=== PATIENT | female | born 1945 | race Caucasian/White ===

== ENCOUNTER 2016-11-18 19:15 | Emergency (ER) | payer OTHER, MEDICAID ==
[2016-11-18 19:36] VITALS: BP 136/69; BMI 28.6
--- NOTE | 2016-11-18 20:11 | DR.GENAD ---
HPI - PCP Primary Care Physician: JEREMI - Complaint/Symptoms Chief Complaint Doctors Comments: Patient was clearing her feet, nicked left lateral foot, noticed redness today. Chief Complaint:: INFECTION TO LEFT FOOT, SWELLING AND REDNESS NOTED ON FOOT AND LOWER LEFT LEG Self Treatment fo Chief Complaint: PATIENT HAS BEEN USING CORTISONE CREAM - Source History Provided: Patient - Mode of Arrival Mode of Arrival: Wheelchair - Timing Onset of Chief Complaint: 11/15/16 PMH - PMH Past Medical History: Yes Past Medical History: Diabetes, Hypertension Past Medical History Comment: IRREGULAR HEART RATE PT STATES" IT FLUTTERS." SKIN CANCER Past Surgical History: Yes Surgical History: Tonsillectomy Past Surgical History Comment: SKIN CANCER REMOVED - Family History History of Family Medical Conditions: Yes Family Medical History: Diabetes Mellitus, Cancer, [place] - Social History Does patient currently use any type of tobacco product: No Have you used tobacco products in the last 12 months: No Type of Tobacco Use: None Does any household member use tobacco: No Alcohol Use: None Do you use any recreational Drugs:: No Lives With: Alone Lives Where: Home - infectious screening In the last 2 months have you had wt loss of >10#?: NO Have you had fever, night sweats or hemotysis?: No Have you traveled outside the country in the last 6 months?: No Isolation: Standard ROS - Review of Systems Constitutional: No Symptoms Reported Eyes: No Symptoms Reported ENTM: No Symptoms Reported Respiratoy: No Symptoms Reported Cardiovascular: No Symptoms Reported Gastrointestinal/Abdominal: No Symptoms Reported Genitourinary: No Symptoms Reported Neurological: No Symptoms Reported Musculoskeletal: Foot (left ) Integumentary: No Symptoms Reported Hematologic/Lymphatic: No Symptoms Reported Endocrine: No Symptoms Reported Psychiatric: No Symptoms Reported All Other Systems: Reviewed and Negative PE - Vital Signs Vitals: Temperature 98.0 F Pulse Rate 62 Respiratory Rate 16 Blood Pressure 136/69 O2 Sat by Pulse Oximetry 98 - General Limitations: No Limitations General Appearance: Alert, In No Apparent Distress - Head Head Exam: Normal Inspection, Atraumatic - Eyes Eye exam: Normal Appearance, PERRL, EOMI - ENT ENT Exam: Normal Exam External Ear Exam: Normal External Inspection TM/Canal Exam: Bilateral Normal Nose Exam: Normal Nose Exam Mouth Exam: Normal Inspection Throat Exam: Normal Inspection - Neck Neck Exam: Normal Inspection - Chest Chest Inspection: Normal Inspection - Respiratory Respiratory Exam: Normal Lung Sounds Bilat Respiratory Exam: Bilateral Clear to Auscultation - Cardiovascular Cardiovascular Exam: Regular Rate - Abdominal Exam Abdominal Exam: Normal Inspection Abdominal Tenderness: negative: RUQ, RLQ, LUQ, LLQ, Epigastrium, Suprapubic, Diffuse, Mild, Moderate, Severe, Other - Extremities Extremities Exam: Other (dull redness left dorsum of left foot distal 1/3) - Back Back Exam: Normal Inspection - Neurologic Neurological Exam: Alert, Oriented X3, CN II-XII Intact - Psychiatric Psychiatric Exam: Normal Affect - Skin Skin Exam: Warm, Dry, Intact Course - Treatment Treatment: Clindamycin 600mg IV ROR - Labs Reviewed Result Diagrams: 11/18/16 20:30 Laboratory: WBC 7.8 X10^3/uL (3.6-10.0) 11/18/16 20:30 RBC 4.24 X10^6/uL (3.5-5.4) 11/18/16 20:30 Hgb 12.2 g/dL (12.0-16.0) 11/18/16 20:30 Hct 37.0 % (36.0-47.0) 11/18/16 20:30 MCV 87.3 fL (80.0-100.0) 11/18/16 20:30 MCH 28.9 pg (27.0-34.0) 11/18/16 20:30 MCHC 33.1 g/dL (33.0-35.0) 11/18/16 20:30 RDW 14.1 % (11.6-16.5) 11/18/16 20:30 Plt Count 172 X10^3/uL (150.0-450.0) 11/18/16 20:30 MPV 7.7 fL (7.4-11.0) 11/18/16 20:30 Neut % 75.2 % (42.0-75.0) H 11/18/16 20:30 Lymph % 13.7 % (21.0-51.0) L 11/18/16 20:30 [place] % 8.9 % (0.0-13.0) 11/18/16 20:30 Eos % 1.6 % (0.9-2.9) 11/18/16 20:30 Baso % 0.6 % (0.2-1.0) 11/18/16 20:30 Neut # 5.9 x10^3/uL (2.2-4.8) H 11/18/16 20:30 Lymph # 1.1 X10^3/uL (1.3-2.9) L 11/18/16 20:30 [place] # 0.7 x10^3/uL (0.3-0.8) 11/18/16 20:30 Eos # 0.1 x10^3/uL (0.0-0.2) 11/18/16 20:30 Baso # 0.0 X10^3/uL (0.0-0.1) 11/18/16 20:30 Absolute Nucleated RBC 0.0 /100WBC 11/18/16 20:30 - Diagnosis Discharge Problem: Cellulitis of foot, left - Discharge Plan Condition: Stable - Follow ups/Referrals Follow ups/Referrals: Arabella BLOOD [Primary Care Provider] - 3 days - Instructions
[2016-11-18] MEDS ORDERED: CLEOCIN 600 MG IV PREMIX 600 MG/50 ML BAG IV ONE (20:13)
[2016-11-18] MEDS ORDERED: CLEOCIN VIAL 600 MG ONE (20:26)
[2016-11-18 20:41] LABS: BASOPHILS % (AUTO) 0.6 % (0.2-1.0); EOSINOPHILS # (AUTO) 0.1 x10^3/uL (0.0-0.2); EOSINOPHILS % (AUTO) 1.6 % (0.9-2.9); HEMOGLOBIN 12.2 g/dL (12.0-16.0); LYMPHOCYTES # (AUTO) 1.1 X10^3/uL (1.3-2.9); LYMPHOCYTES % (AUTO) 13.7 % (21.0-51.0); MEAN CORPUSCULAR HEMOGLOBIN 28.9 pg (27.0-34.0); MEAN CORPUSCULAR HGB CONC 33.1 g/dL (33.0-35.0); MEAN CORPUSCULAR VOLUME 87.3 fL (80.0-100.0); MEAN PLATELET VOLUME 7.7 fL (7.4-11.0); MONOCYTES # (AUTO) 0.7 x10^3/uL (0.3-0.8); MONOCYTES % (AUTO) 8.9 % (0.0-13.0); NEUTROPHILS # (AUTO) 5.9 x10^3/uL (2.2-4.8); NEUTROPHILS % (AUTO) 75.2 % (42.0-75.0); PLATELET COUNT 172 X10^3/uL (150.0-450.0); RED BLOOD COUNT 4.24 X10^6/uL (3.5-5.4); RED CELL DISTRIBUTION WIDTH 14.1 % (11.6-16.5); WHITE BLOOD COUNT 7.8 X10^3/uL (3.6-10.0)
== END 2016-11-18 21:20 | disposition home or self-care (01) ==
LOC: ER 19:43
DX: L03.116 Cellulitis of left lower limb (principal)
CPT/HCPCS: 36415; 85025; 86140; 87040; 96365; 96374; 99282; 99283; A4222; S0077

== ENCOUNTER 2016-11-22 15:16 | Emergency (ER) | payer OTHER, MEDICAID ==
[2016-11-22 15:24] VITALS: BP 133/73; BMI 29.5
--- NOTE | 2016-11-22 16:19 | DR.GENAD ---
HPI - PCP Primary Care Physician: JEREMI - Complaint/Symptoms Chief Complaint:: PT STATES " I CAME TO THE ER ON MONDAY AND I WAS DX WITH CELLULITIS, AND PT WAS GIVEN CLEOCIN AND I WAS TOLD BY DR. BENAVIDEZ TO COME BACK TO THE ER TO RECHECK PT. - Source History Provided: Patient - Mode of Arrival Mode of Arrival: Ambulatory - Timing Onset of Chief Complaint: 11/18/16 PMH - PMH Past Medical History: Yes Past Medical History: Diabetes, Hypertension Past Surgical History: Yes Surgical History: Tonsillectomy - Family History History of Family Medical Conditions: Yes Family Medical History: Diabetes Mellitus, Cancer, [place] - Social History Does patient currently use any type of tobacco product: No Have you used tobacco products in the last 12 months: No Type of Tobacco Use: None Does any household member use tobacco: No Alcohol Use: None Do you use any recreational Drugs:: No Lives With: Family Lives Where: Home - infectious screening In the last 2 months have you had wt loss of >10#?: NO Have you had fever, night sweats or hemotysis?: No Have you traveled outside the country in the last 6 months?: No Isolation: Standard ROS - Review of Systems Constitutional: No Symptoms Reported Eyes: No Symptoms Reported ENTM: No Symptoms Reported Respiratoy: No Symptoms Reported Cardiovascular: No Symptoms Reported Gastrointestinal/Abdominal: No Symptoms Reported Genitourinary: No Symptoms Reported Neurological: No Symptoms Reported Musculoskeletal: No Symptoms Reported Integumentary: No Symptoms Reported Hematologic/Lymphatic: No Symptoms Reported Endocrine: No Symptoms Reported Psychiatric: No Symptoms Reported All Other Systems: Reviewed and Negative PE - Vital Signs Vitals: Temperature 99.6 F Pulse Rate 61 Respiratory Rate 20 Blood Pressure 133/73 O2 Sat by Pulse Oximetry 99 - General Limitations: No Limitations General Appearance: Alert, In No Apparent Distress - Head Head Exam: Normal Inspection, Atraumatic - Eyes Eye exam: Normal Appearance, PERRL, EOMI - ENT ENT Exam: Normal Exam External Ear Exam: Normal External Inspection TM/Canal Exam: Bilateral Normal Nose Exam: Normal Nose Exam Mouth Exam: Normal Inspection Throat Exam: Normal Inspection - Neck Neck Exam: Normal Inspection, Full ROM - Chest Chest Inspection: Normal Inspection, Symmetric Chest Wall Rise - Respiratory Respiratory Exam: Normal Lung Sounds Bilat Respiratory Exam: Bilateral Clear to Auscultation - Cardiovascular Cardiovascular Exam: Regular Rate - Abdominal Exam Abdominal Exam: Normal Inspection, Normal Bowel Sounds Abdominal Tenderness: RLQ. negative: RUQ, LUQ, LLQ, Epigastrium, Suprapubic, Diffuse, Mild, Moderate, Severe, Other - Extremities Extremities Exam: Other (left foot celluitis looks good line of demarcation is receeding, dull red, non tender) Course - Treatment Treatment: Continue on clindamycin 300mg qid until gone - Reevaluation 1st: Improved - Diagnosis Discharge Problem: Cellulitis Qualifiers: Site of cellulitis: extremity Site of cellulitis of extremity: lower extremity Laterality: left Qualified Code(s): L03.116 - Cellulitis of left lower limb - Discharge Plan Condition: Stable - Follow ups/Referrals Follow ups/Referrals: Arabella BLOOD [Primary Care Provider] - 3 days - Instructions
== END 2016-11-22 16:22 | disposition home or self-care (01) ==
LOC: ER 15:37
DX: L03.116 Cellulitis of left lower limb (principal)
CPT/HCPCS: 99281; 99282

== ENCOUNTER 2017-05-28 19:16 | Observation (INO) | payer OTHER, MEDICAID ==
[2017-05-28] MEDS ORDERED: NS 1000 ML 1,000 ML ONE ×2 (19:24→20:37)
[2017-05-28] MEDS ORDERED: NS 1000 ML 1,000 ML IV ONE ×2 (19:45→20:38)
--- NOTE | 2017-05-28 19:46 | DR.GENAD ---
HPI - HPI Comment HPI Comment: HISTORY BELOW. - Complaint/Symptoms Chief Complaint Doctors Comments: HERE VIA EMS. WAS TOLD GLUCOSE LOW BUT FOUNG BRADYCARDIA. HER SPEECH IS SLOW TRASIENTLY. SHE SAID SHE TOOK HER NERVE PILL. IT COULD AN ANTIHYPERTENSIVE PILL. SHE IS HYPOTENSIVE IN ED. - Nurses notes reviewed Nurses Notes Review: Yes - Source History Provided: Patient - Mode of Arrival Mode of Arrival: EMS - Timing Came on: Suddenly - Duration Duration: Constant Duration: Hours - Severity Severity: Moderate PMH - PMH Past Medical History: Diabetes, Hypertension Past Surgical History: Yes Surgical History: Tonsillectomy - Family History Family Medical History: Diabetes Mellitus, Cancer, [place] - Social History Do you use any recreational Drugs:: No ROS - Review of Systems Constitutional: No Symptoms Reported, Weakness, Fatigue. negative: Chills, Diaphoresis, Fever, Loss of Appetite Eyes: No Symptoms Reported. negative: Eye Pain, Discharge ENTM: No Symptoms Reported. negative: Ear Pain, Nose Discharge, Nose Congestion , Throat Pain Respiratoy: No Symptoms Reported, Non-Productive Cough, Short of Breath (ON EXERTION). negative: Productive Cough, Wheezing, Hemoptysis Cardiovascular: No Symptoms Reported. negative: Edema, Palpitations ( BRADYCARDIA) Gastrointestinal/Abdominal: No Symptoms Reported. negative: Abdominal Pain, Diarrhea, Nausea, Vomiting Genitourinary: No Symptoms Reported. negative: Dysuria, Hematuria Neurological: No Symptoms Reported, Weakness, Dizziness Musculoskeletal: No Symptoms Reported Integumentary: No Symptoms Reported Hematologic/Lymphatic: No Symptoms Reported Endocrine: No Symptoms Reported All Other Systems: Reviewed and Negative PE - Vital Signs Vitals: Temperature 97.8 F Pulse Rate [Apical] 49 Pulse Rate 39 Respiratory Rate 18 Blood Pressure [Left Arm] 133/62 Blood Pressure 88/47 O2 Sat by Pulse Oximetry 97 - General Limitations: No Limitations General Appearance: Alert, Other - Head Head Exam: Normal Inspection - Eyes Eye exam: Normal Appearance, PERRL, EOMI. negative: Scleral Icterus, Conjunctival Injection - ENT ENT Exam: Normal Oropharynx, Normal External Ear Exam, TM's Normal Bilaterally External Ear Exam: Normal External Inspection TM/Canal Exam: Bilateral Normal Nose Exam: Normal Nose Exam Mouth Exam: Normal Inspection Throat Exam: Normal Inspection - Neck Neck Exam: Trachea Midline - Chest Chest Inspection: Symmetric Chest Wall Rise - Respiratory Respiratory Exam: Normal Lung Sounds Bilat Respiratory Exam: Bilateral Rhonchi, Lower Rhonchi - Cardiovascular Cardiovascular Exam: Regular Rate, Normal Rhythm, Normal Heart Sounds - Abdominal Exam Abdominal Exam: Normal Bowel Sounds, Soft. negative: Tenderness - Extremities Extremities Exam: Normal Inspection - Back Back Exam: Normal Inspection - Neurologic Neurological Exam: Alert, Oriented X3 - Psychiatric Psychiatric Exam: Normal Affect, Normal Mood, Other (SLEEPY SLIGHTLY) - Skin Skin Exam: Normal Color MDM - Differential Diagnosis Differential Diagnosis: HYPOTENSION, GENERALIZE WEAKNESS, Course - Treatment Treatment: SEE ORDERS. - Consultation Consultation Comments: DISCUSS PATIENT WITH DR. ABAD. HE WILL ADMIT PATIENT. - Education/Counseling Education/Counseling: Patient, Education Educated On: Diagnosis ROR - Labs Reviewed Result Diagrams: 05/29/17 04:35 05/29/17 04:35 Laboratory: 05/28/17 23:15 Blood Blood Culture - Preliminary 05/28/17 23:00 Blood Blood Culture - Preliminary 05/28/17 22:17 Urine,Clean Catch Urine Culture - Final WBC 4.4 X10^3/uL (3.6-10.0) 05/29/17 04:35 RBC 4.08 X10^6/uL (3.5-5.4) 05/29/17 04:35 Hgb 12.5 g/dL (12.0-16.0) 05/29/17 04:35 Hct 35.8 % (36.0-47.0) L 05/29/17 04:35 MCV 87.9 fL (80.0-100.0) 05/29/17 04:35 MCH 30.7 pg (27.0-34.0) 05/29/17 04:35 MCHC 35.0 g/dL (33.0-35.0) 05/29/17 04:35 RDW 13.8 % (11.6-16.5) 05/29/17 04:35 Plt Count 131 X10^3/uL (150.0-450.0) L 05/29/17 04:35 MPV 8.4 fL (7.4-11.0) 05/29/17 04:35 Neut % 61.3 % (42.0-75.0) 05/29/17 04:35 Lymph % 26.1 % (21.0-51.0) 05/29/17 04:35 [place] % 9.6 % (0.0-13.0) 05/29/17 04:35 Eos % 2.4 % (0.9-2.9) 05/29/17 04:35 Baso % 0.6 % (0.2-1.0) 05/29/17 04:35 Neut # 2.7 x10^3/uL (2.2-4.8) 05/29/17 04:35 Lymph # 1.2 X10^3/uL (1.3-2.9) L 05/29/17 04:35 [place] # 0.4 x10^3/uL (0.3-0.8) 05/29/17 04:35 Eos # 0.1 x10^3/uL (0.0-0.2) 05/29/17 04:35 Baso # 0.0 X10^3/uL (0.0-0.1) 05/29/17 04:35 Absolute Nucleated RBC 0.1 /100WBC 05/29/17 04:35 Sodium 142 mmol/L (136-145) 05/29/17 04:35 Corrected Sodium TNP 05/29/17 04:35 Potassium 3.7 mmol/L (3.5-5.1) 05/29/17 04:35 Chloride 107 mmol/L (98-107) 05/29/17 04:35 Carbon Dioxide 31.3 mmol/L (21-32) 05/29/17 04:35 BUN 6 mg/dL (7-18) L 05/29/17 04:35 Creatinine 0.54 mg/dL (0.55-1.02) L 05/29/17 04:35 Est GFR (MDRD) Af Amer > 60 (>60) 05/29/17 04:35 Est GFR (MDRD) Non-Af > 60 (>60) 05/29/17 04:35 Glucose 82 mg/dL (65-99) 05/29/17 04:35 POC Glucose (mg/dL) 90 mg/dL (65-99) 05/30/17 12:03 Calcium 8.4 mg/dL (8.5-10.1) L 05/29/17 04:35 Corrected Calcium 9.0 mg/dL (8.5-10.1) 05/29/17 04:35 Magnesium 1.1 mg/dL (1.7-2.9) L 05/29/17 04:35 Total Bilirubin 0.70 mg/dL (0.2-1.0) 05/29/17 04:35 AST 21 Units/L (15-37) 05/29/17 04:35 ALT 13 Units/L (12-78) 05/29/17 04:35 Alkaline Phosphatase 52 Units/L (46-116) 05/29/17 04:35 Creatine Kinase 53 Units/L (26-192) 05/29/17 10:08 CK-MB (CK-2) 1.5 ng/mL (0-4.0) 05/29/17 10:08 CK/CKMB % Calc 2.8 % (<4) 05/29/17 10:08 Troponin I 0.02 ng/mL (0-1.5) 05/29/17 10:08 Total Protein 6.0 g/dL (6.4-8.2) L 05/29/17 04:35 Albumin 3.2 g/dL (3.4-5.0) L 05/29/17 04:35 Globulin 2.8 g/dL (2.5-4.5) 05/29/17 04:35 Albumin/Globulin Ratio 1.1 Ratio (1.1-2.1) 05/29/17 04:35 Specimen Type Clean catch urine 05/28/17 22:17 Urine Color Yellow (YELLOW) 05/28/17 22:17 Urine Appearance Cloudy (CLEAR) 05/28/17 22:17 Urine pH 6.0 (5.0 - 8.0) 05/28/17 22:17 Ur Specific [place] 1.010 (1.000-1.030) 05/28/17 22:17 Urine Protein Negative (NEGATIVE) 05/28/17 22:17 Urine Glucose (UA) Negative (NEGATIVE) 05/28/17 22: Urine Ketones Negative (NEGATIVE) 05/28/17 22: Urine Occult Blood Negative (NEGATIVE) 05/28/17 22: Urine Nitrite Negative (NEGATIVE) 05/28/17 22:17 Urine Bilirubin Negative (NEGATIVE) 05/28/17 22: Urine Urobilinogen Normal (NORMAL) 05/28/17 22: Ur Leukocyte Esterase 3+ (NEGATIVE) 10/01/17 22:17 Urine RBC None seen /HPF (NEGATIVE) 05/28/17 22:17 Urine WBC 8-10 /HPF (NEGATIVE) 05/28/17 22:17 Ur Squamous Epith Cells Rare /HPF (NEGATIVE) 05/28/17 22:17 Amorphous Sediment Trace /HPF (NEGATIVE) 05/28/17 22:17 Urine Bacteria 2+ /HPF (NEGATIVE) 05/28/17 22:17 Ur Culture Indicated? Yes/culture set up 05/28/17 22:17 Digoxin 0.66 ng/mL (0.9-2) L 05/28/17 20:10 Urine Opiates Screen Positive (NEG=<300) A 05/28/17: Urine Methadone Screen Negative (NEG=<300) 05/28/17 22: Ur Barbiturates Screen Negative (NEG=<200) 05/28/17 22:17 Ur Phencyclidine Scrn Negative (NEG=<25) 05/28/17 22:17 Ur Amphetamines Screen Negative (NEG=<1000) 05/28/17 22:17 U Benzodiazepines Scrn Positive (NEG=<200) A 05/28/17 22: Urine Cocaine Screen Negative (NEG=<300) 05/28/17 22:17 U Marijuana (THC) Screen Negative (NEG=<50) 05/28/17 22: - XRAY XRAY Interpreted by: Radiologist XRAY Findings: REPORT NOTED. - Diagnosis Discharge Problem: Bradycardia, Dysarthria Hypotension Qualifiers: Hypotension type: unspecified hypotension type Qualified Code(s): I95.9 - Hypotension, unspecified - Discharge Plan Disposition: ADMITTED INPATIENT Condition: Stable - Follow ups/Referrals - Instructions
[2017-05-28 20:19] LABS: BASOPHILS % (AUTO) 0.5 % (0.2-1.0); EOSINOPHILS # (AUTO) 0.1 x10^3/uL (0.0-0.2); EOSINOPHILS % (AUTO) 2.7 % (0.9-2.9); HEMATOCRIT 32.7 % (36.0-47.0); HEMOGLOBIN 11.3 g/dL (12.0-16.0); LYMPHOCYTES # (AUTO) 1.5 X10^3/uL (1.3-2.9); MEAN CORPUSCULAR HEMOGLOBIN 30.2 pg (27.0-34.0); MEAN CORPUSCULAR HGB CONC 34.6 g/dL (33.0-35.0); MEAN CORPUSCULAR VOLUME 87.2 fL (80.0-100.0); MEAN PLATELET VOLUME 8.2 fL (7.4-11.0); MONOCYTES # (AUTO) 0.6 x10^3/uL (0.3-0.8); MONOCYTES % (AUTO) 12.2 % (0.0-13.0); NEUTROPHILS % (AUTO) 55.6 % (42.0-75.0); PLATELET COUNT 132 X10^3/uL (150.0-450.0); RED BLOOD COUNT 3.76 X10^6/uL (3.5-5.4); RED CELL DISTRIBUTION WIDTH 13.9 % (11.6-16.5); WHITE BLOOD COUNT 5.3 X10^3/uL (3.6-10.0)
[2017-05-28 20:44] LABS: ALANINE AMINOTRANSFERASE 12 Units/L (12-78); ALKALINE PHOSPHATASE 53 Units/L (46-116); ASPARTATE AMINO TRANSFERASE 18 Units/L (15-37); BLOOD UREA NITROGEN 10 mg/dL (7-18); CALCIUM 8.4 mg/dL (8.5-10.1); CARBON DIOXIDE 29.7 mmol/L (21-32); CHLORIDE 100 mmol/L (98-107); COR CA(FOR HYPOALB) 9.2 mg/dL (8.5-10.1); COR NA(FOR HYPERGLY) 134 mmol/L (136-145); CREATINE KINASE 34 Units/L (26-192); CREATININE 0.63 mg/dL (0.55-1.02); SODIUM 134 mmol/L (136-145); TOTAL PROTEIN 5.5 g/dL (6.4-8.2); TROPONIN I < 0.02 ng/mL (0-1.5); eGFR BLACK RACES > 60 (>60); eGFR NON BLACK RACES > 60 (>60)
--- NOTE | 2017-05-28 20:49 | RAD ---
HISTORY: Chest pain Study: Single view of the chest Comparison: November 16, 2013 Findings: The trachea is midline. The cardiac silhouette is enlarged. The lungs are clear without focal infil trate or effusion. The aortic knob is partially calcified. IMPRESSION: 1. Cardiomegaly. Reported By:
[2017-05-28 22:09] LABS: CKMB % 2.9 % (<4); CREATINE KINASE MB < 1.0 ng/mL (0-4.0)
[2017-05-28 22:27] LABS: BILIRUBIN,URINE NEGATIVE (NEGATIVE); BLOOD/HEMOGLOBIN,URINE NEGATIVE (NEGATIVE); GLUCOSE, URINE NEGATIVE (NEGATIVE); KETONES,URINE NEGATIVE (NEGATIVE); LEUKOCYTE ESTERASE ,URINE 3+ (NEGATIVE); NITRITES,URINE NEGATIVE (NEGATIVE); PROTEIN,URINE NEGATIVE (NEGATIVE); UROBILINOGEN,URINE NORMAL (NORMAL)
[2017-05-28 22:33] LABS: COLOR,URINE YELLOW (YELLOW)
[2017-05-28 22:34] LABS: AMORPHOUS SEDIMENT,UR TRACE /HPF (NEGATIVE); APPEARANCE,URINE CLOUDY (CLEAR); BACTERIA,URINE 2+ /HPF (NEGATIVE); RBC,URINE NONE SEEN /HPF (NEGATIVE); SQUAMOUS EPITHELIAL CELL,UR RARE /HPF (NEGATIVE)
[2017-05-28] MEDS ORDERED: ROCEPHIN VIAL 1 GM 1 GM in NS 50 ML IV + SPIKE MINIBAG* 50 ML IV ONE (22:47)
[2017-05-28] MEDS ORDERED: ROCEPHIN 1 GM IV PREMIX * OUT OF STOCK 50 ML IV ONE (22:47)
[2017-05-28] MEDS: NS 1000 ML 1,000 ML IV SCH (22:53)
--- NOTE | 2017-05-28 23:43 | CT ---
EXAM: CT BRAIN WITHOUT CONTRAST INDICATION: Altered mental status COMPARISION: No Priors TECHNIQUE: Routine axial CT of the brain was performed without intravenous contrast. FINDINGS: There is mild bilateral cortical atrophy. Patchy areas of low-attenuation are identified in the periv entricular white matter bilaterally. The ventricular system is not abnormally dilated. No intra or ex tra-axial mass or hemorrhage. The penaloza-white junction is preserved. There is no evidence of subacute ischemic change. The basilar cisterns are clear. The skull is intact. The paranasal sinuses and mastoid air cells are clear. IMPRESSION: There is bilateral cortical atrophy. Periventricular and subcortical white matter changes are present bilaterally consistent with mild small vessel vasculopathy. No acute abnormality identified. Reported By:
[2017-05-29 01:23] VITALS: BMI 33.6
[2017-05-29] MEDS ORDERED: FLUVIRIN IM ONE (01:24)
[2017-05-29 05:10] LABS: BASOPHILS % (AUTO) 0.6 % (0.2-1.0); EOSINOPHILS # (AUTO) 0.1 x10^3/uL (0.0-0.2); EOSINOPHILS % (AUTO) 2.4 % (0.9-2.9); HEMATOCRIT 35.8 % (36.0-47.0); HEMOGLOBIN 12.5 g/dL (12.0-16.0); LYMPHOCYTES # (AUTO) 1.2 X10^3/uL (1.3-2.9); LYMPHOCYTES % (AUTO) 26.1 % (21.0-51.0); MEAN CORPUSCULAR HEMOGLOBIN 30.7 pg (27.0-34.0); MEAN CORPUSCULAR VOLUME 87.9 fL (80.0-100.0); MEAN PLATELET VOLUME 8.4 fL (7.4-11.0); MONOCYTES # (AUTO) 0.4 x10^3/uL (0.3-0.8); MONOCYTES % (AUTO) 9.6 % (0.0-13.0); NEUTROPHILS # (AUTO) 2.7 x10^3/uL (2.2-4.8); NEUTROPHILS % (AUTO) 61.3 % (42.0-75.0); PLATELET COUNT 131 X10^3/uL (150.0-450.0); RED BLOOD COUNT 4.08 X10^6/uL (3.5-5.4); RED CELL DISTRIBUTION WIDTH 13.8 % (11.6-16.5); WHITE BLOOD COUNT 4.4 X10^3/uL (3.6-10.0)
[2017-05-29 05:32] LABS: ALANINE AMINOTRANSFERASE 13 Units/L (12-78); ALBUMIN 3.2 g/dL (3.4-5.0); ALKALINE PHOSPHATASE 52 Units/L (46-116); ASPARTATE AMINO TRANSFERASE 21 Units/L (15-37); BLOOD UREA NITROGEN 6 mg/dL (7-18); CALCIUM 8.4 mg/dL (8.5-10.1); CARBON DIOXIDE 31.3 mmol/L (21-32); CHLORIDE 107 mmol/L (98-107); CKMB % 2.8 % (<4); CREATINE KINASE 43 Units/L (26-192); CREATINE KINASE MB 1.2 ng/mL (0-4.0); CREATININE 0.54 mg/dL (0.55-1.02); MAGNESIUM 1.1 mg/dL (1.7-2.9); SODIUM 142 mmol/L (136-145); TROPONIN I 0.02 ng/mL (0-1.5); eGFR BLACK RACES > 60 (>60); eGFR NON BLACK RACES > 60 (>60)
[2017-05-29] MEDS: ROCEPHIN VIAL 1 GM 1 GM in NS 50 ML IV + SPIKE MINIBAG* 50 ML IV SCH (08:53)
[2017-05-29] MEDS: NS 1000 ML 1,000 ML IV SCH (08:54)
[2017-05-29 11:02] LABS: CKMB % 2.8 % (<4); CREATINE KINASE MB 1.5 ng/mL (0-4.0); TROPONIN I 0.02 ng/mL (0-1.5)
[2017-05-29] MEDS: SNACK - Diabetic Appropriate PO SCH ×2 (11:42→21:29)
[2017-05-29] MEDS ORDERED: NORCO 10/325 TAB PO PRN (19:04)
[2017-05-29] MEDS ORDERED: GLUCOPHAGE ONE (21:11)
[2017-05-29] MEDS: GLUCOPHAGE PO SCH (21:29)
[2017-05-29] MEDS: CELEXA PO SCH (21:29)
[2017-05-30] MEDS ORDERED: GLUCOPHAGE ONE (05:42)
[2017-05-30] MEDS: GLUCOPHAGE PO SCH ×2 (06:09→11:43)
[2017-05-30] MEDS: CELEXA PO SCH (09:55)
[2017-05-30] MEDS: ROCEPHIN VIAL 1 GM 1 GM in NS 50 ML IV + SPIKE MINIBAG* 50 ML IV SCH (09:55)
[2017-05-30] MEDS ORDERED: NS 100 ML IV 100 ML IV ONE (09:58)
[2017-05-30 11:43] VITALS: BP 168/65
== END 2017-05-30 12:25 | disposition short-term general hospital (02) | DRG 316 ==
LOC: ER 19:16 → UNDOADMOB 23:51 → ICU 23:51 → MED/SURG 05-29 11:43
PROVIDERS: ADMIT Internal Medicine; ATTEND Internal Medicine
PROC: 3E0234Z Introduction of Serum, Toxoid and Vaccine into Muscle, Percutaneous Approach (ICD-10-PCS; principal; 2017-05-29)
DX: I95.89 Other hypotension (principal); R00.1 Bradycardia, unspecified; R40.4 Transient alteration of awareness; E11.65 Type 2 diabetes mellitus with hyperglycemia; I10 Essential (primary) hypertension; R94.31 Abnormal electrocardiogram [ECG] [EKG]; I48.91 Unspecified atrial fibrillation; Z23 Encounter for immunization
CPT/HCPCS: 36415; 70450; 71010; 80053; 80162; 80307; 81001; 82550; 82553; 83735; 84484; 85025; 87040; 87086; 90686; 93005; 93010; 94760; 96365; 96367; 96374; 99284; A4222; G0378; G0434; J0696

== ENCOUNTER → 2017-12-27 | Outpatient (CLI) | payer OTHER, MEDICAID ==
[2017-12-27 09:27] LABS: BASOPHILS % (AUTO) 1.2 % (0.2-1.0); EOSINOPHILS # (AUTO) 0.2 x10^3/uL (0.0-0.2); EOSINOPHILS % (AUTO) 5.3 % (0.9-2.9); HEMATOCRIT 35.7 % (36.0-47.0); HEMOGLOBIN 12.3 g/dL (12.0-16.0); LYMPHOCYTES # (AUTO) 1.5 X10^3/uL (1.3-2.9); LYMPHOCYTES % (AUTO) 40.7 % (21.0-51.0); MEAN CORPUSCULAR HEMOGLOBIN 29.8 pg (27.0-34.0); MEAN CORPUSCULAR HGB CONC 34.5 g/dL (33.0-35.0); MEAN CORPUSCULAR VOLUME 86.3 fL (80.0-100.0); MEAN PLATELET VOLUME 7.8 fL (7.4-11.0); MONOCYTES # (AUTO) 0.5 x10^3/uL (0.3-0.8); MONOCYTES % (AUTO) 14.4 % (0.0-13.0); NEUTROPHILS # (AUTO) 1.4 x10^3/uL (2.2-4.8); NEUTROPHILS % (AUTO) 38.4 % (42.0-75.0); PLATELET COUNT 168 X10^3/uL (150.0-450.0); RED BLOOD COUNT 4.14 X10^6/uL (3.5-5.4); RED CELL DISTRIBUTION WIDTH 13.7 % (11.6-16.5); WHITE BLOOD COUNT 3.8 X10^3/uL (3.6-10.0)
[2017-12-27 09:32] LABS: BLOOD UREA NITROGEN 10 mg/dL (7-18); CALCIUM 8.8 mg/dL (8.5-10.1); CARBON DIOXIDE 35.2 mmol/L (21-32); CHLORIDE 95 mmol/L (98-107); CREATININE 0.55 mg/dL (0.55-1.02); SODIUM 134 mmol/L (136-145); eGFR BLACK RACES > 60 (>60); eGFR NON BLACK RACES > 60 (>60)
== END | disposition home or self-care (01) | DRG 951 ==
LOC: LAB 08:50
PROVIDERS: ATTEND Internal Medicine
DX: Z01.818 Encounter for other preprocedural examination (principal); Z01.810 Encounter for preprocedural cardiovascular examination; H53.8 Other visual disturbances; H43.393 Other vitreous opacities, bilateral
CPT/HCPCS: 36415; 80048; 85025; 85610; 85730; 93005; 93010

== ENCOUNTER 2019-06-02 03:42 | Observation (INO) ==
[2019-06-02] MEDS ORDERED: TORADOL 30 MG VIAL IVP ONE (03:57)
--- NOTE | 2019-06-02 04:01 | DR.GENAD ---
HPI - Complaint/Symptoms Chief Complaint Doctors Comments: EMS states patient fell at home two times today and the last time she was on the floor and could not get up. They helped her up but she was complaining of back and knee pain. Patient stays by herself and they said she appears inneberated with no one to help her at home and she has fallen two times today. She is complaining of severe right knee pain and right hip pain. States she tried to get up but could not get up and called EMS. She denies tobacco use but states she drinks to much for the past three years. - Nurses notes reviewed Nurses Notes Review: Yes - Source History Provided: Patient, EMS - Mode of Arrival Mode of Arrival: EMS - Timing Came on: Suddenly - Duration Duration: Constant How lon Duration: Days - Location Location: right knee and hip - Modifying Factors Worsens:: standing Improves:: nothing PMH - PMH Past Medical History: Angina, Hypertension, Depression, Arthritis Past Surgical History: Yes Surgical History: Other, Tonsillectomy - Family History Family Medical History: Cancer - Social History Do you use any recreational Drugs:: No - infectious screening Isolation: Standard ROS - Review of Systems Constitutional: No Symptoms Reported Eyes: No Symptoms Reported ENTM: No Symptoms Reported Respiratoy: No Symptoms Reported. negative: See HPI, Productive Cough, Non- Productive Cough, Moist Cough, Dry Cough, Hacking Cough, Barking Cough, Brassy Cough, Orthopnea, Short of Breath, Stridor, Wheezing, Hemoptysis, Other Cardiovascular: No Symptoms Reported. negative: See HPI, Chest Pain, Edema, Palpitations, Syncope, Cyanosis, Skin Mottling, Other Gastrointestinal/Abdominal: No Symptoms Reported. negative: See HPI, Abdominal Pain, Constipation, Diarrhea, Nausea, Vomiting, Food Intolerance, Other Genitourinary: No Symptoms Reported Neurological: No Symptoms Reported, Problems Walking (right hip and knee pain) Musculoskeletal: No Symptoms Reported, Right, Hip, Knee Integumentary: No Symptoms Reported Hematologic/Lymphatic: No Symptoms Reported Endocrine: No Symptoms Reported Psychiatric: No Symptoms Reported PE - General Limitations: No Limitations General Appearance: Alert, In Distress (slight) - Head Head Exam: Normal Inspection, Atraumatic, Normocephalic - Eyes Eye exam: Normal Appearance, PERRL, EOMI. negative: Scleral Icterus, Conjunctival Injection, Nystagmus, Miosis, Mydrasis, Periorbital Swelling, Periorbital Tenderness, Other - ENT ENT Exam: Normal Exam, Normal Oropharynx, Normal External Ear Exam, Mucous Membranes Moist, TM's Normal Bilaterally External Ear Exam: Normal External Inspection TM/Canal Exam: Bilateral Normal Nose Exam: Normal Nose Exam Mouth Exam: Normal Inspection. negative: Drooling, Trismus, Lip Swelling, Tongue Elevation, Tongue Swelling, Laceration, Other Throat Exam: Normal Inspection. negative: Tonsillar Erythema, Tonsillomegaly, Tonsillar Exudate, R Peritonsillar Mass, L Peritonsillar Mass, Muffled Voice, Other - Neck Neck Exam: Normal Inspection, Full ROM, Trachea Midline. negative: Tenderness, Meningismus, Lymphadenopathy, Thyromegaly, Other - Chest Chest Inspection: Normal Inspection, Symmetric Chest Wall Rise - Respiratory Respiratory Exam: Normal Lung Sounds Bilat Respiratory Exam: Bilateral Clear to Auscultation - Cardiovascular Cardiovascular Exam: Regular Rate, Normal Rhythm, Normal Heart Sounds - Abdominal Exam Abdominal Exam: Normal Inspection, Normal Bowel Sounds, Soft. negative: Distention, Tenderness, Guarding, Rebound, Rigidity, Dimnished Bowel Sounds, Hyperactive Bowel Sounds, Hypoactive Bowel Sounds, Organomegaly, Trauma, Incisi on, Ascites, Mass, Bruit, Pulsatile Mass, Hernia, Other Abdominal Tenderness: negative: RUQ, RLQ, LUQ, LLQ, Epigastrium, Suprapubic, Diffuse, Mild, Moderate, Severe, Other - Extremities Extremities Exam: Normal Inspection, Full ROM, Tenderness (right knee with moderate swelling; tender; crepitus knee; right hip tender on palpation), Normal Capillary Refill. negative: Edema, Joint Swelling, Calf Tenderness, Other - Back Back Exam: Normal Inspection, Full ROM, Tenderness (lower back), Paraspinal Tenderness. negative: (R) CVA Tenderness, (L) CVA Tenderness, Muscle Spasm, Vertebral Tenderness, Rashes, (R) Sciatic Notch Tenderness, (L) Sciatic Notch Tendern, (R) Straight Leg Raise, (L) Straight Leg Raise, Other - Neurologic Neurological Exam: Alert, Oriented X3, CN II-XII Intact, Reflexes Normal. negative: Normal Gait (gait not tested) - Psychiatric Psychiatric Exam: Normal Affect, Normal Mood - Skin Skin Exam: Warm, Dry, Intact, Normal Color - Vital Signs Vitals: Temperature 97.8 F Pulse Rate 82 Respiratory Rate 18 Blood Pressure [Left Arm] 131/68 Blood Pressure 121/57 O2 Sat by Pulse Oximetry 99 Course - Reevaluation 1st: Improved - Consultation Called: 07:08 Call Returned: 07:09 (Dr. Alarcon to admit) - Education/Counseling Education/Counseling: Patient, Family Educated On: Treatment, Diagnosis, Prognosis, Needs for Follow Up ROR - Labs Reviewed Laboratory Results Reviewed?: Yes (All labs and x-ray results reviewed and discussed with patient.) Result Diagrams: 06/02/19 04:05 06/02/19 04:05 - Other Results Comments: Right knee x-ray: Moderate suprpatellar joint effusion, soft tissue edema about the knee and severe tricompartmental degenerative change without fracture of dislocation. CT pelvis: No CT evidence of acute fracture or dislocation. CT lumbar spine: Spine DJD. Gallstones with dilated common bile duct. Cardiomegaly and increased interstitial markings. Vascular plaque. - XRAY XRAY Interpreted by: Radiologist (CT cervical spine: No evidence of acute fracture or malalignment. Multilevel degenerative change and spondyloarthropathy) XRAY Findings: CT lumbar spine: Spine DJD without displaced fracture. Multilevel arthritis - EKG Rate: 70 Sweeny: Normal Rhythm: Paced Block: LBBB ST: Nonsp - Labs Reviewed Laboratory: WBC 6.8 X10^3/uL (3.6-10.0) 06/02/19 04:05 RBC 3.98 X10^6/uL (3.5-5.4) 06/02/19 04:05 Hgb 12.0 g/dL (12.0-16.0) 06/02/19 04:05 Hct 34.7 % (36.0-47.0) L 06/02/19 04:05 MCV 87.3 fL (80.0-100.0) 06/02/19 04:05 MCH 30.1 pg (27.0-34.0) 06/02/19 04:05 MCHC 34.5 g/dL (33.0-35.0) 06/02/19 04:05 RDW 14.1 % (11.6-16.5) 06/02/19 04:05 Plt Count 234 X10^3/uL (150.0-450.0) 06/02/19 04:05 MPV 7.3 fL (7.4-11.0) L 06/02/19 04:05 Neut % (Auto) 69.4 % (42.0-75.0) 06/02/19 04:05 Lymph % (Auto) 22.5 % (21.0-51.0) 06/02/19 04:05 Gregory % (Auto) 6.4 % (0.0-13.0) 06/02/19 04:05 Eos % (Auto) 1.3 % (0.9-2.9) 06/02/19 04:05 Baso % (Auto) 0.4 % (0.2-1.0) 06/02/19 04:05 Neut # (Auto) 4.7 x10^3/uL (2.2-4.8) 06/02/19 04:05 Lymph # (Auto) 1.5 X10^3/uL (1.3-2.9) 06/02/19 04:05 Gregory # (Auto) 0.4 x10^3/uL (0.3-0.8) 06/02/19 04:05 Eos # (Auto) 0.1 x10^3/uL (0.0-0.2) 06/02/19 04:05 Baso # (Auto) 0.0 X10^3/uL (0.0-0.1) 06/02/19 04:05 Absolute Nucleated RBC 0.0 /100WBC 06/02/19 04:05 PT 17.5 SECONDS (11.8-14.3) 06/02/19 04:05 INR Target Range - 06/02/19 04:05 INR 1.49 (0.8-1.3) H 06/02/19 04:05 APTT 39.3 SECONDS (22.9-36.5) H 06/02/19 04:05 PTT Comment - 06/02/19 04:05 Sodium 130 mmol/L (136-145) L 06/02/19 04:05 Corrected Sodium TNP 06/02/19 04:05 Potassium 3.7 mmol/L (3.5-5.1) 06/02/19 04:05 Chloride 92 mmol/L (98-107) L 06/02/19 04:05 Carbon Dioxide 22.1 mmol/L (21-32) 06/02/19 04:05 BUN 5 mg/dL (7-18) L 06/02/19 04:05 Creatinine 0.59 mg/dL (0.55-1.02) 06/02/19 04:05 Est GFR (MDRD) Af Amer > 60 (>60) 06/02/19 04:05 Est GFR (MDRD) Non-Af > 60 (>60) 06/02/19 04:05 Glucose 63 mg/dL (65-99) L 06/02/19 04:05 Calcium 8.0 mg/dL (8.5-10.1) L 06/02/19 04:05 Corrected Calcium TNP 06/02/19 04:05 Magnesium 1.0 mg/dL (1.7-2.9) L 06/02/19 04:05 Total Bilirubin 0.60 mg/dL (0.2-1.0) 06/02/19 04:05 AST 41 Units/L (15-37) H 06/02/19 04:05 ALT 21 Units/L (12-78) 06/02/19 04:05 Alkaline Phosphatase 78 Units/L (46-116) 06/02/19 04:05 Creatine Kinase 230 Units/L (26-192) H 06/02/19 04:05 CK-MB (CK-2) 4.5 ng/mL (0-4.0) H* 06/02/19 04:05 CK/CKMB % Calc 2.0 % (<4) 06/02/19 04:05 Troponin I < 0.02 ng/mL (0-1.5) 06/02/19 04:05 Total Protein 6.5 g/dL (6.4-8.2) 06/02/19 04:05 Albumin 3.4 g/dL (3.4-5.0) 06/02/19 04:05 Globulin 3.1 g/dL (2.5-4.5) 06/02/19 04:05 Albumin/Globulin Ratio 1.1 Ratio (1.1-2.1) 06/02/19 04:05 Specimen Type Random urine 06/02/19 05:55 Urine Color Yellow (YELLOW) 06/02/19 05:55 Urine Appearance Cloudy (CLEAR) 06/02/19 05:55 Urine pH 6.0 (5.0 - 8.0) 06/02/19 05:55 Ur Specific [place] 1.015 (1.000-1.030) 06/02/19 05:55 Urine Protein 3+ (NEGATIVE) 06/02/19 05:55 Urine Glucose (UA) Negative (NEGATIVE) 06/02/19 05:55 Urine Ketones 1+ (NEGATIVE) 06/02/19 05:55 Urine Occult Blood 5+ (NEGATIVE) 06/02/19 05:55 Urine Nitrite Negative (NEGATIVE) 06/02/19 05:55 Urine Bilirubin Negative (NEGATIVE) 06/02/19 05:55 Urine Urobilinogen Normal (NORMAL) 06/02/19 05:55 Ur Leukocyte Esterase 3+ (NEGATIVE) 06/02/19 05:55 Urine RBC Tntc /HPF (0-3) A 06/02/19 05:55 Urine WBC Tntc /HPF (0-5) A 06/02/19 05:55 Ur Squamous Epith Cells Few /HPF (NEGATIVE) 06/02/19 05:55 Urine Bacteria 3+ /HPF (NEGATIVE) 06/02/19 05:55 Ur Culture Indicated? No/not indicated 06/02/19 05:55 Urine Opiates Screen Negative (NEG=<300) 06/02/19 05:55 Urine Methadone Screen Negative (NEG=<300) 06/02/19 05:55 Ur Barbiturates Screen Negative (NEG=<200) 06/02/19 05:55 Ur Phencyclidine Scrn Negative (NEG=<25) 06/02/19 05:55 Ur Amphetamines Screen Negative (NEG=<1000) 06/02/19 05:55 U Benzodiazepines Scrn Positive (NEG=<200) A 06/02/19 05:55 Urine Cocaine Screen Negative (NEG=<300) 06/02/19 05:55 U Marijuana (THC) Screen Negative (NEG=<50) 06/02/19 05:55 Ethyl Alcohol mg/dL 338 mg/dL (0-19.9) H 06/02/19 04:05 Opioid - Opioid Risk Tool Total: 0 Total Score Risk Category: Low Risk - Diagnosis Discharge Problem: Abnormal EKG, Hyponatremia Alcohol intoxication Qualifiers: Complication of substance-induced condition: uncomplicated Qualified Code(s): F10.920 - Alcohol use, unspecified with intoxication, uncomplicated Contusion of back Qualifiers: Encounter type: initial encounter Degenerative joint disease (DJD) of hip Qualifiers: Osteoarthritis type: unspecified Laterality: right Qualified Code(s): M16.11 - Unilateral primary osteoarthritis, right hip - Discharge Plan Disposition: ADMITTED INPATIENT Condition: Stable - Follow ups/Referrals Follow ups/Referrals: NFD,None [Primary Care Provider] - 3 days - Instructions
[2019-06-02] MEDS ORDERED: TORADOL 30 MG VIAL ONE (04:12)
[2019-06-02] MEDS: NS 1000 ML 1,000 ML IV SCH ×2 (04:15→18:14)
[2019-06-02 04:20] LABS: BASOPHILS % (AUTO) 0.4 % (0.2-1.0); EOSINOPHILS # (AUTO) 0.1 x10^3/uL (0.0-0.2); EOSINOPHILS % (AUTO) 1.3 % (0.9-2.9); HEMATOCRIT 34.7 % (36.0-47.0); LYMPHOCYTES # (AUTO) 1.5 X10^3/uL (1.3-2.9); LYMPHOCYTES % (AUTO) 22.5 % (21.0-51.0); MEAN CORPUSCULAR HEMOGLOBIN 30.1 pg (27.0-34.0); MEAN CORPUSCULAR HGB CONC 34.5 g/dL (33.0-35.0); MEAN CORPUSCULAR VOLUME 87.3 fL (80.0-100.0); MEAN PLATELET VOLUME 7.3 fL (7.4-11.0); MONOCYTES # (AUTO) 0.4 x10^3/uL (0.3-0.8); MONOCYTES % (AUTO) 6.4 % (0.0-13.0); NEUTROPHILS # (AUTO) 4.7 x10^3/uL (2.2-4.8); NEUTROPHILS % (AUTO) 69.4 % (42.0-75.0); PLATELET COUNT 234 X10^3/uL (150.0-450.0); RED BLOOD COUNT 3.98 X10^6/uL (3.5-5.4); RED CELL DISTRIBUTION WIDTH 14.1 % (11.6-16.5); WHITE BLOOD COUNT 6.8 X10^3/uL (3.6-10.0)
[2019-06-02 04:32] LABS: BLOOD UREA NITROGEN 5 mg/dL (7-18); CARBON DIOXIDE 22.1 mmol/L (21-32); CHLORIDE 92 mmol/L (98-107); CREATININE 0.59 mg/dL (0.55-1.02); SODIUM 130 mmol/L (136-145); TROPONIN I < 0.02 ng/mL (0-1.5); eGFR NON BLACK RACES > 60 (>60)
[2019-06-02 04:55] LABS: ALANINE AMINOTRANSFERASE 21 Units/L (12-78); ALBUMIN 3.4 g/dL (3.4-5.0); ALKALINE PHOSPHATASE 78 Units/L (46-116); ASPARTATE AMINO TRANSFERASE 41 Units/L (15-37); CREATINE KINASE 230 Units/L (26-192); TOTAL PROTEIN 6.5 g/dL (6.4-8.2)
[2019-06-02 05:03] LABS: CREATINE KINASE MB 4.5 ng/mL (0-4.0)
[2019-06-02] MEDS ORDERED: MAGNESIUM SULFATE 50% INJ VIAL ONE (05:18)
[2019-06-02] MEDS ORDERED: MVI INJ (ADULT) IV ONE (05:19)
[2019-06-02] MEDS: NS 1000 ML 1,000 ML with MAGNESIUM SULFATE 50% INJ VIAL 1 G, MVI INJ (ADULT) 10 ML IV SCH ×3 (05:38)
--- NOTE | 2019-06-02 06:02 | CT ---
CT lumbar spine without contrast Indication: Pain after fall Technique: Helical images through the lumbar spine without contrast. Coronal and sagittal reformats provided. Findings: Limited images through the thoracic spine shows no acute abnormality. Lumbosacral junction is intact. There is multilevel lumbar spine disc degenerative change and facet arthropathy. Disc bulges and osteophytes cause multilevel spinal canal and neural foramen narrowing. Spine curves to the left. Limited images through the lower chest shows borderline edema type appearance. Gallstones are noted in the gallbladder. The common bile duct is prominent. Aortic calcifications are noted. Impression: 1. Spine DJD without convincing displaced fracture. Multilevel spinal canal and neural foramen stenosis likely. 2. Gallstones with dilated common bile duct. Correlate with hepatic biochemical profile 3. Cardiomegaly and increased interstitial markings. Correlate for CHF 4. Vascular plaque and other findings as above. Reported By:
[2019-06-02 06:09] LABS: BILIRUBIN,URINE NEGATIVE (NEGATIVE); BLOOD/HEMOGLOBIN,URINE 5+ (NEGATIVE); GLUCOSE, URINE NEGATIVE (NEGATIVE); KETONES,URINE 1+ (NEGATIVE); LEUKOCYTE ESTERASE ,URINE 3+ (NEGATIVE); NITRITES,URINE NEGATIVE (NEGATIVE); PROTEIN,URINE 3+ (NEGATIVE); UROBILINOGEN,URINE NORMAL (NORMAL)
--- NOTE | 2019-06-02 06:10 | CT ---
CT CERVICAL SPINE WITHOUT CONTRAST CLINICAL HISTORY: 73-year-old female found down COMPARISON: None. TECHNIQUE: Multiple, noncontrasted axial CT images were obtained from the skull base to the cervical-thoracic junction and reformatted in the sagittal and coronal planes. Dose reduction techniques including Automated Exposure Control (AEC) and adjustment of mA and kV were utilized. FINDINGS: Straightening of the cervical lordosis as imaged. Multilevel disc degeneration and spondyloarthropathy without acute fracture or malalignment. The atlanto-axial and atlanto-occipital relationships are preserved with significant degenerative change and mild pannus present. The posterior elements are normal in appearance and alignment. The soft tissues of the neck and lung apices are normal. At C2-C3: Disc osteophyte with canal measuring 10 mm without foraminal stenosis. C3-C4: Disc osteophyte with segmental ossification posterior longitudinal ligament. Canal measures 8.4 mm. Mild left foraminal stenosis. At C4-C5: Disc osteophyte with canal measuring 10.5 mm. Uncovertebral joint hypertrophy with spurring and facet arthropathy produce moderate right foraminal stenosis. At C5-C6: Disc osteophyte with canal measuring 9 mm. Subtle degenerative retrolisthesis with loss of disc space and subchondral cysts. Uncovertebral joint hypertrophy with spurring and facet arthropathy produce moderate to severe bilateral foraminal stenosis. At C6-C7: Broad-based disc osteophyte with canal measuring 7.2 mm. Uncovertebral joint hypertrophy with spurring and facet arthropathy produce moderate left and moderate to severe right foraminal stenosis. At C7-T1: No central canal or foraminal stenosis. IMPRESSION: 1. No evidence of acute fracture or malalignment. 2. Multilevel degenerative change and spondyloarthropathy. Reported By:
--- NOTE | 2019-06-02 06:15 | CT ---
CT OF THE PELVIS WITHOUT CONTRAST - [facility] [place] [facility] CLINICAL HISTORY: 73-year-old female found down with likely alcohol intoxication. COMPARISON: None. TECHNIQUE: Multiple axial images without contrast are obtained through the pelvis for bony structure evaluation. Coronal and sagittal reformatted imaging is submitted. Dose reduction techniques including Automated Exposure Control (AEC) and adjustment of mA and kV were utilized. FINDINGS: Study is limited secondary to patient motion. The sacrum is intact. No evidence of widening of the bilateral sacroiliac joints. No significant degenerative disease of the sacrum or sacroiliac joints. Pelvic ala show no evidence of cortical interruption to suggest fracture. No fractures are identified of the bilateral femoral acetabular joints. Proximal femurs are intact. The overlying musculature and soft tissues of the pelvis show no acute abnormalities. The visualized intra-pelvic organs are normal. Atherosclerotic calcification arteriovascular structures. Significant degenerative change of the imaged lower lumbar spine with bilateral severe foraminal stenoses L4-S1. Muscle wasting with body wall anasarca. Small fat containing umbilical hernia. IMPRESSION: 1. No CT evidence of acute fracture or dislocation of the pelvic bony structures. 2. See above for other nonacute findings. Reported By:
--- NOTE | 2019-06-02 06:18 | RAD ---
HISTORY: 73-year-old female found down without [place] intoxication. Study: Frontal view of the chest. Comparison: Chest radiograph 05/28/2017 Findings: Interval placement single lead left chest AICD. The trachea is midline. The cardiac silhouette is stably enlarged. The lungs are clear without focal consolidation, effusion or pneumothorax. Soft tissues are unremarkable. Osseous structures are unremarkable. IMPRESSION: 1. No acute cardiopulmonary disease with chronic cardiomegaly. Reported By:
[2019-06-02 06:19] LABS: APPEARANCE,URINE CLOUDY (CLEAR); BACTERIA,URINE 3+ /HPF (NEGATIVE); COLOR,URINE YELLOW (YELLOW); RBC,URINE TNTC /HPF (0-3); SQUAMOUS EPITHELIAL CELL,UR FEW /HPF (NEGATIVE)
--- NOTE | 2019-06-02 06:21 | RAD ---
KNEE RADIOGRAPHS CLINICAL HISTORY: 73-year-old female found down with alcohol intoxication. COMPARISON: Right knee radiographs 10/17/2018. FINDINGS: 3 views of the right knee demonstrate no acute fracture or malalignment. There is a moderate suprapatellar joint effusion. Loss of the medial lateral joint space with chondrocalcinosis and severe tricompartmental degenerative change and marginal osteophytes. The mineralization is normal. There is no aggressive bone lesion or abnormal periosteal reaction. There is no soft tissue calcification or gas. Soft tissue edema about the knee. Vascular calcifications are present. IMPRESSION: Moderate suprapatellar joint effusion, soft tissue edema about the knee and severe tricompartmental degenerative change without fracture or malalignment. Reported By:
[2019-06-02 08:57] VITALS: BMI 26.4
[2019-06-02] MEDS: PROTONIX INJ 40 MG VIAL IVP SCH (09:07)
[2019-06-02] MEDS ORDERED: ROCEPHIN VIAL 1 GRAM ONE (10:11)
[2019-06-02] MEDS: ROCEPHIN VIAL 1 GRAM 1 G in NS 100 ML IV + SPIKE MINIBAG* 100 ML IV SCH (10:14)
[2019-06-02 11:22] LABS: AMYLASE 32 Units/L (25-115); CREATINE KINASE 235 Units/L (26-192); LIPASE 38 Units/L (73-393); TROPONIN I < 0.02 ng/mL (0-1.5)
[2019-06-02 11:25] LABS: CREATINE KINASE MB 4.8 ng/mL (0-4.0)
--- NOTE | 2019-06-02 12:18 | DR.H&P ---
H&P - History & Physical for Day of: H&P Date: 06/02/19 - Chief Complaint Chief Complaint: FALL, WEAKNESS, INTOXICATION - History of Present Illness History of Present Illness: 73 WF ER admission, EMS states patient fell at home two times today and the last time she was on the floor and could not get up. They helped her up but she was complaining of back and knee pain. Patient stays by herself and they said she appears inneberated with no one to help her at home and she has fallen two times today. She is complaining of severe right knee pain and right hip pain. States she tried to get up but could not get up and called EMS. She denies tobacco use but states she drinks to much for the past three years. Pt Na130, ETOH 338. Pt admitted for treatment of acute illness. - Past Medical History Past Medical History: Angina, Hypertension, Depression, Arthritis - Past Surgical History Surgical History: Tonsillectomy - Family History Family Medical History: Cancer - Social History Does patient currently use any type of tobacco product: No Have you used tobacco products in the last 12 months: No Type of Tobacco Use: None Does any household member use tobacco: No Alcohol Use: Heavy Drug Use: None - Medications Home Medications: No Known Drug Allergies Allergy (Verified 05/28/17 19:48) - Review of Systems Constitutional: Weakness Eyes: No Symptoms Reported ENT: No Symptoms Reported Respiratory: No Symptoms Reported Cardiovascular: No Symptoms Reported Gastrointestinal: Nausea Genitourinary: No Symptoms Reported Musculoskeletal: Leg Pain Skin: No Symptoms Reported Neurological: Weakness, Confusion (etoh intoxication) - Physical Exam Vital Signs: Temperature 97.8 F Pulse Rate [Right Brachial] 98 Pulse Rate 82 Respiratory Rate 20 Blood Pressure [Right Arm] 125/54 Blood Pressure [Left Arm] 131/68 Blood Pressure 121/57 O2 Sat by Pulse Oximetry 99 Oriented: Normal Eyes: Normal Ear: Normal Nose: Normal Throat: Normal Respiratory: RLL Diminished, LLL Diminished Cardiovascular: Normal : Normal Auscultation: Bowel Sounds: Normal Palpation: Normal Tenderness: Epigastric, Mild Skin: Decreased Turgur Musculoskeletal: Right, Left, Knee Psychiatric: Normal Speech Pattern: Clear, Appropriate - Assessment/Plan (1) UTI (urinary tract infection) Status: Acute Plan: ADMIT, GENTLE IV HYDRATION. IV ROCEPHIN, BLOOD AND URINE CULTURE ORDERED. VERIFY HOME MEDICATION, REPEAT ETOH LEVEL. ENCOURAGE ORAL HYDRATION. FALL PRECAUTIONS (2) Hyponatremia Status: Acute (3) ETOH abuse Status: Acute (4) Alcohol intoxication Qualifiers: Complication of substance-induced condition: uncomplicated Qualified Code(s): F10.920 - Alcohol use, unspecified with intoxication, uncomplicated Status: Acute (5) Contusion of back Qualifiers: Encounter type: initial encounter Status: Acute (6) Degenerative joint disease (DJD) of hip Qualifiers: Osteoarthritis type: unspecified Laterality: right Qualified Code(s): M16.11 - Unilateral primary osteoarthritis, right hip Status: Acute - Allergies Allergies/Adverse Reactions: Allergies Allergy/AdvReac Type Severity Reaction Status Date / Time No Known Drug Allergies Allergy Verified 05/28/17 19:48
[2019-06-02] MEDS ORDERED: XANAX ONE (16:22)
[2019-06-02] MEDS: XANAX PO PRN (16:25)
[2019-06-02] MEDS ORDERED: HumuLIN R SC PRN (16:43)
[2019-06-02 17:02] LABS: CKMB % 2.4 % (<4); CREATINE KINASE 204 Units/L (26-192); TROPONIN I < 0.02 ng/mL (0-1.5)
[2019-06-02 17:07] LABS: CREATINE KINASE MB 4.8 ng/mL (0-4.0)
[2019-06-02] MEDS: SNACK - Diabetic Appropriate PO SCH ×2 (21:15→21:41)
[2019-06-02] MEDS ORDERED: NORCO 5/325 MG TAB ONE (21:55)
[2019-06-02] MEDS: NORCO 5/325 MG TAB PO PRN (22:13)
[2019-06-02 22:28] LABS: CKMB % 2.1 % (<4); TROPONIN I 0.02 ng/mL (0-1.5)
[2019-06-02 22:41] LABS: CREATINE KINASE MB 4.5 ng/mL (0-4.0)
[2019-06-03] MEDS: NORCO 5/325 MG TAB PO PRN ×2 (04:52→14:37)
[2019-06-03 05:13] LABS: BASOPHILS % (AUTO) 0.4 % (0.2-1.0); EOSINOPHILS % (AUTO) 0.4 % (0.9-2.9); HEMATOCRIT 32.2 % (36.0-47.0); HEMOGLOBIN 11.7 g/dL (12.0-16.0); LYMPHOCYTES # (AUTO) 0.7 X10^3/uL (1.3-2.9); LYMPHOCYTES % (AUTO) 18.2 % (21.0-51.0); MEAN CORPUSCULAR HEMOGLOBIN 31.4 pg (27.0-34.0); MEAN CORPUSCULAR HGB CONC 36.3 g/dL (33.0-35.0); MEAN CORPUSCULAR VOLUME 86.5 fL (80.0-100.0); MEAN PLATELET VOLUME 7.7 fL (7.4-11.0); MONOCYTES # (AUTO) 0.5 x10^3/uL (0.3-0.8); MONOCYTES % (AUTO) 13.2 % (0.0-13.0); NEUTROPHILS # (AUTO) 2.7 x10^3/uL (2.2-4.8); NEUTROPHILS % (AUTO) 67.8 % (42.0-75.0); PLATELET COUNT 189 X10^3/uL (150.0-450.0); RED BLOOD COUNT 3.72 X10^6/uL (3.5-5.4); RED CELL DISTRIBUTION WIDTH 14.2 % (11.6-16.5)
[2019-06-03 05:40] LABS: ALANINE AMINOTRANSFERASE 23 Units/L (12-78); ALKALINE PHOSPHATASE 76 Units/L (46-116); ASPARTATE AMINO TRANSFERASE 44 Units/L (15-37); BLOOD UREA NITROGEN 6 mg/dL (7-18); CALCIUM 7.7 mg/dL (8.5-10.1); CARBON DIOXIDE 24.9 mmol/L (21-32); CHLORIDE 92 mmol/L (98-107); CHOL/HDL RATIO 2.3 (0.0-5.0); CHOLESTEROL 151 mg/dL (0-200); COR CA(FOR HYPOALB) 8.5 mg/dL (8.5-10.1); HDL CHOLESTEROL 66 mg/dL (40-60); SODIUM 127 mmol/L (136-145); TRIGLYCERIDES 88 mg/dL (0-150); eGFR NON BLACK RACES > 60 (>60)
[2019-06-03] MEDS: NS 1000 ML 1,000 ML with MAGNESIUM SULFATE 50% INJ VIAL 1 G, MVI INJ (ADULT) 10 ML IV SCH ×3 (06:41)
[2019-06-03] MEDS ORDERED: K-RIDER 10 MEQ/NS 100 ML 10 MEQ/100 ML BAG IV PRN (06:57)
[2019-06-03] MEDS ORDERED: POTASSIUM CHL 40 MEQ/NS 0.45% 500 ML IV PRN (06:57)
[2019-06-03] MEDS ORDERED: MICRO K EXTEN CAP 10 MEQ PO PRN (06:57)
[2019-06-03] MEDS ORDERED: POTASSIUM CHL 60 MEQ/NS 0.45% 500 ML IV PRN (06:57)
[2019-06-03] MEDS ORDERED: KLOR-CON PO PRN (06:57)
[2019-06-03] MEDS ORDERED: POTASSIUM CHLORIDE LIQ 20 MEQ UDC PO PRN (06:57)
[2019-06-03] MEDS ORDERED: MAGNESIUM SULFATE 1 GRAM/100 mL PREMIX 4 G/400 ML BAG IV ONE (07:19)
[2019-06-03] MEDS ORDERED: K-DUR TAB 20 MEQ PO ONE (07:20)
[2019-06-03] MEDS: MAGNESIUM SULFATE 1 GRAM/100 mL PREMIX 1 GM/100 ML BAG IV PRN ×4 (07:46→11:49)
[2019-06-03] MEDS: NS 1000 ML 1,000 ML IV SCH ×2 (07:59→18:14)
[2019-06-03] MEDS: ROCEPHIN VIAL 1 GRAM 1 G in NS 100 ML IV + SPIKE MINIBAG* 100 ML IV SCH (08:07)
[2019-06-03] MEDS: K-DUR TAB 20 MEQ PO PRN (08:07)
[2019-06-03] MEDS: PROTONIX INJ 40 MG VIAL IVP SCH (08:08)
[2019-06-03] MEDS ORDERED: CELEXA PO SCH (09:00)
[2019-06-03 10:55] LABS: CRYPTOSPORIDIUM PARVUM ANTIGEN NEGATIVE (NEGATIVE); GIARDIA LAMBLIA ANTIGEN NEGATIVE (NEGATIVE)
[2019-06-03] MEDS ORDERED: LOVENOX INJ 40 MG SYR SC SCH (11:00)
[2019-06-03] MEDS ORDERED: PREPARATION H OINT RECTAL PRN (11:40)
[2019-06-03] MEDS: LOMOTIL PO PRN (12:00)
--- NOTE | 2019-06-03 17:35 | PCM.PROG ---
Progress Note - Progress Note for Day of Date of Exam: 06/03/19 - Subjective Subjective: 73 WF ER ADMISSION ON 06/02 WITH DEHYDRATION, HYPONATREMIA, HYPOKALEMIA AND ETOH INTOXICATION. PT IS CURRENTLY ON GENTLE IV HYDRATION AND ELECTROLYTE REPLACEMENT. NA 127, K+ 3.3, MAG 1.3 THIS AM. PT AWAKE AND ALERT, CALM. DENIES ANY PAIN THIS AM. PT CO DIARRHEA. PT CURRENTLY ON IV ROCEPHIN FOR UTI, CULTURE +GRAM NEG RODS. STOOL STUDIES ORDERED AND PT'S HOME MEDICATION HAS BEEN RESUMED INCLUDING HER PRN XANAX. - Past Medical Family Social History Past Med/Fam/Surg Hx: No changes since H&P Allergies: Allergies No Known Drug Allergies Allergy (Verified 05/28/17 19:48) - Review of Systems ROS: No change since H&P - Vital Signs and I&O's Vital Signs: Temperature 98.1 F Pulse Rate [Right Brachial] 97 Pulse Rate 82 Respiratory Rate 20 Blood Pressure [Right Arm] 152/77 Blood Pressure [Left Arm] 131/68 Blood Pressure 121/57 O2 Sat by Pulse Oximetry 98 Intake and Output: Intake & Output 06/01/19 06/02/19 06/03/19 06/04/19 11:59 11:59 11:59 11:59 Intake Total 3628 / 3628 1919 1920 Output Total 1200 / 1200 Balance 2428 / 2428 1919 - Physical Exam Oriented: Normal Eyes: Normal Ear: Normal Nose: Normal Throat: Normal Respiratory: Normal Cardiovascular: Normal : Normal Auscultation: Bowel Sounds: Normal Tenderness: Epigastric, Mild Skin: Decreased Turgur Musculoskeletal: Right, Left, Knee Psychiatric: Normal Speech Pattern: Clear - Laboratory and Diagnostics Result Diagrams: 06/03/19 04:55 06/03/19 04:55 Labs: 06/02/19 11:31 Urine,Clean Catch Urine Culture - Preliminary 06/03/19 08:49 Stool - Final Laboratory WBC 4.0 X10^3/uL (3.6-10.0) 06/03/19 04:55 RBC 3.72 X10^6/uL (3.5-5.4) 06/03/19 04:55 Hgb 11.7 g/dL (12.0-16.0) L 06/03/19 04:55 Hct 32.2 % (36.0-47.0) L 06/03/19 04:55 MCV 86.5 fL (80.0-100.0) 06/03/19 04:55 MCH 31.4 pg (27.0-34.0) 06/03/19 04:55 MCHC 36.3 g/dL (33.0-35.0) H 06/03/19 04:55 RDW 14.2 % (11.6-16.5) 06/03/19 04:55 Plt Count 189 X10^3/uL (150.0-450.0) 06/03/19 04:55 MPV 7.7 fL (7.4-11.0) 06/03/19 04:55 Neut % (Auto) 67.8 % (42.0-75.0) 06/03/19 04:55 Lymph % (Auto) 18.2 % (21.0-51.0) L 06/03/19 04:55 [place] % (Auto) 13.2 % (0.0-13.0) H 06/03/19 04:55 Eos % (Auto) 0.4 % (0.9-2.9) L 06/03/19 04:55 Baso % (Auto) 0.4 % (0.2-1.0) 06/03/19 04:55 Neut # (Auto) 2.7 x10^3/uL (2.2-4.8) 06/03/19 04:55 Lymph # (Auto) 0.7 X10^3/uL (1.3-2.9) L 06/03/19 04:55 [place] # (Auto) 0.5 x10^3/uL (0.3-0.8) 06/03/19 04:55 Eos # (Auto) 0.0 x10^3/uL (0.0-0.2) 06/03/19 04:55 Baso # (Auto) 0.0 X10^3/uL (0.0-0.1) 06/03/19 04:55 Absolute Nucleated RBC 0.0 /100WBC 06/03/19 04:55 PT 17.5 SECONDS (11.8-14.3) 06/02/19 04:05 INR Target Range - 06/02/19 04:05 INR 1.49 (0.8-1.3) H 06/02/19 04:05 APTT 39.3 SECONDS (22.9-36.5) H 06/02/19 04:05 PTT Comment - 06/02/19 04:05 Sodium 127 mmol/L (136-145) L 06/03/19 04:55 Corrected Sodium TNP 06/03/19 04:55 Potassium 3.3 mmol/L (3.5-5.1) L 06/03/19 04:55 Chloride 92 mmol/L (98-107) L 06/03/19 04:55 Carbon Dioxide 24.9 mmol/L (21-32) 06/03/19 04:55 BUN 6 mg/dL (7-18) L 06/03/19 04:55 Creatinine 0.80 mg/dL (0.55-1.02) 06/03/19 04:55 Est GFR (MDRD) Af Amer > 60 (>60) 06/03/19 04:55 Est GFR (MDRD) Non-Af > 60 (>60) 06/03/19 04:55 Glucose 100 mg/dL (65-99) H 06/03/19 04:55 POC Glucose (mg/dL) 212 mg/dL (65-99) H 06/03/19 16:39 Calcium 7.7 mg/dL (8.5-10.1) L 06/03/19 04:55 Corrected Calcium 8.5 mg/dL (8.5-10.1) 06/03/19 04:55 Magnesium 1.3 mg/dL (1.7-2.9) L 06/03/19 04:55 Total Bilirubin 0.70 mg/dL (0.2-1.0) 06/03/19 04:55 AST 44 Units/L (15-37) H 06/03/19 04:55 ALT 23 Units/L (12-78) 06/03/19 04:55 Alkaline Phosphatase 76 Units/L (46-116) 06/03/19 04:55 Creatine Kinase 219 Units/L (26-192) H 06/02/19 21:40 CK-MB (CK-2) 4.5 ng/mL (0-4.0) H* 06/02/19 21:40 CK/CKMB % Calc 2.1 % (<4) 06/02/19 21:40 Troponin I 0.02 ng/mL (0-1.5) 06/02/19 21:40 Total Protein 6.0 g/dL (6.4-8.2) L 06/03/19 04:55 Albumin 3.0 g/dL (3.4-5.0) L 06/03/19 04:55 Globulin 3.0 g/dL (2.5-4.5) 06/03/19 04:55 Albumin/Globulin Ratio 1.0 Ratio (1.1-2.1) L 06/03/19 04:55 Triglycerides 88 mg/dL (0-150) 06/03/19 04:55 Cholesterol 151 mg/dL (0-200) 06/03/19 04:55 LDL Cholesterol, Calc 67 mg/dL (0-100) 06/03/19 04:55 HDL Cholesterol 66 mg/dL (40-60) H 06/03/19 04:55 Cholesterol/HDL Ratio 2.3 (0.0-5.0) 06/03/19 04:55 Amylase 32 Units/L (25-115) 06/02/19 10:19 Lipase 38 Units/L (73-393) L 06/02/19 10:19 Specimen Type Random urine 06/02/19 05:55 Urine Color Yellow (YELLOW) 06/02/19 05:55 Urine Appearance Cloudy (CLEAR) 06/02/19 05:55 Urine pH 6.0 (5.0 - 8.0) 06/02/19 05:55 Ur Specific [place] 1.015 (1.000-1.030) 06/02/19 05:55 Urine Protein 3+ (NEGATIVE) 06/02/19 05:55 Urine Glucose (UA) Negative (NEGATIVE) 06/02/19 05:55 Urine Ketones 1+ (NEGATIVE) 06/02/19 05:55 Urine Occult Blood 5+ (NEGATIVE) 06/02/19 05:55 Urine Nitrite Negative (NEGATIVE) 06/02/19 05:55 Urine Bilirubin Negative (NEGATIVE) 06/02/19 05:55 Urine Urobilinogen Normal (NORMAL) 06/02/19 05:55 Ur Leukocyte Esterase 3+ (NEGATIVE) 06/02/19 05:55 Urine RBC Tntc /HPF (0-3) A 06/02/19 05:55 Urine WBC Tntc /HPF (0-5) A 06/02/19 05:55 Ur Squamous Epith Cells Few /HPF (NEGATIVE) 06/02/19 05:55 Urine Bacteria 3+ /HPF (NEGATIVE) 06/02/19 05:55 Ur Culture Indicated? No/not indicated 06/02/19 05:55 Stool Description 100g liquid shayy 06/03/19 08:49 Stool Description 100g liquid shayy 06/03/19 08:49 Stl Occult Blood (IFOB) Negative (NEGATIVE) 06/03/19 08:49 Stool for White Cells Negative (NEGATIVE) 06/03/19 08:49 Stl C. diff Tox B Gene Negative (NEGATIVE) 06/03/19 08:49 Stl C. diff [id number] Negative (NEGATIVE) 06/03/19 08:49 Digoxin 0.40 ng/mL (0.9-2) L 06/03/19 04:55 Urine Opiates Screen Negative (NEG=<300) 06/02/19 05:55 Urine Methadone Screen Negative (NEG=<300) 06/02/19 05:55 Ur Barbiturates Screen Negative (NEG=<200) 06/02/19 05:55 Ur Phencyclidine Scrn Negative (NEG=<25) 06/02/19 05:55 Ur Amphetamines Screen Negative (NEG=<1000) 06/02/19 05:55 U Benzodiazepines Scrn Positive (NEG=<200) A 06/02/19 05:55 Urine Cocaine Screen Negative (NEG=<300) 06/02/19 05:55 U Marijuana (THC) Screen Negative (NEG=<50) 06/02/19 05:55 Ethyl Alcohol mg/dL 338 mg/dL (0-19.9) H 06/02/19 04:05 Cryptosporid parvum Ag Negative (NEGATIVE) 06/03/19 08:49 Giardia lamblia Ag Negative (NEGATIVE) 06/03/19 08:49 - Plan (1) UTI (urinary tract infection) Status: Acute Plan: GENTLE IV HYDRATION. IV ROCEPHIN, BLOOD AND URINE CULTURE ORDERED. VERIFY HOME MEDICATION, REPEAT ETOH LEVEL. ENCOURAGE ORAL HYDRATION. FALL PRECAUTIONS (2) Hyponatremia Status: Acute (3) ETOH abuse Status: Acute (4) Alcohol intoxication Status: Acute Qualifiers: Complication of substance-induced condition: uncomplicated Qualified Code(s): F10.920 - Alcohol use, unspecified with intoxication, uncomplicated (5) Contusion of back Status: Acute Qualifiers: Encounter type: initial encounter (6) Degenerative joint disease (DJD) of hip Status: Acute Qualifiers: Osteoarthritis type: unspecified Laterality: right Qualified Code(s): M16.11 - Unilateral primary osteoarthritis, right hip (7) Diarrhea Status: Acute Plan: STOOL STUDIES, PRN LOMOTIL
[2019-06-03] MEDS: SNACK - Diabetic Appropriate PO SCH (19:36)
[2019-06-03] MEDS: XANAX PO PRN (19:36)
[2019-06-04 05:09] LABS: BASOPHILS % (AUTO) 0.8 % (0.2-1.0); EOSINOPHILS # (AUTO) 0.1 x10^3/uL (0.0-0.2); EOSINOPHILS % (AUTO) 1.7 % (0.9-2.9); HEMATOCRIT 32.7 % (36.0-47.0); HEMOGLOBIN 11.4 g/dL (12.0-16.0); LYMPHOCYTES # (AUTO) 0.6 X10^3/uL (1.3-2.9); LYMPHOCYTES % (AUTO) 19.4 % (21.0-51.0); MEAN CORPUSCULAR HEMOGLOBIN 30.5 pg (27.0-34.0); MEAN CORPUSCULAR HGB CONC 34.9 g/dL (33.0-35.0); MEAN CORPUSCULAR VOLUME 87.3 fL (80.0-100.0); MEAN PLATELET VOLUME 8.1 fL (7.4-11.0); MONOCYTES # (AUTO) 0.6 x10^3/uL (0.3-0.8); MONOCYTES % (AUTO) 19.7 % (0.0-13.0); NEUTROPHILS # (AUTO) 1.7 x10^3/uL (2.2-4.8); NEUTROPHILS % (AUTO) 58.4 % (42.0-75.0); PLATELET COUNT 185 X10^3/uL (150.0-450.0); RED BLOOD COUNT 3.74 X10^6/uL (3.5-5.4); RED CELL DISTRIBUTION WIDTH 14.1 % (11.6-16.5)
[2019-06-04 05:24] LABS: ALANINE AMINOTRANSFERASE 40 Units/L (12-78); ALBUMIN 2.9 g/dL (3.4-5.0); ALKALINE PHOSPHATASE 72 Units/L (46-116); ASPARTATE AMINO TRANSFERASE 108 Units/L (15-37); BLOOD UREA NITROGEN 2 mg/dL (7-18); CALCIUM 7.8 mg/dL (8.5-10.1); CARBON DIOXIDE 27.4 mmol/L (21-32); CHLORIDE 105 mmol/L (98-107); COR CA(FOR HYPOALB) 8.7 mg/dL (8.5-10.1); CREATININE 0.51 mg/dL (0.55-1.02); MAGNESIUM 1.7 mg/dL (1.7-2.9); SODIUM 140 mmol/L (136-145); TOTAL PROTEIN 5.8 g/dL (6.4-8.2); eGFR NON BLACK RACES > 60 (>60)
[2019-06-04] MEDS: NS 1000 ML 1,000 ML IV SCH ×3 (06:17→16:20)
[2019-06-04] MEDS: CARDIZEM CD 120 MG PO SCH (09:40)
[2019-06-04] MEDS: ZOLOFT PO SCH (09:45)
[2019-06-04] MEDS: K-DUR TAB 20 MEQ PO PRN (09:45)
[2019-06-04] MEDS: LOMOTIL PO PRN (09:45)
[2019-06-04] MEDS: ELIQUIS PO SCH ×2 (09:55→21:41)
[2019-06-04] MEDS ORDERED: ROCEPHIN VIAL 1 GRAM IM ONE (10:15)
[2019-06-04] MEDS: LANOXIN PO SCH (10:50)
[2019-06-04] MEDS: PROTONIX INJ 40 MG VIAL IVP SCH (11:25)
[2019-06-04] MEDS: ROCEPHIN VIAL 1 GRAM 1 G in NS 100 ML IV + SPIKE MINIBAG* 100 ML IV SCH (11:26)
[2019-06-04] MEDS ORDERED: XYLOCAINE 1 % (PLAIN) ONE (11:38)
--- NOTE | 2019-06-04 15:53 | US ---
HISTORY: Abdominal pain Study: Ultrasound of the gallbladder Comparison: No priors Technique: Grayscale, color and duplex Doppler ultrasound of the gallbladder region is provided. Findings: The gallbladder is completely filled with innumerable tiny stones. There is gallbladder wall thickening measuring 6.5 mm. No pericholecystic fluid is seen. The scanning technologist reports a positive sonographic Haque's sign. Common bile duct is ectatic measuring 8.7 mm in diameter. No evidence of common duct stone is seen. Portal venous flow is hepatopetal. Liver is normal in size but displays evidence of diffuse heterogeneity. Findings may indicate mild hepatic steatosis. No liver mass or ascites is seen. Right kidney was not visualized. Pancreatic head and body are normal. Pancreatic tail is obscured by overlying bowel gas. Visualized abdominal aorta is normal. IMPRESSION: Gallbladder is seen to be filled with innumerable tiny gallstones. There is gallbladder wall thickening with a positive sonographic Haque's sign. Findings may indicate acute calculous cholecystitis. Ectatic appearing common bile duct without common bile duct stone visualized. Probable mild hepatic steatosis. Reported By:
[2019-06-04] MEDS: XANAX PO PRN (16:25)
[2019-06-04] MEDS ORDERED: GLUCOPHAGE ONE (17:04)
[2019-06-04] MEDS: GLUCOPHAGE PO SCH (17:09)
[2019-06-04] MEDS: SNACK - Diabetic Appropriate PO SCH (21:12)
[2019-06-05 05:27] LABS: BASOPHILS % (AUTO) 0.6 % (0.2-1.0); EOSINOPHILS # (AUTO) 0.1 x10^3/uL (0.0-0.2); EOSINOPHILS % (AUTO) 2.6 % (0.9-2.9); HEMATOCRIT 30.8 % (36.0-47.0); HEMOGLOBIN 10.8 g/dL (12.0-16.0); LYMPHOCYTES # (AUTO) 0.7 X10^3/uL (1.3-2.9); LYMPHOCYTES % (AUTO) 19.1 % (21.0-51.0); MEAN CORPUSCULAR HEMOGLOBIN 30.8 pg (27.0-34.0); MEAN PLATELET VOLUME 8.1 fL (7.4-11.0); MONOCYTES # (AUTO) 0.6 x10^3/uL (0.3-0.8); MONOCYTES % (AUTO) 16.6 % (0.0-13.0); NEUTROPHILS # (AUTO) 2.4 x10^3/uL (2.2-4.8); NEUTROPHILS % (AUTO) 61.1 % (42.0-75.0); PLATELET COUNT 173 X10^3/uL (150.0-450.0); RED CELL DISTRIBUTION WIDTH 14.1 % (11.6-16.5); WHITE BLOOD COUNT 3.9 X10^3/uL (3.6-10.0)
[2019-06-05 05:33] LABS: ALANINE AMINOTRANSFERASE 38 Units/L (12-78); ALBUMIN 2.9 g/dL (3.4-5.0); ALKALINE PHOSPHATASE 69 Units/L (46-116); ASPARTATE AMINO TRANSFERASE 86 Units/L (15-37); BLOOD UREA NITROGEN 2 mg/dL (7-18); CHLORIDE 105 mmol/L (98-107); COR CA(FOR HYPOALB) 8.9 mg/dL (8.5-10.1); COR NA(FOR HYPERGLY) 140 mmol/L (136-145); CREATININE 0.51 mg/dL (0.55-1.02); SODIUM 140 mmol/L (136-145); TOTAL PROTEIN 5.7 g/dL (6.4-8.2); eGFR NON BLACK RACES > 60 (>60)
[2019-06-05] MEDS: NS 1000 ML 1,000 ML IV SCH (05:42)
[2019-06-05] MEDS ORDERED: GLUCOPHAGE ONE (06:09)
[2019-06-05] MEDS: GLUCOPHAGE PO SCH (06:17)
[2019-06-05] MEDS: ROCEPHIN VIAL 1 GRAM 1 G in NS 100 ML IV + SPIKE MINIBAG* 100 ML IV SCH (09:49)
[2019-06-05] MEDS: K-DUR TAB 20 MEQ PO PRN (09:50)
[2019-06-05] MEDS: CARDIZEM CD 120 MG PO SCH (09:50)
[2019-06-05] MEDS: PROTONIX INJ 40 MG VIAL IVP SCH (09:50)
[2019-06-05] MEDS: ELIQUIS PO SCH (09:51)
[2019-06-05] MEDS: LANOXIN PO SCH (09:51)
[2019-06-05] MEDS: ZOLOFT PO SCH (09:51)
[2019-06-05] MEDS: NORCO 5/325 MG TAB PO PRN (09:56)
[2019-06-05 10:38] VITALS: BP 138/73
[2019-06-05] MEDS: XANAX PO PRN (12:27)
== END 2019-06-05 14:25 | disposition home health service (06) ==
LOC: MED/SURG 03:42 → ER 03:42 → MED/SURG 07:52
PROVIDERS: ADMIT Internal Medicine; ATTEND Internal Medicine
DX: E87.6 Hypokalemia; M25.551 Pain in right hip; E87.1 Hypo-osmolality and hyponatremia; M16.11 Unilateral primary osteoarthritis, right hip; R19.7 Diarrhea, unspecified; R26.89 Other abnormalities of gait and mobility; F10.129 Alcohol abuse with intoxication, unspecified; R94.31 Abnormal electrocardiogram [ECG] [EKG]; N39.0 Urinary tract infection, site not specified; M25.561 Pain in right knee; R60.0 Localized edema; R79.1 Abnormal coagulation profile; W18.39XA Other fall on same level, initial encounter
CPT/HCPCS: 36415; 71010; 71045; 72125; 72131; 72192; 73564; 76705; 80053; 80061; 80162; 80307; 80320; 81001; 82150; 82270; 82550; 82553; 83630; 83690; 83735; 84484; 85025; 85610; 85730; 87040; 87045; 87086; 87328; 87329; 87449; 87493; 87899; 93005; 94760; 96365; 96367; 96372; 96374; 96375; 97110; 97162; 97165; 97530; 97535; 99284; A4222; C9113; G0378; G0434; G6040; J0696; J1650; J1885; J3475; J7030; J7050

== ENCOUNTER 2019-07-26 06:32 | Inpatient (IN) ==
--- NOTE | 2019-07-26 06:49 | DR.EXTPAIN ---
HPI Time seen Time Seen by Provider: 07/26/19 06:45 HPI Comment HPI Comment: PATIENT IS 73YR OLD WHITE FEMALE IN THE EMERGENCY ROOM BECAUSE SHE IS FALLING FREQUENTLY. SHE HAS SEVERE PAIN IN HER LOWER EXTREMITY WITH SWELLING. HERE IN ER FOR LEFT KNEE PAIN 07/13/2019 AND ON 07/17/2019 FOR ABNORMAL LFTS. SHE TOOK ALL HER PAIN MEDICATION AND IS OUT OF MEDICATION FOR PAIN. LOWER EXTREMITY HURTING ALSO. ACHING AND SHARP 9/10 PAIN IN LOWER EXTREMITIES WITH PARESTHESIA. Complaint/Symptoms Chief Complaint Doctor Comments: FALLING FREQUENTLY, PAIN AND SWELLING LOWER EXTREMITIES. SWELLING GREATER RLE THAN LEFT. Nurses notes reviewed Nurses Notes Review: Yes Source History Provided: Parent Mode of arrival Mode of Arrival: EMS Context History of: Arthritis Associated signs and symptoms Associated Signs and Symptoms: Weakness, Pain, Swelling and Shortness of Breath (ON EXERTION.) Other history Other History: HISTORY DM, AFIB. PMH PMH Past Medical History: Angina, Arthritis, Depression and Hypertension Past Surgical History: Yes Surgical History: Tonsillectomy Family History Family Medical History: Cancer Social History Do you use any recreational Drugs:: No infectious screening Isolation: Standard ROS Review of Systems Constitutional: See HPI, Diaphoresis, Weakness and Fatigue Eyes: No Symptoms Reported and See HPI ENTM: No Symptoms Reported and See HPI Respiratoy: No Symptoms Reported, See HPI and Short of Breath (ON EXERSION.) Cardiovascular: See HPI and Edema; negative Chest Pain and Palpitations Gastrointestinal/Abdominal: No Symptoms Reported and See HPI; negative Abdominal Pain, Constipation, Diarrhea, Nausea and Vomiting Genitourinary: See HPI and Other (INCREASE URINE OUTPUT DUE TO LASIX.) Neurological: See HPI, Paresthesia, Weakness and Problems Walking; negative Headache and Dizziness Musculoskeletal: See HPI, Back Pain and Muscle Pain Integumentary: See HPI and Dryness; negative Change in Color, Rash and Juandice Hematologic/Lymphatic: See HPI, Easy Bleeding and Easy Bruising; negative Swollen Glands Endocrine: No Symptoms Reported and See HPI; negative Increased Thirst and Increased Urine Psychiatric: See HPI, Anxiety (ANXIOUS.) and Depression All Other Systems: Reviewed and Negative PE Vital Signs Vitals: Temperature 98.6 F Pulse Rate 88 Respiratory Rate 18 Blood Pressure [Right Arm] 122/83 Blood Pressure [Left Arm] 131/68 Blood Pressure 118/57 O2 Sat by Pulse Oximetry 99 General Limitations: No Limitations General Appearance: Alert and In No Apparent Distress Head Head Exam: Normal Inspection and Atraumatic Eyes Eye exam: Normal Appearance and PERRL; negative Scleral Icterus and Conjunctival Injection ENT ENT Exam: Normal Exam, Normal Oropharynx, Normal External Ear Exam and TM's Normal Bilaterally Neck Neck Exam: Normal Inspection and Trachea Midline; negative Tenderness and Lymphadenopathy Respiratory Respiratory Exam: Normal Lung Sounds Bilat; negative Accessory Muscle Use, Chest Wall Tenderness and Respiratory Distress Respiratory Exam: Bilateral: Rhonchi and Lower: Rhonchi Cardiovascular Cardiovascular Exam: Regular Rate, Normal Rhythm and Normal Heart Sounds; negative Systolic Murmur and Diastolic Murmur Abdominal Exam Abdominal Exam: Normal Inspection, Normal Bowel Sounds and Soft; negative Tenderness Extremities Extremities Exam: Tenderness, Normal Capillary Refill and Edema; negative Calf Tenderness Back Back Exam: Normal Inspection and Tenderness; negative (R) CVA Tenderness and (L) CVA Tenderness Neurological Neurological Exam: Alert, Oriented X3 and CN II-XII Intact; negative Motor Sensory Deficit Psychiatric Psychiatric Exam: Normal Affect and Anxious Skin Skin Exam: Erythema and Other (EDEMA) MDM Differential Diagnosis Differential Diagnosis: Other (EDEMA, CHF, IA, CHRONIC PAIN, ARRHYTHMIA.) COURSE Treatment Treatment: SEE ORDERS. MORPHIN 4MMG IV AND ZOFRAN 4MG IV IN ER. MAGNESIUM PER PROTOCOL. Consultation Consultation Comments: DISCUSSED PATIENT WITH DR. TREADWELL AND WILL ADMIT PATIENT. Education/Counseling Education/Counseling: Patient Educated On: Diagnosis ROR Labs Reviewed Laboratory Results Reviewed?: Yes Result Diagrams: 07/27/19 04:11 07/27/19 08:00 Laboratory: WBC 5.6 X10^3/uL (3.6-10.0) 07/26/19 07:15 RBC 2.79 X10^6/uL (3.5-5.4) L 07/26/19 07:15 Hgb 8.4 g/dL (12.0-16.0) L 07/26/19 07:15 Hct 24.8 % (36.0-47.0) L 07/26/19 07:15 MCV 88.7 fL (80.0-100.0) 07/26/19 07:15 MCH 30.1 pg (27.0-34.0) 07/26/19 07:15 MCHC 34.0 g/dL (33.0-35.0) 07/26/19 07:15 RDW 17.5 % (11.6-16.5) H 07/26/19 07:15 Plt Count 259 X10^3/uL (150.0-450.0) 07/26/19 07:15 MPV 6.6 fL (7.4-11.0) L 07/26/19 07:15 Neut % (Auto) 82.3 % (42.0-75.0) H 07/26/19 07:15 Lymph % (Auto) 8.2 % (21.0-51.0) L 07/26/19 07:15 [place] % (Auto) 8.6 % (0.0-13.0) 07/26/19 07:15 Eos % (Auto) 0.5 % (0.9-2.9) L 07/26/19 07:15 Baso % (Auto) 0.4 % (0.2-1.0) 07/26/19 07:15 Neut # (Auto) 4.6 x10^3/uL (2.2-4.8) 07/26/19 07:15 Lymph # (Auto) 0.5 X10^3/uL (1.3-2.9) L 07/26/19 07:15 [place] # (Auto) 0.5 x10^3/uL (0.3-0.8) 07/26/19 07:15 Eos # (Auto) 0.0 x10^3/uL (0.0-0.2) 07/26/19 07:15 Baso # (Auto) 0.0 X10^3/uL (0.0-0.1) 07/26/19 07:15 Absolute Nucleated RBC 0.1 /100WBC 07/26/19 07:15 Sodium 132 mmol/L (136-145) L 07/26/19 07:15 Corrected Sodium TNP 07/26/19 07:15 Potassium 3.1 mmol/L (3.5-5.1) L 07/26/19 07:15 Chloride 95 mmol/L (98-107) L 07/26/19 07:15 Carbon Dioxide 28.6 mmol/L (21-32) 07/26/19 07:15 BUN 6 mg/dL (7-18) L 07/26/19 07:15 Creatinine 0.66 mg/dL (0.55-1.02) 07/26/19 07:15 Est GFR (MDRD) Af Amer > 60 (>60) 07/26/19 07:15 Est GFR (MDRD) Non-Af > 60 (>60) 07/26/19 07:15 Glucose 90 mg/dL (65-99) 07/26/19 07:15 Calcium 8.4 mg/dL (8.5-10.1) L 07/26/19 07:15 Corrected Calcium 9.2 mg/dL (8.5-10.1) 07/26/19 07:15 Magnesium 1.1 mg/dL (1.7-2.9) L 07/26/19 07:15 Total Bilirubin 1.70 mg/dL (0.2-1.0) H 07/26/19 07:15 AST 40 Units/L (15-37) H 07/26/19 07:15 ALT 14 Units/L (12-78) 07/26/19 07:15 Alkaline Phosphatase 180 Units/L (46-116) H 07/26/19 07:15 Creatine Kinase 106 Units/L (26-192) 07/26/19 07:15 CK-MB (CK-2) 2.4 ng/mL (0-4.0) 07/26/19 07:15 CK/CKMB % Calc 2.3 % (<4) 07/26/19 07:15 Troponin I 0.03 ng/mL (0-1.5) 07/26/19 07:15 Total Protein 6.6 g/dL (6.4-8.2) 07/26/19 07:15 Albumin 3.0 g/dL (3.4-5.0) L 07/26/19 07:15 Globulin 3.6 g/dL (2.5-4.5) 07/26/19 07:15 Albumin/Globulin Ratio 0.8 Ratio (1.1-2.1) L 07/26/19 07:15 Specimen Type Catherized urine 07/26/19 08:32 Urine Color Yellow (YELLOW) 07/26/19 08:32 Urine Appearance Hazy (CLEAR) 07/26/19 08:32 Urine pH 8.0 (5.0 - 8.0) 07/26/19 08:32 Ur Specific [place] 1.010 (1.000-1.030) 07/26/19 08:32 Urine Protein Negative (NEGATIVE) 07/26/19 08:32 Urine Glucose (UA) Negative (NEGATIVE) 07/26/19 08:32 Urine Ketones Negative (NEGATIVE) 07/26/19 08:32 Urine Occult Blood Negative (NEGATIVE) 07/26/19 08:32 Urine Nitrite Negative (NEGATIVE) 07/26/19 08:32 Urine Bilirubin Negative (NEGATIVE) 07/26/19 08:32 Urine Urobilinogen Normal (NORMAL) 07/26/19 08:32 Ur Leukocyte Esterase 2+ (NEGATIVE) 07/26/19 08:32 Urine RBC 0-2 /HPF (0-3) 07/26/19 08:32 Urine WBC 10-20 /HPF (0-5) A 07/26/19 08:32 Ur Squamous Epith Cells Negative /HPF (NEGATIVE) 07/26/19 08:32 Amorphous Sediment 1+ /HPF (NEGATIVE) 07/26/19 08:32 Urine Bacteria Trace /HPF (NEGATIVE) 07/26/19 08:32 Ur Culture Indicated? Yes/culture set up 07/26/19 08:32 Stool Description 20g,solid,darkgeen 07/26/19 08:05 Stl Occult Blood (IFOB) Negative (NEGATIVE) 07/26/19 08:05 Digoxin 0.48 ng/mL (0.9-2) L 07/26/19 08:30 XRAY XRAY Interpreted by: Radiologist XRAY Findings: REPORT NOTED AND DISCUSSED WITH PATIENT. EKG Rate: 85 Rhythm: Paced Opioid Opioid Risk Tool Age (Abelino box if 16-45): No History of Preadolescent Sexual Abuse: No Total: 0 Total Score Risk Category: Low Risk Copyright: [facility] predicting aberrant behaviors Diagnosis Discharge Problem: Hypomagnesemia, Hypokalemia Edema Qualifiers: Edema type: unspecified Qualified Code(s): R60.9 - Edema, unspecified Chronic pain Qualifiers: Chronic pain type: chronic pain syndrome Qualified Code(s): G89.4 - Chronic pain syndrome Instructions Forms: Excuse From Work Patient Portal
[2019-07-26 06:50] VITALS: BMI 28.2
[2019-07-26 07:30] LABS: BASOPHILS % (AUTO) 0.4 % (0.2-1.0); EOSINOPHILS % (AUTO) 0.5 % (0.9-2.9); HEMATOCRIT 24.8 % (36.0-47.0); HEMOGLOBIN 8.4 g/dL (12.0-16.0); LYMPHOCYTES # (AUTO) 0.5 X10^3/uL (1.3-2.9); LYMPHOCYTES % (AUTO) 8.2 % (21.0-51.0); MEAN CORPUSCULAR HEMOGLOBIN 30.1 pg (27.0-34.0); MEAN CORPUSCULAR VOLUME 88.7 fL (80.0-100.0); MEAN PLATELET VOLUME 6.6 fL (7.4-11.0); MONOCYTES # (AUTO) 0.5 x10^3/uL (0.3-0.8); MONOCYTES % (AUTO) 8.6 % (0.0-13.0); NEUTROPHILS # (AUTO) 4.6 x10^3/uL (2.2-4.8); NEUTROPHILS % (AUTO) 82.3 % (42.0-75.0); PLATELET COUNT 259 X10^3/uL (150.0-450.0); RED BLOOD COUNT 2.79 X10^6/uL (3.5-5.4); RED CELL DISTRIBUTION WIDTH 17.5 % (11.6-16.5); WHITE BLOOD COUNT 5.6 X10^3/uL (3.6-10.0)
[2019-07-26 07:35] LABS: ALANINE AMINOTRANSFERASE 14 Units/L (12-78); ALKALINE PHOSPHATASE 180 Units/L (46-116); ASPARTATE AMINO TRANSFERASE 40 Units/L (15-37); BLOOD UREA NITROGEN 6 mg/dL (7-18); CALCIUM 8.4 mg/dL (8.5-10.1); CARBON DIOXIDE 28.6 mmol/L (21-32); CHLORIDE 95 mmol/L (98-107); COR CA(FOR HYPOALB) 9.2 mg/dL (8.5-10.1); CREATININE 0.66 mg/dL (0.55-1.02); SODIUM 132 mmol/L (136-145); TOTAL PROTEIN 6.6 g/dL (6.4-8.2); eGFR NON BLACK RACES > 60 (>60)
[2019-07-26 07:53] LABS: BILIRUBIN,URINE NEGATIVE (NEGATIVE); BLOOD/HEMOGLOBIN,URINE NEGATIVE (NEGATIVE); GLUCOSE, URINE NEGATIVE (NEGATIVE); KETONES,URINE NEGATIVE (NEGATIVE); LEUKOCYTE ESTERASE ,URINE 3+ (NEGATIVE); NITRITES,URINE NEGATIVE (NEGATIVE); PROTEIN,URINE NEGATIVE (NEGATIVE); UROBILINOGEN,URINE NORMAL (NORMAL)
[2019-07-26 07:55] LABS: CKMB % 2.3 % (<4); CREATINE KINASE MB 2.4 ng/mL (0-4.0); TROPONIN I 0.03 ng/mL (0-1.5)
[2019-07-26 07:59] LABS: AMORPHOUS SEDIMENT,UR 2+ /HPF (NEGATIVE); APPEARANCE,URINE HAZY (CLEAR); BACTERIA,URINE TRACE /HPF (NEGATIVE); COLOR,URINE YELLOW (YELLOW); RBC,URINE 0-2 /HPF (0-3); SQUAMOUS EPITHELIAL CELL,UR RARE /HPF (NEGATIVE)
[2019-07-26] MEDS ORDERED: ZOFRAN INJ 4 MG VIAL IVP PRN (08:39)
[2019-07-26 08:51] LABS: BILIRUBIN,URINE NEGATIVE (NEGATIVE); BLOOD/HEMOGLOBIN,URINE NEGATIVE (NEGATIVE); GLUCOSE, URINE NEGATIVE (NEGATIVE); KETONES,URINE NEGATIVE (NEGATIVE); LEUKOCYTE ESTERASE ,URINE 2+ (NEGATIVE); NITRITES,URINE NEGATIVE (NEGATIVE); PROTEIN,URINE NEGATIVE (NEGATIVE); UROBILINOGEN,URINE NORMAL (NORMAL)
[2019-07-26] MEDS ORDERED: POTASSIUM CHL 40 MEQ/NS 0.45% 500 ML IV PRN (08:52)
[2019-07-26] MEDS ORDERED: KLOR-CON PO PRN (08:52)
[2019-07-26] MEDS ORDERED: POTASSIUM CHLORIDE LIQ 20 MEQ UDC PO PRN (08:52)
[2019-07-26] MEDS ORDERED: POTASSIUM CHL 60 MEQ/NS 0.45% 500 ML IV PRN (08:52)
[2019-07-26] MEDS ORDERED: MICRO K EXTEN CAP 10 MEQ PO PRN (08:52)
[2019-07-26] MEDS ORDERED: K-RIDER 10 MEQ/NS 100 ML 10 MEQ/100 ML BAG IV PRN (08:52)
[2019-07-26] MEDS ORDERED: K-DUR TAB 20 MEQ PO PRN (08:52)
[2019-07-26] MEDS ORDERED: MAGNESIUM SULFATE 1 GRAM/100 mL PREMIX 1 GM/100 ML BAG IV PRN (08:52)
[2019-07-26 08:53] LABS: APPEARANCE,URINE HAZY (CLEAR); COLOR,URINE YELLOW (YELLOW)
[2019-07-26 08:57] LABS: AMORPHOUS SEDIMENT,UR 1+ /HPF (NEGATIVE); BACTERIA,URINE TRACE /HPF (NEGATIVE); RBC,URINE 0-2 /HPF (0-3); SQUAMOUS EPITHELIAL CELL,UR NEGATIVE /HPF (NEGATIVE)
[2019-07-26] MEDS ORDERED: MORPHINE SULFATE INJ 4 MG ONE (09:24)
[2019-07-26] MEDS: MORPHINE SULFATE INJ 4 MG IVP PRN ×3 (09:29→21:22)
[2019-07-26] MEDS ORDERED: DEXTROSE IV NR ×2 (10:00)
[2019-07-26] MEDS ORDERED: MAGNESIUM SULFATE IV NR ×2 (10:00)
[2019-07-26] MEDS ORDERED: PROCRIT or EPOGEN SC ONE (11:04)
[2019-07-26] MEDS ORDERED: XANAX ONE (12:46)
[2019-07-26] MEDS: XANAX PO PRN (12:49)
[2019-07-26] MEDS ORDERED: PROCRIT or EPOGEN ONE (13:27)
[2019-07-26] MEDS ORDERED: AFLURIA II4 or FLUARIX II4 IM ONE (14:37)
[2019-07-26] MEDS ORDERED: PREVNAR 13 IM ONE (14:37)
[2019-07-26] MEDS ORDERED: XANAX PO PRN (15:39)
[2019-07-26] MEDS: GLUCOPHAGE PO SCH ×2 (15:55→21:06)
[2019-07-26] MEDS: LASIX IVP SCH ×2 (15:55→21:07)
--- NOTE | 2019-07-26 16:05 | RAD ---
HISTORY: Shortness of breath Study: Single view of the chest. Comparison: None. Findings: The cardiomediastinal silhouette is normal. No focal consolidations, pleural effusions or pneumothorax. Osseous structures demonstrate no acute abnormality. Bilateral hyper expansion with coarsening of interstitial markings. IMPRESSION: 1. No acute cardiopulmonary process. 2. Findings of COPD. Reported By:
[2019-07-26 16:29] LABS: CREATINE KINASE MB 3.1 ng/mL (0-4.0); TROPONIN I 0.09 ng/mL (0-1.5)
[2019-07-26] MEDS ORDERED: GLUCOPHAGE ONE (20:34)
[2019-07-26] MEDS: ELIQUIS PO SCH (21:06)
[2019-07-26 22:00] LABS: CKMB % 1.7 % (<4); TROPONIN I 0.07 ng/mL (0-1.5)
[2019-07-27] MEDS: MORPHINE SULFATE INJ 4 MG IVP PRN ×3 (04:31→17:08)
[2019-07-27 05:04] LABS: BASOPHILS % (AUTO) 0.6 % (0.2-1.0); EOSINOPHILS # (AUTO) 0.1 x10^3/uL (0.0-0.2); EOSINOPHILS % (AUTO) 0.8 % (0.9-2.9); HEMATOCRIT 23.2 % (36.0-47.0); LYMPHOCYTES % (AUTO) 14.8 % (21.0-51.0); MEAN CORPUSCULAR HEMOGLOBIN 30.4 pg (27.0-34.0); MEAN CORPUSCULAR HGB CONC 34.5 g/dL (33.0-35.0); MEAN CORPUSCULAR VOLUME 88.3 fL (80.0-100.0); MEAN PLATELET VOLUME 7.2 fL (7.4-11.0); MONOCYTES # (AUTO) 0.8 x10^3/uL (0.3-0.8); MONOCYTES % (AUTO) 12.1 % (0.0-13.0); NEUTROPHILS # (AUTO) 4.9 x10^3/uL (2.2-4.8); NEUTROPHILS % (AUTO) 71.7 % (42.0-75.0); PLATELET COUNT 254 X10^3/uL (150.0-450.0); RED BLOOD COUNT 2.63 X10^6/uL (3.5-5.4); RED CELL DISTRIBUTION WIDTH 16.9 % (11.6-16.5); WHITE BLOOD COUNT 6.8 X10^3/uL (3.6-10.0)
[2019-07-27 05:15] LABS: ALANINE AMINOTRANSFERASE 14 Units/L (12-78); ALBUMIN 2.5 g/dL (3.4-5.0); ALKALINE PHOSPHATASE 146 Units/L (46-116); ASPARTATE AMINO TRANSFERASE 43 Units/L (15-37); BLOOD UREA NITROGEN 5 mg/dL (7-18); CALCIUM 7.7 mg/dL (8.5-10.1); CARBON DIOXIDE 31.9 mmol/L (21-32); CHLORIDE 95 mmol/L (98-107); COR CA(FOR HYPOALB) 8.9 mg/dL (8.5-10.1); CREATININE 0.56 mg/dL (0.55-1.02); SODIUM 134 mmol/L (136-145); TOTAL PROTEIN 5.9 g/dL (6.4-8.2); eGFR NON BLACK RACES > 60 (>60)
[2019-07-27] MEDS ORDERED: GLUCOPHAGE ONE ×2 (08:35→19:19)
[2019-07-27] MEDS: LASIX IVP SCH ×2 (08:39→20:15)
[2019-07-27] MEDS: LANOXIN PO SCH (08:39)
[2019-07-27] MEDS: CELEXA PO SCH (08:40)
[2019-07-27] MEDS: XANAX PO PRN ×2 (08:40→20:22)
[2019-07-27] MEDS: PROTONIX TAB 40 MG PO SCH (08:40)
[2019-07-27] MEDS: ELIQUIS PO SCH ×2 (08:40→20:15)
[2019-07-27] MEDS: CARDIZEM CD 120 MG 24-HR PO SCH (08:41)
[2019-07-27] MEDS: GLUCOPHAGE PO SCH ×2 (08:41→20:15)
[2019-07-27] MEDS: THIAMINE HCL INJ IM SCH (16:26)
[2019-07-28 05:15] LABS: BASOPHILS # (AUTO) 0.1 X10^3/uL (0.0-0.1); BASOPHILS % (AUTO) 0.9 % (0.2-1.0); EOSINOPHILS # (AUTO) 0.1 x10^3/uL (0.0-0.2); EOSINOPHILS % (AUTO) 1.4 % (0.9-2.9); HEMATOCRIT 25.1 % (36.0-47.0); HEMOGLOBIN 8.5 g/dL (12.0-16.0); LYMPHOCYTES # (AUTO) 0.8 X10^3/uL (1.3-2.9); MEAN CORPUSCULAR HGB CONC 33.8 g/dL (33.0-35.0); MEAN CORPUSCULAR VOLUME 88.9 fL (80.0-100.0); MEAN PLATELET VOLUME 7.4 fL (7.4-11.0); MONOCYTES # (AUTO) 0.9 x10^3/uL (0.3-0.8); MONOCYTES % (AUTO) 14.4 % (0.0-13.0); NEUTROPHILS # (AUTO) 4.6 x10^3/uL (2.2-4.8); NEUTROPHILS % (AUTO) 71.3 % (42.0-75.0); PLATELET COUNT 259 X10^3/uL (150.0-450.0); RED BLOOD COUNT 2.82 X10^6/uL (3.5-5.4); RED CELL DISTRIBUTION WIDTH 17.2 % (11.6-16.5); WHITE BLOOD COUNT 6.5 X10^3/uL (3.6-10.0)
[2019-07-28 05:23] LABS: ALANINE AMINOTRANSFERASE 17 Units/L (12-78); ALBUMIN 2.6 g/dL (3.4-5.0); ALKALINE PHOSPHATASE 142 Units/L (46-116); ASPARTATE AMINO TRANSFERASE 48 Units/L (15-37); BLOOD UREA NITROGEN 6 mg/dL (7-18); CALCIUM 7.8 mg/dL (8.5-10.1); CARBON DIOXIDE 30.4 mmol/L (21-32); CHLORIDE 97 mmol/L (98-107); COR CA(FOR HYPOALB) 8.9 mg/dL (8.5-10.1); CREATININE 0.52 mg/dL (0.55-1.02); SODIUM 137 mmol/L (136-145); TOTAL PROTEIN 6.1 g/dL (6.4-8.2); eGFR NON BLACK RACES > 60 (>60)
[2019-07-28] MEDS ORDERED: GLUCOPHAGE ONE (08:15)
[2019-07-28] MEDS: LASIX IVP SCH (09:26)
[2019-07-28] MEDS: CARDIZEM CD 120 MG 24-HR PO SCH (09:27)
[2019-07-28] MEDS: CELEXA PO SCH (09:28)
[2019-07-28] MEDS: PROTONIX TAB 40 MG PO SCH (09:28)
[2019-07-28] MEDS: ELIQUIS PO SCH (09:28)
[2019-07-28] MEDS: GLUCOPHAGE PO SCH (09:31)
[2019-07-28] MEDS: LANOXIN PO SCH (09:31)
[2019-07-28] MEDS: THIAMINE HCL INJ IM SCH (09:32)
[2019-07-28] MEDS: XANAX PO PRN (12:17)
[2019-07-28 12:25] VITALS: BP 101/53
[2019-07-28] MEDS ORDERED: NORCO 10/325 TAB PO ONE (12:39)
[2019-07-28] MEDS ORDERED: NORCO 10/325 TAB ONE (13:01)
== END 2019-07-28 13:18 | disposition home or self-care (01) | DRG 641 ==
LOC: ER 06:33 → MED/SURG 08:51
PROVIDERS: ADMIT Obstetrics & Gynecology Obstetrics; ATTEND Obstetrics & Gynecology Obstetrics
DX: M79.604 Pain in right leg; R06.02 Shortness of breath; R94.31 Abnormal electrocardiogram [ECG] [EKG]; F10.20 Alcohol dependence, uncomplicated; M79.605 Pain in left leg; I48.91 Unspecified atrial fibrillation; E11.65 Type 2 diabetes mellitus with hyperglycemia; E83.42 Hypomagnesemia; D63.8 Anemia in other chronic diseases classified elsewhere; F41.8 Other specified anxiety disorders; E51.2 Wernicke's encephalopathy; I87.8 Other specified disorders of veins; R20.0 Anesthesia of skin; R60.0 Localized edema; R29.6 Repeated falls; K21.9 Gastro-esophageal reflux disease without esophagitis
CPT/HCPCS: 36415; 51702; 71010; 71045; 80053; 80162; 81001; 82270; 82550; 82553; 83735; 84132; 84425; 84484; 85025; 85610; 85730; 87086; 93005; 93306; 94760; 96365; 96374; 96375; 99284; A4216; A4222; J0885; J1940; J2270; J3411; J3475; J3480; J7060

== ENCOUNTER 2021-10-26 15:03 | Observation (INO) ==
[2021-10-26 15:22] VITALS: BMI 31.3
[2021-10-26 15:40] LABS: BILIRUBIN,URINE NEGATIVE (NEGATIVE); BLOOD/HEMOGLOBIN,URINE 2+ (NEGATIVE); GLUCOSE, URINE NEGATIVE (NEGATIVE); KETONES,URINE NEGATIVE (NEGATIVE); LEUKOCYTE ESTERASE ,URINE 1+ (NEGATIVE); NITRITES,URINE NEGATIVE (NEGATIVE); PROTEIN,URINE 1+ (NEGATIVE); UROBILINOGEN,URINE NORMAL (NORMAL)
--- NOTE | 2021-10-26 15:54 | RAD ---
HISTORYsob x 2 days Relevant Clinical InformationSTUDYCHEST, 1 [id number]/26/2020.FINDINGSThe trachea is midline. The cardiac silhouette is mildly enlarged but stable. There is atherosclerosis in the tortuous aorta. There is some mild interstitial prominence in the lung bases suggestive of edema. There is a trace left effusion. The bony thorax is unremarkable.IMPRESSIONCardiomegaly with interstitial edema and trace left effusion.Electronically signed by: Jorge Samaniego (Oct 26, 2021 15:52:59)
[2021-10-26 15:56] LABS: COLOR,URINE YELLOW (YELLOW)
[2021-10-26 15:57] LABS: APPEARANCE,URINE SLIGHTLY HAZY (CLEAR); RBC,URINE 0-2 /HPF (0-3)
[2021-10-26 15:58] LABS: BACTERIA,URINE 1+ /HPF (NEGATIVE); SQUAMOUS EPITHELIAL CELL,UR MODERATE /HPF (NEGATIVE)
--- NOTE | 2021-10-26 16:00 | DR.SOBA ---
HPI Time Seen Time Seen by Provider: 10/26/21 15:33 Primary Care Physician Primary Care Physician: YEFRI Complaints Chief Complaint Doctors Comments: 75 y/o female brought in for shortness of breath. Has had increased swelling of her legs over the past few days. Started taking a diuretic. Has had worsening exertional dyspnea over the past 2 days. Also with dyspnea with laying flatter (sleeps sitting up). Denies fever, chills, cough, chest pain. Has a h/o fluid in her lungs in the past. Has had a pacemaker for the past several years. Chief Complaint:: PATIENT DONAL OUT TO EMS FOR DIFFICULTY BREATHING. EMS STATES PATIENT WAWS VERY TACHPNIC. BREATHING TREATMENT WAS GIVEN. PATIENT STATES SHE HAS BEEN HAVING SHORTNESS OF BREATH THE PAST 2 DAYS. PATIENT STATES SHE STARTED TAKING HER WTER PILL IN CASE IT WAS HER CHF, BUT IS NOT WORKING. COVID-19 Coronavirus risk:travel/contact w/high risk person: No Has patient experienced Coronavirus symptoms: No Reviewed Nurses Notes Reviewed: Yes Source History Provided: Patient and EMS Mode of Arrival Mode of Arrival: EMS Timing Onset of Chief Complaint: 10/24/21 PMH PMH Past Medical History: Yes Past Medical History: Angina, Anxiety, Arthritis, CHF, Depression, Diabetes, GERD and Hypertension Past Surgical History: Yes Surgical History: Tonsillectomy Family History History of Family Medical Conditions: Yes Family Medical History: Cancer Social History Does any household member use tobacco: No Alcohol Use: None Do you use any recreational Drugs:: No Lives With: Family Lives Where: Home Travel Risk Coronavirus risk:travel/contact w/high risk person: No Has patient experienced Coronavirus symptoms: No Infectious screening In the last 2 months have you had wt loss of >10#?: NO Have you had fever, night sweats or hemotysis?: No Have you traveled outside the country in the last 6 months?: No Isolation: Standard ROS Review of Systems Constitutional: Weakness; negative Chills and Fever Eyes: No Symptoms Reported ENTM: No Symptoms Reported Respiratoy: Short of Breath Cardiovascular: No Symptoms Reported Gastrointestinal/Abdominal: Diarrhea (chronic) Genitourinary: No Symptoms Reported Neurological: Weakness Musculoskeletal: No Symptoms Reported Integumentary: No Symptoms Reported Hematologic/Lymphatic: No Symptoms Reported Psychiatric: No Symptoms Reported All Other Systems: Reviewed and Negative PE Vital Signs Vitals: Temperature 98.2 F Pulse Rate 84 Respiratory Rate 20 Blood Pressure [Right Arm] 101/53 Blood Pressure [Left Arm] 131/68 Blood Pressure 111/59 O2 Sat by Pulse Oximetry 97 General Limitations: No Limitations General Appearance: Alert and Other (+ easily winded with moving) Head Head Exam: Normal Inspection Eyes Eye exam: Normal Appearance, PERRL and EOMI ENT ENT Exam: Normal Exam and Mucous Membranes Moist Neck Neck Exam: Normal Inspection Chest Chest Inspection: Normal Inspection Respiratory Respiratory Exam: Normal Lung Sounds Bilat; negative Accessory Muscle Use and Respiratory Distress Respiratory Exam: Bilateral: Clear to Auscultation and Bilateral: Decreased Breath Sounds (at bases) Cardiovascular Cardiovascular Exam: Regular Rate, Normal Rhythm and Normal Heart Sounds Abdominal Exam Abdominal Exam: Normal Inspection, Normal Bowel Sounds and Soft; negative Tenderness Extremities Extremities Exam: Edema (1-2+ bilaterally) Neurologic Neurological Exam: Alert, Oriented X3 and CN II-XII Intact; negative Motor Sensory Deficit Psychiatric Psychiatric Exam: Normal Affect Skin Skin Exam: Warm and Dry MDM Differential Diagnosis Differential Diagnosis: CHF, Mycardial Infarction, Pneumonia, Pulmonary embolism and URI COURSE Treatment Treatment: 75 y/o female presents with worsening dyspnea over the past few days. Legs were more swollen, has been taking a diuretic. W/u initiated. Pt doing better on O2 via nasal cannula. West placed by nurses as pt is very dyspneic with minimal exertion. CXR with degree of CHF, BNP is elevated. Cardiac enzymes negative. Given IV lasix. Recommend admission for O2 suppplementation and further diuresis. Discussed with her attending, Dr Madrid, accepts the admission. ROR Labs Reviewed Laboratory Results Reviewed?: Yes Result Diagrams: 10/26/21 15:45 10/26/21 15:45 Laboratory: WBC 4.5 X10^3/uL (3.6-10.0) 10/26/21 15:45 RBC 3.40 X10^6/uL (3.5-5.4) L 10/26/21 15:45 Hgb 10.5 g/dL (12.0-16.0) L 10/26/21 15:45 Hct 30.8 % (36.0-47.0) L 10/26/21 15:45 MCV 90.4 fL (80.0-100.0) 10/26/21 15:45 MCH 31.0 pg (27.0-34.0) 10/26/21 15:45 MCHC 34.3 g/dL (33.0-35.0) 10/26/21 15:45 RDW 14.8 % (11.6-16.5) 10/26/21 15:45 Plt Count 152 X10^3/uL (150.0-450.0) 10/26/21 15:45 MPV 8.3 fL (7.4-11.0) 10/26/21 15:45 Neut % (Auto) 57.6 % (42.0-75.0) 10/26/21 15:45 Lymph % (Auto) 26.2 % (21.0-51.0) 10/26/21 15:45 [place] % (Auto) 12.9 % (0.0-13.0) 10/26/21 15:45 Eos % (Auto) 2.5 % (0.9-2.9) 10/26/21 15:45 Baso % (Auto) 0.8 % (0.2-1.0) 10/26/21 15:45 Neut # (Auto) 2.6 x10^3/uL (2.2-4.8) 10/26/21 15:45 Lymph # (Auto) 1.2 X10^3/uL (1.3-2.9) L 10/26/21 15:45 [place] # (Auto) 0.6 x10^3/uL (0.3-0.8) 10/26/21 15:45 Eos # (Auto) 0.1 x10^3/uL (0.0-0.2) 10/26/21 15:45 Baso # (Auto) 0.0 X10^3/uL (0.0-0.1) 10/26/21 15:45 Absolute Nucleated RBC 0.1 /100WBC 10/26/21 15:45 Sodium 135 mmol/L (136-145) L 10/26/21 15:45 Corrected Sodium TNP 10/26/21 15:45 Potassium 4.3 mmol/L (3.5-5.1) 10/26/21 15:45 Chloride 101 mmol/L (98-107) 10/26/21 15:45 Carbon Dioxide 24.3 mmol/L (21-32) 10/26/21 15:45 BUN 17 mg/dL (7-18) 10/26/21 15:45 Creatinine 0.67 mg/dL (0.55-1.02) 10/26/21 15:45 Est GFR (MDRD) Af Amer > 60 (>60) 10/26/21 15:45 Est GFR (MDRD) Non-Af > 60 (>60) 10/26/21 15:45 Glucose 75 mg/dL (65-99) 10/26/21 15:45 Calcium 7.8 mg/dL (8.5-10.1) L 10/26/21 15:45 Corrected Calcium 8.4 mg/dL (8.5-10.1) L 10/26/21 15:45 Total Bilirubin 0.70 mg/dL (0.2-1.0) 10/26/21 15:45 AST 20 Units/L (15-37) 10/26/21 15:45 ALT 13 Units/L (12-78) 10/26/21 15:45 Alkaline Phosphatase 65 Units/L (46-116) 10/26/21 15:45 Creatine Kinase 45 Units/L (26-192) 10/26/21 15:45 CK-MB (CK-2) 1.9 ng/mL (0-4.0) 10/26/21 15:45 CK/CKMB % Calc 4.2 % (<4) 10/26/21 15:45 Troponin I High Sens 11.1 ng/L (4.0-60.0) 10/26/21 15:45 B-Natriuretic Peptide 478 pg/mL (0-79) H 10/26/21 15:45 Total Protein 6.2 g/dL (6.4-8.2) L 10/26/21 15:45 Albumin 3.2 g/dL (3.4-5.0) L 10/26/21 15:45 Globulin 3.0 g/dL (2.5-4.5) 10/26/21 15:45 Albumin/Globulin Ratio 1.1 Ratio (1.1-2.1) 10/26/21 15:45 Specimen Type Catherized urine 10/26/21 15:30 Urine Color Yellow (YELLOW) 10/26/21 15:30 Urine Appearance Slightly hazy (CLEAR) 10/26/21 15:30 Urine pH 7.0 (5.0 - 8.0) 10/26/21 15:30 Ur Specific [place] 1.010 (1.000-1.030) 10/26/21 15:30 Urine Protein 1+ (NEGATIVE) 10/26/21 15:30 Urine Glucose (UA) Negative (NEGATIVE) 10/26/21 15:30 Urine Ketones Negative (NEGATIVE) 10/26/21 15:30 Urine Occult Blood 2+ (NEGATIVE) 10/26/21 15:30 Urine Nitrite Negative (NEGATIVE) 10/26/21 15:30 Urine Bilirubin Negative (NEGATIVE) 10/26/21 15:30 Urine Urobilinogen Normal (NORMAL) 10/26/21 15:30 Ur Leukocyte Esterase 1+ (NEGATIVE) 10/26/21 15:30 Urine RBC 0-2 /HPF (0-3) 10/26/21 15:30 Urine WBC 3-5 /HPF (0-5) 10/26/21 15:30 Ur Squamous Epith Cells Moderate /HPF (NEGATIVE) 10/26/21 15:30 Amorphous Sediment 1+ /HPF (NEGATIVE) 10/26/21 15:30 Urine Bacteria 1+ /HPF (NEGATIVE) 10/26/21 15:30 Ur Culture Indicated? No/not indicated 10/26/21 15:30 SARS CoV-2 RNA Rapid JACOBO Negative (NEGATIVE) 10/26/21 16:40 Other Results Comments: BNP elevated at 478. XRAY XRAY Interpreted by: Both X-ray Results: + cardiomegaly, + increased bilateral markings c/w CHF EKG Rate: 79 [place]: LAD Block: [address]: Nonsp Opioid Opioid Risk Tool Age (Abelino box if 16-45): No History of Preadolescent Sexual Abuse: No Total: 0 Total Score Risk Category: Low Risk Copyright: Vasile LUNA predicting aberrant behaviors Diagnosis Discharge Problem: Congestive heart failure Qualifiers: Heart failure type: unspecified Heart failure chronicity: acute on chronic Qualified Code(s): I50.9 - Heart failure, unspecified
[2021-10-26 16:10] LABS: BASOPHILS % (AUTO) 0.8 % (0.2-1.0); EOSINOPHILS # (AUTO) 0.1 x10^3/uL (0.0-0.2); EOSINOPHILS % (AUTO) 2.5 % (0.9-2.9); HEMATOCRIT 30.8 % (36.0-47.0); HEMOGLOBIN 10.5 g/dL (12.0-16.0); LYMPHOCYTES # (AUTO) 1.2 X10^3/uL (1.3-2.9); LYMPHOCYTES % (AUTO) 26.2 % (21.0-51.0); MEAN CORPUSCULAR HGB CONC 34.3 g/dL (33.0-35.0); MEAN CORPUSCULAR VOLUME 90.4 fL (80.0-100.0); MEAN PLATELET VOLUME 8.3 fL (7.4-11.0); MONOCYTES # (AUTO) 0.6 x10^3/uL (0.3-0.8); MONOCYTES % (AUTO) 12.9 % (0.0-13.0); NEUTROPHILS # (AUTO) 2.6 x10^3/uL (2.2-4.8); NEUTROPHILS % (AUTO) 57.6 % (42.0-75.0); RED CELL DISTRIBUTION WIDTH 14.8 % (11.6-16.5); WHITE BLOOD COUNT 4.5 X10^3/uL (3.6-10.0)
[2021-10-26 16:20] LABS: ALANINE AMINOTRANSFERASE 13 Units/L (12-78); ALBUMIN 3.2 g/dL (3.4-5.0); ALKALINE PHOSPHATASE 65 Units/L (46-116); ASPARTATE AMINO TRANSFERASE 20 Units/L (15-37); BLOOD UREA NITROGEN 17 mg/dL (7-18); CALCIUM 7.8 mg/dL (8.5-10.1); CARBON DIOXIDE 24.3 mmol/L (21-32); CHLORIDE 101 mmol/L (98-107); CKMB % 4.2 % (<4); COR CA(FOR HYPOALB) 8.4 mg/dL (8.5-10.1); CREATINE KINASE 45 Units/L (26-192); CREATINE KINASE MB 1.9 ng/mL (0-4.0); CREATININE 0.67 mg/dL (0.55-1.02); SODIUM 135 mmol/L (136-145); TOTAL PROTEIN 6.2 g/dL (6.4-8.2); eGFR NON BLACK RACES > 60 (>60)
[2021-10-26] MEDS ORDERED: LASIX IVP ONE ×2 (16:33→16:42)
[2021-10-26] MEDS ORDERED: NORCO 10/325 TAB PO ONE (17:14)
[2021-10-26] MEDS ORDERED: NORCO 10/325 TAB ONE (17:19)
[2021-10-26] MEDS ORDERED: NORCO 7.5/325 MG TAB PO PRN (18:10)
[2021-10-26] MEDS: COREG TAB 6.25 MG PO SCH (20:00)
[2021-10-26] MEDS: ELIQUIS PO SCH (20:00)
[2021-10-27 06:47] LABS: BASOPHILS % (AUTO) 0.5 % (0.2-1.0); EOSINOPHILS # (AUTO) 0.1 x10^3/uL (0.0-0.2); EOSINOPHILS % (AUTO) 3.3 % (0.9-2.9); HEMATOCRIT 30.2 % (36.0-47.0); HEMOGLOBIN 10.6 g/dL (12.0-16.0); LYMPHOCYTES # (AUTO) 0.7 X10^3/uL (1.3-2.9); LYMPHOCYTES % (AUTO) 16.4 % (21.0-51.0); MEAN CORPUSCULAR HEMOGLOBIN 31.7 pg (27.0-34.0); MEAN CORPUSCULAR VOLUME 90.6 fL (80.0-100.0); MEAN PLATELET VOLUME 8.2 fL (7.4-11.0); MONOCYTES # (AUTO) 0.6 x10^3/uL (0.3-0.8); NEUTROPHILS # (AUTO) 2.8 x10^3/uL (2.2-4.8); NEUTROPHILS % (AUTO) 65.8 % (42.0-75.0); RED BLOOD COUNT 3.33 X10^6/uL (3.5-5.4); RED CELL DISTRIBUTION WIDTH 14.6 % (11.6-16.5); WHITE BLOOD COUNT 4.2 X10^3/uL (3.6-10.0)
[2021-10-27 07:12] LABS: ALANINE AMINOTRANSFERASE 14 Units/L (12-78); ALBUMIN 2.9 g/dL (3.4-5.0); ALKALINE PHOSPHATASE 58 Units/L (46-116); ASPARTATE AMINO TRANSFERASE 25 Units/L (15-37); BLOOD UREA NITROGEN 15 mg/dL (7-18); CALCIUM 7.7 mg/dL (8.5-10.1); CARBON DIOXIDE 26.6 mmol/L (21-32); CHLORIDE 105 mmol/L (98-107); COR CA(FOR HYPOALB) 8.6 mg/dL (8.5-10.1); CREATININE 0.57 mg/dL (0.55-1.02); SODIUM 139 mmol/L (136-145); TOTAL PROTEIN 5.9 g/dL (6.4-8.2); eGFR NON BLACK RACES > 60 (>60)
[2021-10-27 07:44] VITALS: BP 110/57
[2021-10-27] MEDS ORDERED: IMODIUM CAP 2 MG PO PRN (08:25)
[2021-10-27] MEDS ORDERED: GLUCOPHAGE ONE (08:35)
[2021-10-27] MEDS: COREG TAB 6.25 MG PO SCH (08:48)
[2021-10-27] MEDS: ELIQUIS PO SCH (08:48)
[2021-10-27] MEDS ORDERED: LASIX IVP SCH (09:00)
[2021-10-27] MEDS ORDERED: CELEXA PO SCH (09:00)
[2021-10-27] MEDS ORDERED: ENTRESTO 24/26 MG TAB PO SCH (09:00)
[2021-10-27] MEDS ORDERED: CARDIZEM CD 120 MG 24-HR PO SCH (09:00)
[2021-10-27] MEDS ORDERED: LANOXIN or DIGITEK PO SCH (09:00)
[2021-10-27] MEDS ORDERED: MICRO K EXTEN CAP 10 MEQ PO SCH (09:00)
[2021-10-27] MEDS ORDERED: GLUCOPHAGE PO SCH (09:00)
--- NOTE | 2021-11-04 09:59 | DR.SSS ---
SHORT STAY SUMMARY Admission Date Date of Admission: 10/26/21 Discharge Date Discharge Date: 10/27/21 Admission Diagnoses Admission Diagnoses: 1. Shortness of breath 2. Congestive heart failure exacerbation. 3. Chronic bilateral lower extremity edema. Discharge Diagnoses Discharge Diagnoses: 1. Congestive heart failure exacerbation - resolved 2. Shortness of breath cough- resolved 3. Chronic bilateral lower extremity edema-stable Chief Complaint Chief Complaint: Shortness of breath History of Present Illness History of Present Illness: This is a pleasant 75 year old white female who presented to the emergency department for a two-day history of increasing shortness of breath. The patient reports a previous history of congestive heart failure. She also reports a history of having fluid on lungs at times. She has taken some extra Lasix but it has not improved her overall shortness of breath. In the emergency department a BNP was done and it showed it to be over 900. artistic race showed increase interstitial markings consistent with fluid overload and a small left pleural effusion. Patient was subsequently admitted for IV Lasix treatment and fluid restriction. Past Medical History Past Medical History: Angina, Anxiety, Arthritis, CHF, Depression, Diabetes, GERD and Hypertension Past Surgical History Surgical History: Tonsillectomy Allergies Allergies Allergy/AdvReac Type Severity Reaction Status Date / Time No Known Drug Allergies Allergy Verified 07/26/19 10:52 Medications Home Medications: No Known Drug Allergies Allergy (Verified 07/26/19 10:52) CONTINUE taking the following medications Entresto 0.5 tab PO BID 10/26/21 [History] hydrocodone-acetaminophen 7.5 tab PO QID PRN 10/26/21 [History] New Prescriptions furosemide [Lasix] 20 mg PO DAILY #0 tab 10/27/21 [Rx] Family History Family Medical History: Diabetes Mellitus, Cancer and Hypertension Social History Does patient currently use any type of tobacco product: No Have you used tobacco products in the last 12 months: No Type of Tobacco Use: None Does any household member use tobacco: No Alcohol Use: None Drug Use: None Review of Systems Constitutional: Weakness Eyes: No Symptoms Reported ENT: No Symptoms Reported Respiratory: Shortness of Breath and SOB with Excertion Cardiovascular: Orthopnea Gastrointestinal: No Symptoms Reported Genitourinary: No Symptoms Reported Musculoskeletal: No Symptoms Reported Skin: No Symptoms Reported Neurological: No Symptoms Reported Physical Exam Vital Signs: Last Vital Signs Temp 98.2 F 10/27/21 07:43 Pulse 82 10/27/21 08:49 Resp 20 10/27/21 07:43 BP 110/57 10/27/21 07:43 Pulse Ox 99 10/27/21 07:43 Oriented: Normal, Time, Person and Place Eyes: Normal Ear: Normal Nose: Normal Throat: Normal Respiratory: RLL Rales and LLL Rales Cardiovascular: Normal : Normal Auscultation: Bowel Sounds: Normal Palpation: Normal Tenderness: Normal Skin: Normal Musculoskeletal: Normal Psychiatric: Normal Mood Description: Calm Affect: Normal Speech Pattern: Clear and Appropriate Labs Labs: Laboratory Last Values WBC 4.2 X10^3/uL (3.6-10.0) 10/27/21 06:20 RBC 3.33 X10^6/uL (3.5-5.4) L 10/27/21 06:20 Hgb 10.6 g/dL (12.0-16.0) L 10/27/21 06:20 Hct 30.2 % (36.0-47.0) L 10/27/21 06:20 MCV 90.6 fL (80.0-100.0) 10/27/21 06:20 MCH 31.7 pg (27.0-34.0) 10/27/21 06:20 MCHC 35.0 g/dL (33.0-35.0) 10/27/21 06:20 RDW 14.6 % (11.6-16.5) 10/27/21 06:20 Plt Count 118 X10^3/uL (150.0-450.0) L 10/27/21 06:20 MPV 8.2 fL (7.4-11.0) 10/27/21 06:20 Neut % (Auto) 65.8 % (42.0-75.0) 10/27/21 06:20 Lymph % (Auto) 16.4 % (21.0-51.0) L 10/27/21 06:20 [place] % (Auto) 14.0 % (0.0-13.0) H 10/27/21 06:20 Eos % (Auto) 3.3 % (0.9-2.9) H 10/27/21 06:20 Baso % (Auto) 0.5 % (0.2-1.0) 10/27/21 06:20 Neut # (Auto) 2.8 x10^3/uL (2.2-4.8) 10/27/21 06:20 Lymph # (Auto) 0.7 X10^3/uL (1.3-2.9) L 10/27/21 06:20 [place] # (Auto) 0.6 x10^3/uL (0.3-0.8) 10/27/21 06:20 Eos # (Auto) 0.1 x10^3/uL (0.0-0.2) 10/27/21 06:20 Baso # (Auto) 0.0 X10^3/uL (0.0-0.1) 10/27/21 06:20 Absolute Nucleated RBC 0.1 /100WBC 10/27/21 06:20 Sodium 139 mmol/L (136-145) 10/27/21 06:20 Corrected Sodium TNP 10/27/21 06:20 Potassium 3.9 mmol/L (3.5-5.1) 10/27/21 06:20 Chloride 105 mmol/L (98-107) 10/27/21 06:20 Carbon Dioxide 26.6 mmol/L (21-32) 10/27/21 06:20 BUN 15 mg/dL (7-18) 10/27/21 06:20 Creatinine 0.57 mg/dL (0.55-1.02) 10/27/21 06:20 Est GFR (MDRD) Af Amer > 60 (>60) 10/27/21 06:20 Est GFR (MDRD) Non-Af > 60 (>60) 10/27/21 06:20 Glucose 85 mg/dL (65-99) 10/27/21 06:20 POC Glucose (mg/dL) 90 mg/dL (65-99) 10/27/21 05:11 Calcium 7.7 mg/dL (8.5-10.1) L 10/27/21 06:20 Corrected Calcium 8.6 mg/dL (8.5-10.1) 10/27/21 06:20 Total Bilirubin 0.70 mg/dL (0.2-1.0) 10/27/21 06:20 AST 25 Units/L (15-37) 10/27/21 06:20 ALT 14 Units/L (12-78) 10/27/21 06:20 Alkaline Phosphatase 58 Units/L (46-116) 10/27/21 06:20 Creatine Kinase 45 Units/L (26-192) 10/26/21 15:45 CK-MB (CK-2) 1.9 ng/mL (0-4.0) 10/26/21 15:45 CK/CKMB % Calc 4.2 % (<4) 10/26/21 15:45 Troponin I High Sens 11.1 ng/L (4.0-60.0) 10/26/21 15:45 B-Natriuretic Peptide 478 pg/mL (0-79) H 10/26/21 15:45 Total Protein 5.9 g/dL (6.4-8.2) L 10/27/21 06:20 Albumin 2.9 g/dL (3.4-5.0) L 10/27/21 06:20 Globulin 3.0 g/dL (2.5-4.5) 10/27/21 06:20 Albumin/Globulin Ratio 1.0 Ratio (1.1-2.1) L 10/27/21 06:20 Specimen Type Catherized urine 10/26/21 15:30 Urine Color Yellow (YELLOW) 10/26/21 15:30 Urine Appearance Slightly hazy (CLEAR) 10/26/21 15:30 Urine pH 7.0 (5.0 - 8.0) 10/26/21 15:30 Ur Specific [place] 1.010 (1.000-1.030) 10/26/21 15:30 Urine Protein 1+ (NEGATIVE) 10/26/21 15:30 Urine Glucose (UA) Negative (NEGATIVE) 10/26/21 15:30 Urine Ketones Negative (NEGATIVE) 10/26/21 15:30 Urine Occult Blood 2+ (NEGATIVE) 10/26/21 15:30 Urine Nitrite Negative (NEGATIVE) 10/26/21 15:30 Urine Bilirubin Negative (NEGATIVE) 10/26/21 15:30 Urine Urobilinogen Normal (NORMAL) 10/26/21 15:30 Ur Leukocyte Esterase 1+ (NEGATIVE) 10/26/21 15:30 Urine RBC 0-2 /HPF (0-3) 10/26/21 15:30 Urine WBC 3-5 /HPF (0-5) 10/26/21 15:30 Ur Squamous Epith Cells Moderate /HPF (NEGATIVE) 10/26/21 15:30 Amorphous Sediment 1+ /HPF (NEGATIVE) 10/26/21 15:30 Urine Bacteria 1+ /HPF (NEGATIVE) 10/26/21 15:30 Ur Culture Indicated? No/not indicated 10/26/21 15:30 SARS CoV-2 RNA Rapid JACOBO Negative (NEGATIVE) 10/26/21 16:40 Assessment/Plan (1) CHF (congestive heart failure): 1: Intravenous Lasix, fluid restriction. (2) Anemia, chronic disease: 1: Monitor daily cbc's. (3) DM2 (diabetes mellitus, type 2): 1: Regular insulin sliding scale. Hospital Course Hospital Course: After the patient was admitted from the emergency department she was continued on IV Lasix overnight. A repeat BNP was done the following morning and it comes down to just over four hundred. She reports not having any Dyspnea and no shortness of breath at this time. Her hemoglobin is stable this morning at 10.6. she'll be discharged home in stable condition this morning and I will follow up with her within a week for Hospital follow-up. She'll continue her home medications as usually prescribed but she will be instructed to take the Lasix 20 mg one po BID from this point on. Discharge Medications Discharge Medications: Home Medication List Entresto 0.5 tab PO BID 10/26/21 [History] hydrocodone-acetaminophen 7.5 tab PO QID PRN 10/26/21 [History] furosemide [Lasix] 20 mg PO DAILY #0 tab 10/27/21 [Rx] Prescriptions: Discharge Disposition Discharge Disposition: 1. Patient is being discharged home this morning in stable condition.
== END 2021-10-27 11:35 | disposition home health service (06) ==
LOC: MED/SURG 15:03 → ER 15:03 → MED/SURG 18:04
PROVIDERS: ADMIT Family Medicine; ATTEND Family Medicine
DX: I50.9 Heart failure, unspecified; I11.0 Hypertensive heart disease with heart failure; Z95.0 Presence of cardiac pacemaker; Z20.822 Contact with and (suspected) exposure to COVID-19; K21.9 Gastro-esophageal reflux disease without esophagitis; E11.65 Type 2 diabetes mellitus with hyperglycemia; R06.02 Shortness of breath; R94.31 Abnormal electrocardiogram [ECG] [EKG]

== ENCOUNTER 2022-07-12 04:41 | Observation (INO) ==
--- NOTE | 2022-07-12 05:01 | DR.EXTPAIN ---
HPI Time seen Time Seen by Provider: 07/12/22 04:59 COVID-19 Coronavirus risk:travel/contact w/high risk person: No Has patient experienced Coronavirus symptoms: No PMH PMH Past Medical History: Angina, Anxiety, Arthritis, CHF, Depression, Diabetes, GERD and Hypertension Past Surgical History: Yes Surgical History: Tonsillectomy Family History Family Medical History: Diabetes Mellitus, Cancer and Hypertension Social History Do you use any recreational Drugs:: No Travel Risk Coronavirus risk:travel/contact w/high risk person: No Has patient experienced Coronavirus symptoms: No PE Vital Signs Vitals: Temperature 97.7 F Pulse Rate 90 Respiratory Rate 18 Blood Pressure [Right Arm] 110/57 Blood Pressure 92/76 O2 Sat by Pulse Oximetry 100 ROR Labs Reviewed Laboratory Results Reviewed?: Yes Result Diagrams: 07/13/22 05:39 07/13/22 05:39 Laboratory: WBC 4.9 X10^3/uL (3.6-10.0) 07/12/22 05:25 RBC 3.68 X10^6/uL (3.5-5.4) 07/12/22 05:25 Hgb 10.6 g/dL (12.0-16.0) L 07/12/22 05:25 Hct 31.5 % (36.0-47.0) L 07/12/22 05:25 MCV 85.5 fL (80.0-100.0) 07/12/22 05:25 MCH 28.9 pg (27.0-34.0) 07/12/22 05:25 MCHC 33.8 g/dL (33.0-35.0) 07/12/22 05:25 RDW 15.7 % (11.6-16.5) 07/12/22 05:25 Plt Count 164 X10^3/uL (150.0-450.0) 07/12/22 05:25 MPV 7.5 fL (7.4-11.0) 07/12/22 05:25 Neut % (Auto) 51.7 % (42.0-75.0) 07/12/22 05:25 Lymph % (Auto) 25.3 % (21.0-51.0) 07/12/22 05:25 [place] % (Auto) 16.0 % (0.0-13.0) H 07/12/22 05:25 Eos % (Auto) 6.1 % (0.9-2.9) H 07/12/22 05:25 Baso % (Auto) 0.9 % (0.2-1.0) 07/12/22 05:25 Neut # (Auto) 2.5 x10^3/uL (2.2-4.8) 07/12/22 05:25 Lymph # (Auto) 1.2 X10^3/uL (1.3-2.9) L 07/12/22 05:25 [place] # (Auto) 0.8 x10^3/uL (0.3-0.8) 07/12/22 05:25 Eos # (Auto) 0.3 x10^3/uL (0.0-0.2) H 07/12/22 05:25 Baso # (Auto) 0.0 X10^3/uL (0.0-0.1) 07/12/22 05:25 Absolute Nucleated RBC 0.0 /100WBC 07/12/22 05:25 Sodium 135 mmol/L (136-145) L 07/12/22 05:25 Corrected Sodium TNP 07/12/22 05:25 Potassium 3.9 mmol/L (3.5-5.1) 07/12/22 05:25 Chloride 100 mmol/L (98-107) 07/12/22 05:25 Carbon Dioxide 26.3 mmol/L (21-32) 07/12/22 05:25 BUN 12 mg/dL (7-18) 07/12/22 05:25 Creatinine 0.95 mg/dL (0.55-1.02) 07/12/22 05:25 Est GFR (MDRD) Af Amer > 60 (>60) 07/12/22 05:25 Est GFR (MDRD) Non-Af > 60 (>60) 07/12/22 05:25 Glucose 71 mg/dL (65-99) 07/12/22 05:25 Calcium 8.2 mg/dL (8.5-10.1) L 07/12/22 05:25 Corrected Calcium 8.8 mg/dL (8.5-10.1) 07/12/22 05:25 Total Bilirubin 0.40 mg/dL (0.2-1.0) 07/12/22 05:25 AST 29 Units/L (15-37) 07/12/22 05:25 ALT 16 Units/L (12-78) 07/12/22 05:25 Alkaline Phosphatase 71 Units/L (46-116) 07/12/22 05:25 Creatine Kinase 170 Units/L (26-192) 07/12/22 05:25 Troponin I High Sens 14.6 ng/L (4.0-60.0) 07/12/22 05:25 Total Protein 6.2 g/dL (6.4-8.2) L 07/12/22 05:25 Albumin 3.3 g/dL (3.4-5.0) L 07/12/22 05:25 Globulin 2.9 g/dL (2.5-4.5) 07/12/22 05:25 Albumin/Globulin Ratio 1.1 Ratio (1.1-2.1) 07/12/22 05:25 Specimen Type Clean catch urine 07/12/22 05:25 Urine Color Yellow (YELLOW) 07/12/22 05:25 Urine Appearance Clear (CLEAR) 07/12/22 05:25 Urine pH 6.0 (5.0 - 8.0) 07/12/22 05:25 Ur Specific [place] 1.015 (1.000-1.030) 07/12/22 05:25 Urine Protein 2+ (NEGATIVE) 07/12/22 05:25 Urine Glucose (UA) Negative (NEGATIVE) 07/12/22 05:25 Urine Ketones Negative (NEGATIVE) 07/12/22 05:25 Urine Blood 1+ (NEGATIVE) 07/12/22 05:25 Urine Nitrite Negative (NEGATIVE) 07/12/22 05:25 Urine Bilirubin Negative (NEGATIVE) 07/12/22 05:25 Urine Urobilinogen Normal (NORMAL) 07/12/22 05:25 Ur Leukocyte Esterase Negative (NEGATIVE) 07/12/22 05:25 Urine RBC 0-2 /HPF (0-3) 07/12/22 05:25 Urine WBC 0-2 /HPF (0-5) 07/12/22 05:25 Ur Squamous Epith Cells Few /HPF (NEGATIVE) 07/12/22 05:25 Urine Bacteria Trace /HPF (NEGATIVE) 07/12/22 05:25 Hyaline Casts Few /LPF (NEGATIVE) 07/12/22 05:25 Ur Culture Indicated? No/not indicated 07/12/22 05:25 Opioid Opioid Risk Tool Age (Abelino box if 16-45): No History of Preadolescent Sexual Abuse: No Total: 0 Total Score Risk Category: Low Risk Copyright: Vasile LUNA predicting aberrant behaviors Discharge Plan Diagnosis Discharge Problem: Acute hypotension, Frequent falls, Fracture of knee region Discharge Plan Patient Disposition: 09 ADMITTED INPATIENT Condition: Stable
[2022-07-12 05:05] VITALS: BMI 28.5
[2022-07-12] MEDS ORDERED: NS 1,000 ML IV 1,000 ML ONE (05:27)
[2022-07-12 05:30] LABS: BILIRUBIN,URINE NEGATIVE (NEGATIVE); BLOOD/HEMOGLOBIN,URINE 1+ (NEGATIVE); GLUCOSE, URINE NEGATIVE (NEGATIVE); KETONES,URINE NEGATIVE (NEGATIVE); LEUKOCYTE ESTERASE ,URINE NEGATIVE (NEGATIVE); NITRITES,URINE NEGATIVE (NEGATIVE); PROTEIN,URINE 2+ (NEGATIVE); UROBILINOGEN,URINE NORMAL (NORMAL)
[2022-07-12 05:35] LABS: BASOPHILS % (AUTO) 0.9 % (0.2-1.0); EOSINOPHILS # (AUTO) 0.3 x10^3/uL (0.0-0.2); EOSINOPHILS % (AUTO) 6.1 % (0.9-2.9); HEMATOCRIT 31.5 % (36.0-47.0); HEMOGLOBIN 10.6 g/dL (12.0-16.0); LYMPHOCYTES # (AUTO) 1.2 X10^3/uL (1.3-2.9); LYMPHOCYTES % (AUTO) 25.3 % (21.0-51.0); MEAN CORPUSCULAR HEMOGLOBIN 28.9 pg (27.0-34.0); MEAN CORPUSCULAR HGB CONC 33.8 g/dL (33.0-35.0); MEAN CORPUSCULAR VOLUME 85.5 fL (80.0-100.0); MEAN PLATELET VOLUME 7.5 fL (7.4-11.0); MONOCYTES # (AUTO) 0.8 x10^3/uL (0.3-0.8); NEUTROPHILS # (AUTO) 2.5 x10^3/uL (2.2-4.8); NEUTROPHILS % (AUTO) 51.7 % (42.0-75.0); RED BLOOD COUNT 3.68 X10^6/uL (3.5-5.4); RED CELL DISTRIBUTION WIDTH 15.7 % (11.6-16.5); WHITE BLOOD COUNT 4.9 X10^3/uL (3.6-10.0)
[2022-07-12] MEDS: NS 1,000 ML IV 1,000 ML IV SCH ×4 (05:37→22:40)
[2022-07-12 05:40] LABS: APPEARANCE,URINE CLEAR (CLEAR); COLOR,URINE YELLOW (YELLOW)
[2022-07-12 05:41] LABS: BACTERIA,URINE TRACE /HPF (NEGATIVE); HYALINE CASTS, URINE FEW /LPF (NEGATIVE); RBC,URINE 0-2 /HPF (0-3); SQUAMOUS EPITHELIAL CELL,UR FEW /HPF (NEGATIVE)
[2022-07-12 05:51] LABS: ALANINE AMINOTRANSFERASE 16 Units/L (12-78); ALBUMIN 3.3 g/dL (3.4-5.0); ALKALINE PHOSPHATASE 71 Units/L (46-116); ASPARTATE AMINO TRANSFERASE 29 Units/L (15-37); BLOOD UREA NITROGEN 12 mg/dL (7-18); CALCIUM 8.2 mg/dL (8.5-10.1); CARBON DIOXIDE 26.3 mmol/L (21-32); CHLORIDE 100 mmol/L (98-107); COR CA(FOR HYPOALB) 8.8 mg/dL (8.5-10.1); CREATININE 0.95 mg/dL (0.55-1.02); SODIUM 135 mmol/L (136-145); TOTAL PROTEIN 6.2 g/dL (6.4-8.2); eGFR NON BLACK RACES > 60 (>60)
--- NOTE | 2022-07-12 06:43 | RAD ---
HISTORYMultiple fallsSTUDYAP pelvisCOMPARISONNoneFINDINGSShould be noted that the inferior aspects of the inferior pubic rami bilaterally are not included on the image. The pelvic bones and SI joints are normal. The sacrum is incompletely visualized due to overlying bowel and underpenetration. The visualized pelvic bones appear intact as do the hip joints bilaterally. The visualized proximal femurs appear intact.IMPRESSIONNo fracture identified to the limitation noted aboveElectronically signed by: MILLIE SMITH (Jul 12, 2022 06:41:38)
--- NOTE | 2022-07-12 06:44 | RAD ---
HISTORYWeaknessSTUDYChest AP [id number] e is a pacemaker present on the left obscuring a portion of the left midlung. Heart is enlarged. Eliza are normal. Aorta is calcified. No congestive heart failure is noted. Lungs are free of acute infiltrates. There is blunting of the left costophrenic angle which may represent fibrosis or a very small pleural effusion. Bony thorax is unremarkable.IMPRESSIONNo acute infiltratesCardiomegaly without congestive heart failureBlunting of left costophrenic angle which could represent fibrosis or small effusionElectronically signed by: MILLIE SMITH (Jul 12, 2022 06:42:50)
--- NOTE | 2022-07-12 06:46 | RAD ---
HISTORYFall, right knee painSTUDYRight knee three [id number] is status post total knee arthroplasty. Position and alignment is anatomic. Visualized only on the lateral view is a fracture of the anterior aspect of the tibial plateau adjacent to the tibial prosthesis. The patella is intact. There is mild periarticular soft tissue swelling medially.IMPRESSIONStatus post right TKA in good positionVisualized on the lateral view only is a fracture of the anterior aspect of the tibial plateauElectronically signed by: MILLIE SMITH (Jul 12, 2022 06:45:14)
[2022-07-12] MEDS ORDERED: TORADOL 15 MG VIAL ONE (07:14)
[2022-07-12] MEDS ORDERED: TORADOL 15 MG VIAL IVP ONE (07:14)
--- NOTE | 2022-07-12 14:59 | DR.H&P ---
H&P History & Physical for Day of: H&P Date: 07/12/22 Chief Complaint Chief Complaint: Patient fell Allergies Allergies Allergy/AdvReac Type Severity Reaction Status Date / Time No Known Drug Allergies Allergy Verified 07/26/19 10:52 History of Present Illness History of Present Illness: This is a 76-year-old white female who is well-known to me. She came to the emergency department last night after falling. EMS was called and they brought her to the hospital. She reported that she got up to go to the bathroom about 4:00 this morning and suddenly her legs gave way and she fell on her buttocks. They took x-rays and they did a x-ray of her right knee in which she had a recent total knee arthroplasty 2 or 3 months ago. It showed a tibial plateau fracture however the patient is pain-free at this time so I am not totally convinced this is something new. I have been treating her for UTI as outpatient that was diagnosed just less than a week ago. Urinalysis today revealed that her urine is clear as she has been on p.o. Cipro and Bactrim DS. The patient looks good and feels well today she has no complaints at all. She is ready to go home but given that she came in earlier this morning we will watch her overnight and make sure that she can get up and walk around some prior to be discharged charged home tomorrow. I will send a copy of her x-ray of her knee to her orthopedic surgeon for review to see if he has any further suggestions for her. Past Medical History Past Medical History: Angina, Anxiety, Arthritis, CHF, Depression, Diabetes, GERD and Hypertension Past Surgical History Surgical History: Joint Replacement and Tonsillectomy Family History Family Medical History: Cancer Social History Does patient currently use any type of tobacco product: No Have you used tobacco products in the last 12 months: No Type of Tobacco Use: None Does any household member use tobacco: No Alcohol Use: None Drug Use: None Medications Home Medications: No Known Drug Allergies Allergy (Verified 07/26/19 10:52) CONTINUE taking the following medications carvedilol 12.5 mg tablet 1 tab PO BID 07/12/22 [History] ciprofloxacin HCl 500 mg tablet 1 tab PO BID 07/12/22 [History] citalopram 40 mg tablet 1 tab PO QDAY 07/12/22 [History] furosemide 20 mg tablet (Lasix) 20 mg PO DAILY PRN 07/12/22 [History] sulfamethoxazole 800 mg-trimethoprim 160 mg tablet 1 tab PO BID 07/12/22 [History] Labs Result Diagrams: 07/12/22 05:25 07/12/22 05:25 Labs: Laboratory WBC 4.9 X10^3/uL (3.6-10.0) 07/12/22 05:25 RBC 3.68 X10^6/uL (3.5-5.4) 07/12/22 05:25 Hgb 10.6 g/dL (12.0-16.0) L 07/12/22 05:25 Hct 31.5 % (36.0-47.0) L 07/12/22 05:25 MCV 85.5 fL (80.0-100.0) 07/12/22 05:25 MCH 28.9 pg (27.0-34.0) 07/12/22 05:25 MCHC 33.8 g/dL (33.0-35.0) 07/12/22 05:25 RDW 15.7 % (11.6-16.5) 07/12/22 05:25 Plt Count 164 X10^3/uL (150.0-450.0) 07/12/22 05:25 MPV 7.5 fL (7.4-11.0) 07/12/22 05:25 Neut % (Auto) 51.7 % (42.0-75.0) 07/12/22 05:25 Lymph % (Auto) 25.3 % (21.0-51.0) 07/12/22 05:25 [place]haw % (Auto) 16.0 % (0.0-13.0) H 07/12/22 05:25 Eos % (Auto) 6.1 % (0.9-2.9) H 07/12/22 05:25 Baso % (Auto) 0.9 % (0.2-1.0) 07/12/22 05:25 Neut # (Auto) 2.5 x10^3/uL (2.2-4.8) 07/12/22 05:25 Lymph # (Auto) 1.2 X10^3/uL (1.3-2.9) L 07/12/22 05:25 [place]haw # (Auto) 0.8 x10^3/uL (0.3-0.8) 07/12/22 05:25 Eos # (Auto) 0.3 x10^3/uL (0.0-0.2) H 07/12/22 05:25 Baso # (Auto) 0.0 X10^3/uL (0.0-0.1) 07/12/22 05:25 Absolute Nucleated RBC 0.0 /100WBC 07/12/22 05:25 Sodium 135 mmol/L (136-145) L 07/12/22 05:25 Corrected Sodium TNP 07/12/22 05:25 Potassium 3.9 mmol/L (3.5-5.1) 07/12/22 05:25 Chloride 100 mmol/L (98-107) 07/12/22 05:25 Carbon Dioxide 26.3 mmol/L (21-32) 07/12/22 05:25 BUN 12 mg/dL (7-18) 07/12/22 05:25 Creatinine 0.95 mg/dL (0.55-1.02) 07/12/22 05:25 Est GFR (MDRD) Af Amer > 60 (>60) 07/12/22 05:25 Est GFR (MDRD) Non-Af > 60 (>60) 07/12/22 05:25 Glucose 71 mg/dL (65-99) 07/12/22 05:25 POC Glucose (mg/dL) 103 mg/dL (65-99) H 07/12/22 11:29 Calcium 8.2 mg/dL (8.5-10.1) L 07/12/22 05:25 Corrected Calcium 8.8 mg/dL (8.5-10.1) 07/12/22 05:25 Total Bilirubin 0.40 mg/dL (0.2-1.0) 07/12/22 05:25 AST 29 Units/L (15-37) 07/12/22 05:25 ALT 16 Units/L (12-78) 07/12/22 05:25 Alkaline Phosphatase 71 Units/L (46-116) 07/12/22 05:25 Creatine Kinase 170 Units/L (26-192) 07/12/22 05:25 Troponin I High Sens 14.6 ng/L (4.0-60.0) 07/12/22 05:25 Total Protein 6.2 g/dL (6.4-8.2) L 07/12/22 05:25 Albumin 3.3 g/dL (3.4-5.0) L 07/12/22 05:25 Globulin 2.9 g/dL (2.5-4.5) 07/12/22 05:25 Albumin/Globulin Ratio 1.1 Ratio (1.1-2.1) 07/12/22 05:25 Specimen Type Clean catch urine 07/12/22 05:25 Urine Color Yellow (YELLOW) 07/12/22 05:25 Urine Appearance Clear (CLEAR) 07/12/22 05:25 Urine pH 6.0 (5.0 - 8.0) 07/12/22 05:25 Ur Specific Powell 1.015 (1.000-1.030) 07/12/22 05:25 Urine Protein 2+ (NEGATIVE) 07/12/22 05:25 Urine Glucose (UA) Negative (NEGATIVE) 07/12/22 05:25 Urine Ketones Negative (NEGATIVE) 07/12/22 05:25 Urine Blood 1+ (NEGATIVE) 07/12/22 05:25 Urine Nitrite Negative (NEGATIVE) 07/12/22 05:25 Urine Bilirubin Negative (NEGATIVE) 07/12/22 05:25 Urine Urobilinogen Normal (NORMAL) 07/12/22 05:25 Ur Leukocyte Esterase Negative (NEGATIVE) 07/12/22 05:25 Urine RBC 0-2 /HPF (0-3) 07/12/22 05:25 Urine WBC 0-2 /HPF (0-5) 07/12/22 05:25 Ur Squamous Epith Cells Few /HPF (NEGATIVE) 07/12/22 05:25 Urine Bacteria Trace /HPF (NEGATIVE) 07/12/22 05:25 Hyaline Casts Few /LPF (NEGATIVE) 07/12/22 05:25 Ur Culture Indicated? No/not indicated 07/12/22 05:25 Review of Systems Constitutional: No Symptoms Reported Eyes: No Symptoms Reported ENT: No Symptoms Reported Respiratory: No Symptoms Reported Cardiovascular: No Symptoms Reported Gastrointestinal: No Symptoms Reported Genitourinary: No Symptoms Reported Musculoskeletal: No Symptoms Reported Skin: No Symptoms Reported Neurological: No Symptoms Reported Physical Exam Vital Signs: Temperature 98.2 F Pulse Rate [Left Radial] 77 Pulse Rate 90 Respiratory Rate 20 Blood Pressure [Right Arm] 112/61 Blood Pressure 92/76 O2 Sat by Pulse Oximetry 97 Oriented: Normal Eyes: Normal Ear: Normal Nose: Normal Throat: Normal Respiratory: Clear Throughout Cardiovascular: Normal Auscultation: Bowel Sounds: Normal Palpation: Normal Tenderness: Normal Skin: Normal Musculoskeletal: Normal Psychiatric: Normal Mood Description: Calm Affect: Normal Speech Pattern: Clear Assessment/Plan (1) Frequent falls: Status: Acute Plan: I will get the patient back in with physical therapy to see if they can come to her house and strengthen her lower extremities and to help keep her from falling in the future as an outpatient. In the meantime we will give her some IV fluid overnight monitor her and her blood pressure to see if it improves by tomorrow. I did encourage her to eat more salt as that would help bring her blood pressure up some from what she normally runs. (2) Fracture of knee region: Status: Acute Plan: I will send a copy of the x-ray to patient's orthopedic surgeon in [place], [place] as an outpatient have her follow-up with him for review. She is pain-free at this time and has not had right knee pain since surgery so I doubt this is anything new causing her any new problems. (3) Acute hypotension: Status: Acute Plan: IV fluid hydration. (4) DM2 (diabetes mellitus, type 2): Status: Chronic Review H&P Reviewed: Yes Patient was examined?: Yes
[2022-07-13] MEDS: NS 1,000 ML IV 1,000 ML IV SCH (05:28)
[2022-07-13 05:51] LABS: BASOPHILS % (AUTO) 0.5 % (0.2-1.0); EOSINOPHILS # (AUTO) 0.1 x10^3/uL (0.0-0.2); HEMATOCRIT 30.7 % (36.0-47.0); HEMOGLOBIN 10.5 g/dL (12.0-16.0); LYMPHOCYTES # (AUTO) 0.7 X10^3/uL (1.3-2.9); MEAN CORPUSCULAR HEMOGLOBIN 28.9 pg (27.0-34.0); MEAN CORPUSCULAR HGB CONC 34.2 g/dL (33.0-35.0); MEAN CORPUSCULAR VOLUME 84.6 fL (80.0-100.0); MEAN PLATELET VOLUME 7.5 fL (7.4-11.0); MONOCYTES # (AUTO) 0.5 x10^3/uL (0.3-0.8); MONOCYTES % (AUTO) 11.2 % (0.0-13.0); NEUTROPHILS # (AUTO) 3.2 x10^3/uL (2.2-4.8); NEUTROPHILS % (AUTO) 69.3 % (42.0-75.0); RED BLOOD COUNT 3.63 X10^6/uL (3.5-5.4); RED CELL DISTRIBUTION WIDTH 15.8 % (11.6-16.5); WHITE BLOOD COUNT 4.6 X10^3/uL (3.6-10.0)
[2022-07-13 06:05] LABS: ALANINE AMINOTRANSFERASE 15 Units/L (12-78); ALBUMIN 3.1 g/dL (3.4-5.0); ALKALINE PHOSPHATASE 65 Units/L (46-116); ASPARTATE AMINO TRANSFERASE 30 Units/L (15-37); BLOOD UREA NITROGEN 10 mg/dL (7-18); CALCIUM 7.8 mg/dL (8.5-10.1); CARBON DIOXIDE 22.2 mmol/L (21-32); CHLORIDE 103 mmol/L (98-107); COR CA(FOR HYPOALB) 8.5 mg/dL (8.5-10.1); CREATININE 0.72 mg/dL (0.55-1.02); SODIUM 134 mmol/L (136-145); TOTAL PROTEIN 5.9 g/dL (6.4-8.2); eGFR NON BLACK RACES > 60 (>60)
--- OUTSIDE RECORDS SUMMARY | 2022-07-13 10:02 | XMS | Continuity of Care Document ---
:1945 Author Name Reaming Machine Operator, System Address Unavailable Unavailable , Care Team Providers Name Role Phone Arabella Davis MD Unavailable Oren Madrid Unavailable Luis Hdez Unavailable Vilma Law Unavailable Nay Watson Unavailable Opal Garcia Unavailable Unavailable Milena Orlando Unavailable Unavailable Nichelle Mendieta Unavailable Unavailable Ekaterina Bailey Unavailable Unavailable Sarah Walton Unavailable Unavailable Jada Otto Unavailable Unavailable Unavailable Unavailable Problems Name Dates Details Alcohol abuse (F10.10, 305.00) Status: A ctive Anemia, unspecified type (D64.9, 285.9) Comments: Hgb:8.5 on 07/13/19, reviewing records patient had normal levels in 05/2019 before her fall. Will repeat cbc today. She does appear jaundiced and will get CMP as well. F/u results. Status: Active Arthritis of knee, right (M17.11, 716.96) Comments: chronic right knee pain for a number of years now. She has seen Dr. Summers here in [facility]. He has administered injections to the right knee and also has done some procedure in which he attempted to ablate the nerves to reduc e her pain. She is asking for a orthopedic referral to Dr. Daly today here in [place] for further evaluation and treatment. the patient also had a recent right knee x-ray and Dr. Monica Alonso's office she r eports. However I do not have the report of that x-ray. However I do have a copy of her right knee x-ray done in May 2019 which showed advanced arthritis at the time. Status: Active Asymptomatic menopausal state (Z78.0, V49.81) Status: Active Atopic dermatitis, unspecified type (L20.9, 691.8) Comments: Eczema type Area noted to left lower chin Status: Active Atrial fibrillation, chronic (I48.20, 427.31) Comments: Medications:Eliquis 5mg BID, Cartia XT 120mg, Lanoxin 125mcg Status: Active Atrial fibrillation, controlled (I48.91, 427.31) Comments: A-fib with rate control - continue present treat.Will refer to Dr. Cunningham for cardiology ECHO and possible stress test.Hx of atrial fib., HR 87, on ausculatation continues to be irregularly irregular. Presently anti-coagu lated with Eliquis. Status: Active Atrial fibrillation, controlled (I48.91, 427.31) Comments: On Eliquis, Lanoxin & with pacemakerHas Pacemaker left upper chest. Status: Active Blood typing encounter (Z01.83, V72.86) Status: Active CHF exacerbation (I50.9, 428.0) Comments : Much improved since getting out of hospital last week. Continue Lasix 20 mg bid. Status: Active Chronic congestive heart failure, unspecified heart fa ilure type (I50.9, 428.0) Comments: Instructed pt to increase lasi x to 40mg until edema improves.*Will need to review records, recently seen in ED. Status: Active Chronic pain of right knee (M25.561, 719.46) Comments: I will send in an order for a new walker because of her current one is high risk for falling with dysfunctional braking.patient reports he needs a walker. Her current walker brakes did not work. She rep orts having his walk er for about 2 or 3 years now. Currently she is unable to use it because the brakes no longer work. Status: Active Constipation, acute (K59.00, 564.00) Sta tus: Active Debility (R53.81, 799.3) Status: Active Depression (F32.A, 311) Status: Active Diabetes (E11.9, 250.00) Status: Active Diabetes mellitus, stable (E11.9, 250.00) Status: Active Diabetes mellitus, type 2 (E11.9, 250.00) Comments: Hemoglobin A1c today is 5.9%. Her last A1c was 6.7%. She is well controlled no changes to her treatment of diabetes at this time. Status: Active Diarrhea, unspecified type (R19.7, 787.91) Status: Active Dyslipidemia associated with type 2 diabetes mellitus (E11.6 9, 250.80) Comments: Last A1C is 5.0 and she is instructed to decrease her Metformin to one tab daily Status: Active Dysuria (R30.0, 788.1) Status: Active Edema, leg (R60.0, 782.3) Comments: Medi cations:Lasix 20mg prn Status: Active Effusion, right knee (M25.461, 719.06) C omments: Significant edema of R knee on exam. Effusion noted on XR and has associated pain. Will refer to ortho.Instructed to elevate knee/leg above heart by lying on couch or bed with leg elevated on pillow. Wi ll f/u with referral .XR(07/13/19):small to moderate synovial effusionShe continues to reports edema of right leg and knee. She has not yet seen ortho. Status: Active Encounter for monitoring opioid maintenance therapy (Z51.81, V58.83) Comments: UDS:11/04/19:appropriate04/29/20:hfbkgmerxjz59/30/20:appropriate Status: Active Encounter for monitoring opioid maintenance therapy (Z51.81, V58.83) Comments: UDS:04/29/20:pzkdujopzts22/30/20:appropriate09/2020:appropriate Status: Active Encounter for monitoring opioid maintenance therapy (Z51.81, V58.83) Comments: UDS:07/27/20:appropriate09/2020:appropriate01/2021:appropriate Status: Active Essential hypertension with goal blood pressure less than 13 0/80 (I10, 401.9) Comments: Blood pressure is stable at 115/70 today. Heart rate is 95. Her blood pressure is well controlled.Medications:Entresto 24-26mg (1/2 tab) BID Status: Active Flu vaccine need (Z23, V04.81) Status: A ctive BOB (generalized anxiety disorder) (F41.1, 300.02) Comments: Restart citalopram about a 40 mg p.o. daily. I will DC her fluoxetine.The patient reports her fluoxetine is not helping her with depression or anxiety. She reports that the citalopram she took before h elped her much more. She has to go back on citalopram. Status: Active Gallstones and inflammation of gallbladder without obs truction (K80.00, 574.00) Comments: asymptomatic gallstones . Status: Active H/O bladder problems (Z87.448, V13.09) S tatus: Active Hospital discharge follow-up (Z09, V67.59) Comments: Much better since hospital discharge for CHF Exacerbation.No SOB or COOL or Orthopnea now. Status: Active Hypokalemia (E87.6, 276.8) Status: Activ e Incurved toenail (L60.0, 703.0) Status: Active Multilevel degenerative disc disease (M53.9, 722.6) Comments: Medications:Chama 5mg TID prn.-Multilevel DDD, more pronounced at C5-6-7, XR of 07/16. Currently on opioid therapy for pain management. 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 Asks for an increase in Pain med. Status: Active Other longterm (current) drug therapy (Z79.899, V58.69) Status: Active Pain of right knee after injury (M25.561, 719.46) Comments: Pt has a pacemaker and is therefore not a candidate for an MRI. She has seen Dr Yadav at [facility] and prefers conservative mgt and wants to delay any knee replacement as long as possible. Status: Active Preoperative clearance (Z01.818, V72.84) Comments: The patient CBC and CMP are within normal limits. Cholesterol panel was done and is also normal. Her GFR on her kidney function is greater than 60 B12 normal, folate level normal. Patient has an appoint ment with her cardio logist this afternoon we will follow-up with her and get the results from that visit to see if they plan on any further cardiac testing prior to her orthopedic surgery. Status: Active RUQ pain (R10.11, 789.01) Comments: RUQ pain of some duration, is under the care of Dr. Guerrero and has appointment this coming Monday for evaluation and probable GB surgery. Status: Active Screening mammogram, encounter for (Z12.31, V76.12) Comments: Pt says she has not had a mammogram within the past 2 to 3 years. Status: Active Shingles (B02.9, 053.9) Comments: Rash s een on right arm c/w shingles. Rx valtrex x 7 days. F/u prn Status: Active Skin cancer (C44.90, 173.90) Status: Act ania Skin lesion of face (L98.9, 709.9) Statu s: Active Type 2 diabetes with complication (E11.8, 250.90) Comments: Medications:Metformin [id number]:12/02/19; 4.8%.07/19/21:5.3 Status: Active Unspecified Diagnosis Status: Active Urinary tract infection (N39.0, 599.0) C omments: Urinalysis was done on this patient because of dysuria. She is positive for nitrites, 3+ leukocyte esterase, 3+ protein, 2+ blood and negative glucose. I will treat her with oral Bactrim DS along with c iprofloxacin for 10 days. I will follow-up with a urine culture and sensitivity results when back and change her antibiotics if needed.Patient comes in today complaining of burning when she urinates and dribbling. He is peter ving more trouble urinating she reports today. She has had several recent UTIs so we will do a urine culture and sensitivity today. Status: Active UTI (urinary tract infection) (N39.0, 599.0) Status: Active UTI (urinary tract infection) (N39.0, 599.0) Status: Active Weakness with dizziness (R53.1, 780.79) Comments: I encouraged patient finish all of her antibiotics and let me know if she is not getting any better this week.Patient comes in today complaining of weakness and dizziness that was 3 days ago. It is much better today ilia r her home health care nurses wanted her to come in to be seen. I have been treating her for a urinary tract infection and she reports she is much better from that. I think her symptoms are most likely due to that. Status: Active Medications Name Dates Details Carvedilol 12.5 MG Oral Tablet 1 (one) Tablet two times daily for 90 d ays Quantity: 180 {Tablet} Refills: 3 Ordered:28-Mar-2022 Opal Garcia Start : 28-Mar-2022 Active Cholestyramine 4 GM Oral Packet 1 daily as directed (4 GM) Active Citalopram Hydrobromide 40 MG Oral Tablet 1 Tablet daily for 90 days Quantity: 90 {Tablet} Refills: 3 Ordered:13-Jun-2022 Oren Madrid Start : 13-Jun-2022 Active Eliquis 5 MG Oral Tablet 1 Tablet two times daily for 90 days Quantity: 180 {Tablet} Refills: 2 Ordered:12-Jan-2022 Oren Madrid Start : 12-Jan-2022 Active Furosemide 20 MG Oral Tablet 1 (one) Tablet daily, as needed for 90 days Quantity: 90 {Tablet} Refills: 1 Ordered:04-May-2021 Jhon Torrez Start : 04-May-2021 Active Comments:Medication taken as needed. HYDROcodone-Acetaminophen 7.5-325 MG Oral Tablet 1 Tablet four times daily, as needed for 30 days Quantity: 120 {Tablet} Refills: 0 Ordered:11-Jul-2022 rOen Madrid Start : 11-Jul-2022 Active Comments:Medication taken as needed. Klor-Con 10 10 MEQ Oral Tablet Extended Release 1 (one) Tablet daily for 90 days Quantity: 90 {Tablet} Refills: 3 Ordered:11-Oct-2021 Jada Otto Start : 11-Oct-2021 Active L-Lysine 500 MG Oral Tablet 1 daily (500 MG) Active metFORMIN HCl 500 MG Oral Tablet 1 Tablet daily for 90 days Quantity: 90 {Tablet} Refills: 1 Ordered:22-Mar-2022 Oren Madrid Start : 22-Mar-2022 Active Comments:Change Providers on Bottles Please Sulfamethoxazole-Trimethoprim 800-160 MG Oral Tablet 1 (one) Tablet two times daily for 0 days Quantity: 20 {Tablet} Refills: 0 Ordered:13-Jun-2022 Opal Garcia Start : 13-Jun-2022 Active Comments:For urinary tract infection Vitamin C 500 MG Oral Tablet 1 daily (500 MG) Active Vitamin D 50 MCG (2000 UT) Oral Capsule 1 daily (50 MCG (2000 UT)) Active ALPRAZolam 0.25 MG Oral Tablet 1 (one) Tablet at bedtime for 30 days Quantity: 30 {Tablet} Refills: 0 Ordered:14-Sep-2021 Jada Otto Start : 19-Jul-2021 End : 14-Sep-2021 Inactive Amoxicillin-Pot Clavulanate 500-125 MG Oral Tablet 1 (one) Tablet three times daily for 10 days Quantity: 20 {Tablet} Refills: 0 Ordered:09-Aug-2021 Oren Madrid Start : 09-Aug-2021 End : 19-Aug-2021 Inactive Bactrim DS 800-160 MG Oral Tablet 1 (one) Tablet two times daily for 10 days Quantity: 20 {Tablet} Refills: 0 Ordered:30-Jun-2022 Oren Madrid Start : 30-Jun-2022 End : 10-Jul-2022 Inactive Cartia XT 120 MG Oral Capsule Extended Release 24 Hour 1 Capsule daily for 90 days Quantity: 90 {Capsule} Refills: 1 Ordered:28-Mar-2022 Milena Orlando Start : 01-Mar-2022 End : 28-Mar-2022 Inactive Carvedilol 6.25 MG Oral Tablet 1 Tablet two times daily for 90 days Quantity: 180 {Tablet} Refills: 3 Ordered:28-Mar-2022 Milena Orlando Start : 03-Feb-2022 End : 28-Mar-2022 Inactive CeleXA 20 MG Oral Tablet daily (20 MG) Inactive Cipro 500 MG Oral Tablet 1 (one) Tablet two times daily for 10 days Quantity: 20 {Tablet} Refills: 0 Ordered:30-Jun-2022 Oren Madrid Start : 30-Jun-2022 End : 10-Jul-2022 Inactive Colace 100 MG Oral Capsule 1 (one) Capsule two times daily, as needed for 30 days Quantity: 60 {Capsule} Refills: 3 Ordered:19-Jul-2021 Sarah Walton Start : 22-Apr-2020 End : 19-Jul-2021 Inactive Comments:Medication taken as needed. Eucrisa 2 % External Ointment 1 (one) Application daily to rash on chin after application of ice pack for 10 mins for 0 days Quantity: 1 {Applicator} Refills: 0 Ordered:19-Jul-2021 Sarah Walton Start : 09-Apr-2019 End : 19-Jul-2021 Inactive Comments:Sample# 3 tubes Lanoxin 125 MCG Oral Tablet 1 Tablet daily for 90 days Quantity: 90 {Tablet} Refills: 3 Ordered:28-Mar-2022 Milena Orlando Start : 13-Dec-2021 End : 28-Mar-2022 Inactive Loperamide HCl 2 MG Oral Capsule 1 (one) Capsule three times daily, as needed for 10 days Quantity: 30 {Capsule} Refills: 0 Ordered:14-Aug-2020 Jhon Torrez Start : 14-Aug-2020 End : 24-Aug-2020 Inactive Comments:Medication taken as needed. Meloxicam 7.5 MG Oral Tablet 1 (one) Tablet two times daily, as needed for 30 days Quantity: 60 {Tablet} Refills: 0 Ordered:14-Aug-2020 Start : 14-Aug-2020 End : 13-Sep-2020 Inactive Comments:Medication taken as needed. metFORMIN HCl 500 MG Oral Tablet 1 Tablet two times daily for 90 days Quantity: 180 {Tablet} Refills: 0 Ordered:03-Jul-2019 Vahe Alford MD Start : 03-Jul-2019 End : 01-Oct-2019 Inactive Nitrofurantoin Macrocrystal 100 MG Oral Capsule 1 (one) Capsule two times daily for 5 days Quantity: 10 {Capsule} Refills: 0 Ordered:24-Aug-2020 Jhon Torrez Start : 24-Aug-2020 End : 29-Aug-2020 Inactive Protonix 40 MG Oral Tablet Delayed Release daily (40 MG) Inactive Sertraline HCl 50 MG Oral Tablet 1 (one) Tablet at bedtime for anxiety for 90 days Quantity: 90 {Tablet} Refills: 1 Ordered:01-Jan-2020 Jhon Torrez Start : 02-Dec-2019 End : 01-Jan-2020 Inactive valACYclovir HCl 1 GM Oral Tablet 1 (one) Tablet three times daily for 7 days Quantity: 21 {Tablet} Refills: 0 Ordered:11-Aug-2020 Jhon Torrez Start : 11-Aug-2020 End : 18-Aug-2020 Inactive Xanax 0.25 MG Oral Tablet 1 Tablet once a day as needed for anxiety for 30 days Quantity: 45 {Tablet} Refills: 0 Ordered:04-Sep-2019 HinsdaleNichelle yip Start : 01-Aug-2019 End : 04-Sep-2019 Inactive Comments:Medication taken as needed. FLUoxetine HCl 40 MG Oral Capsule 1 (one) Capsule daily for 30 days Quantity: 30 {Capsule} Refills: 3 Ordered:24-Jun-2022 Opal Garcia Start : 20-Jun-2022 End : 24-Jun-2022 Discontinued Allergies and Adverse Reactions Name Dates Details No Known Drug Allergies (Allergy) Onset: 08-Apr-2019 Status : Active Procedures Procedure Dates Details VENIPUNCTURE FOR BLOOD TEST (10605) Date: 04-Mar-2022 Comp leted 04-Mar-2022 Comments: 03/04/22 905 RAC SILVANO IMMUNIZ ADMNIN, 1 VAC, SNGL/COMBO Date: 19-May-2021 Comple mykel 19-May-2021 (03442) Flu Vaccine (69841) Date: 19-May-2021 Completed 1 IMMUNIZ ADMNIN, 1 VAC, SNGL/COMBO Date: 24-Jun-2020 Comple mykel 24-Jun-2020 (92222) PNEUM VAC IMUMNOSPR, SBC/INTRM, ADULT Date: 24-Jun-2020 Co mpleted 24-Jun-2020 (65363) VACCINATION, INFLUENZA (G0008) Date: 25-May-2020 Completed 25-May-2020 INTRAMUSCULAR ADMINISTRATION OF 0.5 ML Date: 25-May-2020 C ompleted 25-May-2020 DOSE OF PRESERVATIVE-FREE QUADRIVALENT SPLIT VIRUS INFLUENZA VACCINE (98785) cataract surgery Completed Immunization Name Dates Details Influenza (3 years and up) on: 19-May-2021 Comments: Sit e: Left Deltoidadministered 0.5 ml IM Left Deltoid, Patient tolerated well Lot #: [id number] Influenza vaccine, quadrivalent (IIV4), 0.5 mL on: 25-May-20 20 Comments: Site: Right DeltoidAdministered 0.5mg IM right deltoid, patient tolerated it well. Lot #: [id number] Pneumococcal (2 yrs and up) PPSV23 on: 24-Jun-2020 Comme nts: Site: Left Arm Lot #: [id number] Family History Unknown Family Member Name Dates Details Arthritis Status: Active Asthma Status: Active Diabetes Mellitus Status: Active Heart Disease Status: Active High Blood Pressure Status: Active High Cholesterol Status: Active Migraines Status: Active Social History Name Dates Details Alcohol Use Status: Active Exercise History: walking. Status: Activ e No Drug Use Status: Active Non Smoker/No Tobacco Use Status: Active Seat Belt Use: Always uses seat belts. S tatus: Active Vital Signs Date Test Result Details :30 Body temperature 97.3 f Heart Rate 81 /min Comments: Pattern: R egular Respiratory rate 18 /min Comments: Pattern: U nlabored O2 SAT 97 % Comments: Room air Systolic blood pressure 101 mm[Hg] Comments: Patien t Position: Sitting; Cuff Location: Left Arm; Cuff Size: Standard Diastolic blood pressure 65 mm[Hg] Comments: Patie nt Position: Sitting; Cuff Location: Left Arm; Cuff Size: Standard Weight 182.25 lb Body height 68 in Body mass index (BMI) [Ratio] 27.71 kg/m2 Body surface area Derived from formula 1.96 m2 :40 Body temperature 97.1 f Heart Rate 88 /min Comments: Pattern: R egular Respiratory rate 18 /min Comments: Pattern: U nlabored O2 SAT 100 % Comments: Room air Systolic blood pressure 92 mm[Hg] Comments: Patien t Position: Sitting; Cuff Location: Left Arm; Cuff Size: Standard Diastolic blood pressure 50 mm[Hg] Comments: Patie nt Position: Sitting; Cuff Location: Left Arm; Cuff Size: Standard Weight 182.25 lb Body height 68 in Body mass index (BMI) [Ratio] 27.71 kg/m2 Body surface area Derived from formula 1.96 m2 :36 Body temperature 97 f Heart Rate 95 /min Comments: Pattern: R egular Respiratory rate 18 /min Comments: Pattern: U nlabored O2 SAT 97 % Comments: Room air Systolic blood pressure 115 mm[Hg] Comments: Patien t Position: Sitting; Cuff Location: Left Arm; Cuff Size: Standard Diastolic blood pressure 70 mm[Hg] Comments: Patie nt Position: Sitting; Cuff Location: Left Arm; Cuff Size: Standard Weight 176.25 lb Body height 68 in Body mass index (BMI) [Ratio] 26.80 kg/m2 Body surface area Derived from formula 1.94 m2 :12 Body temperature 97.8 f Heart Rate 88 /min Comments: Pattern: R egular Respiratory rate 18 /min Comments: Pattern: U nlabored O2 SAT 98 % Comments: Room air Systolic blood pressure 95 mm[Hg] Comments: Patien t Position: Sitting; Cuff Location: Left Arm; Cuff Size: Standard Diastolic blood pressure 64 mm[Hg] Comments: Patie nt Position: Sitting; Cuff Location: Left Arm; Cuff Size: Standard Weight 181.25 lb Body height 68 in Body mass index (BMI) [Ratio] 27.56 kg/m2 Body surface area Derived from formula 1.96 m2 :58 Body temperature 97.5 f Heart Rate 86 /min Comments: Pattern: R egular Respiratory rate 18 /min Comments: Pattern: U nlabored O2 SAT 98 % Comments: Room air Systolic blood pressure 120 mm[Hg] Comments: Patien t Position: Sitting; Cuff Location: Left Arm; Cuff Size: Standard Diastolic blood pressure 60 mm[Hg] Comments: Patie nt Position: Sitting; Cuff Location: Left Arm; Cuff Size: Standard Weight 181.25 lb Body height 68 in Body mass index (BMI) [Ratio] 27.56 kg/m2 Body surface area Derived from formula 1.96 m2 :13 Body temperature 97.6 f Heart Rate 74 /min Comments: Pattern: R egular Respiratory rate 18 /min Comments: Pattern: U nlabored O2 SAT 96 % Comments: Room air Systolic blood pressure 112 mm[Hg] Comments: Patien t Position: Sitting; Cuff Location: Left Arm; Cuff Size: Standard Diastolic blood pressure 64 mm[Hg] Comments: Patie nt Position: Sitting; Cuff Location: Left Arm; Cuff Size: Standard Weight 181.25 lb Body height 68 in Body mass index (BMI) [Ratio] 27.56 kg/m2 Body surface area Derived from formula 1.96 m2 :16 Body temperature 97.9 f Heart Rate 96 /min Comments: Pattern: R egular Respiratory rate 20 /min Comments: Pattern: U nlabored O2 SAT 98 % Comments: Room air Systolic blood pressure 99 mm[Hg] Comments: Patien t Position: Sitting; Cuff Location: Left Arm; Cuff Size: Standard Diastolic blood pressure 66 mm[Hg] Comments: Patie nt Position: Sitting; Cuff Location: Left Arm; Cuff Size: Standard Weight 181.25 lb Body height 68 in Body mass index (BMI) [Ratio] 27.56 kg/m2 Body surface area Derived from formula 1.96 m2 :34 Body temperature 97.9 f Heart Rate 73 /min Comments: Pattern: R egular Respiratory rate 18 /min Comments: Pattern: U nlabored O2 SAT 97 % Comments: Room air Systolic blood pressure 114 mm[Hg] Comments: Patien t Position: Sitting; Cuff Location: Left Arm; Cuff Size: Standard Diastolic blood pressure 76 mm[Hg] Comments: Patie nt Position: Sitting; Cuff Location: Left Arm; Cuff Size: Standard Weight 181.25 lb Body height 68 in Body mass index (BMI) [Ratio] 27.56 kg/m2 Body surface area Derived from formula 1.96 m2 :00 Body temperature 97.3 f Heart Rate 73 /min Comments: Pattern: R egular Respiratory rate 18 /min Comments: Pattern: U nlabored O2 SAT 98 % Comments: Room air Systolic blood pressure 87 mm[Hg] Comments: Patien t Position: Sitting; Cuff Location: Left Arm; Cuff Size: Standard Diastolic blood pressure 52 mm[Hg] Comments: Patie nt Position: Sitting; Cuff Location: Left Arm; Cuff Size: Standard Weight 181.25 lb Body height 68 in Body mass index (BMI) [Ratio] 27.56 kg/m2 Body surface area Derived from formula 1.96 m2 :28 Body temperature 98.2 f Comments: Metho d: Temporal Heart Rate 82 /min Comments: Pattern: R egular Respiratory rate 20 /min Comments: Pattern: U nlabored O2 SAT 98 % Comments: Room air Systolic blood pressure 118 mm[Hg] Comments: Patien t Position: Sitting; Cuff Location: Left Arm; Cuff Size: Standard Diastolic blood pressure 58 mm[Hg] Comments: Patie nt Position: Sitting; Cuff Location: Left Arm; Cuff Size: Standard Weight 181.25 lb Body height 68 in Body mass index (BMI) [Ratio] 27.56 kg/m2 Body surface area Derived from formula 1.96 m2 :12 Body temperature 98.4 f Comments: Meth od: Temporal Heart Rate 72 /min Comments: Pattern: R egular Respiratory rate 20 /min Comments: Pattern: U nlabored O2 SAT 95 % Comments: Room air Systolic blood pressure 110 mm[Hg] Comments: Patien t Position: Sitting; Cuff Location: Left Arm; Cuff Size: Standard Diastolic blood pressure 56 mm[Hg] Comments: Patie nt Position: Sitting; Cuff Location: Left Arm; Cuff Size: Standard Weight 178 lb Body height 68 in Body mass index (BMI) [Ratio] 27.06 kg/m2 Body surface area Derived from formula 1.95 m2 :13 Body temperature 98.6 f Comments: Meth od: Temporal Heart Rate 72 /min Comments: Pattern: R egular Respiratory rate 18 /min Comments: Pattern: U nlabored O2 SAT 98 % Comments: Room air Systolic blood pressure 111 mm[Hg] Comments: Patien t Position: Sitting; Cuff Location: Left Arm; Cuff Size: Standard Diastolic blood pressure 63 mm[Hg] Comments: Patie nt Position: Sitting; Cuff Location: Left Arm; Cuff Size: Standard Weight 178 lb Body height 68 in Body mass index (BMI) [Ratio] 27.06 kg/m2 Body surface area Derived from formula 1.95 m2 :10 Body temperature 98.4 f Comments: Meth od: Oral Heart Rate 89 /min Comments: Pattern: R egular Respiratory rate 20 /min Comments: Pattern: U nlabored O2 SAT 97 % Comments: Room air Systolic blood pressure 117 mm[Hg] Comments: Patien t Position: Sitting; Cuff Location: Left Arm; Cuff Size: Standard Diastolic blood pressure 72 mm[Hg] Comments: Patie nt Position: Sitting; Cuff Location: Left Arm; Cuff Size: Standard Weight 178.125 lb Body height 68 in Body mass index (BMI) [Ratio] 27.08 kg/m2 Body surface area Derived from formula 1.95 m2 :19 Body temperature 98.3 f Comments: Meth od: Oral Heart Rate 94 /min Comments: Pattern: R egular Respiratory rate 20 /min Comments: Pattern: U nlabored O2 SAT 96 % Comments: Room air Systolic blood pressure 104 mm[Hg] Comments: Patien t Position: Sitting; Cuff Location: Left Arm; Cuff Size: Standard Diastolic blood pressure 65 mm[Hg] Comments: Patie nt Position: Sitting; Cuff Location: Left Arm; Cuff Size: Standard Weight 178.25 lb Body height 68 in Body mass index (BMI) [Ratio] 27.10 kg/m2 Body surface area Derived from formula 1.95 m2 :00 Body temperature 98.4 f Comments: Meth od: Oral Heart Rate 89 /min Comments: Pattern: R egular Respiratory rate 18 /min Comments: Pattern: U nlabored O2 SAT 96 % Comments: Room air Systolic blood pressure 112 mm[Hg] Comments: Patien t Position: Sitting; Cuff Location: Left Arm; Cuff Size: Standard Diastolic blood pressure 73 mm[Hg] Comments: Patie nt Position: Sitting; Cuff Location: Left Arm; Cuff Size: Standard Weight 169.5 lb Body height 68 in Body mass index (BMI) [Ratio] 25.77 kg/m2 Body surface area Derived from formula 1.91 m2 :52 Body temperature 98.4 f Comments: Meth od: Oral Heart Rate 86 /min Comments: Pattern: R egular Respiratory rate 18 /min Comments: Pattern: U nlabored O2 SAT 97 % Comments: Room air Systolic blood pressure 105 mm[Hg] Comments: Patien t Position: Sitting; Cuff Location: Left Arm; Cuff Size: Standard Diastolic blood pressure 69 mm[Hg] Comments: Patie nt Position: Sitting; Cuff Location: Left Arm; Cuff Size: Standard Weight 168.125 lb Body height 68 in Body mass index (BMI) [Ratio] 25.56 kg/m2 Body surface area Derived from formula 1.90 m2 :51 Body temperature 98.3 f Comments: Meth od: Oral Heart Rate 92 /min Comments: Pattern: R egular Respiratory rate 15 /min Comments: Pattern: U nlabored O2 SAT 97 % Comments: Room air Systolic blood pressure 115 mm[Hg] Comments: Patien t Position: Sitting; Cuff Location: Left Arm; Cuff Size: Standard Diastolic blood pressure 74 mm[Hg] Comments: Patie nt Position: Sitting; Cuff Location: Left Arm; Cuff Size: Standard Weight 181.5 lb Body height 68 in Body mass index (BMI) [Ratio] 27.60 kg/m2 Body surface area Derived from formula 1.96 m2 :01 Body temperature 97.9 f Comments: Meth od: Oral Heart Rate 88 /min Comments: Pattern: R egular Respiratory rate 20 /min Comments: Pattern: U nlabored O2 SAT 97 % Comments: Room air Systolic blood pressure 105 mm[Hg] Comments: Patien t Position: Sitting; Cuff Location: Left Arm; Cuff Size: Standard Diastolic blood pressure 64 mm[Hg] Comments: Patie nt Position: Sitting; Cuff Location: Left Arm; Cuff Size: Standard Weight 163 lb Body height 68 in Body mass index (BMI) [Ratio] 24.78 kg/m2 Body surface area Derived from formula 1.87 m2 :33 Body temperature 98 f Comments: Meth od: Oral Heart Rate 91 /min Comments: Pattern: R egular Respiratory rate 20 /min Comments: Pattern: U nlabored O2 SAT 95 % Comments: Room air Systolic blood pressure 105 mm[Hg] Comments: Patien t Position: Sitting; Cuff Location: Left Arm; Cuff Size: Standard Diastolic blood pressure 69 mm[Hg] Comments: Patie nt Position: Sitting; Cuff Location: Left Arm; Cuff Size: Standard Weight 160.375 lb Body height 68 in Body mass index (BMI) [Ratio] 24.38 kg/m2 Body surface area Derived from formula 1.86 m2 :43 Body temperature 98.3 f Comments: Meth od: Oral Heart Rate 91 /min Comments: Pattern: R egular Respiratory rate 20 /min Comments: Pattern: U nlabored O2 SAT 97 % Comments: Room air Systolic blood pressure 100 mm[Hg] Comments: Patien t Position: Sitting; Cuff Location: Left Arm; Cuff Size: Standard Diastolic blood pressure 64 mm[Hg] Comments: Patie nt Position: Sitting; Cuff Location: Left Arm; Cuff Size: Standard Weight 161.375 lb Body height 68 in Body mass index (BMI) [Ratio] 24.54 kg/m2 Body surface area Derived from formula 1.87 m2 :59 Body temperature 98.3 f Comments: Meth od: Oral Heart Rate 91 /min Comments: Pattern: R egular Respiratory rate 20 /min Comments: Pattern: U nlabored O2 SAT 97 % Comments: Room air Systolic blood pressure 100 mm[Hg] Comments: Patien t Position: Sitting; Cuff Location: Left Arm; Cuff Size: Standard Diastolic blood pressure 64 mm[Hg] Comments: Patie nt Position: Sitting; Cuff Location: Left Arm; Cuff Size: Standard Weight 161.375 lb Body height 68 in Body mass index (BMI) [Ratio] 24.54 kg/m2 Body surface area Derived from formula 1.87 m2 :34 Body temperature 97.8 f Comments: Meth od: Oral Heart Rate 91 /min Comments: Pattern: R egular Respiratory rate 20 /min Comments: Pattern: U nlabored O2 SAT 96 % Comments: Room air Systolic blood pressure 92 mm[Hg] Comments: Patien t Position: Sitting; Cuff Location: Left Arm; Cuff Size: Standard Diastolic blood pressure 63 mm[Hg] Comments: Patie nt Position: Sitting; Cuff Location: Left Arm; Cuff Size: Standard Weight 162 lb Body height 68 in Body mass index (BMI) [Ratio] 24.63 kg/m2 Body surface area Derived from formula 1.87 m2 :06 Body temperature 98.2 f Comments: Meth od: Oral Heart Rate 86 /min Comments: Pattern: R egular Respiratory rate 18 /min Comments: Pattern: U nlabored O2 SAT 95 % Comments: Room air Systolic blood pressure 91 mm[Hg] Comments: Patien t Position: Sitting; Cuff Location: Left Arm; Cuff Size: Standard Diastolic blood pressure 56 mm[Hg] Comments: Patie nt Position: Sitting; Cuff Location: Left Arm; Cuff Size: Standard Weight 166 lb Body height 68 in Body mass index (BMI) [Ratio] 25.24 kg/m2 Body surface area Derived from formula 1.89 m2 :12 Body temperature 97.4 f Heart Rate 97 /min Comments: Pattern: R egular Respiratory rate 18 /min Comments: Pattern: U nlabored O2 SAT 96 % Comments: Room air Systolic blood pressure 113 mm[Hg] Comments: Patien t Position: Sitting; Cuff Location: Left Arm; Cuff Size: Standard Diastolic blood pressure 75 mm[Hg] Comments: Patie nt Position: Sitting; Cuff Location: Left Arm; Cuff Size: Standard Weight 180 lb Body height 68 in Body mass index (BMI) [Ratio] 27.37 kg/m2 Body surface area Derived from formula 1.95 m2 :50 Body temperature 98 f Comments: Meth od: Oral Heart Rate 92 /min Comments: Pattern: R egular Respiratory rate 18 /min Comments: Pattern: U nlabored O2 SAT 96 % Comments: Room air Systolic blood pressure 110 mm[Hg] Comments: Patien t Position: Sitting; Cuff Location: Left Arm; Cuff Size: Standard Diastolic blood pressure 74 mm[Hg] Comments: Patie nt Position: Sitting; Cuff Location: Left Arm; Cuff Size: Standard Weight 172 lb Body height 68 in Body mass index (BMI) [Ratio] 26.15 kg/m2 Body surface area Derived from formula 1.92 m2 :36 Body temperature 98.5 f Heart Rate 86 /min Comments: Pattern: R egular Respiratory rate 18 /min Comments: Pattern: U nlabored O2 SAT 97 % Comments: Room air Systolic blood pressure 121 mm[Hg] Comments: Patien t Position: Sitting; Cuff Location: Left Arm; Cuff Size: Standard Diastolic blood pressure 75 mm[Hg] Comments: Patie nt Position: Sitting; Cuff Location: Left Arm; Cuff Size: Standard Weight 172.125 lb Body height 68 in Body mass index (BMI) [Ratio] 26.17 kg/m2 Body surface area Derived from formula 1.92 m2 :48 Body temperature 98.2 f Comments: Meth od: Tympanic Heart Rate 92 /min Comments: Pattern: R egular Respiratory rate 20 /min Comments: Pattern: U nlabored O2 SAT 96 % Comments: Room air Systolic blood pressure 115 mm[Hg] Comments: Patien t Position: Sitting; Cuff Location: Left Arm; Cuff Size: Standard Diastolic blood pressure 73 mm[Hg] Comments: Patie nt Position: Sitting; Cuff Location: Left Arm; Cuff Size: Standard Weight 172.125 lb :59 Body temperature 98.6 f Comments: Meth od: Tympanic Heart Rate 94 /min Comments: Pattern: R egular Respiratory rate 20 /min Comments: Pattern: U nlabored O2 SAT 95 % Comments: Room air Systolic blood pressure 119 mm[Hg] Comments: Patien t Position: Sitting; Cuff Location: Left Arm; Cuff Size: Standard Diastolic blood pressure 74 mm[Hg] Comments: Patie nt Position: Sitting; Cuff Location: Left Arm; Cuff Size: Standard Weight 173.375 lb :36 Body temperature 98 f Comments: Meth od: Oral Heart Rate 93 /min Comments: Pattern: R egular Respiratory rate 20 /min Comments: Pattern: U nlabored O2 SAT 96 % Comments: Room air Systolic blood pressure 122 mm[Hg] Comments: Patien t Position: Sitting; Cuff Location: Left Arm; Cuff Size: Standard Diastolic blood pressure 72 mm[Hg] Comments: Patie nt Position: Sitting; Cuff Location: Left Arm; Cuff Size: Standard Weight 186.375 lb :30 Body temperature 98.5 f Comments: Meth od: Oral Heart Rate 74 /min Comments: Pattern: R egular Respiratory rate 18 /min Comments: Pattern: U nlabored O2 SAT 95 % Comments: Room air Systolic blood pressure 110 mm[Hg] Comments: Patien t Position: Sitting; Cuff Location: Left Arm; Cuff Size: Standard Diastolic blood pressure 61 mm[Hg] Comments: Patie nt Position: Sitting; Cuff Location: Left Arm; Cuff Size: Standard Weight 186.375 lb :08 Body temperature 98.1 f Comments: Metho d: Oral Heart Rate 94 /min Comments: Pattern: R egular Respiratory rate 20 /min Comments: Pattern: U nlabored O2 SAT 97 % Comments: Room air Systolic blood pressure 124 mm[Hg] Comments: Patien t Position: Sitting; Cuff Location: Left Arm; Cuff Size: Standard Diastolic blood pressure 72 mm[Hg] Comments: Patie nt Position: Sitting; Cuff Location: Left Arm; Cuff Size: Standard Weight 186.375 lb :51 Body temperature 98.2 f Comments: Metho d: Oral Heart Rate 90 /min Comments: Pattern: R egular Respiratory rate 20 /min Comments: Pattern: U nlabored O2 SAT 98 % Comments: Room air Systolic blood pressure 128 mm[Hg] Comments: Patien t Position: Sitting; Cuff Location: Left Arm; Cuff Size: Standard Diastolic blood pressure 80 mm[Hg] Comments: Patie nt Position: Sitting; Cuff Location: Left Arm; Cuff Size: Standard Weight 166 lb :33 Body temperature 98.2 f Comments: Metho d: Oral Heart Rate 92 /min Comments: Pattern: R egular Respiratory rate 18 /min Comments: Pattern: U nlabored O2 SAT 98 % Comments: Room air Systolic blood pressure 125 mm[Hg] Comments: Patien t Position: Sitting; Cuff Location: Left Arm; Cuff Size: Standard Diastolic blood pressure 74 mm[Hg] Comments: Patie nt Position: Sitting; Cuff Location: Left Arm; Cuff Size: Standard Weight 158.5 lb Body height 68 in Body mass index (BMI) [Ratio] 24.10 kg/m2 Body surface area Derived from formula 1.85 m2 :55 Body temperature 98 f Comments: Metho d: Oral Heart Rate 92 /min Comments: Pattern: R egular Respiratory rate 20 /min Comments: Pattern: U nlabored O2 SAT 97 % Comments: Room air Systolic blood pressure 126 mm[Hg] Comments: Patien t Position: Sitting; Cuff Location: Left Arm; Cuff Size: Standard Diastolic blood pressure 66 mm[Hg] Comments: Patie nt Position: Sitting; Cuff Location: Left Arm; Cuff Size: Standard Weight 160.375 lb :41 Body temperature 97.9 f Comments: Metho d: Oral Heart Rate 89 /min Comments: Pattern: R egular Respiratory rate 20 /min Comments: Pattern: U nlabored O2 SAT 98 % Comments: Room air Systolic blood pressure 118 mm[Hg] Comments: Patien t Position: Sitting; Cuff Location: Left Arm; Cuff Size: Standard Diastolic blood pressure 76 mm[Hg] Comments: Patie nt Position: Sitting; Cuff Location: Left Arm; Cuff Size: Standard Weight 149.125 lb :27 Body temperature 98.1 f Heart Rate 90 /min Comments: Pattern: R egular Respiratory rate 18 /min Comments: Pattern: U nlabored O2 SAT 98 % Comments: Room air Systolic blood pressure 134 mm[Hg] Comments: Patien t Position: Sitting; Cuff Location: Left Arm; Cuff Size: Standard Diastolic blood pressure 82 mm[Hg] Comments: Patie nt Position: Sitting; Cuff Location: Left Arm; Cuff Size: Standard Weight 146.5 lb Body height 68 in Body mass index (BMI) [Ratio] 22.28 kg/m2 Body surface area Derived from formula 1.79 m2 :57 Body temperature 87 f Comments: Metho d: Oral Heart Rate 87 /min Comments: Pattern: R egular Respiratory rate 18 /min Comments: Pattern: U nlabored O2 SAT 96 % Comments: Room air Systolic blood pressure 128 mm[Hg] Comments: Patien t Position: Sitting; Cuff Location: Left Arm; Cuff Size: Standard Diastolic blood pressure 75 mm[Hg] Comments: Patie nt Position: Sitting; Cuff Location: Left Arm; Cuff Size: Standard Weight 152.5 lb Body height 68 in Body mass index (BMI) [Ratio] 23.19 kg/m2 Body surface area Derived from formula 1.82 m2 :04 Body temperature 98.2 f Heart Rate 91 /min Comments: Pattern: R egular Respiratory rate 20 /min Comments: Pattern: U nlabored O2 SAT 98 % Comments: Room air Systolic blood pressure 115 mm[Hg] Comments: Patien t Position: Sitting; Cuff Location: Left Arm; Cuff Size: Standard Diastolic blood pressure 71 mm[Hg] Comments: Patie nt Position: Sitting; Cuff Location: Left Arm; Cuff Size: Standard Weight 169.5625 lb :29 Body temperature 97.9 f Comments: Meth od: Oral Heart Rate 88 /min Comments: Pattern: R egular Respiratory rate 20 /min Comments: Pattern: U nlabored O2 SAT 97 % Comments: Room air Systolic blood pressure 113 mm[Hg] Comments: Patien t Position: Sitting; Cuff Location: Left Arm; Cuff Size: Standard Diastolic blood pressure 67 mm[Hg] Comments: Patie nt Position: Sitting; Cuff Location: Left Arm; Cuff Size: Standard Weight 175.375 lb Body height 68 in Body mass index (BMI) [Ratio] 26.67 kg/m2 Body surface area Derived from formula 1.93 m2 :38 Body temperature 97.7 f Comments: Meth od: Oral Heart Rate 87 /min Comments: Pattern: R egular Respiratory rate 18 /min Comments: Pattern: U nlabored O2 SAT 98 % Comments: Room air Systolic blood pressure 117 mm[Hg] Comments: Patien t Position: Sitting; Cuff Location: Left Arm; Cuff Size: Standard Diastolic blood pressure 73 mm[Hg] Comments: Patie nt Position: Sitting; Cuff Location: Left Arm; Cuff Size: Standard Weight 168.375 lb Body height 68 in Body mass index (BMI) [Ratio] 25.60 kg/m2 Body surface area Derived from formula 1.90 m2 :40 Body temperature 97.7 f Heart Rate 88 /min Comments: Pattern: R egular Respiratory rate 18 /min Comments: Pattern: U nlabored O2 SAT 98 % Comments: Room air Systolic blood pressure 119 mm[Hg] Comments: Patien t Position: Sitting; Cuff Location: Left Arm; Cuff Size: Standard Diastolic blood pressure 73 mm[Hg] Comments: Patie nt Position: Sitting; Cuff Location: Left Arm; Cuff Size: Standard Weight 168.375 lb Body height 68 in Body mass index (BMI) [Ratio] 25.60 kg/m2 Body surface area Derived from formula 1.90 m2 :27 Body temperature 98.2 f Comments: Meth od: Oral Heart Rate 87 /min Comments: Pattern: R egular Respiratory rate 18 /min Comments: Pattern: U nlabored O2 SAT 98 % Comments: Room air Systolic blood pressure 130 mm[Hg] Comments: Patien t Position: Sitting; Cuff Location: Left Arm; Cuff Size: Standard Diastolic blood pressure 78 mm[Hg] Comments: Patie nt Position: Sitting; Cuff Location: Left Arm; Cuff Size: Standard Weight 162.375 lb Body height 68 in Body mass index (BMI) [Ratio] 24.69 kg/m2 Body surface area Derived from formula 1.87 m2 :10 Body temperature 97.8 f Heart Rate 92 /min Comments: Pattern: R egular Respiratory rate 18 /min Comments: Pattern: U nlabored O2 SAT 98 % Comments: Room air Systolic blood pressure 127 mm[Hg] Comments: Patien t Position: Sitting; Cuff Location: Left Arm; Cuff Size: Standard Diastolic blood pressure 80 mm[Hg] Comments: Patie nt Position: Sitting; Cuff Location: Left Arm; Cuff Size: Standard Weight 160 lb Body height 68 in Body mass index (BMI) [Ratio] 24.33 kg/m2 Body surface area Derived from formula 1.86 m2 :07 Body temperature 97.2 f Heart Rate 92 /min Comments: Pattern: R egular Respiratory rate 18 /min Comments: Pattern: U nlabored O2 SAT 98 % Comments: Room air Systolic blood pressure 134 mm[Hg] Comments: Patien t Position: Sitting; Cuff Location: Left Arm; Cuff Size: Standard Diastolic blood pressure 83 mm[Hg] Comments: Patie nt Position: Sitting; Cuff Location: Left Arm; Cuff Size: Standard Weight 160 lb Body height 68 in Body mass index (BMI) [Ratio] 24.33 kg/m2 Body surface area Derived from formula 1.86 m2 Results Date Description Value Details 01-Aug-2019 HEMOGLOBIN GLYCLATED (HGB A1C) 4.3 % (Abnormal) Comments: Location Name: [place]: T[place]YA Range: 4.6-7.1 Comments: 1.000; 0.0 %;NGSP 02-Dec-2019 HEMOGLOBIN GLYCLATED (HGB A1C) 4.8 % (Normal) C omments: Location Name: [place] iMlls: REGGIE Range: 4.6-7.1 Comments: 1.000; 0.0 %;NGSP 24-Apr-2020 URINALYSIS, AUTOMATED W/O MICRO Comments : Location Name: [facility] UA - UROBILINOGEN 1.0 {E.U./dL} (Normal) UA - APPEARANCE Cloudy (Normal) UA - BILIRUBIN Negative (Normal) UA - BLOOD Trace-intact (Abnormal) UA - COLOR Light yellow (Normal) UA - GLUCOSE Negative (Normal) UA - KETONES Negative (Normal) UA - LEUKOCYTE ESTERASE Trace (Abnormal) UA - NITRITE Negative (Normal) UA - PH 7.0 (Normal) UA - PROTEIN Negative (Normal) UA - SPECIFIC GRAVITY 1.020 (Normal) 17-Jun-2021 HEMOGLOBIN GLYCLATED (HGB 5.1 % (Normal) Commen ts: Location Name: [place]: MARCELO A1C) Range: 4.6-7.1 Comments: 1.000; 0.0 %;NGSP 19-Jul-2021 HEMOGLOBIN GLYCLATED (HGB 5.3 % (Normal) Commen ts: Location Name: [place] CampaOpertavo: TONYA A1C) Range: 4.6-7.1 Comments: 1.000; 0.0 %;NGSP [id number] URINALYSIS, AUTOMATED W/O MICRO Comments : Urine collected clean catch for urinalysis.; Dr. Madrid notified. ([id number]) UA - UROBILINOGEN 4 mg/dL (Normal) Comments: Dr. Madrid notified. UA - APPEARANCE cloudy (Abnormal) Comments: Dr. Madrid notified. UA - BILIRUBIN Small(+) (Normal) Comments: Dr. Madrid notified. UA - BLOOD Moderate(++) (Normal) Comments: Dr. Madrid notified. UA - COLOR dark yellow (Normal) Comments: Josette Madrid notified. UA - GLUCOSE Negative g/dL (Normal) Comments: Dr. Madrid notified. UA - KETONES Trace(5) mg/dL (Normal) Comments : Dr. Madrid notified. UA - LEUKOCYTE ESTERASE Large(+++) (Normal) Comm ents: Dr. Madrid notified. UA - NITRITE Negative (Normal) Comments: Dr. Madrid notified. UA - PH 7.0 (Normal) Comments: Dr. Rizvi notified. UA - PROTEIN Trace mg/dL (Normal) Comments: Josette Madrid notified. UA - SPECIFIC GRAVITY 1.025 (Normal) Comments: Dr. Madrid notified. :35 HGB A1C ([id number]) HEMOGLOBIN GLYCLATED (HGB A1C) 6.3 % (Normal) R diomedes: 4.6 - 7.1 :38 HGB A1C ([id number]) HEMOGLOBIN GLYCLATED (HGB A1C) 5.9 % (Normal) R diomedes: 4.6 - 7.1 :47 URINALYSIS, AUTOMATED W/O MICRO ([id number]) UA - UROBILINOGEN 1 mg/dL (Normal) UA - APPEARANCE clear (Normal) UA - BILIRUBIN Negative (Normal) UA - BLOOD Moderate(++) (Normal) UA - COLOR pale yellow (Normal) UA - GLUCOSE Negative g/dL (Normal) UA - KETONES Negative mg/dL (Normal) UA - LEUKOCYTE ESTERASE Large(+++) (Normal) UA - NITRITE Positive (Normal) UA - PH 7.5 (Normal) UA - PROTEIN 30(+) mg/dL (Normal) UA - SPECIFIC GRAVITY 1.020 (Normal) :36 URINALYSIS, AUTOMATED W/O MICRO ([id number]) UA - UROBILINOGEN 0.2 mg/dL (Normal) UA - APPEARANCE cloudy (Abnormal) UA - BILIRUBIN Negative (Normal) UA - BLOOD Moderate(++) (Normal) UA - COLOR yellow (Normal) UA - GLUCOSE Negative g/dL (Normal) UA - KETONES Negative mg/dL (Normal) UA - LEUKOCYTE ESTERASE Large(+++) (Normal) UA - NITRITE Positive (Normal) UA - PH 8.5 (Normal) UA - PROTEIN 300(+++) mg/dL (Normal) UA - SPECIFIC GRAVITY 1.020 (Normal) Plan of Care Name Dates Details Instructions Excision of a Skin Lesion: removal of skin lesion Start: Instruction Type: Patient Education Indication: Skin lesion of face Osteoarthritis Start: 19-Jul-2021 Instruction Type: P atient Education Indication: Osteoarthritis involving multiple joints on both sides of body Alternative or Complementary Ways to Control Pain: chr onic pain Start: 17-Jun-2021 Instruction Type: Patient Education Indication: Multilevel degenerative disc disease Follow up in 1 month Start: 17-Jun-2021 Instruction Type: Provider Instructions for Treatment Indication: Multilevel degenerative disc disease Smoking Counseling Education Start: 17-Jun-2021 Instructio n Type: Patient Education Indication: Encounter for monitoring opioid maintenance ther apy Smoking Counseling Education Start: 19-May-2021 Instructio n Type: Patient Education Indication: BOB (generalized anxiety disorder) Anxiety Disorders Start: 19-May-2021 Instruction Type: P atient Education Indication: BOB (generalized anxiety disorder) Follow up in 1 month Start: 27-Apr-2021 Instruction Type: Provider Instructions for Treatment Indication: Multilevel degenerative disc disease Smoking Counseling Education Start: 22-Apr-2021 Instructio n Type: Patient Education Indication: Encounter for monitoring opioid maintenance ther apy Anxiety Disorders Start: 18-Mar-2021 Instruction Type: P atient Education Indication: BOB (generalized anxiety disorder) Smoking Counseling Education Start: 18-Mar-2021 Instructio n Type: Patient Education Indication: Osteoarthritis involving multiple joints on both sides of body Anxiety Disorders Start: 18-Feb-2021 Instruction Type: P atient Education Indication: Encounter for monitoring opioid maintenance ther apy Smoking Counseling Education Start: 18-Feb-2021 Instructio n Type: Patient Education Indication: Encounter for monitoring opioid maintenance ther apy Diabetes Mellitus, Type 2, Adult Start: 20-Jan-2021 Instru ction Type: Patient Education Indication: Encounter for monitoring opioid maintenance ther apy Smoking Counseling Education Start: 20-Jan-2021 Instructio n Type: Patient Education Indication: Encounter for monitoring opioid maintenance ther apy Follow up in 1 month Start: 19-Nov-2020 Instruction Type: Provider Instructions for Treatment Indication: Encounter for monitoring opioid maintenance ther apy Smoking Counseling Education Start: 19-Nov-2020 Instructio n Type: Patient Education Indication: Encounter for monitoring opioid maintenance ther apy Gallstones *: cholelithiasis Start: 22-Oct-2020 Instructio n Type: Patient Education Indication: Gallstones and inflammation of gallbladder witho ut obstruction Smoking Counseling Education Start: 22-Oct-2020 Instructio n Type: Patient Education Indication: Gallstones and inflammation of gallbladder witho ut obstruction Follow up in 1 month Start: 22-Oct-2020 Instruction Type: Provider Instructions for Treatment Indication: Encounter for monitoring opioid maintenance ther apy Opioid Risks Start: 22-Oct-2020 Instruction Type: P atient Education Indication: Encounter for monitoring opioid maintenance ther apy Follow up in 1 month Start: 24-Sep-2020 Instruction Type: Provider Instructions for Treatment Indication: Encounter for monitoring opioid maintenance ther apy Opioid Risks Start: 24-Sep-2020 Instruction Type: P atient Education Indication: Encounter for monitoring opioid maintenance ther apy Follow up in 1 month Start: 24-Aug-2020 Instruction Type: Provider Instructions for Treatment Indication: Encounter for monitoring opioid maintenance ther apy Opioid Risks Start: 24-Aug-2020 Instruction Type: P atient Education Indication: Encounter for monitoring opioid maintenance ther apy Follow up in 1 month Start: 27-Jul-2020 Instruction Type: Provider Instructions for Treatment Indication: Encounter for monitoring opioid maintenance ther apy Opioid Risks Start: 27-Jul-2020 Instruction Type: P atient Education Indication: Encounter for monitoring opioid maintenance ther apy Follow up in 1 month Start: 24-Jun-2020 Instruction Type: Provider Instructions for Treatment Indication: Encounter for monitoring opioid maintenance ther apy Opioid Risks Start: 24-Jun-2020 Instruction Type: P atient Education Indication: Encounter for monitoring opioid maintenance ther apy Follow up in 1 month Start: 25-May-2020 Instruction Type: Provider Instructions for Treatment Indication: Encounter for monitoring opioid maintenance ther apy Opioid Risks Start: 25-May-2020 Instruction Type: P atient Education Indication: Encounter for monitoring opioid maintenance ther apy Follow up in 1 month Start: 24-Apr-2020 Instruction Type: Provider Instructions for Treatment Indication: Encounter for monitoring opioid maintenance ther apy Opioid Risks Start: 24-Apr-2020 Instruction Type: P atient Education Indication: Encounter for monitoring opioid maintenance ther apy Follow up in 1 month Start: 25-Mar-2020 Instruction Type: Provider Instructions for Treatment Indication: Encounter for monitoring opioid maintenance ther apy Opioid Risks Start: 25-Mar-2020 Instruction Type: P atient Education Indication: Encounter for monitoring opioid maintenance ther apy Follow up in 1 month Start: 24-Feb-2020 Instruction Type: Provider Instructions for Treatment Indication: Encounter for monitoring opioid maintenance ther apy Opioid Risks Start: 24-Feb-2020 Instruction Type: P atient Education Indication: Encounter for monitoring opioid maintenance ther apy Follow up in 1 month Start: 30-Jan-2020 Instruction Type: Provider Instructions for Treatment Indication: Encounter for monitoring opioid maintenance ther apy Opioid Risks Start: 30-Jan-2020 Instruction Type: P atient Education Indication: Encounter for monitoring opioid maintenance ther apy Follow up in 1 month Start: 01-Jan-2020 Instruction Type: Provider Instructions for Treatment Indication: Encounter for monitoring opioid maintenance ther apy Opioid Risks Start: 01-Jan-2020 Instruction Type: P atient Education Indication: Encounter for monitoring opioid maintenance ther apy Follow up in 1 month Start: 02-Dec-2019 Instruction Type: Provider Instructions for Treatment Indication: Encounter for monitoring opioid maintenance ther apy Opioid Risks Start: 02-Dec-2019 Instruction Type: P atient Education Indication: Encounter for monitoring opioid maintenance ther apy Follow up in 1 month Start: 01-Nov-2019 Instruction Type: Provider Instructions for Treatment Indication: Encounter for monitoring opioid maintenance ther apy Opioid Risks Start: 01-Nov-2019 Instruction Type: P atient Education Indication: Encounter for monitoring opioid maintenance ther apy Follow up in 1 month Start: 04-Oct-2019 Instruction Type: Provider Instructions for Treatment Indication: Encounter for monitoring opioid maintenance ther apy Opioid Risks Start: 04-Oct-2019 Instruction Type: P atient Education Indication: Encounter for monitoring opioid maintenance ther apy Follow up in 1 month Start: 26-Sep-2019 Instruction Type: Provider Instructions for Treatment Indication: Edema, leg Follow up in 1 month Start: 27-Aug-2019 Instruction Type: Provider Instructions for Treatment Indication: Essential hypertension with goal blood pressure less than 130/80 Follow up - Keep appt as scheduled Start: 28-Jul-2019 Inst ruction Type: Provider Instructions for Treatment Indication: Effusion, right knee Follow up in 1 month Start: 19-Jul-2019 Instruction Type: Provider Instructions for Treatment Indication: RUQ pain Follow up in 1 month Start: 30-Jun-2019 Instruction Type: Provider Instructions for Treatment Indication: BOB (generalized anxiety disorder) Follow up as needed Start: 14-May-2019 Instruction Type: Arabella pozo Instructions for Treatment Indication: Pain of right knee after injury Follow up in 1 month Start: 14-May-2019 Instruction Type: Provider Instructions for Treatment Indication: Pain of right knee after injury Follow up -Call or Make appt after diagn ostic tests to review results of labs, Dexa, & MMG. Start: 23-Apr-2019 Instruction Type: Provider Instructions for Treatment Indication: Screening mammogram, encounter for Rout[facility] *: mammogram Start: 23-Apr-20 Instruction Type: Patient Education Indication: Screening mammogram, encounter for Breast Cancer: Early Detection: mammogram Start: 9 Instruction Type: Patient Education Indication: Screening mammogram, encounter for Follow up -Call or Make appt after diagnostic tests to review results. Start: 09-Apr-2019 Instruction Type: Provider Instructions for Treatment Indication: Asymptomatic menopausal state Follow up in 1 month or as needed and pt may elect to be seen in the [facility] due to transportation issues Start: 09-Apr-2019 Instruction Type: Provider Instructions for Treatment Indication: Asymptomatic menopausal state Eczema: atopic dermatitis Start: 08-Apr-2019 Instruction T ype: Patient Education Indication: Atopic dermatitis, unspecified type Alternative or Complementary Ways to Control Pain: sabrina n control Start: 08-Apr-2019 Instruction Type: Patient Education Indication: Neck and shoulder pain Bone Mineral Density Testing: osteoporosis Start: 08-Apr-20 Instruction Type: Patient Education Indication: Asymptomatic menopausal state Calcium *: osteoporosis Start: 08-Apr-2019 Instruction Typ e: Patient Education Indication: Asymptomatic menopausal state Planned Observations URINE C&S ([id number])Indication: Urinary tract infection On: 3N :46 Request DRUG TEST PRSMV DIR OPT OBS ([id number])Indic ation: Encounter for monitoring opioid maintenance therapy On: [id number] Request FOLIC ACID SERUM ([id number])Indication: Preoperative clearance O n: :17 Request Vitamin D 25 Hydroxy ([id number])Indication: Preoperative c learance On: :17 Request VITAMIN B-12 (CYANOCOBALAMIN) ([id number])Indication: Preop erative clearance On: :17 Request LIPID PANEL ([id number])Indication: Preoperative clearance On: :16 Request CMP ([id number])Indication: Preoperative clearance On: 04-Mar-2022 9:16 Request CBC, PLATELETS & AUT DIFF ([id number])Indication: Preoperat ania clearance On: :16 Request DRUG TEST PRSMV DIR OPT OBS ([id number])Indication: Chronic pain of right knee On: :04 Request DRUG TEST PRSMV DIR OPT OBS ([id number])Indic ation: Encounter for monitoring opioid maintenance therapy On: :13 Request Comments: Saliva/Ora l Fluid collected for drug screen. URINE KENDALL CULTURE-NIKITA COL COUNTIndication: UTI (urina ry tract infection) On: :42 Request Comments: Urine joann ected clean catch for UA with C&S on 08/09/2021 at 15:10 by Jada Otto LPN. URINALYSIS, AUTOMATED W/ MICROIndication: UTI (urinary tract infection) On: :42 Request DRUG TEST PRSMV DIR OPT OBS ([id number])Indic ation: Encounter for monitoring opioid maintenance therapy On: :08 Request DRUG TEST PRSMV DIR OPT OBS ([id number])Indic ation: Encounter for monitoring opioid maintenance therapy On: :55 Request ABO BLOOD TYPING ([id number])Indication: Blood typing encounter O n: :12 Request URINALYSIS ([id number])Indication: Dysuria On: :11 R equest URINE C&S ([id number])Indication: Dysuria On: :11 Re quest DRUG TEST PRSMV DIR OPT OBS ([id number])Indic ation: Encounter for monitoring opioid maintenance therapy On: :11 Request DRUG TEST PRSMV DIR OPT OBS ([id number])Indic ation: Encounter for monitoring opioid maintenance therapy On: :41 Request DRUG TEST PRSMV DIR OPT OBS ([id number])Indic ation: Encounter for monitoring opioid maintenance therapy On: [id number]-Ehz-[id number]:57 Request DRUG TEST PRSMV DIR OPT OBS ([id number])Indic ation: Encounter for monitoring opioid maintenance therapy On: [id number]-Tkv-[id number]:09 Request CMP ([id number])Indication: Hypokalemia On: 37-Ote-541615:14 Requ est MAGNESIUM ([id number])Indication: Hypokalemia On: 14-Bgg-220641:5 6 Request CBC, PLATELETS & AUT DIFF ([id number])Indication: Anemia, u nspecified type On: 52-Jxs-117260:56 Request HGB A1C ([id number])Indication: Type 2 diabetes with compli cation On: 95-Doj-308649:31 Request Comments: Do with ot her lab monitoring MICROALBUMIN URINE QUANT ([id number])Indication: Type 2 bernie betes with complication On: :25 Request Sed Rate ([id number])Indication: Multilevel degenerative di sc disease On: :25 Request BMP ([id number])Indication: Essential hyperte nsion with goal blood pressure less than 130/80 On: :25 Request CBC, PLATELETS & AUT DIFF ([id number])Indicat ion: Essential hypertension with goal blood pressure less than 130/80 On: :25 Request HEPATIC FUNCTION PANEL ([id number])Indication : Dyslipidemia associated with type 2 diabetes mellitus On: :24 Request LIPID PANEL ([id number])Indication: Dyslipide mayo associated with type 2 diabetes mellitus On: :24 Request Planned Encounters Medical; Office Visit 20 - 3 month f/u - Med Refill (D S) (A1C) On: 07-Sep-2022 13:40 [facility] Oren Hanna Planned Procedures PATIENT SCREENED FOR TOBACCO USE AND On: 11-Jul-2022 Int ent IDENTIFIED A TOBACCO NON-USER ([id number])By: Opal Garcia SCREENING FOR TOBACCO USE ([id number])By: On: 11-Jul-2022 Int ent Opal Garcia PATIENT SCREENED FOR TOBACCO USE AND On: 30-Jun-2022 Int ent IDENTIFIED A TOBACCO NON-USER ([id number])By: Opal Garcia SCREENING FOR TOBACCO USE ([id number])By: On: 30-Jun-2022 Int Opal Castaneda PATIENT SCREENED FOR TOBACCO USE AND On: 13-Jun-2022 Int ent IDENTIFIED A TOBACCO NON-USER ([id number])By: Opal Garcia SCREENING FOR TOBACCO USE ([id number])By: On: 13-Jun-2022 Int ent Opal Garcia PATIENT SCREENED FOR TOBACCO USE AND On: 04-Mar-2022 Int ent IDENTIFIED A TOBACCO NON-USER ([id number])By: Opal Garcia SCREENING FOR TOBACCO USE ([id number])By: On: 04-Mar-2022 Int ent Opal Garcia PATIENT SCREENED FOR TOBACCO USE AND On: 23-Dec-2021 Int ent IDENTIFIED A TOBACCO NON-USER ([id number])By: Nichelle Mendieta SCREENING FOR TOBACCO USE ([id number])By: On: 23-Dec-2021 Int ent Nichelle Mendieta PATIENT SCREENED FOR TOBACCO USE AND On: 09-Dec-2021 Int ent IDENTIFIED A TOBACCO NON-USER ([id number])By: Luis Hdez SCREENING FOR TOBACCO USE ([id number])By: On: 09-Dec-2021 Int ent Luis Hdez EXCISION OF BENIGN SKIN LESION OF On: 01-Dec-2021 Intent FACE, 1.1 CM TO 2.0 CM IN DIAMETER Comme nts: skin lesion of the face 1.5 x 1 cm Lt side . ([id number])By: Luis Hdez PATIENT SCREENED FOR TOBACCO USE AND On: 23-Nov-2021 Int ent IDENTIFIED A TOBACCO NON-USER ([id number])By: Luis Hdez SCREENING FOR TOBACCO USE ([id number])By: On: 23-Nov-2021 Int ent Luis Hdez PATIENT SCREENED FOR TOBACCO USE AND On: 03-Nov-2021 Int ent IDENTIFIED A TOBACCO NON-USER ([id number])By: Nichelle Mendieta SCREENING FOR TOBACCO USE ([id number])By: On: 03-Nov-2021 Int ent Nichelle Mendieta PATIENT SCREENED FOR TOBACCO USE AND On: 19-Jul-2021 Int ent IDENTIFIED A TOBACCO NON-USER ([id number])By: Sarah Walton SCREENING FOR TOBACCO USE ([id number])By: On: 19-Jul-2021 Int ent Sarah Walton SMOKING CESSATION COUNSELING FOR 3 TO On: 17-Jun-2021 In tent 10 MINUTES ([id number])By: Herminia Steele SMOKING CESSATION COUNSELING FOR 3 TO On: 22-Apr-2021 In tent 10 MINUTES ([id number])By: Herminia Steele POWER WHEELCHAIR, NOT OTHERWISE On: 18-Feb-2021 Intent CLASSIFIED ([id number])By: Jhon Torrez DIGITAL SCREENING MAMMOGRAPHY OF BOTH On: 23-Apr-2019 In tent BREASTS ([id number])By: Aliesha Eric NP DIGITAL SCREENING MAMMOGRAPHY OF BOTH On: 08-Apr-2019 In tent BREASTS ([id number])By: Aleisha Eric NP BONE DEXA SCAN ([id number])By: Hernesto BOND, On: 08-Apr-2019 Intent Aleisha Casas Planned Supplies WALKER, FOLDING, WHEELED, ADJUSTABLE On: 13-Dec-2021 Int ent OR FIXED HEIGHT ([id number])By: Oren Madrid SEAT ATTACHMENT, WALKER ([id number])By: On: 13-Dec-2021 Inten t Oren Madrid WALKER, FOLDING, WHEELED, ADJUSTABLE On: 24-Apr-2020 Int ent OR FIXED HEIGHT ([id number])By: Eddie Torrez ents: Per pharmacy to brand. Jhon Bustillos Instructions Name Dates Details Verified Opioid Agreement Start: 11-Jul-2022 Instruction T ype: Provider Instructions for Treatment Indication: Urinary tract infection Follow [facility] Start: 11-Jul-2022 Instruction Type: P atient Education Indication: Urinary tract infection How to Access Health Information Online using Patient Portal and 3rd Libertarian Apps Start: 11-Jul-2022 Instruction Type: Patient Education Indication: Urinary tract infection Verified Opioid Agreement Start: 30-Jun-2022 Instruction T ype: Provider Instructions for Treatment Indication: Urinary tract infection Follow [facility] Start: 30-Jun-2022 Instruction Type: P atient Education Indication: Urinary tract infection How to Access Health Information Online using Patient Portal and 3rd Libertarian Apps Start: 30-Jun-2022 Instruction Type: Patient Education Indication: Urinary tract infection Verified Opioid Agreement Start: 13-Jun-2022 Instruction T ype: Provider Instructions for Treatment Indication: Diabetes mellitus, type 2 Follow [facility] Start: 13-Jun-2022 Instruction Type: P atient Education Indication: Diabetes mellitus, type 2 How to Access Health Information Online using Patient Portal and 3rd Libertarian Apps Start: 13-Jun-2022 Instruction Type: Patient Education Indication: Diabetes mellitus, type 2 Verified Opioid Agreement Start: 04-Mar-2022 Instruction T ype: Provider Instructions for Treatment Indication: Preoperative clearance Follow [facility] Start: 04-Mar-2022 Instruction Type: P atient Education Indication: Preoperative clearance How to Access Health Information Online using Patient Portal and 3rd Libertarian Apps Start: 04-Mar-2022 Instruction Type: Patient Education Indication: Preoperative clearance Verified Opioid Agreement Start: 07-Jan-2022 Instruction T ype: Provider Instructions for Treatment Indication: Effusion, right knee Verified Opioid Agreement Start: 23-Dec-2021 Instruction T ype: Provider Instructions for Treatment Indication: Osteoarthritis involving multiple joints on both sides of body Follow [facility] Start: 23-Dec-2021 Instruction Type: P atient Education Indication: Osteoarthritis involving multiple joints on both sides of body How to Access Health Information Online using Patient Portal and [employer] Apps Start: 23-Dec-2021 Instruction Type: Patient Education Indication: Osteoarthritis involving multiple joints on both sides of body Verified Opioid Agreement Start: 09-Dec-2021 Instruction T ype: Provider Instructions for Treatment Indication: Skin lesion of face Follow Health Start: 09-Dec-2021 Instruction Type: P atient Education Indication: Skin lesion of face How to Access Health Information Online using Patient Portal and [employer] Apps Start: 09-Dec-2021 Instruction Type: Patient Education Indication: Skin lesion of face Verified Opioid Agreement Start: 23-Nov-2021 Instruction T ype: Provider Instructions for Treatment Indication: Skin lesion of face Follow Health Start: 23-Nov-2021 Instruction Type: P atient Education Indication: Skin lesion of face How to Access Health Information Online using Patient Serus and [employer] Apps Start: 23-Nov-2021 Instruction Type: Patient Education Indication: Skin lesion of face Verified Opioid Agreement Start: 11-Nov-2021 Instruction T ype: Provider Instructions for Treatment Indication: Chronic pain of right knee Verified Opioid Agreement Start: 03-Nov-2021 Instruction T ype: Provider Instructions for Treatment Indication: Effusion, right knee Follow Health Start: 03-Nov-2021 Instruction Type: P atient Education Indication: Effusion, right knee How to Access Health Information Online using Patient Portal and [employer] Apps Start: 03-Nov-2021 Instruction Type: Patient Education Indication: Effusion, right knee Follow Health Start: 05-Oct-2021 Instruction Type: P atient Education Indication: Numbness of finger How to Access Health Information Online using Patient Portal and [employer] Apps Start: 05-Oct-2021 Instruction Type: Patient Education Indication: Numbness of finger Verified Opioid Agreement Start: 05-Oct-2021 Instruction T ype: Provider Instructions for Treatment Indication: Numbness of finger Follow Health Start: 14-Sep-2021 Instruction Type: P atient Education Indication: Encounter for monitoring opioid maintenance ther apy How to Access Health Information Online using Patient Portal and [employer] Apps Start: 14-Sep-2021 Instruction Type: Patient Education Indication: Encounter for monitoring opioid maintenance ther apy Verified Opioid Agreement Start: 14-Sep-2021 Instruction T ype: Provider Instructions for Treatment Indication: Encounter for monitoring opioid maintenance ther apy Follow Health Start: 09-Aug-2021 Instruction Type: P atient Education Indication: UTI (urinary tract infection) How to Access Health Information Online using Patient Portal and [employer] Apps Start: 09-Aug-2021 Instruction Type: Patient Education Indication: UTI (urinary tract infection) Verified Opioid Agreement Start: 09-Aug-2021 Instruction T ype: Provider Instructions for Treatment Indication: UTI (urinary tract infection) Verified Opioid Agreement Start: 19-Jul-2021 Instruction T ype: Provider Instructions for Treatment Indication: Encounter for monitoring opioid maintenance ther apy PDMP information checked Start: 19-Jul-2021 Instruction Ty pe: Provider Instructions for Treatment Indication: Encounter for monitoring opioid maintenance ther apy Verified Opioid Agreement Start: 19-Jul-2021 Instruction T ype: Provider Instructions for Treatment Indication: Osteoarthritis involving multiple joints on both sides of body Follow [facility] Start: 19-Jul-2021 Instruction Type: P atient Education Indication: Osteoarthritis involving multiple joints on both sides of body How to Access Health Information Online using Patient Portal and [employer] Apps Start: 19-Jul-2021 Instruction Type: Patient Education Indication: Osteoarthritis involving multiple joints on both sides of body Verified Opioid Agreement Start: 17-Jun-2021 Instruction T ype: Provider Instructions for Treatment Indication: Encounter for monitoring opioid maintenance ther apy Follow [facility] Start: 17-Jun-2021 Instruction Type: P atient Education Indication: Encounter for monitoring opioid maintenance ther apy How to Access Health Information Online using Patient Portal and [employer] Apps Start: 17-Jun-2021 Instruction Type: Patient Education Indication: Encounter for monitoring opioid maintenance ther apy Follow Health Start: 19-May-2021 Instruction Type: P atient Education Indication: BOB (generalized anxiety disorder) How to Access Health Information Online using Patient Portal and [employer] Apps Start: 19-May-2021 Instruction Type: Patient Education Indication: BOB (generalized anxiety disorder) Verified Opioid Agreement Start: 22-Apr-2021 Instruction T ype: Provider Instructions for Treatment Indication: Encounter for monitoring opioid maintenance ther apy Follow [facility] Start: 22-Apr-2021 Instruction Type: P atient Education Indication: Encounter for monitoring opioid maintenance ther apy How to Access Health Information Online using Patient Serus and [employer] Apps Start: 22-Apr-2021 Instruction Type: Patient Education Indication: Encounter for monitoring opioid maintenance ther apy Follow [facility] Start: 18-Mar-2021 Instruction Type: P atient Education Indication: Osteoarthritis involving multiple joints on both sides of body How to Access Health Information Online using Patient Serus and [employer] Apps Start: 18-Mar-2021 Instruction Type: Patient Education Indication: Osteoarthritis involving multiple joints on both sides of body Verified Opioid Agreement Start: 18-Mar-2021 Instruction T ype: Provider Instructions for Treatment Indication: Encounter for monitoring opioid maintenance ther apy PDMP information checked Start: 18-Mar-2021 Instruction Ty pe: Provider Instructions for Treatment Indication: Encounter for monitoring opioid maintenance ther apy Follow [facility] Start: 18-Feb-2021 Instruction Type: P atient Education Indication: Encounter for monitoring opioid maintenance ther apy How to Access Health Information Online using Patient Serus and [employer] Start: 18-Feb-2021 Instruction Type: Patient Education Indication: Encounter for monitoring opioid maintenance ther apy Verified Opioid Agreement Start: 18-Feb-2021 Instruction T ype: Provider Instructions for Treatment Indication: Encounter for monitoring opioid maintenance ther apy PDMP information checked Start: 18-Feb-2021 Instruction Ty pe: Provider Instructions for Treatment Indication: Encounter for monitoring opioid maintenance ther apy Follow [facility] Start: 20-Jan-2021 Instruction Type: P atient Education Indication: Encounter for monitoring opioid maintenance ther apy How to Access Health Information Online using Patient Serus and [employer] Apps Start: 20-Jan-2021 Instruction Type: Patient Education Indication: Encounter for monitoring opioid maintenance ther apy Verified Opioid Agreement Start: 20-Jan-2021 Instruction T ype: Provider Instructions for Treatment Indication: Encounter for monitoring opioid maintenance ther apy PDMP information checked Start: 19-Nov-2020 Instruction Ty pe: Provider Instructions for Treatment Indication: Encounter for monitoring opioid maintenance ther apy Follow [facility] Start: 19-Nov-2020 Instruction Type: P atient Education Indication: Encounter for monitoring opioid maintenance ther apy How to Access Health Information Online using Patient Serus and [employer] Apps Start: 19-Nov-2020 Instruction Type: Patient Education Indication: Encounter for monitoring opioid maintenance ther apy Verified Opioid Agreement Start: 19-Nov-2020 Instruction T ype: Provider Instructions for Treatment Indication: Encounter for monitoring opioid maintenance ther apy Verified Opioid Agreement Start: 22-Oct-2020 Instruction T ype: Provider Instructions for Treatment Indication: Gallstones and inflammation of gallbladder witho ut obstruction Follow Health Start: 22-Oct-2020 Instruction Type: P atient Education Indication: Gallstones and inflammation of gallbladder witho ut obstruction How to Access Health Information Online using Patient Portal and [employer] Apps Start: 22-Oct-2020 Instruction Type: Patient Education Indication: Gallstones and inflammation of gallbladder witho ut obstruction Verified Opioid Agreement Start: 22-Oct-2020 Instruction T ype: Provider Instructions for Treatment Indication: Encounter for monitoring opioid maintenance ther apy PDMP information checked Start: 22-Oct-2020 Instruction Ty pe: Provider Instructions for Treatment Indication: Encounter for monitoring opioid maintenance ther apy Verified Opioid Agreement Start: 24-Sep-2020 Instruction T ype: Provider Instructions for Treatment Indication: Encounter for monitoring opioid maintenance ther apy PDMP information checked Start: 24-Sep-2020 Instruction Ty pe: Provider Instructions for Treatment Indication: Encounter for monitoring opioid maintenance ther apy How to Access Health Information Online using Patient Serus and [employer] Apps Start: 24-Sep-2020 Instruction Type: Patient Education Indication: Multilevel degenerative disc disease Follow [facility] Start: 24-Sep-2020 Instruction Type: P atient Education Indication: Multilevel degenerative disc disease Verified Opioid Agreement Start: 24-Aug-2020 Instruction T ype: Provider Instructions for Treatment Indication: Encounter for monitoring opioid maintenance ther apy PDMP information checked Start: 24-Aug-2020 Instruction Ty pe: Provider Instructions for Treatment Indication: Encounter for monitoring opioid maintenance ther apy Follow [facility] Start: 24-Aug-2020 Instruction Type: P atient Education Indication: BOB (generalized anxiety disorder) How to Access Health Information Online using Patient Serus and [employer] Apps Start: 24-Aug-2020 Instruction Type: Patient Education Indication: BOB (generalized anxiety disorder) Verified Opioid Agreement Start: 27-Jul-2020 Instruction T ype: Provider Instructions for Treatment Indication: Encounter for monitoring opioid maintenance ther apy PDMP information checked Start: 27-Jul-2020 Instruction Ty pe: Provider Instructions for Treatment Indication: Encounter for monitoring opioid maintenance ther apy Verified Opioid Agreement Start: 24-Jun-2020 Instruction T ype: Provider Instructions for Treatment Indication: Encounter for monitoring opioid maintenance ther apy PDMP information checked Start: 24-Jun-2020 Instruction Ty pe: Provider Instructions for Treatment Indication: Encounter for monitoring opioid maintenance ther apy Verified Opioid Agreement Start: 25-May-2020 Instruction T ype: Provider Instructions for Treatment Indication: Encounter for monitoring opioid maintenance ther apy PDMP information checked Start: 25-May-2020 Instruction Ty pe: Provider Instructions for Treatment Indication: Encounter for monitoring opioid maintenance ther apy Verified Opioid Agreement Start: 24-Apr-2020 Instruction T ype: Provider Instructions for Treatment Indication: Encounter for monitoring opioid maintenance ther apy PDMP information checked Start: 24-Apr-2020 Instruction Ty pe: Provider Instructions for Treatment Indication: Encounter for monitoring opioid maintenance ther apy Verified Opioid Agreement Start: 25-Mar-2020 Instruction T ype: Provider Instructions for Treatment Indication: Encounter for monitoring opioid maintenance ther apy PDMP information checked Start: 25-Mar-2020 Instruction Ty pe: Provider Instructions for Treatment Indication: Encounter for monitoring opioid maintenance ther apy Verified Opioid Agreement Start: 24-Feb-2020 Instruction T ype: Provider Instructions for Treatment Indication: Encounter for monitoring opioid maintenance ther apy PDMP information checked Start: 24-Feb-2020 Instruction Ty pe: Provider Instructions for Treatment Indication: Encounter for monitoring opioid maintenance ther apy Verified Opioid Agreement Start: 30-Jan-2020 Instruction T ype: Provider Instructions for Treatment Indication: Encounter for monitoring opioid maintenance ther apy PDMP information checked Start: 30-Jan-2020 Instruction Ty pe: Provider Instructions for Treatment Indication: Encounter for monitoring opioid maintenance ther apy Verified Opioid Agreement Start: 01-Jan-2020 Instruction T ype: Provider Instructions for Treatment Indication: Encounter for monitoring opioid maintenance ther apy PDMP information checked Start: 01-Jan-2020 Instruction Ty pe: Provider Instructions for Treatment Indication: Encounter for monitoring opioid maintenance ther apy Verified Opioid Agreement Start: 02-Dec-2019 Instruction T ype: Provider Instructions for Treatment Indication: Encounter for monitoring opioid maintenance ther apy PDMP information checked Start: 02-Dec-2019 Instruction Ty pe: Provider Instructions for Treatment Indication: Encounter for monitoring opioid maintenance ther apy Verified Opioid Agreement Start: 01-Nov-2019 Instruction T ype: Provider Instructions for Treatment Indication: Encounter for monitoring opioid maintenance ther apy PDMP information checked Start: 01-Nov-2019 Instruction Ty pe: Provider Instructions for Treatment Indication: Encounter for monitoring opioid maintenance ther apy Verified Opioid Agreement Start: 04-Oct-2019 Instruction T ype: Provider Instructions for Treatment Indication: Encounter for monitoring opioid maintenance ther apy PDMP information checked Start: 04-Oct-2019 Instruction Ty pe: Provider Instructions for Treatment Indication: Encounter for monitoring opioid maintenance ther apy Verified Opioid Agreement Start: 04-Sep-2019 Instruction T ype: Provider Instructions for Treatment Indication: Encounter for monitoring opioid maintenance ther apy PDMP information checked Start: 04-Sep-2019 Instruction Ty pe: Provider Instructions for Treatment Indication: Encounter for monitoring opioid maintenance ther apy PDMP information checked Start: 01-Aug-2019 Instruction Ty pe: Provider Instructions for Treatment Indication: Encounter for monitoring opioid maintenance ther apy Verified Opioid Agreement Start: 09-Jul-2019 Instruction T ype: Provider Instructions for Treatment Indication: Encounter for monitoring opioid maintenance ther apy PDMP information checked Start: 09-Jul-2019 Instruction Ty pe: Provider Instructions for Treatment Indication: Encounter for monitoring opioid maintenance ther apy Verified Opioid Agreement Start: 03-Jul-2019 Instruction T ype: Provider Instructions for Treatment Indication: Encounter for monitoring opioid maintenance ther apy PDMP information checked Start: 03-Jul-2019 Instruction Ty pe: Provider Instructions for Treatment Indication: Encounter for monitoring opioid maintenance ther apy Verified Opioid Agreement Start: 14-May-2019 Instruction T ype: Provider Instructions for Treatment Indication: Encounter for monitoring opioid maintenance ther apy PDMP information checked Start: 14-May-2019 Instruction Ty pe: Provider Instructions for Treatment Indication: Encounter for monitoring opioid maintenance ther apy Verified Opioid Agreement Start: 08-Apr-2019 Instruction T ype: Provider Instructions for Treatment Indication: Encounter for monitoring opioid maintenance ther apy PDMP information checked Start: 08-Apr-2019 Instruction Ty pe: Provider Instructions for Treatment Indication: Encounter for monitoring opioid maintenance ther apy Encounters Review On: 13-Jul-2022 9:56 [facility] Office Visit On: 11-Jul-2022 13:30 Encounter Reason: short of breath - Jennifer ent is here today with complaint of shortness of breath and feeling dizzy when she stands and walks.Encounter Diagnosis: Urinary tract infection, Multilevel degenerative disc disease, Weakness with dizziness End: 11-Jul-2022 13:58 [facility] Office Visit On: 30-Jun-2022 10:30 Encounter Reason: urologist referral - P atient is here this morning requesting a referral to a urologist for frequent UTI'sEncounter Diagnosis: Urinary tract infection End: 30-Jun-2022 11:42 [facility] Med Refill On: 24-Jun-2022 9:22 Encounter Diagnosis: BOB (generalized anxiety disorder ) End: 24-Jun-2022 9:24 [facility] Office Visit On: 13-Jun-2022 13:30 Encounter Reason: follow up - Patient is here today for follow up on medication. UDS completedEncounter Diagnosis: Encounter for monitoring opioid maintenance therapy, Diabetes mellitus, type 2, Dysuria, Urinary tract infection, End: 13-Jun-2022 13:54 BOB (generalized anxiety disorder), Esse ntial hypertension with goal blood pressure less than 130/80 [facility] Office Visit On: 09-Jun-2022 15:24 Encounter Diagnosis: Multilevel degenerative disc dise ase End: 09-Jun-2022 15:50 [facility] Refill On: 13-May-2022 13:57 Encounter Diagnosis: Dysuria End: 13-May-2022 13:59 [facility] Office Visit On: 09-May-2022 11:27 Encounter Diagnosis: Multilevel degenerative disc dise ase End: 09-May-2022 11:49 [facility] Office Visit On: 08-Apr-2022 8:57 Encounter Diagnosis: Multilevel degenerative disc dise ase End: 08-Apr-2022 9:37 [facility] eAuth Medication Prescribed On: 28-Mar-2022 10:47 Encounter Diagnosis: Essential hypertens ion with goal blood pressure less than 130/80 End: 28-Mar-2022 10:54 [facility] Office Visit On: 09-Mar-2022 8:51 Encounter Diagnosis: Multilevel degenerative disc dise ase End: 09-Mar-2022 9:11 [facility] Refill On: 07-Mar-2022 10:18 Encounter Diagnosis: UTI (urinary tract infection) End : 07-Mar-2022 10:20 [facility] Office Visit On: 04-Mar-2022 9:00 Encounter Reason: surgical clearance - P t is here today for surgical clearance.Encounter Diagnosis: Preoperative clearance, Diabetes mellitus, type 2, BOB (generalized anxiety disorder) End: 04-Mar-2022 13:04 [facility] Office Visit On: 07-Feb-2022 10:18 Encounter Diagnosis: Arthritis of knee, right End: Jan-2022 12:59 [facility] Office Visit On: 03-Feb-2022 11:51 Encounter Diagnosis: Essential hypertens ion with goal blood pressure less than 130/80 End: 03-Feb-2022 14:30 [facility] Office Visit On: 12-Jan-2022 10:17 Encounter Diagnosis: Atrial fibrillation, chronic End: 12-Jan-2022 13:05 [facility] Office Visit On: 07-Jan-2022 9:23 Encounter Diagnosis: Effusion, right knee End: 2021 10:57 [facility] Office Visit On: 23-Dec-2021 15:00 Encounter Reason: Knee pain - The knee p ain has been occurring in a persistent pattern for years. The knee pain is described as severe. Pt is here today with complaints of having right knee pain and wants to be referred End: 23-Dec-2021 15:41 to an orthopedic for this problem. Her p ain level is a 8/10 today while in the office. She has no allergies to medications. Encounter Diagnosis: Osteoarthritis involving multiple joints on both sides of body, Arthritis of knee, right [facility] Office Visit On: 13-Dec-2021 10:00 Encounter Reason: Follow Up - Current sy mptoms include joint pains and other. Pt is here today for a 3 month follow up. Pt states she is sore today from moving around so much from Easter Monday. Pt states her pain level End: 13-Dec-2021 11:26 is a 4/10. Pt done a Drug Screen today w tabaaron in the office. Pt is not allergic to any medication. Encounter Diagnosis: Chronic pain of right knee, Atrial fibrillation, chronic, Essential hypertension with goal blood pressure less than 130/80 [facility] Office Visit On: 10-Dec-2021 8:56 Encounter Diagnosis: Chronic pain of right knee End: 30-Nov-2021 8:58 [facility] Office Visit On: 09-Dec-2021 14:00 Encounter Reason: Follow Up - Patient is here as follow-up S/P skin lesion removal.Encounter Diagnosis: Skin lesion of face End: 09-Dec-2021 14:48 [facility] General Surgery Office Visit On: 01-Dec-2021 15:15 Encounter Diagnosis: Unspecified Diagnosis, Skin lesio n of face End: 01-Dec-2021 16:29 [facility] General Surgery Office Visit On: 23-Nov-2021 16:00 Encounter Reason: Consultation - Patient is here as consultation for skin lesion left side of face. Encounter Diagnosis: Skin lesion of face End: 23-Nov-2021 17:14 [facility] General Surgery Office Visit On: 11-Nov-2021 9:21 Encounter Diagnosis: Chronic pain of right knee End: 1 01-Nov-2021 10:30 [facility] Office Visit On: 10-Nov-2021 9:22 Encounter Diagnosis: Skin lesion of face End: 9:41 [facility] Office Visit On: 03-Nov-2021 10:00 Encounter Reason: Follow Up - Current sy mptoms include other. Pt is here today for a 1 week follow up. Pt states she is still having knee pain. She is concerned that when she is talking her throat feels as if its closing End: 03-Nov-2021 10:34 . Pt denies choking when drinking fluids or eating at this time. Pt has no other complaints today. Encounter Diagnosis: Effusion, right knee, Hospital discharge follow-up, CHF exacerbation [facility] Office Visit On: 14-Oct-2021 7:47 Encounter Diagnosis: Multilevel degenerative disc dise ase End: 14-Oct-2021 8:06 [facility] eAuth Medication Prescribed On: 11-Oct-2021 16:36 Encounter Diagnosis: Hypokalemia End: 11-Oct-2021 16:3 8 [facility] Office Visit On: 05-Oct-2021 13:30 Encounter Reason: Pinched Nerve - Carrillo t is in the office today with c/o pinched nerve on right hand with right thumb, index, and middle finger going numb. Patient voices a pain level of 6 out of 10 at this time with ri End: 05-Oct-2021 14:03 ght knee pain. Patient did not bring her pain medication bottle with her to visit today. Reminded patient to bring her pain medication bottle to every visit per pain management agreement that a copy is given to her at every visit. Patient voi glen understanding. Patient has no known drug allergies.Encounter Diagnosis: Numbness of finger, Incurved toenail, BOB (generalized anxiety disorder) [facility] Office Visit On: 14-Sep-2021 10:00 Encounter Reason: Patient wanting to gabe nge PCP - Patient is in the office today requesting to change primary care physicians from Dr. Torrez to Dr. Madrid. Patient voices a pain level of 6 out of 10 at this time with rig End: 14-Sep-2021 11:39 ht knee pain. Patient is requesting to b e prescribed a higher dose of Hydrocodone for her pain. Patient has no known drug allergies.Encounter Diagnosis: Other longterm (current) drug therapy, Encounter for monitoring opioid maintenance therapy, Chronic pain of right knee [facility] Office Visit On: 09-Aug-2021 15:00 Encounter Reason: Burning on urination - The onset of the burning on urination has been gradual and has been occurring in a persistent pattern for 3 days. The course has been recurrent. The burning on urination is descri End: 09-Aug-2021 15:53 bed as moderate. The quality of the pain is described as a burning sensation The burning on urination is described as being located in the perineal area. The burning on urination does not radiate. The s ymptoms have been associated with freque ncy. Note for "Burning on urination": Patient is in the office today to establish primary care and with complaints of burning on urination that got progressively worse over the weekend. Patient voices a pain level of 7 out of 10 at this time with painful urination. Patient has no known drug allergies.Encounter Diagnosis: UTI (urinary tract infection), Osteoarthritis involving multiple joints on both sides of body [facility] Office Visit On: 19-Jul-2021 14:00 Encounter Reason: Follow Up - Patient is here for a routine follow up for medication refills. Vital signs are within normal range. Encounter Diagnosis: Osteoarthritis involving multiple joints on both sides of body, BOB (generalized anxiety disorder) End: 19-Jul-2021 14:39 , Encounter for monitoring opioid mainte nance therapy, Type 2 diabetes with complication [facility] Office Visit On: 17-Jun-2021 14:20 Encounter Reason: Follow Up - Note for " discuss consultation": Patient is here today for a follow up and medication refills. Reports she has hx of arthritis to multiple joints. Most of her pain is on her right knee. Rep End: 17-Jun-2021 19:[address] Summers, and he told her she needed a knee replacement but she doesn't want to have surgery. Reports he did do a procedure to kill the nerves that helped her right knee some. Reports her medication does help her pain. She is u sing Rollator today, but reports she did just get her electric wheelchair to use as needed and has been to get out more using that. Reports her pain is worsened b y walking long distances. Reports she is doing good on her Celexa and Xanax for her anxiety, and denies any homicidal/suicidal ideations. Denies any new complaints. Reports she did receive her flu shot last month. Denies any new complaints. Encounter Diagnosis: Multilevel degenera tive disc disease, BOB (generalized anxiety disorder), Type 2 diabetes with complication, Encounter for monitoring opioid maintenance therapy, Osteoarthritis involving multiple joints on both sides of body [facility] Office Visit On: 19-May-2021 13:00 Encounter Reason: Follow Up - Patient is here for a routine follow up for medication refills. Vital signs are within normal range.Encounter Diagnosis: Multilevel degenerative disc disease, BOB (generalized anxiety disorder), Flu vaccine need End: 19-May-2021 14:07 [facility] Office Visit On: 22-Apr-2021 14:55 Encounter Reason: Follow Up - Note for " discuss consultation": Patient is here today for a follow up and medication refills. Reports she has hx of arthritis to multiple joints, and her knees have been bothering her some End: 27-Apr-2021 15:30 , especially the right. Reports she saw Dr. Summers, and he told her she needed a knee replacement but she doesn't want to have surgery. She states her right knee is hurting today. Pain level is 8 out of 10. She said she did not want to get kn ee replacement, Dr Summers told her she needed. Reports he did do a procedure to kill the nerves that helped her right knee some. Reports her medication does help her pain. She is using Rollator today, b ut reports she did just get her electric wheelchair to use as needed. Reports her pain is worsened by walking long distances. Reports she is doing good on her Yuli exa and Xanax for her anxiety, and denie s any homicidal/suicidal ideations. Denies any new complaints. Reports she did receive her covid vaccines. Encounter Diagnosis: Multilevel degenerative disc disease, BOB (generalized anxiety disorder), Encounter for monitoring opioid maintenance therapy [facility] Office Visit On: 18-Mar-2021 14:16 Encounter Reason: Follow Up - Patient is doing a telephone visit today. Needing refills on her medication. Voices no new concerns at this time. Encounter Diagnosis: Encounter for monitoring opioid maintenance therapy, End: 18-Mar-2021 14:31 BOB (generalized anxiety disorder), Oste oarthritis involving multiple joints on both sides of body [facility] Office Visit On: 18-Feb-2021 13:00 Encounter Reason: Follow Up - Patient is here for a routine follow up for medication refills. Vital signs are within normal range. UDS was done this month. Encounter Diagnosis: Osteoarthritis involving multiple joints on both sides of body, End: 18-Feb-2021 15:11 BOB (generalized anxiety disorder), En[place] unter for monitoring opioid maintenance therapy, Debility [facility] Office Visit On: 20-Jan-2021 14:47 Encounter Reason: Follow Up - Patient is here for a routine follow up for medication refills. Vital signs are within normal range. Encounter Diagnosis: Osteoarthritis involving multiple joints on both sides of body, BOB (generalized anxiety disorder) End: 20-Jan-2021 15:07 , Encounter for monitoring opioid maintenance therapy [facility] Office Visit On: 21-Dec-2020 15:01 Encounter Diagnosis: BOB (generalized an xiety disorder), Osteoarthritis involving multiple joints on both sides of body, Encounter for monitoring opioid maintenance therapy End: 21-Dec-2020 15:20 [facility] Office Visit On: 19-Nov-2020 14:33 Encounter Reason: Follow Up - Patient is here for a routine follow up. Needs refills on medications. vital signs are within normal range. Patient c/o with right knee pain. Encounter Diagnosis: BOB (generalized anxiety disorder), End: 19-Nov-2020 14:49 Multilevel degenerative disc disease, En counter for monitoring opioid maintenance therapy [facility] Office Visit On: 22-Oct-2020 15:43 Encounter Diagnosis: Gallstones and infl ammation of gallbladder without obstruction End: 22-Oct-2020 15:52 [facility] Office Visit On: 22-Oct-2020 14:41 Encounter Reason: Follow Up - Note for " discuss consultation": Patient is here for a monthly follow up. Needs refills on medications. Vital signs are within normal range. Patient states she is doing well, has no complai End: 22-Oct-2020 15:11 nts. Pts had UDS done in office today.En counter Diagnosis: Multilevel degenerative disc disease, BOB (generalized anxiety disorder), Encounter for monitoring opioid maintenance therapy [facility] Med Refill On: 19-Oct-2020 14:43 Encounter Diagnosis: Diarrhea, unspecified type End: 29-Sep-2020 15:14 [facility] Office Visit On: 24-Sep-2020 15:34 Encounter Reason: Follow Up - Patient is here for a routine follow up. Needs refills on medications. Vital signs are within normal range. Encounter Diagnosis: BOB (generalized anxiety disorder), Multilevel degenerative disc disease, End: 24-Sep-2020 16:34 Encounter for monitoring opioid maintena nce therapy, Osteoarthritis involving multiple joints on both sides of body [facility] Office Visit On: 24-Aug-2020 14:55 Encounter Reason: Follow Up - Pt here fo r monthly follow up and medication refill. C/o bilat knee pain and lower back pain. Rates pain 9/10. States she has been having diarrhea for about 4 wks. Also says she has some que End: 24-Aug-2020 15:28 stions about medications she would like to discuss today.Encounter Diagnosis: Multilevel degenerative disc disease, BOB (generalized anxiety disorder), Encounter for monitoring opioid maintenance therapy, Dysuria [facility] Med Refill On: 19-Aug-2020 10:16 Encounter Diagnosis: Diarrhea, unspecified type End: 30-Jul-2020 10:18 [facility] Med Refill On: 14-Aug-2020 10:44 Encounter Diagnosis: Multilevel degenerative disc dise ase End: 14-Aug-2020 10:48 [facility] Office Visit On: 11-Aug-2020 13:06 Encounter Reason: Skin lesion - The skin lesion has been occurring for 23 days. It has been increasing in size. The skin lesion is characterized as red and grouped in crops. The skin lesion is located on the upper extrem End: 11-Aug-2020 13:26 ity (Right arm). There has been associat ed itching. Note for "Skin lesion": Pt is here today with complaints of having skin lesion on her right arm X 3 days. It started out looking like blisters. They b usted and now they are red and spreading up her arm. She is not allergic to any medications.Encounter Diagnosis: Shingles [facility] Med Refill On: 04-Aug-2020 16:09 Encounter Diagnosis: Diarrhea, unspecified type End: 16:10 [facility] Office Visit On: 27-Jul-2020 14:49 Encounter Reason: Follow Up - Note for " discuss consultation": Patient is here today for her monthly follow up and medication refills. Pt has no complaints today. Pts v/s were stable today.Encounter Diagnosis: End: 27-Jul-2020 15:18 Osteoarthritis involving multiple joints on both sides of body, BOB (generalized anxiety disorder), Encounter for monitoring opioid maintenance therapy [facility] Office Visit On: 24-Jun-2020 14:29 Encounter Reason: Joint pain - The joint pain has been occurring in a persistent pattern for years. The course has been increasing. The joint pain is described as severe. Note for "Joint pain": Pt is here today with comp End: 24-Jun-2020 15:10 laints of having joint pain all over. Sh e has this all the time but the medications does help her. Pt pain level is 5/10 in the office today. P has no other complaints. She will need refills while she is here. Pt is not allergic to any medications. Encounter Diagnosis: Osteoarthritis invo lving multiple joints on both sides of body, BOB (generalized anxiety disorder), Flu vaccine need, Encounter for monitoring opioid maintenance therapy, Hypokalemia [facility] Med Refill On: 26-May-2020 10:19 Encounter Diagnosis: Type 2 diabetes with complication End: 26-May-2020 10:21 [facility] Office Visit On: 25-May-2020 14:48 Encounter Reason: Follow Up - Patient is here for a monthly follow up. Needs refills on medications. Vital signs are within normal range. Encounter Diagnosis: Osteoarthritis involving multiple joints on both sides of body, End: 25-May-2020 16:08 BOB (generalized anxiety disorder), Type 2 diabetes with complication, Encounter for monitoring opioid maintenance therapy, Dysuria, Flu vaccine need, Blood typing encounter, Atrial fibrillation, chronic [facility] Office Visit On: 24-Apr-2020 11:58 Encounter Reason: Follow Up - Patient is here for a monthly follow up. Needs refills on medications. Vital signs are within normal range. Encounter Diagnosis: BOB (generalized anxiety disorder), End: 24-Apr-2020 12:28 Osteoarthritis involving multiple joints on both sides of body, Encounter for monitoring opioid maintenance therapy, Dysuria, Essential hypertension with goal blood pressure less than 130/80, Skin lesion of face, Debility [facility] Office Visit On: 25-Mar-2020 13:36 Encounter Reason: Follow Up - Patient is here for a monthly follow up. Needs refills on medications. Vital signs are within normal range. UDS was done this month. Big bruise to left elbow.Encounter Diagnosis: End: 25-Mar-2020 14:00 Osteoarthritis involving multiple joints on both sides of body, BOB (generalized anxiety disorder), Encounter for monitoring opioid maintenance therapy, Edema, leg [facility] Med Refill On: 26-Feb-2020 16:09 Encounter Diagnosis: Constipation, acute End: 26-Feb-20 20 16:10 [facility] Office Visit On: 24-Feb-2020 16:28 Encounter Reason: Follow Up - Patient [facility] she went to the ER on monday with SOB and swelling all over with fuild in her lungs ... Patient states she is still having SOB bc of the fluid.Encounter Diagnosis: BOB (generalized anxiety disorder), End: 24-Feb-2020 17:05 Osteoarthritis involving multiple joints on both sides of body, Encounter for monitoring opioid maintenance therapy, Chronic congestive heart failure, unspecified heart failure type [facility] Office Visit On: 30-Jan-2020 14:59 Encounter Reason: Follow Up - Patient is here for a monthly follow up. Needs refills on medications. Vital signs are within normal range. Patient states she is doing well. Encounter Diagnosis: BOB (generalized anxiety disorder), End: 30-Jan-2020 15:19 Multilevel degenerative disc disease, En counter for monitoring opioid maintenance therapy [facility] Office Visit On: 01-Jan-2020 11:46 Encounter Reason: Follow Up - Patient is here for a monthly follow up. Needs refills on medications. Vital signs are within normal range. Patient states she is doing well. Encounter Diagnosis: Edema, leg, Multilevel degenerative disc disease, End: 01-Jan-2020 12:13 BOB (generalized anxiety disorder), [place] unter for monitoring opioid maintenance therapy [place] [facility] Refill On: 18-Dec-2019 9:47 Encounter Diagnosis: Diarrhea, unspecified type End: 2 28-Nov-2019 9:49 [place] [facility] Med Refill On: 03-Dec-2019 15:49 Encounter Diagnosis: Type 2 diabetes with complication End: 03-Dec-2019 15:53 [place] [facility] Office Visit On: 02-Dec-2019 10:32 Encounter Reason: monthly follow-up with medication refill requests - Presents with complaints of right knee & lower back painEncounter Diagnosis: Type 2 diabetes with complication, Osteoarthritis involving multiple joints on both sides of body, End: 02-Dec-2019 11:09 Atrial fibrillation, chronic, BOB (gener alized anxiety disorder), Encounter for monitoring opioid maintenance therapy [place] [facility] Office Visit On: 01-Nov-2019 11:55 Encounter Reason: Follow Up - Patient is here for a monthly follow up. Needs refills on medications. Vital signs are within normal range. Encounter Diagnosis: Osteoarthritis involving multiple joints on both sides of body, End: 01-Nov-2019 12:11 Encounter for monitoring opioid maintenance therapy [place] [facility] Office Visit On: 04-Oct-2019 10:30 Encounter Reason: Follow Up - Patient is here for a monthly follow up. Needs refills on medications. Vital signs are within normal range. Encounter Diagnosis: Encounter for monitoring opioid maintenance therapy, Atrial fibrillation, chronic, End: 07-Oct-2019 6:21 Osteoarthritis involving multiple joints on both sides of body [place] [facility] Office Visit On: 04-Sep-2019 15:00 Encounter Reason: Knee pain - The knee p ain has been occurring in a persistent pattern for years. The course has been recurrent. The knee pain is described as moderate. Note for "Knee pain": Pt is here today with complai End: 26-Sep-2019 11:49 nts of having right knee pain X years. P t hasn't had knee surgery even thought the orthopedics want her to. Pt does try to stay active and walk around town. Pt also hurts in her back at times. Today her back is hurting her from having to walk . She stretches at home if the weather does permit. Pt is not allergic to any medication. I pulled a PDMP on her while in the office.Encounter Diagnosis: Edema, leg, Encounter for monitoring opioid maintenance therapy [place] [facility] Office Visit On: 01-Aug-2019 16:00 Encounter Reason: Follow Up - Patiient i s here today for a medication refill and for her results on her labs ..Patient states she is doing better far as her edena in her lower extremites.Patient rates her pain as a 6 today on the pain scale. End: 27-Aug-2019 0:14 Encounter Diagnosis: Encounter for monit oring opioid maintenance therapy, H/O degenerative disc disease, BOB (generalized anxiety disorder), Type 2 diabetes with complication, Atrial fibrillation, controlled, Essential hypertension with goal blood pressure less t ring 130/80 [place] [facility] Office Visit On: 23-Jul-2019 16:50 Encounter Diagnosis: Effusion, right knee End: 019 16:04 [place] [facility] Phone Encounter On: 16-Jul-2019 10:20 [place] [facility] End: 17-Jul-2019 8: 54 Office Visit On: 16-Jul-2019 10:20 Encounter Diagnosis: Effusion, right kne e, Anemia, unspecified type, Hypokalemia, Edema, leg End: 16-Jul-2019 11:36 [place] [facility] Office Visit On: 09-Jul-2019 10:30 Encounter Reason: f/u hospital stay - Abdiel campa states during hospital stay she had gallbladder US completed - results to be discussed during today's visit. Patient voices no other complaints/concerns at this time.73y fema End: 09-Jul-2019 12:49 le who was referred for further evaluati on of gallstones .denies abdominal pain , no nausea or vomiting , no heartburn or other GERD symptoms was admitted after a fall ( was drinking alcohol ) .used to be heavy drinker . claime she quit drink ing ! good appetite .normal bowel habits DM , CAD with pacemaker ,A-Sep leg edema melanoma of arm in the past .pacemaker ..T&A.. no abdominal surgery .no GI e ndoscopy before ..FH of CAD , lymphoma . non smoker and used to be heavy drinker ..Encounter Diagnosis: Encounter for monitoring opioid maintenance therapy, Gallstones and inflammation of gallbladder without obstruction, Alcohol abuse, Atrial fibrillation, chronic, Atrial fib rillation, controlled, Diabetes mellitus, stable [facility] Office Visit On: 03-Jul-2019 18:15 Encounter Reason: Neck pain - The neck p ain has been occurring for 2 years. The course has been recurrent. The neck pain is described as moderate. Note for "Neck pain": Pt complains of having neck pain. She She has bee End: 19-Jul-2019 0:03 n having neck pain X 2 years. Her gallbl adder has been acting up and she thinks a lot of this is her problem. She has an appt next week to see Dr. Berkowitz. The medication does help her with the pain. I pul led a PDMP on her in the office today. S he isn't allergic to any medications.Encounter Diagnosis: Encounter for monitoring opioid maintenance therapy, BOB (generalized anxiety disorder), Type 2 diabetes with complication, Essential hypertension with goal blood pressure less t ring 130/80, RUQ pain [place] [facility] Office Visit On: 07-Jun-2019 13:50 Encounter Reason: Follow Up - Patient st michelle here for follow up visit, she states she's an acholic and broke her sobriety on Monday, she states fell and was hospitalized for 4 days at [facility]. She states June this y End: 30-Jun-2019 23:48 ear would've made her 9 years sober and now she has to start over. She states while drinking she flushed pain and anxiety medications down the toilet and is needing refill. She complains of right knee p ain stating bone on bone, left shoulder pain and rates pain today at 8/10. She states she needs to switch from seeing Arabella Eric due to transportation problems. She voices no additional concerns at this time.Encounter Diagnosis: Encounter for monitoring opioid maintena nce therapy, Osteoarthritis involving multiple joints on both sides of body, BOB (generalized anxiety disorder) [facility] [place] [facility] Office Visit On: 14-May-2019 13:00 Encounter Reason: Knee pain - The knee p ain has been occurring for 14 years. The course has been recurrent. The knee pain is described as moderate. Note for "Knee pain": Pt is here today with complaints of having right k End: 14-May-2019 20:10 nee pain X 14 years. Pt hasn't has knee surgery even thought the orthopedics want her to. Pt does try to stay active and walk around town. She stretches at home if the weather doesn't permit. Pt is not allergic to any medication., Neck pain - The neck pain has been occur ring for 2 years. The course has been recurrent. The neck pain is described as moderate. Note for "Neck pain": Pt complains of having neck pain some days as well. She has been having neck pain X 2 years . The medication does help her with the pain. I pulled a PDMP on her in the office today. She isn't allergic to any medications.Encounter Diagnosis: Encounter for monitoring opioid maintenance therapy, Depression, Atrial fibrillation, control led, Dyslipidemia associated with type 2 diabetes mellitus, Pain of right knee after injury [facility] Nurse Ordered Procedures/Labs On: 23-Apr-2019 12:04 Encounter Diagnosis: Screening mammogram, encounter fo r End: 23-Apr-2019 12:10 [place] [facility] Office Visit On: 08-Apr-2019 10:10 Encounter Reason: New Patient - Pt is he re today for a New patient visit. She is complaining of having right knee pain. Pt has been hurting in her knee for a while since she took a fall in her tub. This happened about 2 End: 09-Apr-2019 17:49 months ago. Pt will need to get medicati on refills while she is here today. I pulled a PDMP on her while in the office. Pt done a drug screen while in the office today.Past Medical History:: Type 2 di abetes, hypertension, dyslipidemia assoc with diabetes, history of atrial fib with pacemaker placed approx 2 years ago on Eliquis. She had a fall in Sep 2018 that was treated in the ER and had a scalp/h ead injury and knee pain. She had CT s can of head and knee xrays.. Since then, she has seen Ortho at Dr Martini in [place] and has been treated conservatively. She has history of arthritis., suggeste d as O/A not RA. Anticoagulant therapy n ot Warfarin, is on Eliquis. She has some anxiety and depression currently managed with medication.Past Surgical History:: Pacemaker placed by Dr Luna at [facility] approx 2 years ago. 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 Encounter Diagnosis: Encounter for monitoring opioid maintena nce therapy, Atrial fibrillation, controlled, Dyslipidemia associated with type 2 diabetes mellitus, Type 2 diabetes with complication, Essential hypertension with goal blood pressure less than 130/80, H/O degenerative disc disease, Asymptoma tic menopausal state, Neck and shoulder pain, Atopic dermatitis, unspecified type [facility] [employer] MedicareMedicaidNormkristin [place]; kristin guarantor
[2022-07-13 12:37] VITALS: BP 118/67
== END 2022-07-13 13:54 | disposition home health service (06) ==
LOC: ER 04:41 → MED/SURG 04:41
PROVIDERS: ADMIT Family Medicine; ATTEND Family Medicine

== ENCOUNTER 2024-02-21 16:27 | Inpatient (IN) ==
--- NOTE | 2024-02-21 16:50 | DR.GENAD ---
HPI Time Seen Time Seen by Provider: 02/21/24 16:28 Complaint/Symptoms Chief Complaint Doctors Comments: 78-year-old female brought in for evaluation via EMS. Patient has been fighting swollen legs over the past 2 months. He is having worsening shortness of breath, exertional dyspnea. Sleep sitting up, becomes short of breath if she lays flat. Has had minimal cough, nonproductive. Denies fever, chills, nausea, vomiting, bowel or bladder issues. Did see her provider, Dr. Madrid, 2 months ago, he increased her Lasix to 20 mg 2 times per day. Has not helped with her swelling. No chest pain. Nurses notes reviewed Nurses Notes Review: Yes Source History Provided: Patient Mode of Arrival Mode of Arrival: EMS PMH PMH Past Medical History: Angina, Anxiety, Arthritis, CHF, Depression, Diabetes, GERD and Hypertension Past Surgical History: Yes Surgical History: Joint Replacement and Tonsillectomy Family History Family Medical History: Cancer Social History Does patient currently use any type of tobacco product: No Alcohol Use: None Do you use any recreational Drugs:: No ROS Review of Systems Constitutional: Weakness Eyes: No Symptoms Reported ENTM: No Symptoms Reported Respiratoy: Short of Breath Cardiovascular: Edema Gastrointestinal/Abdominal: No Symptoms Reported Genitourinary: No Symptoms Reported Neurological: Weakness Musculoskeletal: No Symptoms Reported Integumentary: No Symptoms Reported Hematologic/Lymphatic: No Symptoms Reported All Other Systems: Reviewed and Negative PE Vital Signs Vitals: Vital Signs Temperature 98.1 F Pulse Rate 71 Pulse Rate 71 Pulse Rate 72 Pulse Rate 74 Pulse Rate 78 Respiratory Rate 34 Respiratory Rate 25 Respiratory Rate 23 Respiratory Rate 23 Respiratory Rate 22 Blood Pressure 118/59 Blood Pressure 118/80 O2 Sat by Pulse Oximetry 97 O2 Sat by Pulse Oximetry 99 O2 Sat by Pulse Oximetry 99 O2 Sat by Pulse Oximetry 98 O2 Sat by Pulse Oximetry 99 General General Appearance: Alert and In No Apparent Distress Eyes Eye exam: PERRL and EOMI ENT ENT Exam: Normal Oropharynx and Mucous Membranes Moist Neck Neck Exam: Normal Inspection, Full ROM and Other (Has jugular venous distention) Chest Chest Inspection: Normal Inspection Respiratory Respiratory Exam: Other (Gets winded with talking, has mild tachypnea. Has bibasilar rales present) Extremities Extremities Exam: Edema (3+ pitting, bilateral lower extremities) Neurologic Neurological Exam: Alert, Oriented X3 and CN II-XII Intact; negative Motor Sensory Deficit Skin Skin Exam: Warm and Dry COURSE Treatment Treatment: 38-year-old female with chronic edema, worsening shortness of breath, is worse with exertion. Workup initiated. Patient given IV Lasix. CXR - c/w CHF, BNP elevated at 1,220. Has mild anemia with a hemoglobin of 10.1. Troponin was normal. [place] was placed per patient request. Recommend admission for further treatment of her congestive heart failure. Patient was increased to Lasix 20 mg twice daily 2 months ago, but she felt it was not working has not been taking it. Will give IV Lasix 40 mg twice daily for now. Discussed with Dr. Kern, covering for Dr. Madrid. Accepts the admission. [facility] Labs Reviewed Laboratory Results Reviewed?: Yes 02/21/24 17:00 02/21/24 17:00 Laboratory: WBC 4.6 X10^3/uL (3.6-10.0) 02/21/24 17:00 RBC 3.51 X10^6/uL (3.5-5.4) 02/21/24 17:00 Hgb 10.1 g/dL (12.0-16.0) L 02/21/24 17:00 Hct 30.4 % (36.0-47.0) L 02/21/24 17:00 MCV 86.7 fL (80.0-100.0) 02/21/24 17:00 MCH 28.7 pg (27.0-34.0) 02/21/24 17:00 MCHC 33.1 g/dL (33.0-35.0) 02/21/24 17:00 RDW 19.2 % (11.6-16.5) H 02/21/24 17:00 Plt Count 109 X10^3/uL (150.0-450.0) L 02/21/24 17:00 MPV 7.8 fL (7.4-11.0) 02/21/24 17:00 Neut % (Auto) 60.4 % (42.0-75.0) 02/21/24 17:00 Lymph % (Auto) 18.2 % (21.0-51.0) L 02/21/24 17:00 [place] % (Auto) 17.8 % (0.0-13.0) H 02/21/24 17:00 Eos % (Auto) 2.8 % (0.9-2.9) 02/21/24 17:00 Baso % (Auto) 0.8 % (0.2-1.0) 02/21/24 17:00 Neut # (Auto) 2.8 x10^3/uL (2.2-4.8) 02/21/24 17:00 Lymph # (Auto) 0.8 X10^3/uL (1.3-2.9) L 02/21/24 17:00 [place] # (Auto) 0.8 x10^3/uL (0.3-0.8) 02/21/24 17:00 Eos # (Auto) 0.1 x10^3/uL (0.0-0.2) 02/21/24 17:00 Baso # (Auto) 0.0 X10^3/uL (0.0-0.1) 02/21/24 17:00 Absolute Nucleated RBC 0.1 /100WBC 02/21/24 17:00 Sodium 134 mmol/L (136-145) L 02/21/24 17:00 Corrected Sodium TNP 02/21/24 17:00 Potassium 4.5 mmol/L (3.5-5.1) 02/21/24 17:00 Chloride 101 mmol/L (98-107) 02/21/24 17:00 Carbon Dioxide 25.1 mmol/L (21-32) 02/21/24 17:00 BUN 18 mg/dL (7-18) 02/21/24 17:00 Creatinine 0.75 mg/dL (0.55-1.02) 02/21/24 17:00 Est GFR (MDRD) Af Amer > 60 (>60) 02/21/24 17:00 Est GFR (MDRD) Non-Af > 60 (>60) 02/21/24 17:00 Glucose 91 mg/dL (65-99) 02/21/24 17:00 Calcium 8.5 mg/dL (8.5-10.1) 02/21/24 17:00 Corrected Calcium 9.3 mg/dL (8.5-10.1) 02/21/24 17:00 Total Bilirubin 1.80 mg/dL (0.2-1.0) H 02/21/24 17:00 AST 27 Units/L (15-37) 02/21/24 17:00 ALT 11 Units/L (12-78) L 02/21/24 17:00 Alkaline Phosphatase 73 Units/L (46-116) 02/21/24 17:00 Troponin I High Sens 16.3 ng/L (4.0-60.0) 02/21/24 17:00 B-Natriuretic Peptide 1220 pg/mL (0-79) H 02/21/24 17:00 Total Protein 6.4 g/dL (6.4-8.2) 02/21/24 17:00 Albumin 3.0 g/dL (3.4-5.0) L 02/21/24 17:00 Globulin 3.4 g/dL (2.5-4.5) 02/21/24 17:00 Albumin/Globulin Ratio 0.9 Ratio (1.1-2.1) L 02/21/24 17:00 Lipase 8 Units/L (16-77) L 02/21/24 17:00 Specimen Type Catherized urine 02/21/24 17:19 Urine Color Yellow (YELLOW) 02/21/24 17:19 Urine Appearance Clear (CLEAR) 02/21/24 17:19 Urine pH 6.0 (5.0 - 8.0) 02/21/24 17:19 Ur Specific [place] 1.020 (1.000-1.030) 02/21/24 17:19 Urine Protein 2+ (NEGATIVE) 02/21/24 17:19 Urine Glucose (UA) Negative (NEGATIVE) 02/21/24 17:19 Urine Ketones Negative (NEGATIVE) 02/21/24 17:19 Urine Blood 3+ (NEGATIVE) 02/21/24 17:19 Urine Nitrite Negative (NEGATIVE) 02/21/24 17:19 Urine Bilirubin Negative (NEGATIVE) 02/21/24 17:19 Urine Urobilinogen Normal (NORMAL) 02/21/24 17:19 Ur Leukocyte Esterase 1+ (NEGATIVE) 02/21/24 17:19 Urine RBC 3-5 /HPF (0-3) A 02/21/24 17:19 Urine WBC 3-5 /HPF (0-5) 02/21/24 17:19 Ur Squamous Epith Cells Rare /HPF (NEGATIVE) 02/21/24 17:19 Calcium Oxalate Crystal Rare /HPF (NEGATIVE) 02/21/24 17:19 Urine Bacteria Trace /HPF (NEGATIVE) 02/21/24 17:19 Hyaline Casts Moderate /LPF (NEGATIVE) 02/21/24 17:19 Urine Yeast Rare /HPF (NEGATIVE) 02/21/24 17:19 Ur Culture Indicated? No/not indicated 02/21/24 17:19 XRAY XRAY Interpreted by: Both X-ray Results: EXAM: CHEST, 1 VIEW HISTORY: problems with retaining water and fluid overload for about 2 months.; COMPARISON: No relevant prior studies were available for comparison at the time of interpretation. TECHNIQUE: CHEST, 1 VIEW FINDINGS: Chest: Lines and tubes: Left-sided pacemaker generator with lead or leads in satisfactory position. Mediastinum: Cardiomegaly. Pulmonary vessels: There is pulmonary vascular congestion. Lung muse: There is right fissural fluid Pleura: No effusion. No pneumothorax. Bones and soft tissues: No acute osseous or soft tissue abnormality. IMPRESSION: 1. Heart failure suggested THIS IS AN ELECTRONICALLY VERIFIED FINAL REPORT 02/21/2024 5:51 PM - Electronically signed by Michael Mtz MD EKG Rate: 79 Rhythm: Junctional (wide ORS complex) ST: Nonsp Opioid Opioid Risk Tool Age (Abelino box if 16-45): No History of Preadolescent Sexual Abuse: No Total: 0 Total Score Risk Category: Low Risk Copyright: Vasile LUNA predicting aberrant behaviors Discharge Plan Diagnosis Discharge Problem: Congestive heart failure Discharge Plan Patient Disposition: 09 ADMITTED INPATIENT Condition: Stable Prescriptions: No Action digoxin 125 mcg (0.125 mg) tablet 125 mcg PO QDAY Qty: 90 3RF metformin 500 mg tablet 500 mg PO QDAY Qty: 90 3RF potassium chloride 10 mEq tablet extended release 10 meq PO QDAY Qty: 90 3RF citalopram 40 mg tablet 40 mg PO QDAY Qty: 90 3RF Eliquis 5 mg tablet 5 mg PO BID Qty: 180 0RF metoprolol succinate 25 mg tablet extended release 24 hr 25 mg PO QDAY Qty: 90 3RF hydrocodone-acetaminophen 7.5-325 mg tablet 1 tab PO QID PRN furosemide [Lasix] 20 mg tablet 20 mg PO DAILY Health Concerns: Post Hospitalization: new medications and changes needed to prevent readmission or further decline. Pt educated and given instructions on all concerns. Plan of Treatment: Continue with present treatment and follow up plan. Pt is to keep follow up appointment as instructed and take medications as ordered. Orders to Discharge Patient Discharge Orders: Transfer (Routine); Ordered 02/21/24 Ordered By: Devin Deal
[2024-02-21] MEDS: LASIX IVP ONE (17:01)
[2024-02-21 17:17] LABS: BASOPHILS % (AUTO) 0.8 % (0.2-1.0); EOSINOPHILS # (AUTO) 0.1 x10^3/uL (0.0-0.2); EOSINOPHILS % (AUTO) 2.8 % (0.9-2.9); HEMATOCRIT 30.4 % (36.0-47.0); HEMOGLOBIN 10.1 g/dL (12.0-16.0); LYMPHOCYTES # (AUTO) 0.8 X10^3/uL (1.3-2.9); LYMPHOCYTES % (AUTO) 18.2 % (21.0-51.0); MEAN CORPUSCULAR HEMOGLOBIN 28.7 pg (27.0-34.0); MEAN CORPUSCULAR HGB CONC 33.1 g/dL (33.0-35.0); MEAN CORPUSCULAR VOLUME 86.7 fL (80.0-100.0); MEAN PLATELET VOLUME 7.8 fL (7.4-11.0); MONOCYTES # (AUTO) 0.8 x10^3/uL (0.3-0.8); MONOCYTES % (AUTO) 17.8 % (0.0-13.0); NEUTROPHILS # (AUTO) 2.8 x10^3/uL (2.2-4.8); NEUTROPHILS % (AUTO) 60.4 % (42.0-75.0); PLATELET COUNT 109 X10^3/uL (150.0-450.0); RED BLOOD COUNT 3.51 X10^6/uL (3.5-5.4); RED CELL DISTRIBUTION WIDTH 19.2 % (11.6-16.5); WHITE BLOOD COUNT 4.6 X10^3/uL (3.6-10.0)
--- NOTE | 2024-02-21 17:22 | EKG ---
Test Reason : dyspnea Blood Pressure : */* mmHG Vent. Rate : 79 BPM Atrial Rate : * BPM P-R Int : * ms QRS Dur : 154 ms QT Int : 388 ms P-R-T Axes : * 149 -29 degrees QTc Int : 444 ms V paced rhythm suspect underlying rhythm is afib Abnormal ECG No previous ECGs available Confirmed by Eliot Verdin MD ([id number]) on 02/21/2024 5:29:36 PM Referred By: Confirmed By: Eliot Verdin MD
[2024-02-21 17:28] LABS: ALANINE AMINOTRANSFERASE 11 Units/L (12-78); ALKALINE PHOSPHATASE 73 Units/L (46-116); ASPARTATE AMINO TRANSFERASE 27 Units/L (15-37); BLOOD UREA NITROGEN 18 mg/dL (7-18); CALCIUM 8.5 mg/dL (8.5-10.1); CARBON DIOXIDE 25.1 mmol/L (21-32); CHLORIDE 101 mmol/L (98-107); COR CA(FOR HYPOALB) 9.3 mg/dL (8.5-10.1); CREATININE 0.75 mg/dL (0.55-1.02); GLUCOSE 91 mg/dL (65-99); LIPASE 8 Units/L (16-77); POTASSIUM 4.5 mmol/L (3.5-5.1); SODIUM 134 mmol/L (136-145); TOTAL PROTEIN 6.4 g/dL (6.4-8.2); eGFR NON BLACK RACES > 60 (>60)
[2024-02-21 17:31] LABS: BILIRUBIN,URINE NEGATIVE (NEGATIVE); BLOOD/HEMOGLOBIN,URINE 3+ (NEGATIVE); GLUCOSE, URINE NEGATIVE (NEGATIVE); KETONES,URINE NEGATIVE (NEGATIVE); LEUKOCYTE ESTERASE ,URINE 1+ (NEGATIVE); NITRITES,URINE NEGATIVE (NEGATIVE); PROTEIN,URINE 2+ (NEGATIVE); UROBILINOGEN,URINE NORMAL (NORMAL)
[2024-02-21 17:38] LABS: APPEARANCE,URINE CLEAR (CLEAR); COLOR,URINE YELLOW (YELLOW)
[2024-02-21 17:48] LABS: BACTERIA,URINE TRACE /HPF (NEGATIVE); SQUAMOUS EPITHELIAL CELL,UR RARE /HPF (NEGATIVE)
[2024-02-21 17:49] LABS: CALCIUM OXALATE CRYSTALS,UR RARE /HPF (NEGATIVE); HYALINE CASTS, URINE MODERATE /LPF (NEGATIVE); YEAST,URINE RARE /HPF (NEGATIVE)
--- NOTE | 2024-02-21 17:54 | RAD ---
EXAM:CHEST, 1 VIEWHISTORY:problems with retaining water and fluid overload for about 2 months.;COMPARISON:No relevant prior studies were available for comparison at the time of interpretation.TECHNIQUE:CHEST, 1 VIEWFINDINGS:Chest:Lines and tubes: Left-sided pacemaker generator with lead or leads in satisfactory position.Mediastinum: Cardiomegaly.Pulmonary vessels: There is pulmonary vascular congestion.Lung muse: There is right fissural fluidPleura: No effusion. No pneumothorax.Bones and soft tissues: No acute osseous or soft tissue abnormality.IMPRESSION:1. Heart failure suggestedTHIS IS AN ELECTRONICALLY VERIFIED FINAL REPORT02/21/2024 5:51 PM - Electronically signed by Michael Mtz MD
[2024-02-21] MEDS ORDERED: CONSULT PHARMACY - POTASSIUM & MAGNESIUM XX SCH (21:06)
[2024-02-21 21:43] VITALS: BMI 34.2
[2024-02-21] MEDS: NORCO 7.5/325 MG TAB PO PRN (21:58)
[2024-02-21] MEDS: ELIQUIS PO SCH (22:15)
[2024-02-22] MEDS ORDERED: NovoLIN R (or HumuLIN R) SUBCUT PRN (03:35)
[2024-02-22 05:17] LABS: BASOPHILS % (AUTO) 0.9 % (0.2-1.0); EOSINOPHILS # (AUTO) 0.1 x10^3/uL (0.0-0.2); EOSINOPHILS % (AUTO) 2.3 % (0.9-2.9); HEMATOCRIT 30.2 % (36.0-47.0); HEMOGLOBIN 9.9 g/dL (12.0-16.0); LYMPHOCYTES % (AUTO) 19.6 % (21.0-51.0); MEAN CORPUSCULAR HEMOGLOBIN 28.3 pg (27.0-34.0); MEAN CORPUSCULAR HGB CONC 32.8 g/dL (33.0-35.0); MEAN CORPUSCULAR VOLUME 86.3 fL (80.0-100.0); MEAN PLATELET VOLUME 8.2 fL (7.4-11.0); MONOCYTES # (AUTO) 0.8 x10^3/uL (0.3-0.8); NEUTROPHILS % (AUTO) 60.2 % (42.0-75.0); PLATELET COUNT 112 X10^3/uL (150.0-450.0); RED CELL DISTRIBUTION WIDTH 18.6 % (11.6-16.5)
[2024-02-22 05:28] LABS: ALANINE AMINOTRANSFERASE 8 Units/L (12-78); ALBUMIN 2.8 g/dL (3.4-5.0); ALKALINE PHOSPHATASE 67 Units/L (46-116); ASPARTATE AMINO TRANSFERASE 26 Units/L (15-37); BLOOD UREA NITROGEN 17 mg/dL (7-18); CALCIUM 8.5 mg/dL (8.5-10.1); CARBON DIOXIDE 25.3 mmol/L (21-32); CHLORIDE 100 mmol/L (98-107); COR CA(FOR HYPOALB) 9.5 mg/dL (8.5-10.1); CREATININE 0.72 mg/dL (0.55-1.02); GLUCOSE 69 mg/dL (65-99); SODIUM 135 mmol/L (136-145); TOTAL PROTEIN 6.1 g/dL (6.4-8.2); eGFR NON BLACK RACES > 60 (>60)
[2024-02-22] MEDS ORDERED: PATIENT'S HOME MEDICATION (Citalopram 40 mg tablet) PO SCH (09:00)
[2024-02-22] MEDS: CELEXA PO SCH (09:19)
[2024-02-22] MEDS: MICRO K EXTEN CAP 10 MEQ PO SCH (09:20)
[2024-02-22] MEDS: LANOXIN or DIGITEK PO SCH (09:20)
[2024-02-22 09:21] LABS: INR 2.79 (0.8-1.3)
[2024-02-22] MEDS: TOPROL XL PO SCH (09:21)
[2024-02-22] MEDS: LASIX IVP SCH (09:21)
[2024-02-22] MEDS: GLUCOPHAGE PO SCH (09:26)
--- NOTE | 2024-02-22 15:06 | DR.H&P ---
H&P History & Physical for Day of: H&P Date: 02/21/24 Chief Complaint Chief Complaint: swelling, sob "retaining fluid" History of Present Illness History of Present Illness: 78-year-old female brought in for evaluation via EMS. Patient has been fighting swollen legs over the past 2 months. He is having worsening shortness of breath, exertional dyspnea. Sleep sitting up, becomes short of breath if she lays flat. Has had minimal cough, nonproductive. Denies fever, chills, nausea, vomiting, bowel or bladder issues. Did see her provider, Dr. Madrid, 2 months ago, he increased her Lasix to 20 mg 2 times per day. Past Medical History Past Medical History: Angina, Anxiety, Arthritis, CHF, Depression, Diabetes, GERD and Hypertension Past Surgical History Surgical History: Joint Replacement and Tonsillectomy Family History Family Medical History: Diabetes Mellitus and Cancer Social History Does patient currently use any type of tobacco product: No Type of Tobacco Use: None Does any household member use tobacco: No Alcohol Use: None Drug Use: None Medications Home Medications: Home Medications Medication Instructions Recorded Confirmed Type furosemide 20 mg tablet (Lasix) 20 mg PO DAILY 02/21/24 02/21/24 History hydrocodone 7.5 mg-acetaminophen 1 tab PO QID PRN 02/21/24 02/21/24 History 325 mg tablet Allergies Allergies Allergy/AdvReac Type Severity Reaction Status Date / Time No Known Allergies Allergy Verified 02/21/24 17:24 Labs 02/22/24 04:46 02/22/24 04:46 Labs: Laboratory WBC 5.0 X10^3/uL (3.6-10.0) 02/22/24 04:46 RBC 3.50 X10^6/uL (3.5-5.4) 02/22/24 04:46 Hgb 9.9 g/dL (12.0-16.0) L 02/22/24 04:46 Hct 30.2 % (36.0-47.0) L 02/22/24 04:46 MCV 86.3 fL (80.0-100.0) 02/22/24 04:46 MCH 28.3 pg (27.0-34.0) 02/22/24 04:46 MCHC 32.8 g/dL (33.0-35.0) L 02/22/24 04:46 RDW 18.6 % (11.6-16.5) H 02/22/24 04:46 Plt Count 112 X10^3/uL (150.0-450.0) L 02/22/24 04:46 MPV 8.2 fL (7.4-11.0) 02/22/24 04:46 Neut % (Auto) 60.2 % (42.0-75.0) 02/22/24 04:46 Lymph % (Auto) 19.6 % (21.0-51.0) L 02/22/24 04:46 [place] % (Auto) 17.0 % (0.0-13.0) H 02/22/24 04:46 Eos % (Auto) 2.3 % (0.9-2.9) 02/22/24 04:46 Baso % (Auto) 0.9 % (0.2-1.0) 02/22/24 04:46 Neut # (Auto) 3.0 x10^3/uL (2.2-4.8) 02/22/24 04:46 Lymph # (Auto) 1.0 X10^3/uL (1.3-2.9) L 02/22/24 04:46 [place] # (Auto) 0.8 x10^3/uL (0.3-0.8) 02/22/24 04:46 Eos # (Auto) 0.1 x10^3/uL (0.0-0.2) 02/22/24 04:46 Baso # (Auto) 0.0 X10^3/uL (0.0-0.1) 02/22/24 04:46 Absolute Nucleated RBC 0.2 /100WBC 02/22/24 04:46 PT 28.5 SECONDS (11.8-14.3) 02/22/24 09:00 INR Target Range - 02/22/24 09:00 INR 2.79 (0.8-1.3) H 02/22/24 09:00 Sodium 135 mmol/L (136-145) L 02/22/24 04:46 Corrected Sodium TNP 02/22/24 04:46 Potassium 4.0 mmol/L (3.5-5.1) 02/22/24 04:46 Chloride 100 mmol/L (98-107) 02/22/24 04:46 Carbon Dioxide 25.3 mmol/L (21-32) 02/22/24 04:46 BUN 17 mg/dL (7-18) 02/22/24 04:46 Creatinine 0.72 mg/dL (0.55-1.02) 02/22/24 04:46 Est GFR (MDRD) Af Amer > 60 (>60) 02/22/24 04:46 Est GFR (MDRD) Non-Af > 60 (>60) 02/22/24 04:46 Glucose 69 mg/dL (65-99) 02/22/24 04:46 POC Glucose (mg/dL) 103 mg/dL (65-99) H 02/22/24 11:20 Calcium 8.5 mg/dL (8.5-10.1) 02/22/24 04:46 Corrected Calcium 9.5 mg/dL (8.5-10.1) 02/22/24 04:46 Total Bilirubin 1.70 mg/dL (0.2-1.0) H 02/22/24 04:46 AST 26 Units/L (15-37) 02/22/24 04:46 ALT 8 Units/L (12-78) L 02/22/24 04:46 Alkaline Phosphatase 67 Units/L (46-116) 02/22/24 04:46 Troponin I High Sens 16.3 ng/L (4.0-60.0) 02/21/24 17:00 B-Natriuretic Peptide 1220 pg/mL (0-79) H 02/21/24 17:00 Total Protein 6.1 g/dL (6.4-8.2) L 02/22/24 04:46 Albumin 2.8 g/dL (3.4-5.0) L 02/22/24 04:46 Globulin 3.3 g/dL (2.5-4.5) 02/22/24 04:46 Albumin/Globulin Ratio 0.8 Ratio (1.1-2.1) L 02/22/24 04:46 Lipase 8 Units/L (16-77) L 02/21/24 17:00 Specimen Type Catherized urine 02/21/24 17:19 Urine Color Yellow (YELLOW) 02/21/24 17:19 Urine Appearance Clear (CLEAR) 02/21/24 17:19 Urine pH 6.0 (5.0 - 8.0) 02/21/24 17:19 Ur Specific [place] 1.020 (1.000-1.030) 02/21/24 17:19 Urine Protein 2+ (NEGATIVE) 02/21/24 17:19 Urine Glucose (UA) Negative (NEGATIVE) 02/21/24 17:19 Urine Ketones Negative (NEGATIVE) 02/21/24 17:19 Urine Blood 3+ (NEGATIVE) 02/21/24 17:19 Urine Nitrite Negative (NEGATIVE) 02/21/24 17:19 Urine Bilirubin Negative (NEGATIVE) 02/21/24 17:19 Urine Urobilinogen Normal (NORMAL) 02/21/24 17:19 Ur Leukocyte Esterase 1+ (NEGATIVE) 02/21/24 17:19 Urine RBC 3-5 /HPF (0-3) A 02/21/24 17:19 Urine WBC 3-5 /HPF (0-5) 02/21/24 17:19 Ur Squamous Epith Cells Rare /HPF (NEGATIVE) 02/21/24 17:19 Calcium Oxalate Crystal Rare /HPF (NEGATIVE) 02/21/24 17:19 Urine Bacteria Trace /HPF (NEGATIVE) 02/21/24 17:19 Hyaline Casts Moderate /LPF (NEGATIVE) 02/21/24 17:19 Urine Yeast Rare /HPF (NEGATIVE) 02/21/24 17:19 Ur Culture Indicated? No/not indicated 02/21/24 17:19 Digoxin 0.80 ng/mL (0.9-2) L 02/22/24 09:00 Review of Systems Constitutional: No Symptoms Reported Eyes: No Symptoms Reported ENT: No Symptoms Reported Respiratory: Shortness of Breath Cardiovascular: Edema Gastrointestinal: No Symptoms Reported Genitourinary: No Symptoms Reported Musculoskeletal: Leg Pain Skin: No Symptoms Reported Neurological: Weakness Physical Exam Vital Signs: Vital Signs Temperature 98.4 F Temperature 97.6 F Pulse Rate [Apical] 72 Pulse Rate [Apical] 73 Respiratory Rate 18 Respiratory Rate 18 Blood Pressure [Right Arm] 116/57 Blood Pressure [Right Arm] 102/54 O2 Sat by Pulse Oximetry 92 O2 Sat by Pulse Oximetry 97 Oriented: Normal Eyes: Normal Ear: Normal Nose: Normal Throat: Dry Respiratory: Diminished Throughout Cardiovascular: Edema and Other (pacemaker ) Auscultation: Bowel Sounds: Normal Palpation: Liver Enlarged Skin: Normal Musculoskeletal: Shoulder, Arm and Swelling Psychiatric: Anxiety Mood Description: Anxious Speech Pattern: Clear and Appropriate Assessment/Plan (1) Congestive heart failure: Status: Acute Plan: admit, iv lasix strict I&O bp control, cardiac monitoring verify home medications prn supplemental o2, cxr on admission (2) Atrial fibrillation, controlled: Status: Chronic (3) DM2 (diabetes mellitus, type 2): Status: Chronic (4) Anemia: Qualifiers: Anemia type: unspecified type Qualified Code(s): D64.9 - Anemia, unspecified Status: Chronic
[2024-02-22] MEDS: SNACK - Diabetic Appropriate PO SCH (20:10)
[2024-02-23 06:10] LABS: BASOPHILS % (AUTO) 0.5 % (0.2-1.0); EOSINOPHILS # (AUTO) 0.1 x10^3/uL (0.0-0.2); HEMATOCRIT 28.6 % (36.0-47.0); HEMOGLOBIN 9.6 g/dL (12.0-16.0); LYMPHOCYTES # (AUTO) 0.8 X10^3/uL (1.3-2.9); LYMPHOCYTES % (AUTO) 18.2 % (21.0-51.0); MEAN CORPUSCULAR HGB CONC 33.5 g/dL (33.0-35.0); MEAN CORPUSCULAR VOLUME 86.4 fL (80.0-100.0); MEAN PLATELET VOLUME 7.8 fL (7.4-11.0); MONOCYTES # (AUTO) 0.9 x10^3/uL (0.3-0.8); MONOCYTES % (AUTO) 19.3 % (0.0-13.0); NEUTROPHILS # (AUTO) 2.7 x10^3/uL (2.2-4.8); PLATELET COUNT 107 X10^3/uL (150.0-450.0); RED BLOOD COUNT 3.32 X10^6/uL (3.5-5.4); RED CELL DISTRIBUTION WIDTH 18.5 % (11.6-16.5); WHITE BLOOD COUNT 4.5 X10^3/uL (3.6-10.0)
[2024-02-23 06:32] LABS: ALANINE AMINOTRANSFERASE 9 Units/L (12-78); ALBUMIN 2.6 g/dL (3.4-5.0); ALKALINE PHOSPHATASE 61 Units/L (46-116); ASPARTATE AMINO TRANSFERASE 29 Units/L (15-37); BLOOD UREA NITROGEN 17 mg/dL (7-18); CALCIUM 8.2 mg/dL (8.5-10.1); CARBON DIOXIDE 26.6 mmol/L (21-32); CHLORIDE 99 mmol/L (98-107); COR CA(FOR HYPOALB) 9.3 mg/dL (8.5-10.1); CREATININE 0.73 mg/dL (0.55-1.02); GLUCOSE 84 mg/dL (65-99); POTASSIUM 3.6 mmol/L (3.5-5.1); SODIUM 135 mmol/L (136-145); eGFR NON BLACK RACES > 60 (>60)
[2024-02-23] MEDS ORDERED: CONSULT PHARMACY - POTASSIUM & MAGNESIUM XX SCH (07:00)
[2024-02-23] MEDS: MAG-OX TAB PO SCH (08:32)
[2024-02-23] MEDS: MICRO K EXTEN CAP 10 MEQ PO SCH (08:33)
--- NOTE | 2024-02-23 09:59 | RAD ---
EXAM:CHEST, 1 VIEWHISTORY:SOB;COMPARISON:Prior study or studies were utilized for comparison during interpretation with the most relevant dated 02/21/2024TECHNIQUE:CHEST, 1 VIEWFINDINGS:Chest:Lines and tubes: Left-sided pacemaker generator with lead or leads in satisfactory position.Mediastinum: Cardiomegaly.Pulmonary vessels: Pulmonary vasculature is prominent.Lung muse: No suspicious airspace opacity.Pleura: Growing fluid collection seen in the right fissure.Bones and soft tissues: No acute osseous or soft tissue abnormality.IMPRESSION:1. Loculated fissural fluid collection has increased in size in the last 2 daysTHIS IS AN ELECTRONICALLY VERIFIED FINAL REPORT02/23/2024 9:55 AM - Electronically signed by Michael tMz MD
--- NOTE | 2024-02-23 12:17 | PCM.PROG ---
Progress Note Progress Note for Day of Date of Exam: 02/23/24 Subjective Subjective: PT IS 78 WF, ER ADMISSION WITH DIFFUSE, GENERALIZED EDEMA WITH CHF ON CHEST XRAY. PT HAD ECHO YESTERDAY WITH DECREASED EF AT 40%. PT HAD A CTA OF CHEST ORDERED YESTERDAY AND SHE REFUSED DUE TO PAIN TO L SPINE WITH TENDERNESS. DISCUSSED NEED FOR CT AND PT STATES SHE WILL TRY THIS AM. PT BP 121/59. PT HAS DIFFUSE LEFT BREAST AND UPPER ARM SWELLING. PT REPORTS THIS HAS BEEN GOING ON FOR WEEKS BUT WORSE THIS PAST 2 WEEKS. PT CO INCREASE SOB ON EXERTION. PTS HOME MEDICATIONS HAVE BEEN RESUMEDS. IV LASIX WITH I&OS CONTINUED. SLIGHT IMPROVEMENT IN SWELLING THIS AM AFTER LASIX THERAPY. Past Medical Family Social History Allergies: Allergies No Known Allergies Allergy (Verified 02/21/24 17:24) Vital Signs and I&O's Vital Signs: Vital Signs Temperature 98.3 F Temperature 97.7 F Pulse Rate [Apical] 70 Pulse Rate [Apical] 72 Pulse Rate 72 Respiratory Rate 20 Respiratory Rate 18 Respiratory Rate 20 Respiratory Rate 19 Blood Pressure [Right Arm] 121/59 Blood Pressure [Right Arm] 120/58 O2 Sat by Pulse Oximetry 100 O2 Sat by Pulse Oximetry 96 Intake and Output: Intake & Output 02/21/24 02/22/24 02/23/24 02/24/24 11:59 11:59 11:59 11:59 Intake Total 150 / 150 1720 / 1720 Output Total 600 / 600 3000 / 3000 Balance -450 / -450 -1280 / -1280 Physical Exam Oriented: Normal Eyes: Normal Ear: Normal Nose: Normal Throat: Dry Respiratory: Diminished Cardiovascular: Edema and Other (pacemaker ) Auscultation: Bowel Sounds: Normal Skin: Normal Musculoskeletal: Shoulder, Arm and Swelling Psychiatric: Anxiety Mood Description: Anxious Speech Pattern: Clear and Appropriate Laboratory and Diagnostics 02/23/24 05:39 02/23/24 05:39 Labs: Laboratory WBC 4.5 X10^3/uL (3.6-10.0) 02/23/24 05:39 RBC 3.32 X10^6/uL (3.5-5.4) L 02/23/24 05:39 Hgb 9.6 g/dL (12.0-16.0) L 02/23/24 05:39 Hct 28.6 % (36.0-47.0) L 02/23/24 05:39 MCV 86.4 fL (80.0-100.0) 02/23/24 05:39 MCH 29.0 pg (27.0-34.0) 02/23/24 05:39 MCHC 33.5 g/dL (33.0-35.0) 02/23/24 05:39 RDW 18.5 % (11.6-16.5) H 02/23/24 05:39 Plt Count 107 X10^3/uL (150.0-450.0) L 02/23/24 05:39 MPV 7.8 fL (7.4-11.0) 02/23/24 05:39 Neut % (Auto) 60.0 % (42.0-75.0) 02/23/24 05:39 Lymph % (Auto) 18.2 % (21.0-51.0) L 02/23/24 05:39 [place] % (Auto) 19.3 % (0.0-13.0) H 02/23/24 05:39 Eos % (Auto) 2.0 % (0.9-2.9) 02/23/24 05:39 Baso % (Auto) 0.5 % (0.2-1.0) 02/23/24 05:39 Neut # (Auto) 2.7 x10^3/uL (2.2-4.8) 02/23/24 05:39 Lymph # (Auto) 0.8 X10^3/uL (1.3-2.9) L 02/23/24 05:39 [place] # (Auto) 0.9 x10^3/uL (0.3-0.8) H 02/23/24 05:39 Eos # (Auto) 0.1 x10^3/uL (0.0-0.2) 02/23/24 05:39 Baso # (Auto) 0.0 X10^3/uL (0.0-0.1) 02/23/24 05:39 Absolute Nucleated RBC 0.1 /100WBC 02/23/24 05:39 PT 28.5 SECONDS (11.8-14.3) 02/22/24 09:00 INR Target Range - 02/22/24 09:00 INR 2.79 (0.8-1.3) H 02/22/24 09:00 Sodium 135 mmol/L (136-145) L 02/23/24 05:39 Corrected Sodium TNP 02/23/24 05:39 Potassium 3.6 mmol/L (3.5-5.1) 02/23/24 05:39 Chloride 99 mmol/L (98-107) 02/23/24 05:39 Carbon Dioxide 26.6 mmol/L (21-32) 02/23/24 05:39 BUN 17 mg/dL (7-18) 02/23/24 05:39 Creatinine 0.73 mg/dL (0.55-1.02) 02/23/24 05:39 Est GFR (MDRD) Af Amer > 60 (>60) 02/23/24 05:39 Est GFR (MDRD) Non-Af > 60 (>60) 02/23/24 05:39 Glucose 84 mg/dL (65-99) 02/23/24 05:39 POC Glucose (mg/dL) 88 mg/dL (65-99) 02/23/24 11:39 Calcium 8.2 mg/dL (8.5-10.1) L 02/23/24 05:39 Corrected Calcium 9.3 mg/dL (8.5-10.1) 02/23/24 05:39 Magnesium 1.2 mg/dL (2.0-2.9) L 02/23/24 05:39 Total Bilirubin 1.70 mg/dL (0.2-1.0) H 02/23/24 05:39 AST 29 Units/L (15-37) 02/23/24 05:39 ALT 9 Units/L (12-78) L 02/23/24 05:39 Alkaline Phosphatase 61 Units/L (46-116) 02/23/24 05:39 Troponin I High Sens 16.3 ng/L (4.0-60.0) 02/21/24 17:00 B-Natriuretic Peptide 1220 pg/mL (0-79) H 02/21/24 17:00 Total Protein 6.0 g/dL (6.4-8.2) L 02/23/24 05:39 Albumin 2.6 g/dL (3.4-5.0) L 02/23/24 05:39 Globulin 3.4 g/dL (2.5-4.5) 02/23/24 05:39 Albumin/Globulin Ratio 0.8 Ratio (1.1-2.1) L 02/23/24 05:39 Lipase 8 Units/L (16-77) L 02/21/24 17:00 Specimen Type Catherized urine 02/21/24 17:19 Urine Color Yellow (YELLOW) 02/21/24 17:19 Urine Appearance Clear (CLEAR) 02/21/24 17:19 Urine pH 6.0 (5.0 - 8.0) 02/21/24 17:19 Ur Specific [place] 1.020 (1.000-1.030) 02/21/24 17:19 Urine Protein 2+ (NEGATIVE) 02/21/24 17:19 Urine Glucose (UA) Negative (NEGATIVE) 02/21/24 17:19 Urine Ketones Negative (NEGATIVE) 02/21/24 17:19 Urine Blood 3+ (NEGATIVE) 02/21/24 17:19 Urine Nitrite Negative (NEGATIVE) 02/21/24 17:19 Urine Bilirubin Negative (NEGATIVE) 02/21/24 17:19 Urine Urobilinogen Normal (NORMAL) 02/21/24 17:19 Ur Leukocyte Esterase 1+ (NEGATIVE) 02/21/24 17:19 Urine RBC 3-5 /HPF (0-3) A 02/21/24 17:19 Urine WBC 3-5 /HPF (0-5) 02/21/24 17:19 Ur Squamous Epith Cells Rare /HPF (NEGATIVE) 02/21/24 17:19 Calcium Oxalate Crystal Rare /HPF (NEGATIVE) 02/21/24 17:19 Urine Bacteria Trace /HPF (NEGATIVE) 02/21/24 17:19 Hyaline Casts Moderate /LPF (NEGATIVE) 02/21/24 17:19 Urine Yeast Rare /HPF (NEGATIVE) 02/21/24 17:19 Ur Culture Indicated? No/not indicated 02/21/24 17:19 Digoxin 0.80 ng/mL (0.9-2) L 02/22/24 09:00 Plan (1) Congestive heart failure: Status: Acute Plan: iv lasix strict I&O bp control, cardiac monitoring verify home medications prn supplemental o2, cxr on admission (2) Atrial fibrillation, controlled: Status: Chronic (3) DM2 (diabetes mellitus, type 2): Status: Chronic (4) Anemia: Status: Chronic Qualifiers: Anemia type: unspecified type Qualified Code(s): D64.9 - Anemia, unspecified
[2024-02-24 05:09] LABS: BASOPHILS % (AUTO) 0.7 % (0.2-1.0); EOSINOPHILS # (AUTO) 0.1 x10^3/uL (0.0-0.2); HEMATOCRIT 29.2 % (36.0-47.0); HEMOGLOBIN 9.6 g/dL (12.0-16.0); LYMPHOCYTES # (AUTO) 0.8 X10^3/uL (1.3-2.9); LYMPHOCYTES % (AUTO) 19.3 % (21.0-51.0); MEAN CORPUSCULAR HEMOGLOBIN 28.5 pg (27.0-34.0); MEAN CORPUSCULAR VOLUME 86.5 fL (80.0-100.0); MEAN PLATELET VOLUME 7.8 fL (7.4-11.0); MONOCYTES # (AUTO) 0.7 x10^3/uL (0.3-0.8); MONOCYTES % (AUTO) 16.6 % (0.0-13.0); NEUTROPHILS # (AUTO) 2.6 x10^3/uL (2.2-4.8); NEUTROPHILS % (AUTO) 61.4 % (42.0-75.0); PLATELET COUNT 107 X10^3/uL (150.0-450.0); RED BLOOD COUNT 3.37 X10^6/uL (3.5-5.4); RED CELL DISTRIBUTION WIDTH 18.5 % (11.6-16.5); WHITE BLOOD COUNT 4.3 X10^3/uL (3.6-10.0)
[2024-02-24 05:33] LABS: ALANINE AMINOTRANSFERASE 9 Units/L (12-78); ALBUMIN 2.6 g/dL (3.4-5.0); ALKALINE PHOSPHATASE 58 Units/L (46-116); ASPARTATE AMINO TRANSFERASE 28 Units/L (15-37); BLOOD UREA NITROGEN 15 mg/dL (7-18); CARBON DIOXIDE 31.6 mmol/L (21-32); CHLORIDE 99 mmol/L (98-107); COR CA(FOR HYPOALB) 9.1 mg/dL (8.5-10.1); CREATININE 0.63 mg/dL (0.55-1.02); GLUCOSE 69 mg/dL (65-99); MAGNESIUM 1.2 mg/dL (2.0-2.9); SODIUM 136 mmol/L (136-145); TOTAL PROTEIN 5.7 g/dL (6.4-8.2); eGFR NON BLACK RACES > 60 (>60)
[2024-02-24] MEDS ORDERED: CONSULT PHARMACY - POTASSIUM & MAGNESIUM XX SCH (07:00)
[2024-02-24] MEDS ORDERED: GLUCOPHAGE ONE (09:10)
[2024-02-24] MEDS: K-DUR TAB 20 MEQ PO SCH (09:28)
[2024-02-24] MEDS: MAG-OX TAB PO SCH (09:30)
--- NOTE | 2024-02-24 10:32 | PCM.PROG ---
Progress Note Progress Note for Day of Date of Exam: 02/24/24 Subjective Subjective: Patient is a 78-year-old female admitted for CHF exacerbation with generalized edema. She did have an echo that revealed her ejection fraction at 40%. This morning she reports she is feeling a little better and her breathing has improved. She also reports a decrease in her swelling. Labs/imaging: WBC 4.3, hemoglobin 9.6, platelets 107, sodium 136, potassium 3.0, creatinine 0.63, glucose 69. Patient is currently receiving IV Lasix 40mg BID and monitor I&O's. Will replete electrolytes per protocol. Home medications have been resumed. Otherwise continue with current treatment plan. Continue closely monitor and follow-up labs/imaging. Past Medical Family Social History Allergies: Allergies No Known Allergies Allergy (Verified 02/21/24 17:24) Review of Systems ROS changes noted: see HPI Vital Signs and I&O's Vital Signs: Vital Signs Temperature 97.8 F Temperature 98.4 F Pulse Rate [Apical] 70 Pulse Rate [Apical] 75 Pulse Rate 70 Respiratory Rate 21 Respiratory Rate 21 Respiratory Rate 20 Blood Pressure [Right Arm] 114/57 Blood Pressure [Right Arm] 111/58 O2 Sat by Pulse Oximetry 98 O2 Sat by Pulse Oximetry 98 Intake and Output: Intake & Output 02/21/24 02/22/24 02/23/24 02/24/24 23:59 23:59 23:59 23:59 Intake Total 1660 / 1660 240 / 240 450 / 450 Output Total 2800 / 2800 4400 / 4400 1600 / 1600 Balance -1140 / -1140 -4160 / -4160 -1150 / -1150 Physical Exam Oriented: Normal Eyes: Normal Ear: Normal Nose: Normal Throat: Dry Respiratory: Diminished Cardiovascular: Edema and Other (pacemaker ) Auscultation: Bowel Sounds: Normal Skin: Normal Musculoskeletal: Shoulder, Arm and Swelling Psychiatric: Anxiety Mood Description: Calm Speech Pattern: Clear and Appropriate Laboratory and Diagnostics 02/24/24 04:30 02/24/24 04:30 Labs: Laboratory WBC 4.3 X10^3/uL (3.6-10.0) 02/24/24 04:30 RBC 3.37 X10^6/uL (3.5-5.4) L 02/24/24 04:30 Hgb 9.6 g/dL (12.0-16.0) L 02/24/24 04:30 Hct 29.2 % (36.0-47.0) L 02/24/24 04:30 MCV 86.5 fL (80.0-100.0) 02/24/24 04:30 MCH 28.5 pg (27.0-34.0) 02/24/24 04:30 MCHC 33.0 g/dL (33.0-35.0) 02/24/24 04:30 RDW 18.5 % (11.6-16.5) H 02/24/24 04:30 Plt Count 107 X10^3/uL (150.0-450.0) L 02/24/24 04:30 MPV 7.8 fL (7.4-11.0) 02/24/24 04:30 Neut % (Auto) 61.4 % (42.0-75.0) 02/24/24 04:30 Lymph % (Auto) 19.3 % (21.0-51.0) L 02/24/24 04:30 [place] % (Auto) 16.6 % (0.0-13.0) H 02/24/24 04:30 Eos % (Auto) 2.0 % (0.9-2.9) 02/24/24 04:30 Baso % (Auto) 0.7 % (0.2-1.0) 02/24/24 04:30 Neut # (Auto) 2.6 x10^3/uL (2.2-4.8) 02/24/24 04:30 Lymph # (Auto) 0.8 X10^3/uL (1.3-2.9) L 02/24/24 04:30 Major # (Auto) 0.7 x10^3/uL (0.3-0.8) 02/24/24 04:30 Eos # (Auto) 0.1 x10^3/uL (0.0-0.2) 02/24/24 04:30 Baso # (Auto) 0.0 X10^3/uL (0.0-0.1) 02/24/24 04:30 Absolute Nucleated RBC 0.2 /100WBC 02/24/24 04:30 PT 28.5 SECONDS (11.8-14.3) 02/22/24 09:00 INR Target Range - 02/22/24 09:00 INR 2.79 (0.8-1.3) H 02/22/24 09:00 Sodium 136 mmol/L (136-145) 02/24/24 04:30 Corrected Sodium TNP 02/24/24 04:30 Potassium 3.0 mmol/L (3.5-5.1) L 02/24/24 04:30 Chloride 99 mmol/L (98-107) 02/24/24 04:30 Carbon Dioxide 31.6 mmol/L (21-32) 02/24/24 04:30 BUN 15 mg/dL (7-18) 02/24/24 04:30 Creatinine 0.63 mg/dL (0.55-1.02) 02/24/24 04:30 Est GFR (MDRD) Af Amer > 60 (>60) 02/24/24 04:30 Est GFR (MDRD) Non-Af > 60 (>60) 02/24/24 04:30 Glucose 69 mg/dL (65-99) 02/24/24 04:30 POC Glucose (mg/dL) 107 mg/dL (65-99) H 02/24/24 09:27 Calcium 8.0 mg/dL (8.5-10.1) L 02/24/24 04:30 Corrected Calcium 9.1 mg/dL (8.5-10.1) 02/24/24 04:30 Magnesium 1.2 mg/dL (2.0-2.9) L 02/24/24 04:30 Total Bilirubin 1.90 mg/dL (0.2-1.0) H 02/24/24 04:30 AST 28 Units/L (15-37) 02/24/24 04:30 ALT 9 Units/L (12-78) L 02/24/24 04:30 Alkaline Phosphatase 58 Units/L (46-116) 02/24/24 04:30 Troponin I High Sens 16.3 ng/L (4.0-60.0) 02/21/24 17:00 B-Natriuretic Peptide 1220 pg/mL (0-79) H 02/21/24 17:00 Total Protein 5.7 g/dL (6.4-8.2) L 02/24/24 04:30 Albumin 2.6 g/dL (3.4-5.0) L 02/24/24 04:30 Globulin 3.1 g/dL (2.5-4.5) 02/24/24 04:30 Albumin/Globulin Ratio 0.8 Ratio (1.1-2.1) L 02/24/24 04:30 Lipase 8 Units/L (16-77) L 02/21/24 17:00 Specimen Type Catherized urine 02/21/24 17:19 Urine Color Yellow (YELLOW) 02/21/24 17:19 Urine Appearance Clear (CLEAR) 02/21/24 17:19 Urine pH 6.0 (5.0 - 8.0) 02/21/24 17:19 Ur Specific [place] 1.020 (1.000-1.030) 02/21/24 17:19 Urine Protein 2+ (NEGATIVE) 02/21/24 17:19 Urine Glucose (UA) Negative (NEGATIVE) 02/21/24 17:19 Urine Ketones Negative (NEGATIVE) 02/21/24 17:19 Urine Blood 3+ (NEGATIVE) 02/21/24 17:19 Urine Nitrite Negative (NEGATIVE) 02/21/24 17:19 Urine Bilirubin Negative (NEGATIVE) 02/21/24 17:19 Urine Urobilinogen Normal (NORMAL) 02/21/24 17:19 Ur Leukocyte Esterase 1+ (NEGATIVE) 02/21/24 17:19 Urine RBC 3-5 /HPF (0-3) A 02/21/24 17:19 Urine WBC 3-5 /HPF (0-5) 02/21/24 17:19 Ur Squamous Epith Cells Rare /HPF (NEGATIVE) 02/21/24 17:19 Calcium Oxalate Crystal Rare /HPF (NEGATIVE) 02/21/24 17:19 Urine Bacteria Trace /HPF (NEGATIVE) 02/21/24 17:19 Hyaline Casts Moderate /LPF (NEGATIVE) 02/21/24 17:19 Urine Yeast Rare /HPF (NEGATIVE) 02/21/24 17:19 Ur Culture Indicated? No/not indicated 02/21/24 17:19 Digoxin 0.80 ng/mL (0.9-2) L 02/22/24 09:00 Plan (1) Congestive heart failure: Status: Acute Plan: iv lasix strict I&O bp control, cardiac monitoring verify home medications prn supplemental o2, cxr on admission (2) Atrial fibrillation, controlled: Status: Chronic (3) DM2 (diabetes mellitus, type 2): Status: Chronic (4) Anemia: Status: Chronic Qualifiers: Anemia type: unspecified type Qualified Code(s): D64.9 - Anemia, unspecified
--- NOTE | 2024-02-24 14:54 | RAD ---
EXAM:AP chestHISTORY:CHFCOMPARISON:02/23/2024 r.[email or web address] in the right interlobar fissure is less prominent than 1 day prior. There is no evidence for developing airspace process, pleural effusion or other new abnormality.IMPRESSION:Slight apparent improvement in the fissural fluid right chest. No new abnormality or other interval change.THIS IS AN ELECTRONICALLY VERIFIED FINAL REPORT02/24/2024 2:51 PM - Electronically signed by Horace Chaudhari MD
[2024-02-25 05:38] LABS: EOSINOPHILS # (AUTO) 0.1 x10^3/uL (0.0-0.2); HEMATOCRIT 29.3 % (36.0-47.0); MEAN PLATELET VOLUME 7.8 fL (7.4-11.0); MONOCYTES # (AUTO) 0.9 x10^3/uL (0.3-0.8); NEUTROPHILS # (AUTO) 2.7 x10^3/uL (2.2-4.8); RED BLOOD COUNT 3.45 X10^6/uL (3.5-5.4)
[2024-02-25 05:41] LABS: BASOPHILS % (AUTO) 0.7 % (0.2-1.0); EOSINOPHILS % (AUTO) 1.9 % (0.9-2.9); HEMOGLOBIN 9.9 g/dL (12.0-16.0); LYMPHOCYTES # (AUTO) 0.7 X10^3/uL (1.3-2.9); LYMPHOCYTES % (AUTO) 16.5 % (21.0-51.0); MEAN CORPUSCULAR HEMOGLOBIN 28.7 pg (27.0-34.0); MEAN CORPUSCULAR HGB CONC 33.7 g/dL (33.0-35.0); MEAN CORPUSCULAR VOLUME 85.1 fL (80.0-100.0); MONOCYTES % (AUTO) 19.9 % (0.0-13.0); PLATELET COUNT 116 X10^3/uL (150.0-450.0); RED CELL DISTRIBUTION WIDTH 18.1 % (11.6-16.5); WHITE BLOOD COUNT 4.4 X10^3/uL (3.6-10.0)
[2024-02-25 05:48] LABS: ALANINE AMINOTRANSFERASE 10 Units/L (12-78); ALBUMIN 2.6 g/dL (3.4-5.0); ALKALINE PHOSPHATASE 80 Units/L (46-116); ASPARTATE AMINO TRANSFERASE 30 Units/L (15-37); BLOOD UREA NITROGEN 13 mg/dL (7-18); CALCIUM 8.1 mg/dL (8.5-10.1); CARBON DIOXIDE 33.3 mmol/L (21-32); CHLORIDE 100 mmol/L (98-107); COR CA(FOR HYPOALB) 9.2 mg/dL (8.5-10.1); CREATININE 0.62 mg/dL (0.55-1.02); GLUCOSE 107 mg/dL (65-99); POTASSIUM 3.6 mmol/L (3.5-5.1); SODIUM 137 mmol/L (136-145); TOTAL PROTEIN 6.1 g/dL (6.4-8.2); eGFR NON BLACK RACES > 60 (>60)
[2024-02-25] MEDS ORDERED: CONSULT PHARMACY - POTASSIUM & MAGNESIUM XX SCH ×2 (07:00)
[2024-02-25] MEDS: MAG-OX TAB PO SCH (09:12)
[2024-02-25] MEDS: K-DUR TAB 20 MEQ PO SCH (09:13)
[2024-02-25] MEDS: GLUCOPHAGE ONE (09:30)
[2024-02-25] MEDS ORDERED: IMODIUM CAP 2 MG PO PRN (10:27)
[2024-02-25] MEDS: VSL#3 PROBIOTIC CAP 112.5 B PO SCH (10:52)
--- NOTE | 2024-02-25 11:38 | PCM.PROG ---
Progress Note Progress Note for Day of Date of Exam: 02/25/24 Subjective Subjective: Patient is a 78-year-old female admitted for CHF exacerbation with generalized edema. She did have an echo that revealed her ejection fraction at 40%. This morning she is resting in bed. No acute events overnight. She continues to improve along with her breathing and edema. Labs/imaging: WBC 4.4, hemoglobin 9.9, platelets 116, sodium 137, potassium 3.6, creatinine 0.62, glucose 107. Patient is currently receiving IV Lasix 40mg BID and monitor I&O's. Will replete electrolytes per protocol. Home medications have been resumed. Otherwise continue with current treatment plan. Continue closely monitor and follow-up labs/imaging. Past Medical Family Social History Allergies: Allergies No Known Allergies Allergy (Verified 02/21/24 17:24) Review of Systems ROS changes noted: see HPI Vital Signs and I&O's Vital Signs: Vital Signs Temperature 98.7 F Temperature 98.3 F Pulse Rate [Apical] 73 Pulse Rate [Apical] 70 Pulse Rate 73 Respiratory Rate 18 Respiratory Rate 18 Respiratory Rate 18 Blood Pressure [Right Arm] 136/63 Blood Pressure [Right Arm] 117/56 O2 Sat by Pulse Oximetry 90 O2 Sat by Pulse Oximetry 96 Intake and Output: Intake & Output 02/22/24 02/23/24 02/24/24 02/25/24 23:59 23:59 23:59 23:59 Intake Total 1660 / 1660 240 / 240 1857 / 1857 10 Output Total 2800 / 2800 4400 / 4400 3650 / 3650 500 / 500 Balance -1140 / -1140 -4160 / -4160 -1793 / -1793 -490 / -490 Physical Exam Oriented: Normal Eyes: Normal Ear: Normal Nose: Normal Throat: Normal Respiratory: Diminished Cardiovascular: Edema and Other (pacemaker ) Auscultation: Bowel Sounds: Normal Skin: Normal Musculoskeletal: Shoulder, Arm and Swelling Psychiatric: Anxiety Mood Description: Calm Speech Pattern: Clear and Appropriate Laboratory and Diagnostics 02/25/24 05:00 02/25/24 05:00 Labs: Laboratory WBC 4.4 X10^3/uL (3.6-10.0) 02/25/24 05:00 RBC 3.45 X10^6/uL (3.5-5.4) L 02/25/24 05:00 Hgb 9.9 g/dL (12.0-16.0) L 02/25/24 05:00 Hct 29.3 % (36.0-47.0) L 02/25/24 05:00 MCV 85.1 fL (80.0-100.0) 02/25/24 05:00 MCH 28.7 pg (27.0-34.0) 02/25/24 05:00 MCHC 33.7 g/dL (33.0-35.0) 02/25/24 05:00 RDW 18.1 % (11.6-16.5) H 02/25/24 05:00 Plt Count 116 X10^3/uL (150.0-450.0) L 02/25/24 05:00 MPV 7.8 fL (7.4-11.0) 02/25/24 05:00 Neut % (Auto) 61.0 % (42.0-75.0) 02/25/24 05:00 Lymph % (Auto) 16.5 % (21.0-51.0) L 02/25/24 05:00 [place] % (Auto) 19.9 % (0.0-13.0) H 02/25/24 05:00 Eos % (Auto) 1.9 % (0.9-2.9) 02/25/24 05:00 Baso % (Auto) 0.7 % (0.2-1.0) 02/25/24 05:00 Neut # (Auto) 2.7 x10^3/uL (2.2-4.8) 02/25/24 05:00 Lymph # (Auto) 0.7 X10^3/uL (1.3-2.9) L 02/25/24 05:00 [place] # (Auto) 0.9 x10^3/uL (0.3-0.8) H 02/25/24 05:00 Eos # (Auto) 0.1 x10^3/uL (0.0-0.2) 02/25/24 05:00 Baso # (Auto) 0.0 X10^3/uL (0.0-0.1) 02/25/24 05:00 Absolute Nucleated RBC 0.2 /100WBC 02/25/24 05:00 PT 28.5 SECONDS (11.8-14.3) 02/22/24 09:00 INR Target Range - 02/22/24 09:00 INR 2.79 (0.8-1.3) H 02/22/24 09:00 Sodium 137 mmol/L (136-145) 02/25/24 05:00 Corrected Sodium TNP 02/25/24 05:00 Potassium 3.6 mmol/L (3.5-5.1) 02/25/24 05:00 Chloride 100 mmol/L (98-107) 02/25/24 05:00 Carbon Dioxide 33.3 mmol/L (21-32) H 02/25/24 05:00 BUN 13 mg/dL (7-18) 02/25/24 05:00 Creatinine 0.62 mg/dL (0.55-1.02) 02/25/24 05:00 Est GFR (MDRD) Af Amer > 60 (>60) 02/25/24 05:00 Est GFR (MDRD) Non-Af > 60 (>60) 02/25/24 05:00 Glucose 107 mg/dL (65-99) H 02/25/24 05:00 POC Glucose (mg/dL) 131 mg/dL (65-99) H 02/25/24 11:08 Calcium 8.1 mg/dL (8.5-10.1) L 02/25/24 05:00 Corrected Calcium 9.2 mg/dL (8.5-10.1) 02/25/24 05:00 Magnesium 1.4 mg/dL (2.0-2.9) L 02/25/24 05:00 Total Bilirubin 1.70 mg/dL (0.2-1.0) H 02/25/24 05:00 AST 30 Units/L (15-37) 02/25/24 05:00 ALT 10 Units/L (12-78) L 02/25/24 05:00 Alkaline Phosphatase 80 Units/L (46-116) 02/25/24 05:00 Troponin I High Sens 16.3 ng/L (4.0-60.0) 02/21/24 17:00 B-Natriuretic Peptide 1220 pg/mL (0-79) H 02/21/24 17:00 Total Protein 6.1 g/dL (6.4-8.2) L 02/25/24 05:00 Albumin 2.6 g/dL (3.4-5.0) L 02/25/24 05:00 Globulin 3.5 g/dL (2.5-4.5) 02/25/24 05:00 Albumin/Globulin Ratio 0.7 Ratio (1.1-2.1) L 02/25/24 05:00 Lipase 8 Units/L (16-77) L 02/21/24 17:00 Specimen Type Catherized urine 02/21/24 17:19 Urine Color Yellow (YELLOW) 02/21/24 17:19 Urine Appearance Clear (CLEAR) 02/21/24 17:19 Urine pH 6.0 (5.0 - 8.0) 02/21/24 17:19 Ur Specific [place] 1.020 (1.000-1.030) 02/21/24 17:19 Urine Protein 2+ (NEGATIVE) 02/21/24 17:19 Urine Glucose (UA) Negative (NEGATIVE) 02/21/24 17:19 Urine Ketones Negative (NEGATIVE) 02/21/24 17:19 Urine Blood 3+ (NEGATIVE) 02/21/24 17:19 Urine Nitrite Negative (NEGATIVE) 02/21/24 17:19 Urine Bilirubin Negative (NEGATIVE) 02/21/24 17:19 Urine Urobilinogen Normal (NORMAL) 02/21/24 17:19 Ur Leukocyte Esterase 1+ (NEGATIVE) 02/21/24 17:19 Urine RBC 3-5 /HPF (0-3) A 02/21/24 17:19 Urine WBC 3-5 /HPF (0-5) 02/21/24 17:19 Ur Squamous Epith Cells Rare /HPF (NEGATIVE) 02/21/24 17:19 Calcium Oxalate Crystal Rare /HPF (NEGATIVE) 02/21/24 17:19 Urine Bacteria Trace /HPF (NEGATIVE) 02/21/24 17:19 Hyaline Casts Moderate /LPF (NEGATIVE) 02/21/24 17:19 Urine Yeast Rare /HPF (NEGATIVE) 02/21/24 17:19 Ur Culture Indicated? No/not indicated 02/21/24 17:19 Digoxin 0.70 ng/mL (0.9-2) L 02/25/24 07:10 Plan (1) Congestive heart failure: Status: Acute Plan: iv lasix strict I&O bp control, cardiac monitoring verify home medications prn supplemental o2, cxr on admission (2) Atrial fibrillation, controlled: Status: Chronic (3) DM2 (diabetes mellitus, type 2): Status: Chronic (4) Anemia: Status: Chronic Qualifiers: Anemia type: unspecified type Qualified Code(s): D64.9 - Anemia, unspecified
[2024-02-25] MEDS: IMODIUM CAP 2 MG PO PRN (13:24)
[2024-02-25] MEDS: IMODIUM CAP 2 MG PO ONE (13:33)
[2024-02-25] MEDS ORDERED: IMODIUM CAP 2 MG PO SCH (14:00)
[2024-02-26 06:20] LABS: BASOPHILS % (AUTO) 0.6 % (0.2-1.0); EOSINOPHILS # (AUTO) 0.2 x10^3/uL (0.0-0.2); EOSINOPHILS % (AUTO) 4.4 % (0.9-2.9); HEMATOCRIT 28.7 % (36.0-47.0); HEMOGLOBIN 9.6 g/dL (12.0-16.0); LYMPHOCYTES # (AUTO) 0.9 X10^3/uL (1.3-2.9); LYMPHOCYTES % (AUTO) 20.8 % (21.0-51.0); MEAN CORPUSCULAR HEMOGLOBIN 28.7 pg (27.0-34.0); MEAN CORPUSCULAR HGB CONC 33.4 g/dL (33.0-35.0); MEAN CORPUSCULAR VOLUME 86.1 fL (80.0-100.0); MEAN PLATELET VOLUME 7.8 fL (7.4-11.0); MONOCYTES # (AUTO) 0.8 x10^3/uL (0.3-0.8); MONOCYTES % (AUTO) 18.8 % (0.0-13.0); NEUTROPHILS # (AUTO) 2.3 x10^3/uL (2.2-4.8); NEUTROPHILS % (AUTO) 55.4 % (42.0-75.0); PLATELET COUNT 114 X10^3/uL (150.0-450.0); RED BLOOD COUNT 3.33 X10^6/uL (3.5-5.4); RED CELL DISTRIBUTION WIDTH 17.8 % (11.6-16.5); WHITE BLOOD COUNT 4.1 X10^3/uL (3.6-10.0)
[2024-02-26 06:31] LABS: ALANINE AMINOTRANSFERASE 10 Units/L (12-78); ALBUMIN 2.4 g/dL (3.4-5.0); ALKALINE PHOSPHATASE 61 Units/L (46-116); ASPARTATE AMINO TRANSFERASE 32 Units/L (15-37); BLOOD UREA NITROGEN 10 mg/dL (7-18); CARBON DIOXIDE 38.3 mmol/L (21-32); CHLORIDE 99 mmol/L (98-107); COR CA(FOR HYPOALB) 9.3 mg/dL (8.5-10.1); CREATININE 0.58 mg/dL (0.55-1.02); GLUCOSE 85 mg/dL (65-99); MAGNESIUM 1.5 mg/dL (2.0-2.9); POTASSIUM 3.3 mmol/L (3.5-5.1); SODIUM 137 mmol/L (136-145); TOTAL PROTEIN 5.8 g/dL (6.4-8.2); eGFR NON BLACK RACES > 60 (>60)
--- NOTE | 2024-02-26 08:23 | RAD ---
EXAM:CHESTHISTORY:CHF;COMPARISON: [email or web address] submitted for interpretation.FINDINGS:Left-sided cardiac pacer is stable. The cardiomediastinal silhouette is again seen to be enlarged. Lungs show continued mild pulmonary edema.IMPRESSION:Cardiomegaly with stable pulmonary edema.THIS IS AN ELECTRONICALLY VERIFIED FINAL REPORT02/26/2024 8:20 AM - Electronically signed by Oren White MD
[2024-02-26] MEDS: NYSTATIN POWDER TOP SCH (09:26)
[2024-02-26 11:36] LABS: CRYPTOSPORIDIUM PARVUM ANTIGEN NEGATIVE (NEGATIVE); GIARDIA LAMBLIA ANTIGEN NEGATIVE (NEGATIVE)
--- NOTE | 2024-02-26 12:39 | RAD ---
EXAM:CHEST, 1 VIEWHISTORY:SOB, CHF; , CHFCOMPARISON:Prior study or studies were utilized for comparison during interpretation with the most relevant dated 02/25/2024TECHNIQUE:CHEST, 1 VIEWFINDINGS:Chest:Lines and tubes: Left-sided pacemaker generator with lead or leads in satisfactory position.Mediastinum: Cardiomegaly.Pulmonary vessels: There is pulmonary vascular congestion.Lung muse: No suspicious airspace opacity.Pleura: No effusion. No pneumothorax.Bones and soft tissues: No acute osseous or soft tissue abnormality.IMPRESSION:1. Findings suggest heart failureTHIS IS AN ELECTRONICALLY VERIFIED FINAL REPORT02/26/2024 12:17 PM - Electronically signed by iMchael Mtz MD
[2024-02-26] MEDS ORDERED: BUTT CREAM (COMPOUND) TOP PRN (13:09)
[2024-02-26] MEDS: DILAUDID INJ IVP ONE (14:01)
[2024-02-26] MEDS: DILAUDID INJ ONE (14:34)
[2024-02-26] MEDS: LASIX IVP SCH (16:49)
--- NOTE | 2024-02-26 16:56 | PCM.PROG ---
Progress Note Progress Note for Day of Date of Exam: 02/26/24 Subjective Subjective: The patient is a 78-year-old female admitted for CHF exacerbation with generalized edema. She did have an echo that revealed her ejection fraction at 40%. This morning, she is resting in bed. I spoke to her about trying another CT scan and she was initially hesitant but I told her we will give her IV pain medication prior to the scan to make sure she was comfortable so we can do it. She initially declined but after her daughter got there she stated that she would do it if her daughter was allowed to go with her. We allow that and got it done. There were no acute events overnight. She continues to improve, along with her breathing and edema. Labs/Imaging: Chest x- ray shows changes of CHF, hemoglobin 9.6, potassium 3.3, magnesium 1.5, WBC4.1, CTA of lungspending, [id number], stool WBCpositive, stool RBCnegative, stool for C. difficile negative, stool culture negative for Campylobacter and other organisms pending, BUN10, creatinine0.58, platelet The patient reports that she started having diarrhea over the weekend. I see that her stool workup is back today. The patient's stool was positive for white blood cells so we will start IV antibiotic therapy. Past Medical Family Social History Allergies: Allergies No Known Allergies Allergy (Verified 02/21/24 17:24) Review of Systems ROS: No change since H&P Vital Signs and I&O's Vital Signs: Vital Signs Temperature 98.5 F Pulse Rate [Apical] 70 Respiratory Rate 22 Respiratory Rate 20 Respiratory Rate 20 Respiratory Rate 20 Respiratory Rate 20 Blood Pressure [Right Arm] 117/56 O2 Sat by Pulse Oximetry 99 Intake and Output: Intake & Output 02/24/24 02/25/24 02/26/24 02/27/24 11:59 11:59 11:59 11:59 Intake Total 480 / 480 1417 / 1417 1667 / 1667 Output Total 5200 / 5200 2550 / 2550 4200 / 4200 Balance -4720 / -4720 -1133 / -1133 -2533 / -2533 Physical Exam Oriented: Normal Eyes: Normal Ear: Normal Nose: Normal Throat: Normal Respiratory: Diminished Cardiovascular: Edema and Other (pacemaker ) Auscultation: Bowel Sounds: Normal Skin: Normal Musculoskeletal: Shoulder, Arm and Swelling Psychiatric: Anxiety Mood Description: Calm Speech Pattern: Clear and Appropriate Laboratory and Diagnostics 02/26/24 05:37 02/26/24 05:37 Labs: 02/26/24 09:53 Stool - Final Laboratory WBC 4.1 X10^3/uL (3.6-10.0) 02/26/24 05:37 RBC 3.33 X10^6/uL (3.5-5.4) L 02/26/24 05:37 Hgb 9.6 g/dL (12.0-16.0) L 02/26/24 05:37 Hct 28.7 % (36.0-47.0) L 02/26/24 05:37 MCV 86.1 fL (80.0-100.0) 02/26/24 05:37 MCH 28.7 pg (27.0-34.0) 02/26/24 05:37 MCHC 33.4 g/dL (33.0-35.0) 02/26/24 05:37 RDW 17.8 % (11.6-16.5) H 02/26/24 05:37 Plt Count 114 X10^3/uL (150.0-450.0) L 02/26/24 05:37 MPV 7.8 fL (7.4-11.0) 02/26/24 05:37 Neut % (Auto) 55.4 % (42.0-75.0) 02/26/24 05:37 Lymph % (Auto) 20.8 % (21.0-51.0) L 02/26/24 05:37 [place] % (Auto) 18.8 % (0.0-13.0) H 02/26/24 05:37 Eos % (Auto) 4.4 % (0.9-2.9) H 02/26/24 05:37 Baso % (Auto) 0.6 % (0.2-1.0) 02/26/24 05:37 Neut # (Auto) 2.3 x10^3/uL (2.2-4.8) 02/26/24 05:37 Lymph # (Auto) 0.9 X10^3/uL (1.3-2.9) L 02/26/24 05:37 [place] # (Auto) 0.8 x10^3/uL (0.3-0.8) 02/26/24 05:37 Eos # (Auto) 0.2 x10^3/uL (0.0-0.2) 02/26/24 05:37 Baso # (Auto) 0.0 X10^3/uL (0.0-0.1) 02/26/24 05:37 Absolute Nucleated RBC 0.2 /100WBC 02/26/24 05:37 PT 28.5 SECONDS (11.8-14.3) 02/22/24 09:00 INR Target Range - 02/22/24 09:00 INR 2.79 (0.8-1.3) H 02/22/24 09:00 Sodium 137 mmol/L (136-145) 02/26/24 05:37 Corrected Sodium TNP 02/26/24 05:37 Potassium 3.3 mmol/L (3.5-5.1) L 02/26/24 05:37 Chloride 99 mmol/L (98-107) 02/26/24 05:37 Carbon Dioxide 38.3 mmol/L (21-32) H 02/26/24 05:37 BUN 10 mg/dL (7-18) 02/26/24 05:37 Creatinine 0.58 mg/dL (0.55-1.02) 02/26/24 05:37 Est GFR (MDRD) Af Amer > 60 (>60) 02/26/24 05:37 Est GFR (MDRD) Non-Af > 60 (>60) 02/26/24 05:37 Glucose 85 mg/dL (65-99) 02/26/24 05:37 POC Glucose (mg/dL) 98 mg/dL (65-99) 02/26/24 16:10 Calcium 8.0 mg/dL (8.5-10.1) L 02/26/24 05:37 Corrected Calcium 9.3 mg/dL (8.5-10.1) 02/26/24 05:37 Magnesium 1.5 mg/dL (2.0-2.9) L 02/26/24 05:37 Total Bilirubin 1.80 mg/dL (0.2-1.0) H 02/26/24 05:37 AST 32 Units/L (15-37) 02/26/24 05:37 ALT 10 Units/L (12-78) L 02/26/24 05:37 Alkaline Phosphatase 61 Units/L (46-116) 02/26/24 05:37 Troponin I High Sens 16.3 ng/L (4.0-60.0) 02/21/24 17:00 B-Natriuretic Peptide 1160 pg/mL (0-79) H 02/26/24 05:37 Total Protein 5.8 g/dL (6.4-8.2) L 02/26/24 05:37 Albumin 2.4 g/dL (3.4-5.0) L 02/26/24 05:37 Globulin 3.4 g/dL (2.5-4.5) 02/26/24 05:37 Albumin/Globulin Ratio 0.7 Ratio (1.1-2.1) L 02/26/24 05:37 Lipase 8 Units/L (16-77) L 02/21/24 17:00 Specimen Type Catherized urine 02/21/24 17:19 Urine Color Yellow (YELLOW) 02/21/24 17:19 Urine Appearance Clear (CLEAR) 02/21/24 17:19 Urine pH 6.0 (5.0 - 8.0) 02/21/24 17:19 Ur Specific [place] 1.020 (1.000-1.030) 02/21/24 17:19 Urine Protein 2+ (NEGATIVE) 02/21/24 17:19 Urine Glucose (UA) Negative (NEGATIVE) 02/21/24 17:19 Urine Ketones Negative (NEGATIVE) 02/21/24 17:19 Urine Blood 3+ (NEGATIVE) 02/21/24 17:19 Urine Nitrite Negative (NEGATIVE) 02/21/24 17:19 Urine Bilirubin Negative (NEGATIVE) 02/21/24 17:19 Urine Urobilinogen Normal (NORMAL) 02/21/24 17:19 Ur Leukocyte Esterase 1+ (NEGATIVE) 02/21/24 17:19 Urine RBC 3-5 /HPF (0-3) A 02/21/24 17:19 Urine WBC 3-5 /HPF (0-5) 02/21/24 17:19 Ur Squamous Epith Cells Rare /HPF (NEGATIVE) 02/21/24 17:19 Calcium Oxalate Crystal Rare /HPF (NEGATIVE) 02/21/24 17:19 Urine Bacteria Trace /HPF (NEGATIVE) 02/21/24 17:19 Hyaline Casts Moderate /LPF (NEGATIVE) 02/21/24 17:19 Urine Yeast Rare /HPF (NEGATIVE) 02/21/24 17:19 Ur Culture Indicated? No/not indicated 02/21/24 17:19 Stl Occult Blood (IFOB) Negative (NEGATIVE) 02/26/24 09:53 Stool for White Cells Positive (NEGATIVE) A 02/26/24 09:53 Digoxin 0.70 ng/mL (0.9-2) L 02/25/24 07:10 Cryptosporid parvum Ag Negative (NEGATIVE) 02/26/24 09:53 Giardia lamblia Ag Negative (NEGATIVE) 02/26/24 09:53 Plan (1) Congestive heart failure: Status: Acute Plan: iv lasixwe will change the patient's Lasix to 80 in the morning and 40 in the evening. strict I&O bp control, cardiac monitoring verify home medications prn supplemental o2, cxr on admission Check daily BNPs and chest x-rays -The patient is currently on metoprolol succinate 25 mg 1 p.o. daily. This medication is not indicated for congestive heart failure, I will discontinue it and start her on carvedilol 6.25 mg twice daily. (2) Atrial fibrillation, controlled: Status: Chronic Plan: Continue digoxin and anticoagulation with apixaban 5 mg twice daily. (3) DM2 (diabetes mellitus, type 2): Status: Chronic Plan: Continue metformin 500 mg daily. (4) Anemia: Status: Chronic Qualifiers: Anemia type: unspecified type Qualified Code(s): D64.9 - Anemia, unspecified Plan: Check anemia panel. (5) Hypokalemia: Status: None Plan: Replace magnesium with potassium replacement protocol. (6) Diarrhea of presumed infectious origin: Status: Acute Plan: Follow-up stool culture since she was positive for stool WBCs. I suspect she has an underlying bacterial infection secondary to food poisoning. She was negative for C. difficile and ova and parasites. Start levofloxacin 500 mg IV daily. (7) Hypomagnesemia: Status: Inactive Plan: Magnesium oxide 800 mg p.o. 3 times daily for replacement therapy. Repeat magnesium level tomorrow morning. (8) Thrombocytopenia: Status: Acute Plan: Start IV Protonix 40 mg IV daily for GI protection since she is on Eliquis and has a low platelet count.
[2024-02-26 17:13] LABS: RETICULOCYTE % 1.21 % (0.8-2.2)
[2024-02-26] MEDS: COREG TAB 6.25 MG PO SCH (17:17)
[2024-02-26] MEDS: PROTONIX INJ 40 MG VIAL IVP SCH (17:18)
[2024-02-26] MEDS: LEVAQUIN PREMIX IV 500 MG 500 MG/100 ML BAG IV SCH (17:19)
[2024-02-27 06:24] LABS: BASOPHILS % (AUTO) 0.9 % (0.2-1.0); EOSINOPHILS # (AUTO) 0.2 x10^3/uL (0.0-0.2); EOSINOPHILS % (AUTO) 6.1 % (0.9-2.9); HEMATOCRIT 29.4 % (36.0-47.0); HEMOGLOBIN 9.7 g/dL (12.0-16.0); LYMPHOCYTES # (AUTO) 0.8 X10^3/uL (1.3-2.9); LYMPHOCYTES % (AUTO) 21.8 % (21.0-51.0); MEAN CORPUSCULAR HEMOGLOBIN 28.6 pg (27.0-34.0); MEAN CORPUSCULAR VOLUME 86.8 fL (80.0-100.0); MEAN PLATELET VOLUME 7.7 fL (7.4-11.0); MONOCYTES # (AUTO) 0.7 x10^3/uL (0.3-0.8); MONOCYTES % (AUTO) 17.5 % (0.0-13.0); NEUTROPHILS # (AUTO) 2.1 x10^3/uL (2.2-4.8); NEUTROPHILS % (AUTO) 53.7 % (42.0-75.0); PLATELET COUNT 112 X10^3/uL (150.0-450.0); RED BLOOD COUNT 3.38 X10^6/uL (3.5-5.4); RED CELL DISTRIBUTION WIDTH 18.1 % (11.6-16.5); WHITE BLOOD COUNT 3.9 X10^3/uL (3.6-10.0)
[2024-02-27 06:41] LABS: ALANINE AMINOTRANSFERASE 11 Units/L (12-78); ALBUMIN 2.2 g/dL (3.4-5.0); ALKALINE PHOSPHATASE 54 Units/L (46-116); ASPARTATE AMINO TRANSFERASE 33 Units/L (15-37); BLOOD UREA NITROGEN 9 mg/dL (7-18); CALCIUM 7.7 mg/dL (8.5-10.1); CARBON DIOXIDE 41.3 mmol/L (21-32); CHLORIDE 97 mmol/L (98-107); COR CA(FOR HYPOALB) 9.1 mg/dL (8.5-10.1); CREATININE 0.64 mg/dL (0.55-1.02); GLUCOSE 79 mg/dL (65-99); MAGNESIUM 1.6 mg/dL (2.0-2.9); POTASSIUM 3.4 mmol/L (3.5-5.1); SODIUM 138 mmol/L (136-145); TOTAL PROTEIN 5.4 g/dL (6.4-8.2); eGFR NON BLACK RACES > 60 (>60)
[2024-02-27] MEDS: LASIX IVP SCH (08:35)
--- NOTE | 2024-02-27 08:38 | CT ---
EXAM: CTA chest with contrast for pulmonary embolus HISTORY: Shortness of breath TECHNIQUE: Axial noncontrast images with coronal and sagittal reformats. Three-dimensional maximum intensity pr ojection images were obtained and evaluated. Dose reduction techniques were used with MA/kv adjusted for body size. COMPARISON: None FINDINGS: There is no evidence for acute pulmonary thromboembolic disease. Examination of the mediastinum de monstrated no evidence for mediastinal mass, abnormal mediastinal or abnormal hilar adenopathy or sig nificant aortic abnormality. The heart is enlarged. There is reflux of contrast into the inferior v car[place] cava and hepatic veins which can be seen with right heart dysfunction. Bilateral small pleural e ffusions are identified fluid is identified within the major fissure on the left and within the minor fissure and posterior aspect of the major fissure on the right. No chest wall or axillary abnormali ty is identified. Those portions of the upper abdominal organs visualized demonstrated cirrhotic hep atic morphology, ascites, and recanalization of the umbilical veins suggestive of portal hypertension . 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 Anasarca is present. Examination of the lung muse demonstrated a small area of ground-glass in filtrate anteriorly in the left upper lobe possibly early pneumonia. No other infiltrates or areas o f consolidation identified. No significant peribronchial thickening or bronchiectasis identified. N o significant pulmonary nodules identified. IMPRESSION: No evidence for acute pulmonary thromboembolic disease Small area of ground-glass infiltrate in the anterior segment of the left upper lobe possibly early p [place] Cardiomegaly without definite congestive heart failure but with reflux of contrast into the inferior vena cava and hepatic veins which can be seen with right heart dysfunction Bilateral small pleural effusions Cirrhotic hepatic morphology, ascites, recanalization of the umbilical veins consistent with portal h ypertension Cholelithiasis without evidence for cholecystitis Anasarca THIS IS AN ELECTRONICALLY VERIFIED FINAL REPORT 02/27/2024 8:35 AM - Electronically signed by Chino Meredith MD
[2024-02-27 12:58] VITALS: RESP 18; TEMP 97.8; O2SAT 98
--- NOTE | 2024-02-27 17:12 | PCM.DCPLAN ---
DISCHARGE SUMMARY Admission Date Date of Admission: 02/21/24 Discharge Date Discharge Date: 02/27/24 Admission Diagnoses (1) Congestive heart failure: Status: Acute (2) Atrial fibrillation, controlled: Status: Chronic (3) DM2 (diabetes mellitus, type 2): Status: Chronic (4) Anemia: Status: Chronic (5) Hypokalemia: Status: None (6) Diarrhea of presumed infectious origin: Status: Acute (7) Hypomagnesemia: Status: Inactive (8) Thrombocytopenia: Status: Acute Discharge Diagnoses Discharge Diagnosis: 1. CHF exacerbation resolved 2. Atrial fibrillation controlled 3. Hypokalemiaresolved 4. Hypomagnesemiaresolved 5. Diarrhea of infectious origin 6. Thrombocytopenia 7. Diabetes mellitus type 2stable 8. Hypoxia requiring supplemental O2 9. Anemia of chronic disease Discharge Medications Discharge Medications: Home Medication List hydrocodone 7.5 mg-acetaminophen 325 mg tablet 1 tab PO QID PRN 02/21/24 [History] levofloxacin 500 mg tablet 500 mg PO Q24H #8 tabs 02/27/24 [Rx] magnesium oxide 400 mg (241.3 mg magnesium) tablet (MagOx) 800 mg PO BID #120 tabs 02/27/24 [Rx] potassium chloride 20 mEq oral packet 20 meq PO BID #60 ea 02/27/24 [Rx] Prescriptions: Oren Diaz magnesium oxide [MagOx] Oren Madrid potassium chloride Oren Madrid Hospital Course Vital Signs: Vital Signs Temperature 97.8 F Pulse Rate [Apical] 70 Respiratory Rate 18 Respiratory Rate 20 Respiratory Rate 18 Blood Pressure [Right Arm] 104/51 O2 Sat by Pulse Oximetry 98 Latest Lab Results: Laboratory Last Values WBC 3.9 X10^3/uL (3.6-10.0) 02/27/24 05:35 RBC 3.38 X10^6/uL (3.5-5.4) L 02/27/24 05:35 Hgb 9.7 g/dL (12.0-16.0) L 02/27/24 05:35 Hct 29.4 % (36.0-47.0) L 02/27/24 05:35 MCV 86.8 fL (80.0-100.0) 02/27/24 05:35 MCH 28.6 pg (27.0-34.0) 02/27/24 05:35 MCHC 33.0 g/dL (33.0-35.0) 02/27/24 05:35 RDW 18.1 % (11.6-16.5) H 02/27/24 05:35 Plt Count 112 X10^3/uL (150.0-450.0) L 02/27/24 05:35 MPV 7.7 fL (7.4-11.0) 02/27/24 05:35 Neut % (Auto) 53.7 % (42.0-75.0) 02/27/24 05:35 Lymph % (Auto) 21.8 % (21.0-51.0) 02/27/24 05:35 [place] % (Auto) 17.5 % (0.0-13.0) H 02/27/24 05:35 Eos % (Auto) 6.1 % (0.9-2.9) H 02/27/24 05:35 Baso % (Auto) 0.9 % (0.2-1.0) 02/27/24 05:35 Neut # (Auto) 2.1 x10^3/uL (2.2-4.8) L 02/27/24 05:35 Lymph # (Auto) 0.8 X10^3/uL (1.3-2.9) L 02/27/24 05:35 [place] # (Auto) 0.7 x10^3/uL (0.3-0.8) 02/27/24 05:35 Eos # (Auto) 0.2 x10^3/uL (0.0-0.2) 02/27/24 05:35 Baso # (Auto) 0.0 X10^3/uL (0.0-0.1) 02/27/24 05:35 Absolute Nucleated RBC 0.1 /100WBC 02/27/24 05:35 Absolute Retic 0.0408 10^6/uL 02/26/24 05:37 Percent Retic 1.21 % (0.8-2.2) 02/26/24 05:37 PT 28.5 SECONDS (11.8-14.3) 02/22/24 09:00 INR Target Range - 02/22/24 09:00 INR 2.79 (0.8-1.3) H 02/22/24 09:00 Sodium 138 mmol/L (136-145) 02/27/24 05:35 Corrected Sodium TNP 02/27/24 05:35 Potassium 3.4 mmol/L (3.5-5.1) L 02/27/24 05:35 Chloride 97 mmol/L (98-107) L 02/27/24 05:35 Carbon Dioxide 41.3 mmol/L (21-32) H 02/27/24 05:35 BUN 9 mg/dL (7-18) 02/27/24 05:35 Creatinine 0.64 mg/dL (0.55-1.02) 02/27/24 05:35 Est GFR (MDRD) Af Amer > 60 (>60) 02/27/24 05:35 Est GFR (MDRD) Non-Af > 60 (>60) 02/27/24 05:35 Glucose 79 mg/dL (65-99) 02/27/24 05:35 POC Glucose (mg/dL) 121 mg/dL (65-99) H 02/27/24 16:26 Calcium 7.7 mg/dL (8.5-10.1) L 02/27/24 05:35 Corrected Calcium 9.1 mg/dL (8.5-10.1) 02/27/24 05:35 Magnesium 1.6 mg/dL (2.0-2.9) L 02/27/24 05:35 Iron 29 ug/dL (50-175) L 02/26/24 05:37 TIBC 265 ug/dL (250-450) 02/26/24 05:37 Transferrin 219 mg/dL (202-364) 02/26/24 05:37 Ferritin 27 ng/mL (8-252) 02/26/24 05:37 Total Bilirubin 1.50 mg/dL (0.2-1.0) H 02/27/24 05:35 AST 33 Units/L (15-37) 02/27/24 05:35 ALT 11 Units/L (12-78) L 02/27/24 05:35 Alkaline Phosphatase 54 Units/L (46-116) 02/27/24 05:35 Troponin I High Sens 16.3 ng/L (4.0-60.0) 02/21/24 17:00 B-Natriuretic Peptide 844 pg/mL (0-79) H 02/27/24 05:35 Total Protein 5.4 g/dL (6.4-8.2) L 02/27/24 05:35 Albumin 2.2 g/dL (3.4-5.0) L 02/27/24 05:35 Globulin 3.2 g/dL (2.5-4.5) 02/27/24 05:35 Albumin/Globulin Ratio 0.7 Ratio (1.1-2.1) L 02/27/24 05:35 Lipase 8 Units/L (16-77) L 02/21/24 17:00 Vitamin B12 1391 pg/mL (193-986) H 02/26/24 05:37 Folate 13.0 ng/mL (>8.6) 02/26/24 05:37 Specimen Type Catherized urine 02/21/24 17:19 Urine Color Yellow (YELLOW) 02/21/24 17:19 Urine Appearance Clear (CLEAR) 02/21/24 17:19 Urine pH 6.0 (5.0 - 8.0) 02/21/24 17:19 Ur Specific [place] 1.020 (1.000-1.030) 02/21/24 17:19 Urine Protein 2+ (NEGATIVE) 02/21/24 17:19 Urine Glucose (UA) Negative (NEGATIVE) 02/21/24 17:19 Urine Ketones Negative (NEGATIVE) 02/21/24 17:19 Urine Blood 3+ (NEGATIVE) 02/21/24 17:19 Urine Nitrite Negative (NEGATIVE) 02/21/24 17:19 Urine Bilirubin Negative (NEGATIVE) 02/21/24 17:19 Urine Urobilinogen Normal (NORMAL) 02/21/24 17:19 Ur Leukocyte Esterase 1+ (NEGATIVE) 02/21/24 17:19 Urine RBC 3-5 /HPF (0-3) A 02/21/24 17:19 Urine WBC 3-5 /HPF (0-5) 02/21/24 17:19 Ur Squamous Epith Cells Rare /HPF (NEGATIVE) 02/21/24 17:19 Calcium Oxalate Crystal Rare /HPF (NEGATIVE) 02/21/24 17:19 Urine Bacteria Trace /HPF (NEGATIVE) 02/21/24 17:19 Hyaline Casts Moderate /LPF (NEGATIVE) 02/21/24 17:19 Urine Yeast Rare /HPF (NEGATIVE) 02/21/24 17:19 Ur Culture Indicated? No/not indicated 02/21/24 17:19 Stl Occult Blood (IFOB) Negative (NEGATIVE) 02/26/24 09:53 Stool for White Cells Positive (NEGATIVE) A 02/26/24 09:53 Digoxin 0.70 ng/mL (0.9-2) L 02/25/24 07:10 Cryptosporid parvum Ag Negative (NEGATIVE) 02/26/24 09:53 Giardia lamblia Ag Negative (NEGATIVE) 02/26/24 09:53 Hospital Course: 78-year-old female brought in for evaluation via EMS. Patient has been fighting swollen legs over the past 2 months. He is having worsening shortness of breath, exertional dyspnea. Sleep sitting up, becomes short of breath if she lays flat. Has had minimal cough, nonproductive. Denies fever, chills, nausea, vomiting, bowel or bladder issues. Did see her provider, Dr. Madrid, 2 months ago, he increased her Lasix to 20 mg 2 times per day. Over the next days the patient was diuresed with IV Lasix. The covering physician initially tried to order a CT scan of her lungs but she refused because of her low back pain. She did have some left upper extremity swelling coming in the hospital and left breast pain but that has resolved since in the early part of the admission. Over this past weekend she started developing diarrhea and a stool workup was done that showed that she was positive for white blood cells in the stool. She did not have any red blood cells in the stool. Campylobacter testing was negative. I suspected that she likely had food poiso aranza given that she was positive for white blood cells. We started her on IV Levaquin and by the next day her diarrhea had subsided. Echocardiogram was done that showed she had an ejection fraction of 40%. When I came in after the weekend I was able to convince the patient to get the CT scan but given her IV Dilaudid prior to the scan. CT scan of the lungs showed that she did not have a pulmonary embolism and there were no lung masses. The CT scan did show changes of pulmonary edema secondary to CHF. This morning the patient is alert and awake and has had no acute problems since yesterday. She is more than ready to go home. We did get her up set her in the chair and walked her some min her O2 sat has dropped down to the upper 80s to low 90s. Because of this we decided to get her home oxygen and keep her at 2 L per nasal cannula. She had previously not been on oxygen. Regarding the patient's discharge medications. We are adjusting her home Lasix dose to 40 mg twice daily with potassium chloride 20 mill equivalents twice daily. We are going to continue her on magnesium oxide 800 mg twice daily. We will continue her on Levaquin 500 milligrams daily for additional 8 days for her infectious diarrhea. We also stopped her metoprolol ER and change her to carvedilol 6.25 mg twice daily since it is indicated for congestive heart failure. Patient will be discharged home in stable condition and I will have her follow- up with me within a week for hospital follow-up. If she has any problems prior to the follow-up she is to call my office so I can get her in sooner or if she cannot get a hold of me to go to the closest emergency department for further evaluation and treatment. Patient understands this.
[2024-02-27 17:28] VITALS: BP 109/51; PULSE 72
== END 2024-02-27 17:40 | disposition home health service (06) | DRG 292 ==
LOC: ER 16:27 → MED/SURG 16:27
PROVIDERS: ADMIT Internal Medicine; ATTEND Family Medicine
DX: R06.02 Shortness of breath; E83.42 Hypomagnesemia; I50.9 Heart failure, unspecified; D69.6 Thrombocytopenia, unspecified; R94.31 Abnormal electrocardiogram [ECG] [EKG]; E11.65 Type 2 diabetes mellitus with hyperglycemia; D64.89 Other specified anemias; I48.20 Chronic atrial fibrillation, unspecified; R79.1 Abnormal coagulation profile; I11.0 Hypertensive heart disease with heart failure; R60.0 Localized edema; R19.7 Diarrhea, unspecified; Z79.01 Long term (current) use of anticoagulants; Z95.0 Presence of cardiac pacemaker; E87.6 Hypokalemia; R26.89 Other abnormalities of gait and mobility

== ENCOUNTER 2024-09-16 11:17 | Inpatient (IN) ==
--- NOTE | 2024-09-16 11:40 | DR.SOBA ---
HPI Time Seen Time Seen by Provider: 09/16/24 11:38 Primary Care Physician Primary Care Physician: robby HPI Comment HPI Comment: History as below. Complaints Chief Complaint Doctors Comments: Patient is 78yr old female in ER via EMS complaining of increasing SOB and diarrhea for few days. Chief Complaint:: Patient states she has had a increase sob in the past couple of the days states her sob is worse with exerction she has been having to get up more frequently due to diarrhea that started x2 days ago. patient states she has had pain all over but that is chronic. COVID-19 Coronavirus risk:travel/contact w/high risk person: No Has patient experienced Coronavirus symptoms: No Reviewed Nurses Notes Reviewed: Yes Source History Provided: Patient Mode of Arrival Mode of Arrival: EMS Timing Onset of Chief Complaint: 09/14/24 PMH PMH Past Medical History: Yes Past Medical History: Angina, Anxiety, Arthritis, CHF, Depression, Diabetes, GERD and Hypertension Past Surgical History: Yes Surgical History: Joint Replacement, Ortho Surgery and Tonsillectomy Family History History of Family Medical Conditions: Yes Family Medical History: Diabetes Mellitus and Cancer Social History Does patient currently use any type of tobacco product: No Have you used tobacco products in the last 12 months: No Type of Tobacco Use: None Does any household member use tobacco: No Alcohol Use: None Do you use any recreational Drugs:: No Lives With: Family Lives Where: Home Travel Risk Coronavirus risk:travel/contact w/high risk person: No Has patient experienced Coronavirus symptoms: No Infectious screening In the last 2 months have you had wt loss of >10#?: NO Have you had fever, night sweats or hemotysis?: No Have you traveled outside the country in the last 6 months?: No Isolation: Standard ROS Review of Systems Constitutional: No Symptoms Reported Eyes: No Symptoms Reported ENTM: No Symptoms Reported Respiratoy: No Symptoms Reported Cardiovascular: No Symptoms Reported Gastrointestinal/Abdominal: No Symptoms Reported Genitourinary: No Symptoms Reported Neurological: No Symptoms Reported Musculoskeletal: No Symptoms Reported Integumentary: No Symptoms Reported Hematologic/Lymphatic: No Symptoms Reported Endocrine: No Symptoms Reported Psychiatric: No Symptoms Reported All Other Systems: Reviewed and Negative PE Vital Signs Vitals: Vital Signs Temperature 98.1 F Pulse Rate 76 Respiratory Rate 20 Blood Pressure 111/54 O2 Sat by Pulse Oximetry 100 General Limitations: No Limitations General Appearance: Alert and In No Apparent Distress Head Head Exam: Normal Inspection and Atraumatic Eyes Eye exam: Normal Appearance and PERRL; negative Scleral Icterus or Conjunctival Injection (pale conjunctiva.) ENT ENT Exam: Normal Exam, Normal Oropharynx, Normal External Ear Exam and TM's Normal Bilaterally Neck Neck Exam: Normal Inspection and Trachea Midline; negative Tenderness Chest Chest Inspection: Normal Inspection, Symmetric Chest Wall Rise and Tenderness; negative Rash Respiratory Respiratory Exam: Normal Lung Sounds Bilat, Accessory Muscle Use and Chest Wall Tenderness; negative Respiratory Distress Respiratory Exam: Bilateral: Rhonchi Abdominal Exam Abdominal Exam: Normal Inspection, Normal Bowel Sounds and Soft; negative Distention Extremities Extremities Exam: Normal Inspection and Normal Capillary Refill Back Back Exam: Normal Inspection Psychiatric Psychiatric Exam: Normal Affect and Normal Mood MDM Differential Diagnosis Differential Diagnosis: Asthma, CHF, Pneumonia, Pulmonary embolism and Respiratory Insufficiency COURSE Treatment Treatment: See treatment while in ED Consultation Called: 13:40 Call Returned: 13:56 Consultation Comments: Spoke with Dr. Torrez. Agrees to admit patient Education/Counseling Education/Counseling: Patient and Family Educated On: Treatment and Diagnosis ROR Labs Reviewed Laboratory Results Reviewed?: Yes 09/17/24 05:20 09/17/24 05:20 Laboratory: WBC 6.1 X10^3/uL (3.6-10.0) 09/16/24 12:06 RBC 2.91 X10^6/uL (3.5-5.4) L 09/16/24 12:06 Hgb 8.7 g/dL (12.0-16.0) L 09/16/24 12:06 Hct 26.1 % (36.0-47.0) L 09/16/24 12:06 MCV 89.7 fL (80.0-100.0) 09/16/24 12:06 MCH 29.9 pg (27.0-34.0) 09/16/24 12:06 MCHC 33.4 g/dL (33.0-35.0) 09/16/24 12:06 RDW 15.8 % (11.6-16.5) 09/16/24 12:06 Plt Count 149 X10^3/uL (150.0-450.0) L 09/16/24 12:06 MPV 8.3 fL (7.4-11.0) 09/16/24 12:06 Neut % (Auto) 74.2 % (42.0-75.0) 09/16/24 12:06 Lymph % (Auto) 8.9 % (21.0-51.0) L 09/16/24 12:06 [place] % (Auto) 15.4 % (0.0-13.0) H 09/16/24 12:06 Eos % (Auto) 1.1 % (0.9-2.9) 09/16/24 12:06 Baso % (Auto) 0.4 % (0.2-1.0) 09/16/24 12:06 Neut # (Auto) 4.5 x10^3/uL (2.2-4.8) 09/16/24 12:06 Lymph # (Auto) 0.5 X10^3/uL (1.3-2.9) L 09/16/24 12:06 [place] # (Auto) 0.9 x10^3/uL (0.3-0.8) H 09/16/24 12:06 Eos # (Auto) 0.1 x10^3/uL (0.0-0.2) 09/16/24 12:06 Baso # (Auto) 0.0 X10^3/uL (0.0-0.1) 09/16/24 12:06 Absolute Nucleated RBC 0.0 /100WBC 09/16/24 12:06 PT 25.0 SECONDS (11.8-14.3) 09/16/24 12:06 INR Target Range - 09/16/24 12:06 INR 2.36 (0.8-1.3) H 09/16/24 12:06 APTT 44.9 SECONDS (22.9-36.5) H 09/16/24 12:06 PTT Comment - 09/16/24 12:06 Sodium 129 mmol/L (136-145) L 09/16/24 12:06 Corrected Sodium TNP 09/16/24 12:06 Potassium 4.8 mmol/L (3.5-5.1) 09/16/24 12:06 Chloride 94 mmol/L (98-107) L 09/16/24 12:06 Carbon Dioxide 27.9 mmol/L (21-32) 09/16/24 12:06 BUN 43 mg/dL (7-18) H 09/16/24 12:06 Creatinine 1.11 mg/dL (0.55-1.02) H 09/16/24 12:06 Est GFR (MDRD) Af Amer > 60 (>60) 09/16/24 12:06 Est GFR (MDRD) Non-Af 50 (>60) L 09/16/24 12:06 Glucose 90 mg/dL (65-99) 09/16/24 12:06 Calcium 8.8 mg/dL (8.5-10.1) 09/16/24 12:06 Corrected Calcium 9.5 mg/dL (8.5-10.1) 09/16/24 12:06 Magnesium 2.1 mg/dL (2.0-2.9) 09/16/24 12:06 Total Bilirubin 2.40 mg/dL (0.2-1.0) H 09/16/24 12:06 AST 31 Units/L (15-37) 09/16/24 12:06 ALT 16 Units/L (12-78) 09/16/24 12:06 Alkaline Phosphatase 67 Units/L (46-116) 09/16/24 12:06 B-Natriuretic Peptide 1700 pg/mL (0-79) H 09/16/24 12:06 Total Protein 6.9 g/dL (6.4-8.2) 09/16/24 12:06 Albumin 3.1 g/dL (3.4-5.0) L 09/16/24 12:06 Globulin 3.8 g/dL (2.5-4.5) 09/16/24 12:06 Albumin/Globulin Ratio 0.8 Ratio (1.1-2.1) L 09/16/24 12:06 Specimen Type Clean catch urine 09/16/24 12:03 Urine Color Yellow (YELLOW) 09/16/24 12:03 Urine Appearance Slightly hazy (CLEAR) 09/16/24 12:03 Urine pH 6.0 (5.0 - 8.0) 09/16/24 12:03 Ur Specific [place] 1.015 (1.000-1.030) 09/16/24 12:03 Urine Protein 2+ (NEGATIVE) 09/16/24 12:03 Urine Glucose (UA) Negative (NEGATIVE) 09/16/24 12:03 Urine Ketones Negative (NEGATIVE) 09/16/24 12:03 Urine Blood 1+ (NEGATIVE) 09/16/24 12:03 Urine Nitrite Negative (NEGATIVE) 09/16/24 12:03 Urine Bilirubin Negative (NEGATIVE) 09/16/24 12:03 Urine Urobilinogen Normal (NORMAL) 09/16/24 12:03 Ur Leukocyte Esterase 1+ (NEGATIVE) 09/16/24 12:03 Urine RBC 0-2 /HPF (0-3) 09/16/24 12:03 Urine WBC 0-2 /HPF (0-5) 09/16/24 12:03 Ur Squamous Epith Cells Rare /HPF (NEGATIVE) 09/16/24 12:03 Urine Bacteria Negative /HPF (NEGATIVE) 09/16/24 12:03 Urine Mucus Rare /HPF (NEGATIVE) 09/16/24 12:03 Ur Culture Indicated? No/not indicated 09/16/24 12:03 Opioid Opioid Risk Tool Age ([place] box if 16-45): No History of Preadolescent Sexual Abuse: No Total: 0 Total Score Risk Category: Low Risk Copyright: Vasile LUNA predicting aberrant behaviors Discharge Plan Diagnosis Discharge Problem: SOB (shortness of breath), Acute dyspnea, Lip dryness CHF (congestive heart failure) Qualifiers: Heart failure type: combined systolic and diastolic Heart failure chronicity: acute on chronic Qualified Code(s): I50.43 - Acute on chronic combined systolic (congestive) and diastolic (congestive) heart failure Diarrhea Qualifiers: Diarrhea type: unspecified type Qualified Code(s): R19.7 - Diarrhea, unspecified Discharge Plan Patient Disposition: ADMITTED INPATIENT Condition: Stable
[2024-09-16 12:11] LABS: BILIRUBIN,URINE NEGATIVE (NEGATIVE); BLOOD/HEMOGLOBIN,URINE 1+ (NEGATIVE); GLUCOSE, URINE NEGATIVE (NEGATIVE); KETONES,URINE NEGATIVE (NEGATIVE); LEUKOCYTE ESTERASE ,URINE 1+ (NEGATIVE); NITRITES,URINE NEGATIVE (NEGATIVE); PROTEIN,URINE 2+ (NEGATIVE); UROBILINOGEN,URINE NORMAL (NORMAL)
[2024-09-16 12:18] LABS: APPEARANCE,URINE SLIGHTLY HAZY (CLEAR); COLOR,URINE YELLOW (YELLOW)
[2024-09-16 12:19] LABS: BASOPHILS % (AUTO) 0.4 % (0.2-1.0); EOSINOPHILS # (AUTO) 0.1 x10^3/uL (0.0-0.2); EOSINOPHILS % (AUTO) 1.1 % (0.9-2.9); HEMATOCRIT 26.1 % (36.0-47.0); HEMOGLOBIN 8.7 g/dL (12.0-16.0); LYMPHOCYTES # (AUTO) 0.5 X10^3/uL (1.3-2.9); LYMPHOCYTES % (AUTO) 8.9 % (21.0-51.0); MEAN CORPUSCULAR HEMOGLOBIN 29.9 pg (27.0-34.0); MEAN CORPUSCULAR HGB CONC 33.4 g/dL (33.0-35.0); MEAN CORPUSCULAR VOLUME 89.7 fL (80.0-100.0); MEAN PLATELET VOLUME 8.3 fL (7.4-11.0); MONOCYTES # (AUTO) 0.9 x10^3/uL (0.3-0.8); MONOCYTES % (AUTO) 15.4 % (0.0-13.0); NEUTROPHILS # (AUTO) 4.5 x10^3/uL (2.2-4.8); NEUTROPHILS % (AUTO) 74.2 % (42.0-75.0); PLATELET COUNT 149 X10^3/uL (150.0-450.0); RED BLOOD COUNT 2.91 X10^6/uL (3.5-5.4); RED CELL DISTRIBUTION WIDTH 15.8 % (11.6-16.5); WHITE BLOOD COUNT 6.1 X10^3/uL (3.6-10.0)
[2024-09-16 12:26] LABS: BACTERIA,URINE NEGATIVE /HPF (NEGATIVE); RBC,URINE 0-2 /HPF (0-3); SQUAMOUS EPITHELIAL CELL,UR RARE /HPF (NEGATIVE)
[2024-09-16 12:27] LABS: ALANINE AMINOTRANSFERASE 16 Units/L (12-78); ALBUMIN 3.1 g/dL (3.4-5.0); ALKALINE PHOSPHATASE 67 Units/L (46-116); ASPARTATE AMINO TRANSFERASE 31 Units/L (15-37); BLOOD UREA NITROGEN 43 mg/dL (7-18); CALCIUM 8.8 mg/dL (8.5-10.1); CARBON DIOXIDE 27.9 mmol/L (21-32); CHLORIDE 94 mmol/L (98-107); COR CA(FOR HYPOALB) 9.5 mg/dL (8.5-10.1); CREATININE 1.11 mg/dL (0.55-1.02); GLUCOSE 90 mg/dL (65-99); MAGNESIUM 2.1 mg/dL (2.0-2.9); POTASSIUM 4.8 mmol/L (3.5-5.1); SODIUM 129 mmol/L (136-145); TOTAL PROTEIN 6.9 g/dL (6.4-8.2); eGFR NON BLACK RACES 50 (>60)
[2024-09-16 13:45] LABS: INR 2.36 (0.8-1.3)
[2024-09-16] MEDS: LASIX IVP ONE ×2 (14:05→17:13)
[2024-09-16 18:17] VITALS: BMI 32.5
[2024-09-16] MEDS ORDERED: NovoLIN R (or HumuLIN R) SUBCUT PRN (18:32)
[2024-09-16] MEDS: ANCEF VIAL 1 GRAM IVP SCH (21:09)
[2024-09-16] MEDS: SNACK - Diabetic Appropriate PO SCH (21:15)
[2024-09-17 06:08] LABS: BASOPHILS % (AUTO) 0.4 % (0.2-1.0); EOSINOPHILS # (AUTO) 0.1 x10^3/uL (0.0-0.2); EOSINOPHILS % (AUTO) 1.6 % (0.9-2.9); HEMATOCRIT 24.4 % (36.0-47.0); HEMOGLOBIN 8.3 g/dL (12.0-16.0); LYMPHOCYTES # (AUTO) 0.6 X10^3/uL (1.3-2.9); LYMPHOCYTES % (AUTO) 9.4 % (21.0-51.0); MEAN CORPUSCULAR HEMOGLOBIN 30.2 pg (27.0-34.0); MEAN CORPUSCULAR HGB CONC 33.9 g/dL (33.0-35.0); MEAN CORPUSCULAR VOLUME 89.1 fL (80.0-100.0); MEAN PLATELET VOLUME 8.2 fL (7.4-11.0); MONOCYTES # (AUTO) 0.9 x10^3/uL (0.3-0.8); MONOCYTES % (AUTO) 14.9 % (0.0-13.0); NEUTROPHILS # (AUTO) 4.6 x10^3/uL (2.2-4.8); NEUTROPHILS % (AUTO) 73.7 % (42.0-75.0); PLATELET COUNT 155 X10^3/uL (150.0-450.0); RED BLOOD COUNT 2.74 X10^6/uL (3.5-5.4); RED CELL DISTRIBUTION WIDTH 16.1 % (11.6-16.5); WHITE BLOOD COUNT 6.2 X10^3/uL (3.6-10.0)
[2024-09-17 06:20] LABS: ALANINE AMINOTRANSFERASE 14 Units/L (12-78); ALBUMIN 2.8 g/dL (3.4-5.0); ALKALINE PHOSPHATASE 58 Units/L (46-116); ASPARTATE AMINO TRANSFERASE 31 Units/L (15-37); BLOOD UREA NITROGEN 35 mg/dL (7-18); CALCIUM 8.6 mg/dL (8.5-10.1); CHLORIDE 95 mmol/L (98-107); COR CA(FOR HYPOALB) 9.6 mg/dL (8.5-10.1); CREATININE 0.89 mg/dL (0.55-1.02); GLUCOSE 83 mg/dL (65-99); POTASSIUM 4.3 mmol/L (3.5-5.1); SODIUM 132 mmol/L (136-145); TOTAL PROTEIN 6.4 g/dL (6.4-8.2); eGFR NON BLACK RACES > 60 (>60)
--- NOTE | 2024-09-17 10:35 | DR.H&P ---
H&P History & Physical for Day of: H&P Date: 09/17/24 Chief Complaint Chief Complaint: SOB History of Present Illness History of Present Illness: Ms Angeles is a 78y/o female with a PMH of CHF, CAD, Atrial fibrillation, pacemaker, Type 2 DM, GERD, HTN, anemia presented with worsening dyspnea. She was seen in the ER on 09/13/24 for fluid overload and UTI. She was discharged on antibiotics and lasix. She states her abdominal swelling and LE edema has been worsening. She has been taking lasix 40 mg BID. She has had recurrent admissions for similar symptoms. ER work up showed elevated BNP. She was given IV lasix. She is currently on 2L NC which she uses at home. She was also started on IV antibiotics for E.coli UTI. 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 She lives alone and has an aid that comes 5 days a week for 2 hours. She has been placed in nursing homes several times but always leaves. Labs/imaging reviewed: -WBC 6.2 Hgb 8.3 Cr 0.89 BNP 1700 -Echo January 2024: EF 40-45%, wall motion abnormalities noted. Plan: will order CXR, monitor I&O, daily weights. Continue telemetry. Continue IV lasix 40 mg BID. Resume home medications. Replace electrolytes as per protocol. Continue IV antibiotics. PT/OT as tolerated. Monitor AM labs/imaging. Past Medical History Past Medical History: Angina, Anxiety, Arthritis, CHF, Depression, Diabetes, GERD and Hypertension Past Surgical History Surgical History: Joint Replacement, Ortho Surgery and Tonsillectomy Family History Family Medical History: Diabetes Mellitus and Cancer Social History Does patient currently use any type of tobacco product: No Have you used tobacco products in the last 12 months: No Type of Tobacco Use: None Does any household member use tobacco: No Alcohol Use: None Drug Use: None Allergies Allergies Allergy/AdvReac Type Severity Reaction Status Date / Time No Known Allergies Allergy Verified 09/13/24 13:56 Labs 09/17/24 05:20 09/17/24 05:20 Labs: Laboratory WBC 6.2 X10^3/uL (3.6-10.0) 09/17/24 05:20 RBC 2.74 X10^6/uL (3.5-5.4) L 09/17/24 05:20 Hgb 8.3 g/dL (12.0-16.0) L 09/17/24 05:20 Hct 24.4 % (36.0-47.0) L 09/17/24 05:20 MCV 89.1 fL (80.0-100.0) 09/17/24 05:20 MCH 30.2 pg (27.0-34.0) 09/17/24 05:20 MCHC 33.9 g/dL (33.0-35.0) 09/17/24 05:20 RDW 16.1 % (11.6-16.5) 09/17/24 05:20 Plt Count 155 X10^3/uL (150.0-450.0) 09/17/24 05:20 MPV 8.2 fL (7.4-11.0) 09/17/24 05:20 Neut % (Auto) 73.7 % (42.0-75.0) 09/17/24 05:20 Lymph % (Auto) 9.4 % (21.0-51.0) L 09/17/24 05:20 [place] % (Auto) 14.9 % (0.0-13.0) H 09/17/24 05:20 Eos % (Auto) 1.6 % (0.9-2.9) 09/17/24 05:20 Baso % (Auto) 0.4 % (0.2-1.0) 09/17/24 05:20 Neut # (Auto) 4.6 x10^3/uL (2.2-4.8) 09/17/24 05:20 Lymph # (Auto) 0.6 X10^3/uL (1.3-2.9) L 09/17/24 05:20 [place] # (Auto) 0.9 x10^3/uL (0.3-0.8) H 09/17/24 05:20 Eos # (Auto) 0.1 x10^3/uL (0.0-0.2) 09/17/24 05:20 Baso # (Auto) 0.0 X10^3/uL (0.0-0.1) 09/17/24 05:20 Absolute Nucleated RBC 0.1 /100WBC 09/17/24 05:20 PT 25.0 SECONDS (11.8-14.3) 09/16/24 12:06 INR Target Range - 09/16/24 12:06 INR 2.36 (0.8-1.3) H 09/16/24 12:06 APTT 44.9 SECONDS (22.9-36.5) H 09/16/24 12:06 PTT Comment - 09/16/24 12:06 Sodium 132 mmol/L (136-145) L 09/17/24 05:20 Corrected Sodium TNP 09/17/24 05:20 Potassium 4.3 mmol/L (3.5-5.1) 09/17/24 05:20 Chloride 95 mmol/L (98-107) L 09/17/24 05:20 Carbon Dioxide 29.0 mmol/L (21-32) 09/17/24 05:20 BUN 35 mg/dL (7-18) H 09/17/24 05:20 Creatinine 0.89 mg/dL (0.55-1.02) 09/17/24 05:20 Est GFR (MDRD) Af Amer > 60 (>60) 09/17/24 05:20 Est GFR (MDRD) Non-Af > 60 (>60) 09/17/24 05:20 Glucose 83 mg/dL (65-99) 09/17/24 05:20 POC Glucose (mg/dL) 87 mg/dL (65-99) 09/17/24 06:31 Calcium 8.6 mg/dL (8.5-10.1) 09/17/24 05:20 Corrected Calcium 9.6 mg/dL (8.5-10.1) 09/17/24 05:20 Magnesium 2.1 mg/dL (2.0-2.9) 09/16/24 12:06 Total Bilirubin 1.90 mg/dL (0.2-1.0) H 09/17/24 05:20 AST 31 Units/L (15-37) 09/17/24 05:20 ALT 14 Units/L (12-78) 09/17/24 05:20 Alkaline Phosphatase 58 Units/L (46-116) 09/17/24 05:20 B-Natriuretic Peptide 1700 pg/mL (0-79) H 09/16/24 12:06 Total Protein 6.4 g/dL (6.4-8.2) 09/17/24 05:20 Albumin 2.8 g/dL (3.4-5.0) L 09/17/24 05:20 Globulin 3.6 g/dL (2.5-4.5) 09/17/24 05:20 Albumin/Globulin Ratio 0.8 Ratio (1.1-2.1) L 09/17/24 05:20 Specimen Type Clean catch urine 09/16/24 12:03 Urine Color Yellow (YELLOW) 09/16/24 12:03 Urine Appearance Slightly hazy (CLEAR) 09/16/24 12:03 Urine pH 6.0 (5.0 - 8.0) 09/16/24 12:03 Ur Specific [place] 1.015 (1.000-1.030) 09/16/24 12:03 Urine Protein 2+ (NEGATIVE) 09/16/24 12:03 Urine Glucose (UA) Negative (NEGATIVE) 09/16/24 12:03 Urine Ketones Negative (NEGATIVE) 09/16/24 12:03 Urine Blood 1+ (NEGATIVE) 09/16/24 12:03 Urine Nitrite Negative (NEGATIVE) 09/16/24 12:03 Urine Bilirubin Negative (NEGATIVE) 09/16/24 12:03 Urine Urobilinogen Normal (NORMAL) 09/16/24 12:03 Ur Leukocyte Esterase 1+ (NEGATIVE) 09/16/24 12:03 Urine RBC 0-2 /HPF (0-3) 09/16/24 12:03 Urine WBC 0-2 /HPF (0-5) 09/16/24 12:03 Ur Squamous Epith Cells Rare /HPF (NEGATIVE) 09/16/24 12:03 Urine Bacteria Negative /HPF (NEGATIVE) 09/16/24 12:03 Urine Mucus Rare /HPF (NEGATIVE) 09/16/24 12:03 Ur Culture Indicated? No/not indicated 09/16/24 12:03 Review of Systems Constitutional: Weakness Eyes: No Symptoms Reported ENT: No Symptoms Reported Respiratory: Shortness of Breath and SOB with Excertion Cardiovascular: Orthopnea and Edema Gastrointestinal: No Symptoms Reported Genitourinary: No Symptoms Reported Musculoskeletal: Leg Pain Skin: No Symptoms Reported Neurological: No Symptoms Reported Physical Exam Vital Signs: Vital Signs Temperature 98.0 F Temperature 98.3 F Pulse Rate [Brachial] 75 Pulse Rate [Brachial] 71 Respiratory Rate 19 Respiratory Rate 18 Blood Pressure [Right Arm] 114/58 Blood Pressure [Right Arm] 105/68 O2 Sat by Pulse Oximetry 94 O2 Sat by Pulse Oximetry 96 Oriented: Normal Nose: Normal Throat: Normal Respiratory: Diminished Throughout Cardiovascular: Edema Auscultation: Bowel Sounds: Normal Palpation: Normal Tenderness: Normal Skin: Other (chronic venous stasis ) Musculoskeletal: Leg Psychiatric: Normal Mood Description: Calm Affect: Normal Speech Pattern: Clear and Appropriate Assessment/Plan (1) Acute on chronic congestive heart failure: Qualifiers: Heart failure type: unspecified Qualified Code(s): I50.9 - Heart failure, unspecified Status: Chronic (2) Urinary tract infection: Qualifiers: Urinary tract infection type: acute cystitis Hematuria presence: without hematuria Qualified Code(s): N30.00 - Acute cystitis without hematuria Status: Acute (3) Type 2 diabetes mellitus: Qualifiers: Diabetes mellitus detention insulin use: without buttermaker use Diabetes mellitus complication status: with hyperglycemia Qualified Code(s): E11.65 - Type 2 diabetes mellitus with hyperglycemia Status: Chronic (4) Edema of lower extremity: Status: Chronic (5) Atrial fibrillation, controlled: Status: Chronic (6) Anxiety: Status: Chronic Review H&P Reviewed: Yes Patient was examined?: Yes
[2024-09-17] MEDS: NYSTATIN POWDER TOP SCH (11:05)
[2024-09-17] MEDS: ELIQUIS PO SCH (11:05)
[2024-09-17] MEDS: LASIX IVP SCH (11:05)
[2024-09-17] MEDS: NORCO 7.5/325 MG TAB PO PRN (11:07)
[2024-09-17] MEDS: CELEXA PO SCH (11:07)
[2024-09-17] MEDS: ZOLOFT PO SCH (11:07)
[2024-09-17] MEDS ORDERED: GLUCOPHAGE ONE (11:12)
[2024-09-17] MEDS: GLUCOPHAGE PO SCH (11:38)
[2024-09-17] MEDS: LANOXIN or DIGITEK PO SCH (11:38)
[2024-09-17] MEDS: LASIX IVP ONE (11:40)
--- NOTE | 2024-09-17 16:07 | RAD ---
EXAM:CHEST, 1 VIEWHISTORY:Shortness of breathCOMPARISON:09/13/2024FINDINGS:The trachea is midline. The cardiac silhouette is enlarged with a tortuous thoracic aorta. A pacing device overlying the left hemithorax is observed. Lobulated mass within the right mid lung zone is observed and increased in size when compared to prior examination. Left hemithorax appears clear. Infrahilar infiltrate within the right lower lobe is noted to be present. The bony thorax is unremarkable.IMPRESSION:Enlarging mass in the right mid lung zone.Infrahilar infiltrate consistent with bronchopneumonia.THIS IS AN ELECTRONICALLY VERIFIED FINAL REPORT09/17/2024 4:03 PM - Electronically signed by Rian Reagan MD
[2024-09-18 05:27] LABS: BASOPHILS % (AUTO) 0.9 % (0.2-1.0); EOSINOPHILS # (AUTO) 0.1 x10^3/uL (0.0-0.2); EOSINOPHILS % (AUTO) 2.2 % (0.9-2.9); HEMATOCRIT 23.7 % (36.0-47.0); HEMOGLOBIN 7.9 g/dL (12.0-16.0); LYMPHOCYTES # (AUTO) 0.7 X10^3/uL (1.3-2.9); LYMPHOCYTES % (AUTO) 12.5 % (21.0-51.0); MEAN CORPUSCULAR HEMOGLOBIN 29.8 pg (27.0-34.0); MEAN CORPUSCULAR HGB CONC 33.6 g/dL (33.0-35.0); MEAN CORPUSCULAR VOLUME 88.9 fL (80.0-100.0); MEAN PLATELET VOLUME 7.9 fL (7.4-11.0); MONOCYTES % (AUTO) 17.4 % (0.0-13.0); NEUTROPHILS # (AUTO) 3.7 x10^3/uL (2.2-4.8); PLATELET COUNT 153 X10^3/uL (150.0-450.0); RED BLOOD COUNT 2.66 X10^6/uL (3.5-5.4); RED CELL DISTRIBUTION WIDTH 15.7 % (11.6-16.5); WHITE BLOOD COUNT 5.5 X10^3/uL (3.6-10.0)
[2024-09-18 05:43] LABS: ALANINE AMINOTRANSFERASE 13 Units/L (12-78); ALBUMIN 2.6 g/dL (3.4-5.0); ALKALINE PHOSPHATASE 61 Units/L (46-116); ASPARTATE AMINO TRANSFERASE 25 Units/L (15-37); BLOOD UREA NITROGEN 30 mg/dL (7-18); CALCIUM 8.4 mg/dL (8.5-10.1); CARBON DIOXIDE 31.1 mmol/L (21-32); CHLORIDE 101 mmol/L (98-107); COR CA(FOR HYPOALB) 9.5 mg/dL (8.5-10.1); CREATININE 0.86 mg/dL (0.55-1.02); GLUCOSE 93 mg/dL (65-99); SODIUM 139 mmol/L (136-145); TOTAL PROTEIN 6.3 g/dL (6.4-8.2); eGFR NON BLACK RACES > 60 (>60)
--- NOTE | 2024-09-18 10:52 | PCM.PROG ---
Progress Note Progress Note for Day of Date of Exam: 09/18/24 Subjective Subjective: Patient seen at bedside, no acute events overnight. She reports worsening generalized pain and SOB with minimal exertion. She remains on 2L NC. She is currently admitted for UTI and CHF exacerbation. CXR showed right lobulated mass and bronchopneumonia. Patient did have CT-chest on admission which did not show any lung mass. Labs/imaging reviwed: -WBC 5.5 Hgb 7.9 BUN/Cr 30/0.86 -CXR reviewed -CT-chest reviewed -AIT pending Plan: Will repeat CXR. Continue nebs, pulmicort and IS. Switch to Rocephin and Azithromycin. Continue IV lasix. Replace electrolytes prn. Order anemia panel. PT/OT as tolerated. Monitor AM labs/imaging. Past Medical Family Social History Allergies: Allergies No Known Allergies Allergy (Verified 09/13/24 13:56) Vital Signs and I&O's Vital Signs: Vital Signs Temperature 97.8 F Pulse Rate [Brachial] 70 Pulse Rate 76 Respiratory Rate 20 Respiratory Rate 20 Blood Pressure [Right Arm] 123/61 O2 Sat by Pulse Oximetry 96 Intake and Output: Intake & Output 09/15/24 09/16/24 09/17/24 09/18/24 23:59 23:59 23:59 23:59 Intake Total 740 / 740 740 / 740 Output Total 500 / 500 350 / 350 Balance 240 / 240 390 / 390 Physical Exam Oriented: Normal Nose: Normal Throat: Normal Respiratory: Generalized and Diminished Cardiovascular: Edema Auscultation: Bowel Sounds: Normal Palpation: Normal Tenderness: Normal Skin: Other (chronic venous stasis ) Musculoskeletal: Leg Psychiatric: Normal Mood Description: Calm Affect: Normal Speech Pattern: Clear and Appropriate Laboratory and Diagnostics 09/18/24 05:10 09/18/24 05:10 Labs: Laboratory WBC 5.5 X10^3/uL (3.6-10.0) 09/18/24 05:10 RBC 2.66 X10^6/uL (3.5-5.4) L 09/18/24 05:10 Hgb 7.9 g/dL (12.0-16.0) L 09/18/24 05:10 Hct 23.7 % (36.0-47.0) L 09/18/24 05:10 MCV 88.9 fL (80.0-100.0) 09/18/24 05:10 MCH 29.8 pg (27.0-34.0) 09/18/24 05:10 MCHC 33.6 g/dL (33.0-35.0) 09/18/24 05:10 RDW 15.7 % (11.6-16.5) 09/18/24 05:10 Plt Count 153 X10^3/uL (150.0-450.0) 09/18/24 05:10 MPV 7.9 fL (7.4-11.0) 09/18/24 05:10 Neut % (Auto) 67.0 % (42.0-75.0) 09/18/24 05:10 Lymph % (Auto) 12.5 % (21.0-51.0) L 09/18/24 05:10 [place] % (Auto) 17.4 % (0.0-13.0) H 09/18/24 05:10 Eos % (Auto) 2.2 % (0.9-2.9) 09/18/24 05:10 Baso % (Auto) 0.9 % (0.2-1.0) 09/18/24 05:10 Neut # (Auto) 3.7 x10^3/uL (2.2-4.8) 09/18/24 05:10 Lymph # (Auto) 0.7 X10^3/uL (1.3-2.9) L 09/18/24 05:10 [place] # (Auto) 1.0 x10^3/uL (0.3-0.8) H 09/18/24 05:10 Eos # (Auto) 0.1 x10^3/uL (0.0-0.2) 09/18/24 05:10 Baso # (Auto) 0.0 X10^3/uL (0.0-0.1) 09/18/24 05:10 Absolute Nucleated RBC 0.0 /100WBC 09/18/24 05:10 PT 25.0 SECONDS (11.8-14.3) 09/16/24 12:06 INR Target Range - 09/16/24 12:06 INR 2.36 (0.8-1.3) H 09/16/24 12:06 APTT 44.9 SECONDS (22.9-36.5) H 09/16/24 12:06 PTT Comment - 09/16/24 12:06 Sodium 139 mmol/L (136-145) 09/18/24 05:10 Corrected Sodium TNP 09/18/24 05:10 Potassium 4.0 mmol/L (3.5-5.1) 09/18/24 05:10 Chloride 101 mmol/L (98-107) 09/18/24 05:10 Carbon Dioxide 31.1 mmol/L (21-32) 09/18/24 05:10 BUN 30 mg/dL (7-18) H 09/18/24 05:10 Creatinine 0.86 mg/dL (0.55-1.02) 09/18/24 05:10 Est GFR (MDRD) Af Amer > 60 (>60) 09/18/24 05:10 Est GFR (MDRD) Non-Af > 60 (>60) 09/18/24 05:10 Glucose 93 mg/dL (65-99) 09/18/24 05:10 POC Glucose (mg/dL) 95 mg/dL (65-99) 09/18/24 05:47 Calcium 8.4 mg/dL (8.5-10.1) L 09/18/24 05:10 Corrected Calcium 9.5 mg/dL (8.5-10.1) 09/18/24 05:10 Magnesium 2.1 mg/dL (2.0-2.9) 09/16/24 12:06 Total Bilirubin 1.50 mg/dL (0.2-1.0) H 09/18/24 05:10 AST 25 Units/L (15-37) 09/18/24 05:10 ALT 13 Units/L (12-78) 09/18/24 05:10 Alkaline Phosphatase 61 Units/L (46-116) 09/18/24 05:10 B-Natriuretic Peptide 1700 pg/mL (0-79) H 09/16/24 12:06 Total Protein 6.3 g/dL (6.4-8.2) L 09/18/24 05:10 Albumin 2.6 g/dL (3.4-5.0) L 09/18/24 05:10 Globulin 3.7 g/dL (2.5-4.5) 09/18/24 05:10 Albumin/Globulin Ratio 0.7 Ratio (1.1-2.1) L 09/18/24 05:10 Specimen Type Clean catch urine 09/16/24 12:03 Urine Color Yellow (YELLOW) 09/16/24 12:03 Urine Appearance Slightly hazy (CLEAR) 09/16/24 12:03 Urine pH 6.0 (5.0 - 8.0) 09/16/24 12:03 Ur Specific [place] 1.015 (1.000-1.030) 09/16/24 12:03 Urine Protein 2+ (NEGATIVE) 09/16/24 12:03 Urine Glucose (UA) Negative (NEGATIVE) 09/16/24 12:03 Urine Ketones Negative (NEGATIVE) 09/16/24 12:03 Urine Blood 1+ (NEGATIVE) 09/16/24 12:03 Urine Nitrite Negative (NEGATIVE) 09/16/24 12:03 Urine Bilirubin Negative (NEGATIVE) 09/16/24 12:03 Urine Urobilinogen Normal (NORMAL) 09/16/24 12:03 Ur Leukocyte Esterase 1+ (NEGATIVE) 09/16/24 12:03 Urine RBC 0-2 /HPF (0-3) 09/16/24 12:03 Urine WBC 0-2 /HPF (0-5) 09/16/24 12:03 Ur Squamous Epith Cells Rare /HPF (NEGATIVE) 09/16/24 12:03 Urine Bacteria Negative /HPF (NEGATIVE) 09/16/24 12:03 Urine Mucus Rare /HPF (NEGATIVE) 09/16/24 12:03 Ur Culture Indicated? No/not indicated 09/16/24 12:03 Digoxin 1.55 ng/mL (0.9-2) 09/17/24 05:20 Plan (1) Bronchopneumonia: Status: Acute (2) Acute on chronic congestive heart failure: Status: Chronic Qualifiers: Heart failure type: unspecified Qualified Code(s): I50.9 - Heart failure, unspecified (3) Urinary tract infection: Status: Acute Qualifiers: Urinary tract infection type: acute cystitis Hematuria presence: without hematuria Qualified Code(s): N30.00 - Acute cystitis without hematuria (4) Type 2 diabetes mellitus: Status: Chronic Qualifiers: Diabetes mellitus medical terminologist insulin use: without medical terminologist use Diabetes mellitus complication status: with hyperglycemia Qualified Code(s): E11.65 - Type 2 diabetes mellitus with hyperglycemia (5) Edema of lower extremity: Status: Chronic (6) Atrial fibrillation, controlled: Status: Chronic (7) Anxiety: Status: Chronic
[2024-09-18] MEDS: DUONEB 0.5 MG/3 MG (3 mL) NEB SCH (11:16)
[2024-09-18 11:31] LABS: IRON 18 ug/dL (50-175); TOTAL IRON BINDING CAPACITY 285 ug/dL (250-450)
[2024-09-18] MEDS: ROCEPHIN VIAL 1 GRAM 1 G in NS 100 ML IV 100 ML IV SCH (11:45)
[2024-09-18] MEDS: GLUCOPHAGE ONE (11:56)
[2024-09-18] MEDS: NS 250 ML IV 250 ML IV ONE (11:57)
[2024-09-18] MEDS: ZITHROMAX INJ 500 MG VIAL 500 MG in NS 250 ML IV 250 ML IV SCH (12:14)
--- NOTE | 2024-09-18 14:09 | RAD ---
EXAM:CHEST, 1 VIEWHISTORY:SOB, PNEUMONIA;COMPARISON:Prior study or studies were utilized for comparison during interpretation with the most relevant dated 09/17/2024TECHNIQUE:CHEST, 1 VIEWFINDINGS:Chest:Lines and tubes: Left-sided pacemaker generator with lead or leads in satisfactory position.Mediastinum: Cardiomegaly.Pulmonary vessels: There is pulmonary vascular congestion.Lung muse: Patchy opacities are seen bilaterally. There is a right mid lung consolidation.Pleura: No effusion. No pneumothorax.Bones and soft tissues: No acute osseous or soft tissue abnormality.IMPRESSION:1. Findings suggest pneumoniaTHIS IS AN ELECTRONICALLY VERIFIED FINAL REPORT09/18/2024 2:06 PM - Electronically signed by Michael Mtz MD
[2024-09-18] MEDS: PULMICORT NEB TX 0.5 MG NEB SCH (21:05)
[2024-09-19 06:08] LABS: BASOPHILS % (AUTO) 0.7 % (0.2-1.0); EOSINOPHILS # (AUTO) 0.1 x10^3/uL (0.0-0.2); HEMATOCRIT 25.2 % (36.0-47.0); HEMOGLOBIN 8.3 g/dL (12.0-16.0); LYMPHOCYTES # (AUTO) 0.8 X10^3/uL (1.3-2.9); LYMPHOCYTES % (AUTO) 15.6 % (21.0-51.0); MEAN CORPUSCULAR HEMOGLOBIN 29.4 pg (27.0-34.0); MEAN PLATELET VOLUME 7.8 fL (7.4-11.0); MONOCYTES # (AUTO) 0.9 x10^3/uL (0.3-0.8); MONOCYTES % (AUTO) 18.5 % (0.0-13.0); NEUTROPHILS % (AUTO) 62.2 % (42.0-75.0); PLATELET COUNT 160 X10^3/uL (150.0-450.0); RED BLOOD COUNT 2.83 X10^6/uL (3.5-5.4); RED CELL DISTRIBUTION WIDTH 15.9 % (11.6-16.5); WHITE BLOOD COUNT 4.8 X10^3/uL (3.6-10.0)
[2024-09-19 06:28] LABS: ALANINE AMINOTRANSFERASE 10 Units/L (12-78); ALBUMIN 2.5 g/dL (3.4-5.0); ALKALINE PHOSPHATASE 57 Units/L (46-116); ASPARTATE AMINO TRANSFERASE 27 Units/L (15-37); BLOOD UREA NITROGEN 22 mg/dL (7-18); CALCIUM 8.1 mg/dL (8.5-10.1); CARBON DIOXIDE 31.6 mmol/L (21-32); CHLORIDE 95 mmol/L (98-107); COR CA(FOR HYPOALB) 9.3 mg/dL (8.5-10.1); CREATININE 0.66 mg/dL (0.55-1.02); GLUCOSE 80 mg/dL (65-99); MAGNESIUM 1.3 mg/dL (2.0-2.9); POTASSIUM 3.2 mmol/L (3.5-5.1); SODIUM 133 mmol/L (136-145); TOTAL PROTEIN 6.1 g/dL (6.4-8.2); eGFR NON BLACK RACES > 60 (>60)
[2024-09-19] MEDS ORDERED: CONSULT PHARMACY - POTASSIUM & MAGNESIUM XX SCH (07:00)
[2024-09-19] MEDS: K-DUR TAB 20 MEQ PO SCH ×2 (09:22→20:46)
[2024-09-19] MEDS: MAG-OX TAB PO SCH (09:22)
[2024-09-19] MEDS: GLUCOPHAGE ONE (09:51)
--- NOTE | 2024-09-19 11:25 | PCM.PROG ---
Progress Note Progress Note for Day of Date of Exam: 09/19/24 Subjective Subjective: Patient resting in bed this morning. No acute events overnight. She reports some improvement in her breathing. She does continue to be weak. She remains on 2L NC. She is currently admitted for UTI and CHF exacerbation. Labs/imaging reviwed: -WBC 4.8, hemoglobin 8.3, platelets 160, sodium 133, potassium 3.2, creatinine 0.66, glucose 80. -CXR reviewed -Urine culture: E coli -AIT pending Plan: Continue nebs, pulmicort and IS. IV antibiotics Rocephin and Azithromycin. Continue IV lasix. Replace electrolytes prn. PT/OT as tolerated. Case management to work on discharge planning. Monitor AM labs/imaging. Past Medical Family Social History Allergies: Allergies No Known Allergies Allergy (Verified 09/13/24 13:56) Review of Systems ROS changes noted: see HPI Vital Signs and I&O's Vital Signs: Vital Signs Temperature 97.6 F Temperature 97.9 F Pulse Rate [Brachial] 71 Pulse Rate [Brachial] 71 Pulse Rate 71 Pulse Rate 73 Respiratory Rate 17 Respiratory Rate 19 Blood Pressure [Right Arm] 118/58 Blood Pressure [Right Arm] 117/60 O2 Sat by Pulse Oximetry 98 O2 Sat by Pulse Oximetry 100 O2 Sat by Pulse Oximetry 96 Intake and Output: Intake & Output 09/16/24 09/17/24 09/18/24 09/19/24 23:59 23:59 23:59 23:59 Intake Total 740 / 740 1490 / 1490 420 / 420 Output Total 500 / 500 3150 / 3150 400 / 400 Balance 240 / 240 -1660 / -1660 Physical Exam Oriented: Normal Nose: Normal Throat: Normal Respiratory: Generalized and Diminished Cardiovascular: Edema Auscultation: Bowel Sounds: Normal Tenderness: Normal Skin: Other (chronic venous stasis ) Musculoskeletal: Leg Psychiatric: Normal Mood Description: Calm Affect: Normal Speech Pattern: Clear and Appropriate Laboratory and Diagnostics 09/19/24 05:33 09/19/24 05:33 Labs: Laboratory WBC 4.8 X10^3/uL (3.6-10.0) 09/19/24 05:33 RBC 2.83 X10^6/uL (3.5-5.4) L 09/19/24 05:33 Hgb 8.3 g/dL (12.0-16.0) L 09/19/24 05:33 Hct 25.2 % (36.0-47.0) L 09/19/24 05:33 MCV 89.0 fL (80.0-100.0) 09/19/24 05:33 MCH 29.4 pg (27.0-34.0) 09/19/24 05:33 MCHC 33.0 g/dL (33.0-35.0) 09/19/24 05:33 RDW 15.9 % (11.6-16.5) 09/19/24 05:33 Plt Count 160 X10^3/uL (150.0-450.0) 09/19/24 05:33 MPV 7.8 fL (7.4-11.0) 09/19/24 05:33 Neut % (Auto) 62.2 % (42.0-75.0) 09/19/24 05:33 Lymph % (Auto) 15.6 % (21.0-51.0) L 09/19/24 05:33 [place] % (Auto) 18.5 % (0.0-13.0) H 09/19/24 05:33 Eos % (Auto) 3.0 % (0.9-2.9) H 09/19/24 05:33 Baso % (Auto) 0.7 % (0.2-1.0) 09/19/24 05:33 Neut # (Auto) 3.0 x10^3/uL (2.2-4.8) 09/19/24 05:33 Lymph # (Auto) 0.8 X10^3/uL (1.3-2.9) L 09/19/24 05:33 [place] # (Auto) 0.9 x10^3/uL (0.3-0.8) H 09/19/24 05:33 Eos # (Auto) 0.1 x10^3/uL (0.0-0.2) 09/19/24 05:33 Baso # (Auto) 0.0 X10^3/uL (0.0-0.1) 09/19/24 05:33 Absolute Nucleated RBC 0.1 /100WBC 09/19/24 05:33 PT 25.0 SECONDS (11.8-14.3) 09/16/24 12:06 INR Target Range - 09/16/24 12:06 INR 2.36 (0.8-1.3) H 09/16/24 12:06 APTT 44.9 SECONDS (22.9-36.5) H 09/16/24 12:06 PTT Comment - 09/16/24 12:06 Sodium 133 mmol/L (136-145) L 09/19/24 05:33 Corrected Sodium TNP 09/19/24 05:33 Potassium 3.2 mmol/L (3.5-5.1) L 09/19/24 05:33 Chloride 95 mmol/L (98-107) L 09/19/24 05:33 Carbon Dioxide 31.6 mmol/L (21-32) 09/19/24 05:33 BUN 22 mg/dL (7-18) H 09/19/24 05:33 Creatinine 0.66 mg/dL (0.55-1.02) 09/19/24 05:33 Est GFR (MDRD) Af Amer > 60 (>60) 09/19/24 05:33 Est GFR (MDRD) Non-Af > 60 (>60) 09/19/24 05:33 Glucose 80 mg/dL (65-99) 09/19/24 05:33 POC Glucose (mg/dL) 77 mg/dL (65-99) 09/19/24 05:33 Calcium 8.1 mg/dL (8.5-10.1) L 09/19/24 05:33 Corrected Calcium 9.3 mg/dL (8.5-10.1) 09/19/24 05:33 Magnesium 1.3 mg/dL (2.0-2.9) L 09/19/24 05:33 Iron 18 ug/dL (50-175) L 09/18/24 05:10 TIBC 285 ug/dL (250-450) 09/18/24 05:10 Ferritin 35 ng/mL (8-252) 09/18/24 05:10 Total Bilirubin 1.60 mg/dL (0.2-1.0) H 09/19/24 05:33 AST 27 Units/L (15-37) 09/19/24 05:33 ALT 10 Units/L (12-78) L 09/19/24 05:33 Alkaline Phosphatase 57 Units/L (46-116) 09/19/24 05:33 B-Natriuretic Peptide 1700 pg/mL (0-79) H 09/16/24 12:06 Total Protein 6.1 g/dL (6.4-8.2) L 09/19/24 05:33 Albumin 2.5 g/dL (3.4-5.0) L 09/19/24 05:33 Globulin 3.6 g/dL (2.5-4.5) 09/19/24 05:33 Albumin/Globulin Ratio 0.7 Ratio (1.1-2.1) L 09/19/24 05:33 Vitamin B12 > 2000 pg/mL (193-986) H 09/18/24 05:10 Specimen Type Clean catch urine 09/16/24 12:03 Urine Color Yellow (YELLOW) 09/16/24 12:03 Urine Appearance Slightly hazy (CLEAR) 09/16/24 12:03 Urine pH 6.0 (5.0 - 8.0) 09/16/24 12:03 Ur Specific [place] 1.015 (1.000-1.030) 09/16/24 12:03 Urine Protein 2+ (NEGATIVE) 09/16/24 12:03 Urine Glucose (UA) Negative (NEGATIVE) 09/16/24 12:03 Urine Ketones Negative (NEGATIVE) 09/16/24 12:03 Urine Blood 1+ (NEGATIVE) 09/16/24 12:03 Urine Nitrite Negative (NEGATIVE) 09/16/24 12:03 Urine Bilirubin Negative (NEGATIVE) 09/16/24 12:03 Urine Urobilinogen Normal (NORMAL) 09/16/24 12:03 Ur Leukocyte Esterase 1+ (NEGATIVE) 09/16/24 12:03 Urine RBC 0-2 /HPF (0-3) 09/16/24 12:03 Urine WBC 0-2 /HPF (0-5) 09/16/24 12:03 Ur Squamous Epith Cells Rare /HPF (NEGATIVE) 09/16/24 12:03 Urine Bacteria Negative /HPF (NEGATIVE) 09/16/24 12:03 Urine Mucus Rare /HPF (NEGATIVE) 09/16/24 12:03 Ur Culture Indicated? No/not indicated 09/16/24 12:03 Digoxin 1.55 ng/mL (0.9-2) 09/17/24 05:20 Plan (1) Bronchopneumonia: Status: Acute (2) Acute on chronic congestive heart failure: Status: Chronic Qualifiers: Heart failure type: unspecified Qualified Code(s): I50.9 - Heart failure, unspecified (3) Urinary tract infection: Status: Acute Qualifiers: Urinary tract infection type: acute cystitis Hematuria presence: without hematuria Qualified Code(s): N30.00 - Acute cystitis without hematuria (4) Type 2 diabetes mellitus: Status: Chronic Qualifiers: Diabetes mellitus long line teamster insulin use: without longterm use Diabetes mellitus complication status: with hyperglycemia Qualified Code(s): E11.65 - Type 2 diabetes mellitus with hyperglycemia (5) Edema of lower extremity: Status: Chronic (6) Atrial fibrillation, controlled: Status: Chronic (7) Anxiety: Status: Chronic
[2024-09-19] MEDS: HEMOCYTE PLUS PO SCH (16:21)
[2024-09-19] MEDS: PULMICORT NEB TX 0.5 MG NEB ONE (20:13)
[2024-09-20 06:01] LABS: BASOPHILS % (AUTO) 0.3 % (0.2-1.0); EOSINOPHILS # (AUTO) 0.2 x10^3/uL (0.0-0.2); EOSINOPHILS % (AUTO) 2.9 % (0.9-2.9); HEMATOCRIT 25.5 % (36.0-47.0); HEMOGLOBIN 8.6 g/dL (12.0-16.0); LYMPHOCYTES # (AUTO) 0.8 X10^3/uL (1.3-2.9); MEAN CORPUSCULAR HGB CONC 33.8 g/dL (33.0-35.0); MEAN CORPUSCULAR VOLUME 88.7 fL (80.0-100.0); MEAN PLATELET VOLUME 7.6 fL (7.4-11.0); MONOCYTES # (AUTO) 0.9 x10^3/uL (0.3-0.8); MONOCYTES % (AUTO) 16.3 % (0.0-13.0); NEUTROPHILS # (AUTO) 3.6 x10^3/uL (2.2-4.8); NEUTROPHILS % (AUTO) 66.5 % (42.0-75.0); PLATELET COUNT 168 X10^3/uL (150.0-450.0); RED BLOOD COUNT 2.87 X10^6/uL (3.5-5.4); RED CELL DISTRIBUTION WIDTH 15.4 % (11.6-16.5); WHITE BLOOD COUNT 5.4 X10^3/uL (3.6-10.0)
[2024-09-20 06:31] LABS: ALANINE AMINOTRANSFERASE 11 Units/L (12-78); ALBUMIN 2.6 g/dL (3.4-5.0); ALKALINE PHOSPHATASE 58 Units/L (46-116); ASPARTATE AMINO TRANSFERASE 30 Units/L (15-37); BLOOD UREA NITROGEN 18 mg/dL (7-18); CALCIUM 8.2 mg/dL (8.5-10.1); CARBON DIOXIDE 31.5 mmol/L (21-32); CHLORIDE 95 mmol/L (98-107); COR CA(FOR HYPOALB) 9.3 mg/dL (8.5-10.1); CREATININE 0.76 mg/dL (0.55-1.02); GLUCOSE 89 mg/dL (65-99); MAGNESIUM 1.3 mg/dL (2.0-2.9); POTASSIUM 3.8 mmol/L (3.5-5.1); SODIUM 133 mmol/L (136-145); TOTAL PROTEIN 6.3 g/dL (6.4-8.2); eGFR NON BLACK RACES > 60 (>60)
[2024-09-20] MEDS ORDERED: CONSULT PHARMACY - POTASSIUM & MAGNESIUM XX SCH (08:00)
[2024-09-20] MEDS: MAG-OX TAB PO SCH (08:10)
[2024-09-20] MEDS: GLUCOPHAGE ONE (08:22)
--- NOTE | 2024-09-20 14:43 | RAD ---
EXAM: CHEST, 1 VIEW HISTORY: COUGH, COLD, CONGESTION; COMPARISON: 09/18/2024 FINDINGS: The cardiomediastinal silhouette is stable. Left-sided pacer and pacer wire unchanged. Similar bilateral opacities and right-sided pulmonary mass. No pneumothorax or effusion. No acute osseous abnormality. IMPRESSION: Similar bilateral opacities which may be due to edema or pneumonia. Persistent right-sided pulmonary mass or consolidation. Contrasted CT could better evaluate. THIS IS AN ELECTRONICALLY VERIFIED FINAL REPORT 09/20/2024 2:39 PM - Electronically signed by Chino Meredith MD
--- NOTE | 2024-09-20 18:11 | PCM.PROG ---
Progress Note Progress Note for Day of Date of Exam: 09/20/24 Subjective Subjective: Patient resting in bed this morning. No acute events overnight. She reports some improvement in her breathing. She does continue to be weak. She remains on 2L NC. She is currently admitted for pneumonia, UTI and CHF exacerbation. Patient wants to go to SNF, CM working on placement. Labs/imaging reviewed: -WBC 5.4, hemoglobin 8.6, platelets 180, sodium 133, potassium 3.8, creatinine 0.76, glucose 89. -CXR reviewed -Urine culture: E coli -AIT pending Plan: CXR pending. Continue nebs, pulmicort and IS. IV antibiotics Rocephin and Azithromycin. Continue IV lasix. Replace electrolytes prn. PT/OT as tolerated. Case management to work on discharge planning. Monitor AM labs/imaging. Past Medical Family Social History Allergies: Allergies No Known Allergies Allergy (Verified 09/13/24 13:56) Vital Signs and I&O's Vital Signs: Vital Signs Temperature 97.8 F Temperature 97.4 F Temperature 97.9 F Pulse Rate [Brachial] 70 Pulse Rate [Brachial] 71 Respiratory Rate 20 Respiratory Rate 19 Respiratory Rate 20 Blood Pressure [Right Arm] 111/58 Blood Pressure [Right Arm] 107/56 Blood Pressure 111/54 O2 Sat by Pulse Oximetry 100 O2 Sat by Pulse Oximetry 99 O2 Sat by Pulse Oximetry 98 Intake and Output: Intake & Output 09/17/24 09/18/24 09/19/24 09/20/24 23:59 23:59 23:59 23:59 Intake Total 740 / 740 1490 / 1490 1380 / 1380 788 / 788 Output Total 500 / 500 3150 / 3150 1200 / 1200 Balance 240 / 240 -1660 / -1660 180 / 180 788 / 788 Physical Exam Oriented: Normal Nose: Normal Throat: Normal Respiratory: Generalized and Diminished Cardiovascular: Edema Auscultation: Bowel Sounds: Normal Tenderness: Normal Skin: Other (chronic venous stasis ) Musculoskeletal: Leg Psychiatric: Normal Mood Description: Calm Affect: Normal Speech Pattern: Clear and Appropriate Laboratory and Diagnostics 09/20/24 05:45 09/20/24 05:45 Labs: Laboratory WBC 5.4 X10^3/uL (3.6-10.0) 09/20/24 05:45 RBC 2.87 X10^6/uL (3.5-5.4) L 09/20/24 05:45 Hgb 8.6 g/dL (12.0-16.0) L 09/20/24 05:45 Hct 25.5 % (36.0-47.0) L 09/20/24 05:45 MCV 88.7 fL (80.0-100.0) 09/20/24 05:45 MCH 30.0 pg (27.0-34.0) 09/20/24 05:45 MCHC 33.8 g/dL (33.0-35.0) 09/20/24 05:45 RDW 15.4 % (11.6-16.5) 09/20/24 05:45 Plt Count 168 X10^3/uL (150.0-450.0) 09/20/24 05:45 MPV 7.6 fL (7.4-11.0) 09/20/24 05:45 Neut % (Auto) 66.5 % (42.0-75.0) 09/20/24 05:45 Lymph % (Auto) 14.0 % (21.0-51.0) L 09/20/24 05:45 [place] % (Auto) 16.3 % (0.0-13.0) H 09/20/24 05:45 Eos % (Auto) 2.9 % (0.9-2.9) 09/20/24 05:45 Baso % (Auto) 0.3 % (0.2-1.0) 09/20/24 05:45 Neut # (Auto) 3.6 x10^3/uL (2.2-4.8) 09/20/24 05:45 Lymph # (Auto) 0.8 X10^3/uL (1.3-2.9) L 09/20/24 05:45 [place] # (Auto) 0.9 x10^3/uL (0.3-0.8) H 09/20/24 05:45 Eos # (Auto) 0.2 x10^3/uL (0.0-0.2) 09/20/24 05:45 Baso # (Auto) 0.0 X10^3/uL (0.0-0.1) 09/20/24 05:45 Absolute Nucleated RBC 0.1 /100WBC 09/20/24 05:45 PT 25.0 SECONDS (11.8-14.3) 09/16/24 12:06 INR Target Range - 09/16/24 12:06 INR 2.36 (0.8-1.3) H 09/16/24 12:06 APTT 44.9 SECONDS (22.9-36.5) H 09/16/24 12:06 PTT Comment - 09/16/24 12:06 Sodium 133 mmol/L (136-145) L 09/20/24 05:45 Corrected Sodium TNP 09/20/24 05:45 Potassium 3.8 mmol/L (3.5-5.1) 09/20/24 05:45 Chloride 95 mmol/L (98-107) L 09/20/24 05:45 Carbon Dioxide 31.5 mmol/L (21-32) 09/20/24 05:45 BUN 18 mg/dL (7-18) 09/20/24 05:45 Creatinine 0.76 mg/dL (0.55-1.02) 09/20/24 05:45 Est GFR (MDRD) Af Amer > 60 (>60) 09/20/24 05:45 Est GFR (MDRD) Non-Af > 60 (>60) 09/20/24 05:45 Glucose 89 mg/dL (65-99) 09/20/24 05:45 POC Glucose (mg/dL) 94 mg/dL (65-99) 09/20/24 16:14 Calcium 8.2 mg/dL (8.5-10.1) L 09/20/24 05:45 Corrected Calcium 9.3 mg/dL (8.5-10.1) 09/20/24 05:45 Magnesium 1.3 mg/dL (2.0-2.9) L 09/20/24 05:45 Iron 18 ug/dL (50-175) L 09/18/24 05:10 TIBC 285 ug/dL (250-450) 09/18/24 05:10 Ferritin 35 ng/mL (8-252) 09/18/24 05:10 Total Bilirubin 1.70 mg/dL (0.2-1.0) H 09/20/24 05:45 AST 30 Units/L (15-37) 09/20/24 05:45 ALT 11 Units/L (12-78) L 09/20/24 05:45 Alkaline Phosphatase 58 Units/L (46-116) 09/20/24 05:45 B-Natriuretic Peptide 1700 pg/mL (0-79) H 09/16/24 12:06 Total Protein 6.3 g/dL (6.4-8.2) L 09/20/24 05:45 Albumin 2.6 g/dL (3.4-5.0) L 09/20/24 05:45 Globulin 3.7 g/dL (2.5-4.5) 09/20/24 05:45 Albumin/Globulin Ratio 0.7 Ratio (1.1-2.1) L 09/20/24 05:45 Vitamin B12 > 2000 pg/mL (193-986) H 09/18/24 05:10 Specimen Type Clean catch urine 09/16/24 12:03 Urine Color Yellow (YELLOW) 09/16/24 12:03 Urine Appearance Slightly hazy (CLEAR) 09/16/24 12:03 Urine pH 6.0 (5.0 - 8.0) 09/16/24 12:03 Ur Specific [place] 1.015 (1.000-1.030) 09/16/24 12:03 Urine Protein 2+ (NEGATIVE) 09/16/24 12:03 Urine Glucose (UA) Negative (NEGATIVE) 09/16/24 12:03 Urine Ketones Negative (NEGATIVE) 09/16/24 12:03 Urine Blood 1+ (NEGATIVE) 09/16/24 12:03 Urine Nitrite Negative (NEGATIVE) 09/16/24 12:03 Urine Bilirubin Negative (NEGATIVE) 09/16/24 12:03 Urine Urobilinogen Normal (NORMAL) 09/16/24 12:03 Ur Leukocyte Esterase 1+ (NEGATIVE) 09/16/24 12:03 Urine RBC 0-2 /HPF (0-3) 09/16/24 12:03 Urine WBC 0-2 /HPF (0-5) 09/16/24 12:03 Ur Squamous Epith Cells Rare /HPF (NEGATIVE) 09/16/24 12:03 Urine Bacteria Negative /HPF (NEGATIVE) 09/16/24 12:03 Urine Mucus Rare /HPF (NEGATIVE) 09/16/24 12:03 Ur Culture Indicated? No/not indicated 09/16/24 12:03 Digoxin 1.55 ng/mL (0.9-2) 09/17/24 05:20 Plan (1) Bronchopneumonia: Status: Acute (2) Acute on chronic congestive heart failure: Status: Chronic Qualifiers: Heart failure type: unspecified Qualified Code(s): I50.9 - Heart failure, unspecified (3) Urinary tract infection: Status: Acute Qualifiers: Urinary tract infection type: acute cystitis Hematuria presence: without hematuria Qualified Code(s): N30.00 - Acute cystitis without hematuria (4) Type 2 diabetes mellitus: Status: Chronic Qualifiers: Diabetes mellitus penitentiary insulin use: without long term care pharmacist use Diabetes mellitus complication status: with hyperglycemia Qualified Code(s): E11.65 - Type 2 diabetes mellitus with hyperglycemia (5) Edema of lower extremity: Status: Chronic (6) Atrial fibrillation, controlled: Status: Chronic (7) Anxiety: Status: Chronic
[2024-09-21 07:30] LABS: BASOPHILS # (AUTO) 0.1 X10^3/uL (0.0-0.1); EOSINOPHILS # (AUTO) 0.2 x10^3/uL (0.0-0.2); EOSINOPHILS % (AUTO) 3.5 % (0.9-2.9); HEMATOCRIT 25.8 % (36.0-47.0); HEMOGLOBIN 8.6 g/dL (12.0-16.0); LYMPHOCYTES % (AUTO) 16.9 % (21.0-51.0); MEAN CORPUSCULAR HEMOGLOBIN 29.6 pg (27.0-34.0); MEAN CORPUSCULAR HGB CONC 33.5 g/dL (33.0-35.0); MEAN CORPUSCULAR VOLUME 88.5 fL (80.0-100.0); MEAN PLATELET VOLUME 7.7 fL (7.4-11.0); MONOCYTES % (AUTO) 17.8 % (0.0-13.0); NEUTROPHILS # (AUTO) 3.4 x10^3/uL (2.2-4.8); NEUTROPHILS % (AUTO) 60.8 % (42.0-75.0); PLATELET COUNT 170 X10^3/uL (150.0-450.0); RED BLOOD COUNT 2.91 X10^6/uL (3.5-5.4); RED CELL DISTRIBUTION WIDTH 15.8 % (11.6-16.5); WHITE BLOOD COUNT 5.6 X10^3/uL (3.6-10.0)
[2024-09-21 07:54] LABS: ALANINE AMINOTRANSFERASE 13 Units/L (12-78); ALBUMIN 2.7 g/dL (3.4-5.0); ALKALINE PHOSPHATASE 65 Units/L (46-116); ASPARTATE AMINO TRANSFERASE 32 Units/L (15-37); BLOOD UREA NITROGEN 15 mg/dL (7-18); CALCIUM 8.5 mg/dL (8.5-10.1); CHLORIDE 95 mmol/L (98-107); COR CA(FOR HYPOALB) 9.5 mg/dL (8.5-10.1); CREATININE 0.77 mg/dL (0.55-1.02); GLUCOSE 86 mg/dL (65-99); MAGNESIUM 1.7 mg/dL (2.0-2.9); POTASSIUM 4.2 mmol/L (3.5-5.1); SODIUM 133 mmol/L (136-145); TOTAL PROTEIN 6.5 g/dL (6.4-8.2); eGFR NON BLACK RACES > 60 (>60)
[2024-09-21] MEDS: GLUCOPHAGE ONE (08:25)
[2024-09-22 07:35] LABS: EOSINOPHILS # (AUTO) 0.2 x10^3/uL (0.0-0.2); EOSINOPHILS % (AUTO) 4.4 % (0.9-2.9); HEMATOCRIT 23.8 % (36.0-47.0); HEMOGLOBIN 8.1 g/dL (12.0-16.0); LYMPHOCYTES # (AUTO) 0.7 X10^3/uL (1.3-2.9); LYMPHOCYTES % (AUTO) 15.7 % (21.0-51.0); MEAN CORPUSCULAR HEMOGLOBIN 29.9 pg (27.0-34.0); MEAN PLATELET VOLUME 7.7 fL (7.4-11.0); MONOCYTES # (AUTO) 0.8 x10^3/uL (0.3-0.8); MONOCYTES % (AUTO) 17.6 % (0.0-13.0); NEUTROPHILS # (AUTO) 2.8 x10^3/uL (2.2-4.8); NEUTROPHILS % (AUTO) 61.3 % (42.0-75.0); PLATELET COUNT 152 X10^3/uL (150.0-450.0); RED BLOOD COUNT 2.71 X10^6/uL (3.5-5.4); RED CELL DISTRIBUTION WIDTH 15.4 % (11.6-16.5); WHITE BLOOD COUNT 4.5 X10^3/uL (3.6-10.0)
[2024-09-22 07:51] LABS: ALANINE AMINOTRANSFERASE 12 Units/L (12-78); ALBUMIN 2.6 g/dL (3.4-5.0); ALKALINE PHOSPHATASE 65 Units/L (46-116); ASPARTATE AMINO TRANSFERASE 27 Units/L (15-37); BLOOD UREA NITROGEN 15 mg/dL (7-18); CALCIUM 8.3 mg/dL (8.5-10.1); CARBON DIOXIDE 35.2 mmol/L (21-32); CHLORIDE 96 mmol/L (98-107); COR CA(FOR HYPOALB) 9.4 mg/dL (8.5-10.1); CREATININE 0.81 mg/dL (0.55-1.02); GLUCOSE 94 mg/dL (65-99); POTASSIUM 3.8 mmol/L (3.5-5.1); SODIUM 134 mmol/L (136-145); TOTAL PROTEIN 6.1 g/dL (6.4-8.2); eGFR NON BLACK RACES > 60 (>60)
[2024-09-22] MEDS ORDERED: GLUCOPHAGE ONE (08:40)
[2024-09-22] MEDS: VALIUM PO PRN (11:33)
[2024-09-22] MEDS ORDERED: ZITHROMAX TAB 250 MG PO ONE (17:31)
[2024-09-22] MEDS ORDERED: ROCEPHIN VIAL 1 GRAM ONE (17:32)
[2024-09-22] MEDS: ROCEPHIN VIAL 1 GRAM IM SCH (17:49)
[2024-09-22] MEDS: LASIX PO SCH (17:49)
[2024-09-22] MEDS: XYLOCAINE 1 % (PLAIN) ONE (17:50)
--- NOTE | 2024-09-22 17:56 | RAD ---
EXAM:CHESTHISTORY:pneumonia;COMPARISON: .br.br.br.br.br.br chest was submitted for interpretation.FINDINGS:Left-sided cardiac pacer is stable. The cardiomediastinal silhouette is within normal limits. Lungs show continued opacification in the right mid lung. This is masslike.IMPRESSION:Stable masslike opacification right mid lung.THIS IS AN ELECTRONICALLY VERIFIED FINAL REPORT09/22/2024 5:53 PM - Electronically signed by Oren White MD
[2024-09-22] MEDS: ZITHROMAX TAB 250 MG PO SCH (18:02)
[2024-09-23 06:50] LABS: BASOPHILS % (AUTO) 0.9 % (0.2-1.0); EOSINOPHILS # (AUTO) 0.2 x10^3/uL (0.0-0.2); EOSINOPHILS % (AUTO) 3.6 % (0.9-2.9); HEMATOCRIT 25.2 % (36.0-47.0); HEMOGLOBIN 8.4 g/dL (12.0-16.0); LYMPHOCYTES # (AUTO) 0.8 X10^3/uL (1.3-2.9); LYMPHOCYTES % (AUTO) 14.6 % (21.0-51.0); MEAN CORPUSCULAR HEMOGLOBIN 29.8 pg (27.0-34.0); MEAN CORPUSCULAR HGB CONC 33.5 g/dL (33.0-35.0); MEAN CORPUSCULAR VOLUME 88.9 fL (80.0-100.0); MEAN PLATELET VOLUME 7.7 fL (7.4-11.0); MONOCYTES # (AUTO) 0.9 x10^3/uL (0.3-0.8); MONOCYTES % (AUTO) 16.6 % (0.0-13.0); NEUTROPHILS # (AUTO) 3.4 x10^3/uL (2.2-4.8); NEUTROPHILS % (AUTO) 64.3 % (42.0-75.0); PLATELET COUNT 156 X10^3/uL (150.0-450.0); RED BLOOD COUNT 2.84 X10^6/uL (3.5-5.4); RED CELL DISTRIBUTION WIDTH 15.7 % (11.6-16.5); WHITE BLOOD COUNT 5.3 X10^3/uL (3.6-10.0)
[2024-09-23 07:08] LABS: ALANINE AMINOTRANSFERASE 13 Units/L (12-78); ALBUMIN 2.7 g/dL (3.4-5.0); ALKALINE PHOSPHATASE 74 Units/L (46-116); ASPARTATE AMINO TRANSFERASE 30 Units/L (15-37); BLOOD UREA NITROGEN 13 mg/dL (7-18); CALCIUM 8.8 mg/dL (8.5-10.1); CARBON DIOXIDE 35.2 mmol/L (21-32); CHLORIDE 98 mmol/L (98-107); COR CA(FOR HYPOALB) 9.8 mg/dL (8.5-10.1); CREATININE 0.73 mg/dL (0.55-1.02); GLUCOSE 90 mg/dL (65-99); MAGNESIUM 1.8 mg/dL (2.0-2.9); POTASSIUM 3.9 mmol/L (3.5-5.1); SODIUM 135 mmol/L (136-145); TOTAL PROTEIN 6.4 g/dL (6.4-8.2); eGFR NON BLACK RACES > 60 (>60)
[2024-09-23] MEDS ORDERED: GLUCOPHAGE ONE (08:24)
[2024-09-23] MEDS: VIBRAMYCIN PO SCH (10:15)
--- NOTE | 2024-09-23 11:04 | PCM.PROG ---
Progress Note Progress Note for Day of Date of Exam: 09/23/24 Subjective Subjective: Patient seen at bedside, no acute events overnight. She is currently admitted for CHF exacerbation, pneumonia and UTI. AIT resp showed MRSA. She is currently on Rocephin and Azithromycin. She does not have IV access since yesterday. She refuses to be stuck several times. CM working on SNF placement. CXR showed right mid lung opacification/mass. Recommend CT-chest with contrast. Discussed with patient to have that done but will need IV access. Patient declined IV placement at this time. Labs/imaging reviewed: -WBC 5.3, hemoglobin 8.4, platelets 156, K 3.9, creatinine 0.73, glucose 90. -CXR reviewed -Urine culture: E coli -AIT: MRSA Plan: Will DC Azithromycin and Rocephin. Start PO doxycycline. Continue nebs, pulmicort and IS. Continue PO lasix. Replace electrolytes prn. PT/OT as tolerated. Case management to work on discharge planning to SNF. Continue PT/OT as tolerated. Replace electrolytes prn. Monitor AM labs/imaging. Past Medical Family Social History Allergies: Allergies No Known Allergies Allergy (Verified 09/13/24 13:56) Vital Signs and I&O's Vital Signs: Vital Signs Temperature 97.7 F Temperature 97.9 F Pulse Rate [Left Brachial] 88 Pulse Rate [Left Brachial] 70 Pulse Rate 88 Respiratory Rate 18 Respiratory Rate 19 Respiratory Rate 18 Respiratory Rate 16 Blood Pressure [Left Arm] 140/64 Blood Pressure [Left Arm] 130/59 O2 Sat by Pulse Oximetry 95 O2 Sat by Pulse Oximetry 95 O2 Sat by Pulse Oximetry 97 Intake and Output: Intake & Output 09/20/24 09/21/24 09/22/24 09/23/24 23:59 23:59 23:59 23:59 Intake Total 1598 / 1598 2692 / 2692 2130 / 2130 920 / 920 Output Total 250 / 250 Balance 1598 / 1598 2442 / 2442 2130 / 2130 920 / 920 Physical Exam Oriented: Normal Nose: Normal Throat: Normal Respiratory: Generalized and Diminished Cardiovascular: Edema Auscultation: Bowel Sounds: Normal Palpation: Normal Tenderness: Normal Skin: Other (chronic venous stasis ) Musculoskeletal: Leg Psychiatric: Normal Mood Description: Calm Affect: Normal Speech Pattern: Clear and Appropriate Laboratory and Diagnostics 09/23/24 05:46 09/23/24 05:46 Labs: Laboratory WBC 5.3 X10^3/uL (3.6-10.0) 09/23/24 05:46 RBC 2.84 X10^6/uL (3.5-5.4) L 09/23/24 05:46 Hgb 8.4 g/dL (12.0-16.0) L 09/23/24 05:46 Hct 25.2 % (36.0-47.0) L 09/23/24 05:46 MCV 88.9 fL (80.0-100.0) 09/23/24 05:46 MCH 29.8 pg (27.0-34.0) 09/23/24 05:46 MCHC 33.5 g/dL (33.0-35.0) 09/23/24 05:46 RDW 15.7 % (11.6-16.5) 09/23/24 05:46 Plt Count 156 X10^3/uL (150.0-450.0) 09/23/24 05:46 MPV 7.7 fL (7.4-11.0) 09/23/24 05:46 Neut % (Auto) 64.3 % (42.0-75.0) 09/23/24 05:46 Lymph % (Auto) 14.6 % (21.0-51.0) L 09/23/24 05:46 [place] % (Auto) 16.6 % (0.0-13.0) H 09/23/24 05:46 Eos % (Auto) 3.6 % (0.9-2.9) H 09/23/24 05:46 Baso % (Auto) 0.9 % (0.2-1.0) 09/23/24 05:46 Neut # (Auto) 3.4 x10^3/uL (2.2-4.8) 09/23/24 05:46 Lymph # (Auto) 0.8 X10^3/uL (1.3-2.9) L 09/23/24 05:46 [place] # (Auto) 0.9 x10^3/uL (0.3-0.8) H 09/23/24 05:46 Eos # (Auto) 0.2 x10^3/uL (0.0-0.2) 09/23/24 05:46 Baso # (Auto) 0.0 X10^3/uL (0.0-0.1) 09/23/24 05:46 Absolute Nucleated RBC 0.3 /100WBC 09/23/24 05:46 PT 25.0 SECONDS (11.8-14.3) 09/16/24 12:06 INR Target Range - 09/16/24 12:06 INR 2.36 (0.8-1.3) H 09/16/24 12:06 APTT 44.9 SECONDS (22.9-36.5) H 09/16/24 12:06 PTT Comment - 09/16/24 12:06 Sodium 135 mmol/L (136-145) L 09/23/24 05:46 Corrected Sodium TNP 09/23/24 05:46 Potassium 3.9 mmol/L (3.5-5.1) 09/23/24 05:46 Chloride 98 mmol/L (98-107) 09/23/24 05:46 Carbon Dioxide 35.2 mmol/L (21-32) H 09/23/24 05:46 BUN 13 mg/dL (7-18) 09/23/24 05:46 Creatinine 0.73 mg/dL (0.55-1.02) 09/23/24 05:46 Est GFR (MDRD) Af Amer > 60 (>60) 09/23/24 05:46 Est GFR (MDRD) Non-Af > 60 (>60) 09/23/24 05:46 Glucose 90 mg/dL (65-99) 09/23/24 05:46 POC Glucose (mg/dL) 89 mg/dL (65-99) 09/23/24 05:25 Calcium 8.8 mg/dL (8.5-10.1) 09/23/24 05:46 Corrected Calcium 9.8 mg/dL (8.5-10.1) 09/23/24 05:46 Magnesium 1.8 mg/dL (2.0-2.9) L 09/23/24 05:46 Iron 18 ug/dL (50-175) L 09/18/24 05:10 TIBC 285 ug/dL (250-450) 09/18/24 05:10 Ferritin 35 ng/mL (8-252) 09/18/24 05:10 Total Bilirubin 1.30 mg/dL (0.2-1.0) H 09/23/24 05:46 AST 30 Units/L (15-37) 09/23/24 05:46 ALT 13 Units/L (12-78) 09/23/24 05:46 Alkaline Phosphatase 74 Units/L (46-116) 09/23/24 05:46 B-Natriuretic Peptide 1700 pg/mL (0-79) H 09/16/24 12:06 Total Protein 6.4 g/dL (6.4-8.2) 09/23/24 05:46 Albumin 2.7 g/dL (3.4-5.0) L 09/23/24 05:46 Globulin 3.7 g/dL (2.5-4.5) 09/23/24 05:46 Albumin/Globulin Ratio 0.7 Ratio (1.1-2.1) L 09/23/24 05:46 Vitamin B12 > 2000 pg/mL (193-986) H 09/18/24 05:10 Specimen Type Clean catch urine 09/16/24 12:03 Urine Color Yellow (YELLOW) 09/16/24 12:03 Urine Appearance Slightly hazy (CLEAR) 09/16/24 12:03 Urine pH 6.0 (5.0 - 8.0) 09/16/24 12:03 Ur Specific [place] 1.015 (1.000-1.030) 09/16/24 12:03 Urine Protein 2+ (NEGATIVE) 09/16/24 12:03 Urine Glucose (UA) Negative (NEGATIVE) 09/16/24 12:03 Urine Ketones Negative (NEGATIVE) 09/16/24 12:03 Urine Blood 1+ (NEGATIVE) 09/16/24 12:03 Urine Nitrite Negative (NEGATIVE) 09/16/24 12:03 Urine Bilirubin Negative (NEGATIVE) 09/16/24 12:03 Urine Urobilinogen Normal (NORMAL) 09/16/24 12:03 Ur Leukocyte Esterase 1+ (NEGATIVE) 09/16/24 12:03 Urine RBC 0-2 /HPF (0-3) 09/16/24 12:03 Urine WBC 0-2 /HPF (0-5) 09/16/24 12:03 Ur Squamous Epith Cells Rare /HPF (NEGATIVE) 09/16/24 12:03 Urine Bacteria Negative /HPF (NEGATIVE) 09/16/24 12:03 Urine Mucus Rare /HPF (NEGATIVE) 09/16/24 12:03 Ur Culture Indicated? No/not indicated 09/16/24 12:03 Digoxin 1.55 ng/mL (0.9-2) 09/17/24 05:20 Resp Viral Panel (PCR) See scanned report 09/18/24 17:03 Plan (1) Bronchopneumonia: Status: Acute (2) Acute on chronic congestive heart failure: Status: Chronic Qualifiers: Heart failure type: unspecified Qualified Code(s): I50.9 - Heart failure, unspecified (3) Urinary tract infection: Status: Acute Qualifiers: Hematuria presence: without hematuria Urinary tract infection type: acute cystitis Qualified Code(s): N30.00 - Acute cystitis without hematuria (4) Type 2 diabetes mellitus: Status: Chronic Qualifiers: Diabetes mellitus complication status: with hyperglycemia Diabetes mellitus [facility] insulin use: without [facility] use Qualified Code(s): E11.65 - Type 2 diabetes mellitus with hyperglycemia (5) Edema of lower extremity: Status: Chronic (6) Atrial fibrillation, controlled: Status: Chronic (7) Anxiety: Status: Chronic
[2024-09-24 06:31] LABS: BASOPHILS % (AUTO) 1.1 % (0.2-1.0); EOSINOPHILS # (AUTO) 0.2 x10^3/uL (0.0-0.2); EOSINOPHILS % (AUTO) 5.3 % (0.9-2.9); HEMATOCRIT 23.7 % (36.0-47.0); HEMOGLOBIN 7.9 g/dL (12.0-16.0); LYMPHOCYTES # (AUTO) 0.6 X10^3/uL (1.3-2.9); LYMPHOCYTES % (AUTO) 16.3 % (21.0-51.0); MEAN CORPUSCULAR HEMOGLOBIN 29.4 pg (27.0-34.0); MEAN CORPUSCULAR HGB CONC 33.4 g/dL (33.0-35.0); MEAN CORPUSCULAR VOLUME 88.1 fL (80.0-100.0); MEAN PLATELET VOLUME 7.6 fL (7.4-11.0); MONOCYTES # (AUTO) 0.7 x10^3/uL (0.3-0.8); MONOCYTES % (AUTO) 17.5 % (0.0-13.0); NEUTROPHILS # (AUTO) 2.3 x10^3/uL (2.2-4.8); NEUTROPHILS % (AUTO) 59.8 % (42.0-75.0); PLATELET COUNT 145 X10^3/uL (150.0-450.0); RED BLOOD COUNT 2.69 X10^6/uL (3.5-5.4); RED CELL DISTRIBUTION WIDTH 15.7 % (11.6-16.5); WHITE BLOOD COUNT 3.8 X10^3/uL (3.6-10.0)
[2024-09-24 07:14] LABS: ALANINE AMINOTRANSFERASE 11 Units/L (12-78); ALBUMIN 2.4 g/dL (3.4-5.0); ALKALINE PHOSPHATASE 73 Units/L (46-116); ASPARTATE AMINO TRANSFERASE 27 Units/L (15-37); BLOOD UREA NITROGEN 12 mg/dL (7-18); CALCIUM 8.5 mg/dL (8.5-10.1); CARBON DIOXIDE 35.4 mmol/L (21-32); CHLORIDE 97 mmol/L (98-107); COR CA(FOR HYPOALB) 9.8 mg/dL (8.5-10.1); CREATININE 0.63 mg/dL (0.55-1.02); GLUCOSE 84 mg/dL (65-99); POTASSIUM 3.6 mmol/L (3.5-5.1); SODIUM 137 mmol/L (136-145); TOTAL PROTEIN 5.7 g/dL (6.4-8.2); eGFR NON BLACK RACES > 60 (>60)
[2024-09-24] MEDS ORDERED: GLUCOPHAGE ONE (08:43)
--- NOTE | 2024-09-24 13:21 | PCM.PROG ---
Progress Note Progress Note for Day of Date of Exam: 09/24/24 Subjective Subjective: Patient seen at bedside, no acute events overnight. She is feeling better. She has been working with PT as tolerated. She is able to ambulate to the [facility] [place]. She is currently admitted for CHF exacerbation, pneumonia and UTI. AIT resp showed MRSA. Labs/imaging reviewed: -WBC 3.8, hemoglobin 7.9, platelets 145, K 3.6, creatinine 0.63, glucose 84 -CXR reviewed -Urine culture: E coli -AIT: MRSA Plan: Continue PO doxycycline. Monitor H&H. Will order iron infusion. Continue nebs, pulmicort and IS. Continue PO lasix. Replace electrolytes prn. PT/OT as tolerated. Case management to work on discharge planning to SNF. Continue PT/OT as tolerated. Replace electrolytes prn. Monitor AM labs/imaging. Past Medical Family Social History Allergies: Allergies No Known Allergies Allergy (Verified 09/13/24 13:56) Vital Signs and I&O's Vital Signs: Vital Signs Temperature 98.5 F Temperature 98.2 F Pulse Rate [Left Brachial] 78 Pulse Rate [Left Brachial] 72 Pulse Rate 75 Respiratory Rate 18 Respiratory Rate 18 Blood Pressure [Left Arm] 132/64 Blood Pressure [Left Arm] 125/58 O2 Sat by Pulse Oximetry 96 O2 Sat by Pulse Oximetry 95 O2 Sat by Pulse Oximetry 96 Intake and Output: Intake & Output 09/21/24 09/22/24 09/23/24 09/24/24 23:59 23:59 23:59 23:59 Intake Total 2692 / 2692 2130 / 2130 1160 / 1160 300 / 300 Output Total 250 / 250 2 / 2 5 / 5 Balance 2442 / 2442 2130 / 2130 1158 / 1158 295 / 295 Physical Exam Oriented: Normal Nose: Normal Throat: Normal Respiratory: Generalized and Diminished Cardiovascular: Edema Auscultation: Bowel Sounds: Normal Palpation: Normal Tenderness: Normal Skin: Other (chronic venous stasis ) Musculoskeletal: Leg Psychiatric: Normal Mood Description: Calm Affect: Normal Speech Pattern: Clear and Appropriate Laboratory and Diagnostics 09/24/24 05:52 09/24/24 05:52 Labs: Laboratory WBC 3.8 X10^3/uL (3.6-10.0) 09/24/24 05:52 RBC 2.69 X10^6/uL (3.5-5.4) L 09/24/24 05:52 Hgb 7.9 g/dL (12.0-16.0) L 09/24/24 05:52 Hct 23.7 % (36.0-47.0) L 09/24/24 05:52 MCV 88.1 fL (80.0-100.0) 09/24/24 05:52 MCH 29.4 pg (27.0-34.0) 09/24/24 05:52 MCHC 33.4 g/dL (33.0-35.0) 09/24/24 05:52 RDW 15.7 % (11.6-16.5) 09/24/24 05:52 Plt Count 145 X10^3/uL (150.0-450.0) L 09/24/24 05:52 MPV 7.6 fL (7.4-11.0) 09/24/24 05:52 Neut % (Auto) 59.8 % (42.0-75.0) 09/24/24 05:52 Lymph % (Auto) 16.3 % (21.0-51.0) L 09/24/24 05:52 [place] % (Auto) 17.5 % (0.0-13.0) H 09/24/24 05:52 Eos % (Auto) 5.3 % (0.9-2.9) H 09/24/24 05:52 Baso % (Auto) 1.1 % (0.2-1.0) H 09/24/24 05:52 Neut # (Auto) 2.3 x10^3/uL (2.2-4.8) 09/24/24 05:52 Lymph # (Auto) 0.6 X10^3/uL (1.3-2.9) L 09/24/24 05:52 [place] # (Auto) 0.7 x10^3/uL (0.3-0.8) 09/24/24 05:52 Eos # (Auto) 0.2 x10^3/uL (0.0-0.2) 09/24/24 05:52 Baso # (Auto) 0.0 X10^3/uL (0.0-0.1) 09/24/24 05:52 Absolute Nucleated RBC 0.1 /100WBC 09/24/24 05:52 PT 25.0 SECONDS (11.8-14.3) 09/16/24 12:06 INR Target Range - 09/16/24 12:06 INR 2.36 (0.8-1.3) H 09/16/24 12:06 APTT 44.9 SECONDS (22.9-36.5) H 09/16/24 12:06 PTT Comment - 09/16/24 12:06 Sodium 137 mmol/L (136-145) 09/24/24 05:52 Corrected Sodium TNP 09/24/24 05:52 Potassium 3.6 mmol/L (3.5-5.1) 09/24/24 05:52 Chloride 97 mmol/L (98-107) L 09/24/24 05:52 Carbon Dioxide 35.4 mmol/L (21-32) H 09/24/24 05:52 BUN 12 mg/dL (7-18) 09/24/24 05:52 Creatinine 0.63 mg/dL (0.55-1.02) 09/24/24 05:52 Est GFR (MDRD) Af Amer > 60 (>60) 09/24/24 05:52 Est GFR (MDRD) Non-Af > 60 (>60) 09/24/24 05:52 Glucose 84 mg/dL (65-99) 09/24/24 05:52 POC Glucose (mg/dL) 82 mg/dL (65-99) 09/24/24 11:10 Calcium 8.5 mg/dL (8.5-10.1) 09/24/24 05:52 Corrected Calcium 9.8 mg/dL (8.5-10.1) 09/24/24 05:52 Magnesium 1.8 mg/dL (2.0-2.9) L 09/23/24 05:46 Iron 18 ug/dL (50-175) L 09/18/24 05:10 TIBC 285 ug/dL (250-450) 09/18/24 05:10 Ferritin 35 ng/mL (8-252) 09/18/24 05:10 Total Bilirubin 1.20 mg/dL (0.2-1.0) H 09/24/24 05:52 AST 27 Units/L (15-37) 09/24/24 05:52 ALT 11 Units/L (12-78) L 09/24/24 05:52 Alkaline Phosphatase 73 Units/L (46-116) 09/24/24 05:52 B-Natriuretic Peptide 1700 pg/mL (0-79) H 09/16/24 12:06 Total Protein 5.7 g/dL (6.4-8.2) L 09/24/24 05:52 Albumin 2.4 g/dL (3.4-5.0) L 09/24/24 05:52 Globulin 3.3 g/dL (2.5-4.5) 09/24/24 05:52 Albumin/Globulin Ratio 0.7 Ratio (1.1-2.1) L 09/24/24 05:52 Vitamin B12 > 2000 pg/mL (193-986) H 09/18/24 05:10 Specimen Type Clean catch urine 09/16/24 12:03 Urine Color Yellow (YELLOW) 09/16/24 12:03 Urine Appearance Slightly hazy (CLEAR) 09/16/24 12:03 Urine pH 6.0 (5.0 - 8.0) 09/16/24 12:03 Ur Specific [place] 1.015 (1.000-1.030) 09/16/24 12:03 Urine Protein 2+ (NEGATIVE) 09/16/24 12:03 Urine Glucose (UA) Negative (NEGATIVE) 09/16/24 12:03 Urine Ketones Negative (NEGATIVE) 09/16/24 12:03 Urine Blood 1+ (NEGATIVE) 09/16/24 12:03 Urine Nitrite Negative (NEGATIVE) 09/16/24 12:03 Urine Bilirubin Negative (NEGATIVE) 09/16/24 12:03 Urine Urobilinogen Normal (NORMAL) 09/16/24 12:03 Ur Leukocyte Esterase 1+ (NEGATIVE) 09/16/24 12:03 Urine RBC 0-2 /HPF (0-3) 09/16/24 12:03 Urine WBC 0-2 /HPF (0-5) 09/16/24 12:03 Ur Squamous Epith Cells Rare /HPF (NEGATIVE) 09/16/24 12:03 Urine Bacteria Negative /HPF (NEGATIVE) 09/16/24 12:03 Urine Mucus Rare /HPF (NEGATIVE) 09/16/24 12:03 Ur Culture Indicated? No/not indicated 09/16/24 12:03 Digoxin 1.12 ng/mL (0.9-2) 09/23/24 16:50 Resp Viral Panel (PCR) See scanned report 09/18/24 17:03 Plan (1) Bronchopneumonia: Status: Acute (2) Acute on chronic congestive heart failure: Status: Chronic Qualifiers: Heart failure type: unspecified Qualified Code(s): I50.9 - Heart failure, unspecified (3) Urinary tract infection: Status: Acute Qualifiers: Hematuria presence: without hematuria Urinary tract infection type: acute cystitis Qualified Code(s): N30.00 - Acute cystitis without hematuria (4) Type 2 diabetes mellitus: Status: Chronic Qualifiers: Diabetes mellitus complication status: with hyperglycemia Diabetes mellitus [employer] insulin use: without longterm use Qualified Code(s): E11.65 - Type 2 diabetes mellitus with hyperglycemia (5) Edema of lower extremity: Status: Chronic (6) Atrial fibrillation, controlled: Status: Chronic (7) Anxiety: Status: Chronic (8) LARS (iron deficiency anemia): Status: Acute Qualifiers: Iron deficiency anemia type: unspecified iron deficiency Qualified Code(s): D50.9 - Iron deficiency anemia, unspecified
[2024-09-24] MEDS: APLISOL ID ONE (13:57)
[2024-09-24] MEDS ORDERED: INFeD or DEXFERRUM 25 MG in NS 100 ML IV 100 ML IV ONE (14:00)
[2024-09-24] MEDS ORDERED: INFeD or DEXFERRUM 975 MG in NS 500 ML IV 500 ML IV ONE (15:30)
[2024-09-24] MEDS: HEMOCYTE PLUS PO SCH (21:33)
[2024-09-25 06:40] LABS: BASOPHILS % (AUTO) 0.7 % (0.2-1.0); EOSINOPHILS # (AUTO) 0.2 x10^3/uL (0.0-0.2); EOSINOPHILS % (AUTO) 4.4 % (0.9-2.9); HEMATOCRIT 23.4 % (36.0-47.0); HEMOGLOBIN 7.8 g/dL (12.0-16.0); LYMPHOCYTES # (AUTO) 0.8 X10^3/uL (1.3-2.9); LYMPHOCYTES % (AUTO) 19.5 % (21.0-51.0); MEAN CORPUSCULAR HEMOGLOBIN 29.4 pg (27.0-34.0); MEAN CORPUSCULAR HGB CONC 33.5 g/dL (33.0-35.0); MEAN CORPUSCULAR VOLUME 87.7 fL (80.0-100.0); MEAN PLATELET VOLUME 7.9 fL (7.4-11.0); MONOCYTES # (AUTO) 0.8 x10^3/uL (0.3-0.8); MONOCYTES % (AUTO) 18.3 % (0.0-13.0); NEUTROPHILS # (AUTO) 2.4 x10^3/uL (2.2-4.8); NEUTROPHILS % (AUTO) 57.1 % (42.0-75.0); PLATELET COUNT 146 X10^3/uL (150.0-450.0); RED BLOOD COUNT 2.67 X10^6/uL (3.5-5.4); WHITE BLOOD COUNT 4.2 X10^3/uL (3.6-10.0)
[2024-09-25 07:03] LABS: ALANINE AMINOTRANSFERASE 11 Units/L (12-78); ALBUMIN 2.3 g/dL (3.4-5.0); ALKALINE PHOSPHATASE 70 Units/L (46-116); ASPARTATE AMINO TRANSFERASE 27 Units/L (15-37); BLOOD UREA NITROGEN 12 mg/dL (7-18); CALCIUM 8.3 mg/dL (8.5-10.1); CHLORIDE 97 mmol/L (98-107); COR CA(FOR HYPOALB) 9.7 mg/dL (8.5-10.1); CREATININE 0.59 mg/dL (0.55-1.02); GLUCOSE 78 mg/dL (65-99); MAGNESIUM 1.7 mg/dL (2.0-2.9); POTASSIUM 3.7 mmol/L (3.5-5.1); SODIUM 136 mmol/L (136-145); TOTAL PROTEIN 5.6 g/dL (6.4-8.2); eGFR NON BLACK RACES > 60 (>60)
[2024-09-25] MEDS ORDERED: GLUCOPHAGE ONE (08:20)
[2024-09-25 08:47] VITALS: RESP 19
[2024-09-25 12:02] VITALS: BP 117/58; PULSE 76; TEMP 98.4; O2SAT 98
--- NOTE | 2024-09-30 16:18 | W.DIS.FURT ---
Summary of Discharge Discharge Summary of Date Date of Exam: 09/25/24 Admission Date Date of Admission: 09/16/24 Admission Diagnosis Patient Problems (Updated 09/24/24 @ 13:21 by Yaima Kern MD) CHF (congestive heart failure) (Acute) I50.9 SOB (shortness of breath) (Acute) R06.02 Diarrhea (Acute) R19.7 Acute dyspnea (Acute) R06.00 Lip dryness (Acute) K13.0 Hospital Course: Ms Angeles is a 78y/o female with a PMH of CHF, CAD, Atrial fibrillation, pacemaker, Type 2 DM, GERD, HTN, anemia presented with worsening dyspnea. She was seen in the ER on 09/13/24 for fluid overload and UTI. She was discharged on antibiotics and lasix. She states her abdominal swelling and LE edema has been worsening. She has been taking lasix 40 mg BID. She has had recurrent admissions for similar symptoms. ER work up showed elevated BNP. She was given IV lasix. She was admitted for CHF exacerbation and UTI. She is currently on 2L NC which she uses at home. She was also started on IV antibiotics for E.coli UTI. Her labs were monitored daily and electrolytes were replaced as needed. Chest x-ray did show pneumonia so she was started on DuoNebs and Pulmicort. Respiratory was also consulted. She had echo done in January 2024 which showed EF 40 to 45%. Physical therapy was consulted and patient was ambulating as tolerated. Patient is not able to take care of herself at home and was advised to go to rehab pl acement. electronics commodity manager sent out referrals for different facilities. Patient's IV had infiltrated and she refused to have any further IV access. Her hemoglobin was also low due to LARS but patient refused to have transfusion. Her chest x-ray continued to mention mass and patient was advised to have CT done with contrast but patient declined. Patient was stable to be discharged to SNF on p.o. antibiotics. She will follow-up with PCP as scheduled. Vital Signs: Vital Signs (72 hours) 09/22/24 12:00 09/22/24 16:00 09/22/24 19:00 Temperature 97.4 F L 98.0 F Pulse Rate Pulse Rate [Left Brachial] 72 81 Respiratory Rate 20 20 Blood Pressure [Left Arm] 122/69 111/53 Blood Pressure [Right Arm] O2 Sat by Pulse Oximetry 98 97 Oxygen Delivery Method Room Air Room Air Nasal Cannula Oxygen Flow Rate 2 2 2 FIO2% 09/22/24 20:00 09/23/24 00:00 09/23/24 03:58 Temperature 98.1 F 98.0 F 97.9 F Pulse Rate Pulse Rate [Left Brachial] 73 76 70 Respiratory Rate 18 18 16 Blood Pressure [Left Arm] 117/55 115/57 130/59 Blood Pressure [Right Arm] O2 Sat by Pulse Oximetry 98 95 97 Oxygen Delivery Method Room Air Room Air Room Air Oxygen Flow Rate 2 2 2 FIO2% 09/23/24 07:31 09/23/24 08:49 09/23/24 09:28 Temperature Pulse Rate 88 Pulse Rate [Left Brachial] Respiratory Rate 18 Blood Pressure [Left Arm] Blood Pressure [Right Arm] O2 Sat by Pulse Oximetry Oxygen Delivery Method Nasal Cannula Oxygen Flow Rate 2 FIO2% 09/23/24 09:29 09/23/24 09:37 09/23/24 08:00 Temperature 97.7 F Pulse Rate Pulse Rate [Left Brachial] 88 Respiratory Rate 19 Blood Pressure [Left Arm] 140/64 Blood Pressure [Right Arm] O2 Sat by Pulse Oximetry 95 95 Oxygen Delivery Method Nasal Cannula Nasal Cannula Oxygen Flow Rate 2 2 FIO2% 09/23/24 08:31 09/23/24 12:00 09/23/24 17:32 Temperature 98.6 F Pulse Rate Pulse Rate [Left Brachial] 70 Respiratory Rate 18 20 20 Blood Pressure [Left Arm] 114/56 Blood Pressure [Right Arm] O2 Sat by Pulse Oximetry 97 Oxygen Delivery Method Nasal Cannula Oxygen Flow Rate 2 FIO2% 09/23/24 16:00 09/23/24 18:32 09/23/24 20:10 Temperature 97.9 F Pulse Rate Pulse Rate [Left Brachial] 71 Respiratory Rate 20 17 Blood Pressure [Left Arm] 125/58 Blood Pressure [Right Arm] O2 Sat by Pulse Oximetry 98 Oxygen Delivery Method Nasal Cannula Nasal Cannula Oxygen Flow Rate 2 2 FIO2% 28 09/23/24 20:10 09/23/24 19:00 09/23/24 20:00 Temperature 98.1 F Pulse Rate 81 Pulse Rate [Left Brachial] 71 Respiratory Rate 20 Blood Pressure [Left Arm] 115/57 Blood Pressure [Right Arm] O2 Sat by Pulse Oximetry 98 96 Oxygen Delivery Method Nasal Cannula Nasal Cannula Oxygen Flow Rate 2 2 FIO2% 09/24/24 00:00 09/24/24 04:00 09/24/24 08:00 Temperature 97.9 F 98.1 F 98.2 F Pulse Rate Pulse Rate [Left Brachial] 72 70 72 Respiratory Rate 20 20 18 Blood Pressure [Left Arm] 106/56 125/58 Blood Pressure [Right Arm] 124/58 O2 Sat by Pulse Oximetry 98 96 96 Oxygen Delivery Method Nasal Cannula Nasal Cannula Nasal Cannula Oxygen Flow Rate 2 2 2 FIO2% 09/24/24 09:13 09/24/24 09:16 09/24/24 10:07 Temperature Pulse Rate 75 Pulse Rate [Left Brachial] Respiratory Rate Blood Pressure [Left Arm] Blood Pressure [Right Arm] O2 Sat by Pulse Oximetry 95 Oxygen Delivery Method Nasal Cannula Nasal Cannula Oxygen Flow Rate 2 2 FIO2% 09/24/24 12:00 09/24/24 16:00 09/24/24 20:41 Temperature 98.5 F 98.2 F Pulse Rate Pulse Rate [Left Brachial] 78 78 Respiratory Rate 18 20 Blood Pressure [Left Arm] 132/64 129/61 Blood Pressure [Right Arm] O2 Sat by Pulse Oximetry 96 96 Oxygen Delivery Method Nasal Cannula Nasal Cannula Nasal Cannula Oxygen Flow Rate 2 2 2 FIO2% 28 09/24/24 21:38 09/24/24 19:00 09/24/24 22:38 Temperature Pulse Rate Pulse Rate [Left Brachial] Respiratory Rate 20 19 Blood Pressure [Left Arm] Blood Pressure [Right Arm] O2 Sat by Pulse Oximetry Oxygen Delivery Method Nasal Cannula Oxygen Flow Rate 2 FIO2% 09/24/24 20:00 09/25/24 00:00 09/25/24 04:00 Temperature 98.1 F 97.9 F 98.2 F Pulse Rate Pulse Rate [Left Brachial] 78 86 73 Respiratory Rate 20 19 20 Blood Pressure [Left Arm] 137/65 141/63 117/59 Blood Pressure [Right Arm] O2 Sat by Pulse Oximetry 96 95 96 Oxygen Delivery Method Nasal Cannula Nasal Cannula Nasal Cannula Oxygen Flow Rate 2 2 2 FIO2% 09/25/24 08:45 09/25/24 08:00 09/25/24 08:23 Temperature 98.5 F Pulse Rate Pulse Rate [Left Brachial] 71 Respiratory Rate 19 Blood Pressure [Left Arm] Blood Pressure [Right Arm] 108/59 O2 Sat by Pulse Oximetry 99 Oxygen Delivery Method Nasal Cannula Nasal Cannula Nasal Cannula Oxygen Flow Rate 2 2 2 FIO2% 28 Labs: Laboratory Last Values WBC 4.2 X10^3/uL (3.6-10.0) 09/25/24 05:33 RBC 2.67 X10^6/uL (3.5-5.4) L 09/25/24 05:33 Hgb 7.8 g/dL (12.0-16.0) L 09/25/24 05:33 Hct 23.4 % (36.0-47.0) L 09/25/24 05:33 MCV 87.7 fL (80.0-100.0) 09/25/24 05:33 MCH 29.4 pg (27.0-34.0) 09/25/24 05:33 MCHC 33.5 g/dL (33.0-35.0) 09/25/24 05:33 RDW 16.0 % (11.6-16.5) 09/25/24 05:33 Plt Count 146 X10^3/uL (150.0-450.0) L 09/25/24 05:33 MPV 7.9 fL (7.4-11.0) 09/25/24 05:33 Neut % (Auto) 57.1 % (42.0-75.0) 09/25/24 05:33 Lymph % (Auto) 19.5 % (21.0-51.0) L 09/25/24 05:33 Burt % (Auto) 18.3 % (0.0-13.0) H 09/25/24 05:33 Eos % (Auto) 4.4 % (0.9-2.9) H 09/25/24 05:33 Baso % (Auto) 0.7 % (0.2-1.0) 09/25/24 05:33 Neut # (Auto) 2.4 x10^3/uL (2.2-4.8) 09/25/24 05:33 Lymph # (Auto) 0.8 X10^3/uL (1.3-2.9) L 09/25/24 05:33 Burt # (Auto) 0.8 x10^3/uL (0.3-0.8) 09/25/24 05:33 Eos # (Auto) 0.2 x10^3/uL (0.0-0.2) 09/25/24 05:33 Baso # (Auto) 0.0 X10^3/uL (0.0-0.1) 09/25/24 05:33 Absolute Nucleated RBC 0.1 /100WBC 09/25/24 05:33 PT 25.0 SECONDS (11.8-14.3) 09/16/24 12:06 INR Target Range - 09/16/24 12:06 INR 2.36 (0.8-1.3) H 09/16/24 12:06 APTT 44.9 SECONDS (22.9-36.5) H 09/16/24 12:06 PTT Comment - 09/16/24 12:06 Sodium 136 mmol/L (136-145) 09/25/24 05:33 Corrected Sodium TNP 09/25/24 05:33 Potassium 3.7 mmol/L (3.5-5.1) 09/25/24 05:33 Chloride 97 mmol/L (98-107) L 09/25/24 05:33 Carbon Dioxide 37.0 mmol/L (21-32) H 09/25/24 05:33 BUN 12 mg/dL (7-18) 09/25/24 05:33 Creatinine 0.59 mg/dL (0.55-1.02) 09/25/24 05:33 Est GFR (MDRD) Af Amer > 60 (>60) 09/25/24 05:33 Est GFR (MDRD) Non-Af > 60 (>60) 09/25/24 05:33 Glucose 78 mg/dL (65-99) 09/25/24 05:33 POC Glucose (mg/dL) 77 mg/dL (65-99) 09/25/24 05:48 Calcium 8.3 mg/dL (8.5-10.1) L 09/25/24 05:33 Corrected Calcium 9.7 mg/dL (8.5-10.1) 09/25/24 05:33 Magnesium 1.7 mg/dL (2.0-2.9) L 09/25/24 05:33 Iron 18 ug/dL (50-175) L 09/18/24 05:10 TIBC 285 ug/dL (250-450) 09/18/24 05:10 Ferritin 35 ng/mL (8-252) 09/18/24 05:10 Total Bilirubin 1.20 mg/dL (0.2-1.0) H 09/25/24 05:33 AST 27 Units/L (15-37) 09/25/24 05:33 ALT 11 Units/L (12-78) L 09/25/24 05:33 Alkaline Phosphatase 70 Units/L (46-116) 09/25/24 05:33 B-Natriuretic Peptide 1700 pg/mL (0-79) H 09/16/24 12:06 Total Protein 5.6 g/dL (6.4-8.2) L 09/25/24 05:33 Albumin 2.3 g/dL (3.4-5.0) L 09/25/24 05:33 Globulin 3.3 g/dL (2.5-4.5) 09/25/24 05:33 Albumin/Globulin Ratio 0.7 Ratio (1.1-2.1) L 09/25/24 05:33 Vitamin B12 > 2000 pg/mL (193-986) H 09/18/24 05:10 Specimen Type Clean catch urine 09/16/24 12:03 Urine Color Yellow (YELLOW) 09/16/24 12:03 Urine Appearance Slightly hazy (CLEAR) 09/16/24 12:03 Urine pH 6.0 (5.0 - 8.0) 09/16/24 12:03 Ur Specific Stryker 1.015 (1.000-1.030) 09/16/24 12:03 Urine Protein 2+ (NEGATIVE) 09/16/24 12:03 Urine Glucose (UA) Negative (NEGATIVE) 09/16/24 12:03 Urine Ketones Negative (NEGATIVE) 09/16/24 12:03 Urine Blood 1+ (NEGATIVE) 09/16/24 12:03 Urine Nitrite Negative (NEGATIVE) 09/16/24 12:03 Urine Bilirubin Negative (NEGATIVE) 09/16/24 12:03 Urine Urobilinogen Normal (NORMAL) 09/16/24 12:03 Ur Leukocyte Esterase 1+ (NEGATIVE) 09/16/24 12:03 Urine RBC 0-2 /HPF (0-3) 09/16/24 12:03 Urine WBC 0-2 /HPF (0-5) 09/16/24 12:03 Ur Squamous Epith Cells Rare /HPF (NEGATIVE) 09/16/24 12:03 Urine Bacteria Negative /HPF (NEGATIVE) 09/16/24 12:03 Urine Mucus Rare /HPF (NEGATIVE) 09/16/24 12:03 Ur Culture Indicated? No/not indicated 09/16/24 12:03 Digoxin 1.12 ng/mL (0.9-2) 09/23/24 16:50 Resp Viral Panel (PCR) See scanned report 09/18/24 17:03 Reason For Visit: BILATERAL PNEUMONIA, SOB, ACUTE CHF Discharge Diagnosis All Active Problems (Updated 09/24/24 @ 13:21 by Yaima Kern MD) LARS (iron deficiency anemia) (Acute) Bronchopneumonia (Acute) Congestive heart failure (Acute) Urinary tract infection (Acute) CHF (congestive heart failure) (Acute) SOB (shortness of breath) (Acute) Diarrhea (Acute) Acute dyspnea (Acute) Lip dryness (Acute) Epigastric pain (Acute) Shortness of breath (Acute) Anxiety (Chronic) Yeast in stool (Acute) Weakness (Acute) Elevated lactic acid level (Acute) On potassium wasting diuretic therapy (Acute) Acute hyponatremia (Acute) Acute UTI (Acute) Portal hypertension (Acute) Nocturnal hypoxia (Acute) Acute exacerbation of chronic heart failure (Acute) Thrombocytopenia (Acute) Diarrhea of presumed infectious origin (Acute) Congestive heart failure (Acute) Intertriginous candidiasis (Acute) Need for tetanus booster (Acute) Need for shingles vaccine (Acute) Encounter for monitoring opioid maintenance therapy (Acute) Chronic pain of right knee (Chronic) Atrial fibrillation, controlled (Chronic) Depression (Chronic) Acute hypotension (Acute) Frequent falls (Acute) Fracture of knee region (Acute) DM2 (diabetes mellitus, type 2) (Chronic) Abnormal EKG (Chronic) 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 Pt is to keep follow up appointment as instructed and take medications as ordered. Discharge Medications Discharge Medications: No Known Allergies Allergy (Verified 09/13/24 13:56) Discharge Disposition Discharge Disposition: shelter facility Discharge Condition: Stable Discharge Plan Discharge Plan Hospital Course: Ms Angeles is a 78y/o female with a PMH of CHF, CAD, Atrial fibrillation, pacemaker, Type 2 DM, GERD, HTN, anemia presented with worsening dyspnea. She was seen in the ER on 09/13/24 for fluid overload and UTI. She was discharged on antibiotics and lasix. She states her abdominal swelling and LE edema has been worsening. She has been taking lasix 40 mg BID. She has had recurrent admissions for similar symptoms. ER work up showed elevated BNP. She was given IV lasix. She was admitted for CHF exacerbation and UTI. She is currently on 2L NC which she uses at home. She was also started on IV antibiotics for E.coli UTI. Her labs were monitored daily and electrolytes were replaced as needed. Chest x-ray did show pneumonia so she was started on DuoNebs and Pulmicort. Respiratory was also consulted. She had echo done in January 2024 which showed EF 40 to 45%. Physical therapy was consulted and patient was ambulating as tolerated. Patient is not able to take care of herself at home and was advised to go to rehab placement. electronics commodity manager sent out referrals for different facilities. Patient's IV had infiltrated and she refused to have any further IV access. Her hemoglobin was also low due to LARS but patient refused to have transfusion. Her chest x-ray continued to mention mass and patient was advised to have CT done with contrast but patient declined. Patient was stable to be discharged to SNF on p.o. antibiotics. She will follow-up with PCP as scheduled. Patient Disposition: SNF Condition: Stable Health Concerns: Post Hospitalization: new medications and changes needed to prevent readmission or further decline. Pt educated and given instructions on all concerns. Care Plan Goals: Problem: Pain/Alteration in Comfort Goal: Improve/ Resolve Pain; Achieve Pain Tolerance Instructions: Take pain medications as prescribed. Contact your primary care provider if your pain is unrelieved or worsens. Follow up with primary care provider as directed. Plan of Treatment: Continue with present treatment and follow up plan. Pt is to keep follow up appointment as instructed and take medications as ordered. Prescription drug monitoring program results: PDMP reviewed and no concerns identified Prescriptions: New Hematinic Plus Vit/Minerals 106 mg iron- 1 mg Tablet 1 tab PO BID 30 Days Qty: 60 0RF Continued citalopram 40 mg tablet 40 mg PO QDAY Qty: 90 3RF diazepam 5 mg tablet 5 mg PO Q8H MDD 3 PRN (Reason: pain) 30 Days Qty: 90 0RF furosemide 40 mg tablet 40 mg PO BID Qty: 180 0RF metformin 500 mg tablet 500 mg PO QDAY Qty: 90 3RF potassium chloride [Klor-Con] 20 mEq packet 20 meq PO BID Qty: 180 0RF digoxin 125 mcg (0.125 mg) tablet 125 mcg PO QDAY Qty: 90 0RF sertraline 25 mg tablet 25 mg PO QDAY Qty: 90 3RF carvedilol 6.25 mg tablet 6.25 mg PO BID Qty: 180 3RF Eliquis 5 mg tablet 5 mg PO BID Qty: 180 3RF hydrocodone-acetaminophen 7.5-325 mg tablet 1 tab PO QID MDD 4 PRN (Reason: Pain) 30 Days Qty: 120 0RF Orders to Discharge Patient Discharge Orders: Discharge (Routine); Ordered 09/25/24 Ordered By: Yaima Kern Instructions Instructions: Heart Failure: Helping Someone Manage, Heart Failure: How to Manage, Heart Failure and Exercise: What to Know, Community-Acquired Pneumonia, Adult, [id number] Stand Alone Forms: Excuse From Work or School, Find Help Web Site, Post Hospital Follow Up Care
== END 2024-09-25 16:01 | DRG 177 ==
LOC: ER 11:17 → MED/SURG 11:17 → U 11:17 → MED/SURG 17:10
PROVIDERS: ADMIT Family Medicine; ATTEND Family Medicine
DX: B96.29 Other Escherichia coli [E. coli] as the cause of diseases classified elsewhere; R06.02 Shortness of breath; E66.01 Morbid (severe) obesity due to excess calories; I48.91 Unspecified atrial fibrillation; D50.8 Other iron deficiency anemias; N30.00 Acute cystitis without hematuria; Z68.33 Body mass index [BMI] 33.0-33.9, adult; I50.43 Acute on chronic combined systolic (congestive) and diastolic (congestive) heart failure; R19.7 Diarrhea, unspecified; Z95.0 Presence of cardiac pacemaker; R60.0 Localized edema; J15.212 Pneumonia due to Methicillin resistant Staphylococcus aureus; K21.9 Gastro-esophageal reflux disease without esophagitis; F41.8 Other specified anxiety disorders; R26.89 Other abnormalities of gait and mobility; E11.65 Type 2 diabetes mellitus with hyperglycemia; I11.0 Hypertensive heart disease with heart failure; R79.1 Abnormal coagulation profile; Z29.89 Encounter for other specified prophylactic measures; E87.1 Hypo-osmolality and hyponatremia

== ENCOUNTER 2024-11-07 08:36 | Observation (INO) ==
--- NOTE | 2024-11-07 09:08 | EKG ---
Test Reason : AMS Blood Pressure : */* mmHG Vent. Rate : 70 BPM Atrial Rate : 97 BPM P-R Int : * ms QRS Dur : 154 ms QT Int : 488 ms P-R-T Axes : * 132 38 degrees QTc Int : 527 ms Ventricular-paced rhythm Abnormal ECG When compared with ECG of 15-MAR-2024 04:52, Vent. rate has decreased BY 19 BPM Confirmed by Eliot Verdin MD ([id number]) on 11/07/2024 4:30:09 PM Referred By: Confirmed By: Eliot Verdin MD
[2024-11-07 09:12] LABS: BASOPHILS % (AUTO) 0.4 % (0.2-1.0); EOSINOPHILS # (AUTO) 0.1 x10^3/uL (0.0-0.2); EOSINOPHILS % (AUTO) 1.2 % (0.9-2.9); HEMOGLOBIN 10.4 g/dL (12.0-16.0); LYMPHOCYTES # (AUTO) 0.9 X10^3/uL (1.3-2.9); LYMPHOCYTES % (AUTO) 19.5 % (21.0-51.0); MEAN CORPUSCULAR HEMOGLOBIN 29.8 pg (27.0-34.0); MEAN CORPUSCULAR HGB CONC 33.7 g/dL (33.0-35.0); MEAN CORPUSCULAR VOLUME 88.5 fL (80.0-100.0); MEAN PLATELET VOLUME 8.2 fL (7.4-11.0); MONOCYTES # (AUTO) 0.7 x10^3/uL (0.3-0.8); MONOCYTES % (AUTO) 14.5 % (0.0-13.0); NEUTROPHILS # (AUTO) 2.9 x10^3/uL (2.2-4.8); NEUTROPHILS % (AUTO) 64.4 % (42.0-75.0); PLATELET COUNT 128 X10^3/uL (150.0-450.0); RED CELL DISTRIBUTION WIDTH 18.3 % (11.6-16.5); WHITE BLOOD COUNT 4.6 X10^3/uL (3.6-10.0)
[2024-11-07 09:15] LABS: BILIRUBIN,URINE NEGATIVE (NEGATIVE); BLOOD/HEMOGLOBIN,URINE 2+ (NEGATIVE); GLUCOSE, URINE NEGATIVE (NEGATIVE); KETONES,URINE NEGATIVE (NEGATIVE); LEUKOCYTE ESTERASE ,URINE 3+ (NEGATIVE); NITRITES,URINE POSITIVE (NEGATIVE); PH,URINE 6.5 (5.0 - 8.0); PROTEIN,URINE 2+ (NEGATIVE); UROBILINOGEN,URINE NORMAL (NORMAL)
[2024-11-07 09:24] LABS: ALANINE AMINOTRANSFERASE 15 Units/L (12-78); ALBUMIN 3.3 g/dL (3.4-5.0); ALKALINE PHOSPHATASE 83 Units/L (46-116); ASPARTATE AMINO TRANSFERASE 35 Units/L (15-37); BLOOD UREA NITROGEN 14 mg/dL (7-18); CALCIUM 8.5 mg/dL (8.5-10.1); CARBON DIOXIDE 29.7 mmol/L (21-32); CHLORIDE 99 mmol/L (98-107); COR CA(FOR HYPOALB) 9.1 mg/dL (8.5-10.1); CREATININE 0.78 mg/dL (0.55-1.02); GLUCOSE 76 mg/dL (65-99); POTASSIUM 3.9 mmol/L (3.5-5.1); SODIUM 135 mmol/L (136-145); eGFR NON BLACK RACES > 60 (>60)
[2024-11-07 09:38] LABS: APPEARANCE,URINE SLIGHTLY HAZY (CLEAR); COLOR,URINE PALE YELLOW (YELLOW)
[2024-11-07 09:39] LABS: BACTERIA,URINE 1+ /HPF (NEGATIVE); RBC,URINE 0-2 /HPF (0-3); SQUAMOUS EPITHELIAL CELL,UR MODERATE /HPF (NEGATIVE)
--- NOTE | 2024-11-07 09:47 | CT ---
EXAM: BRAIN W/O CON HISTORY: AMS; COMPARISON: None. TECHNIQUE: Axial CT of the head is performed from the base of the skull through the vertex without contrast . Mu ltiplaner reformats are generated from the original axial data. FINDINGS: There is no evidence of an acute intracranial hemorrhage or extra-axial fluid collection. There is n o mass effect, midline shift, or evidence of cerebral edema. Ventricular size is concordant to the d egree of underlying cortical volume loss. There are degenerative white matter changes of the suprate ntorial brain reflective of chronic small-vessel ischemic degeneration. Cortical penaloza-white matter d ifferentiation is maintained without sulcal effacement. There is no evidence of an acute stage, larg e artery territorial infarction. The calvarium is intact. The paranasal sinuses and mastoid air cells are predominantly clear. The c erebellar tonsils are normal in position. No suprasellar asymmetry is identified. Vascular calcification signify atherosclerosis are demonstrated within the vertebral arteries and cav ernous ICA segments. IMPRESSION: No acute intracranial abnormalities Age-related cortical volume loss and degenerative white matter changes of the supratentorial brain Radiation dose reduction was achieved through individualized adjustment of kVP and/or mA, through ada ptive statistical iterative reconstruction, and/or through automated tube current modulation. THIS IS AN ELECTRONICALLY VERIFIED FINAL REPORT 11/07/2024 9:44 AM - Electronically signed by Paul Daniels MD
[2024-11-07] MEDS: LASIX IVP ONE ×2 (10:19→21:35)
--- NOTE | 2024-11-07 10:22 | DR.AMS ---
HPI Time Seen Time Seen by Provider: 11/07/24 08:46 PCP Primary Care Physician: YOU HPI Comment HPI Comment: Patient brought in by EMS today for altered mental status. Patient was seen by EMS yesterday due to a fall which they describe as her sliding from a low couch to the ground with no serious injury. Patient had refused to come to the hospital. Patient had slid out of her recliner today onto the ground and could not get up. EMS was called she was found to be confused and sitting on a puddle of urine. No injury. Patient denies hip or back pain or having injured herself. She had no signs of injury either. She apparently has been getting weaker since yesterday. Denied chest pain or shortness of breath but was noted to have lots of bilateral pedal edema. She does have a history of congestive heart failure, atrial fibrillation, coronary artery disease and diabetes mellitus type 2. Patient does take opioids and benzos. Complaint Chief Complaint:: Patient brought in by [facility] ems, They stated they went out to her yesterday morning due to a fall that happen on 11/05/24 she was fine per ems she was alert and oriented denied any pain or wanting to go to the hospital. When they went out to her this morning the sitter stated throughout the day yesterday she started getting worse with her mind and some time lastnight she slide out of her recliner she has been real weak and was saturated in urine. Patient is confused. COVID-19 Coronavirus risk:travel/contact w/high risk person: No Has patient experienced Coronavirus symptoms: No Source History Provided: EMS Mode of Arrival Mode of Arrival: EMS Timing Onset of Chief Complaint: 11/07/24 PMH PMH Past Medical History: Yes Past Medical History: Angina, Anxiety, Arthritis, CHF, Depression, Diabetes, GERD and Hypertension Past Surgical History: Yes Surgical History: Joint Replacement, Ortho Surgery and Tonsillectomy Family History History of Family Medical Conditions: Yes Family Medical History: Diabetes Mellitus and Cancer Social History Does patient currently use any type of tobacco product: No Have you used tobacco products in the last 12 months: No Type of Tobacco Use: None Does any household member use tobacco: No Alcohol Use: None Do you use any recreational Drugs:: No Lives With: Family Lives Where: Home Travel Risk Coronavirus risk:travel/contact w/high risk person: No Has patient experienced Coronavirus symptoms: No Infectious screening In the last 2 months have you had wt loss of >10#?: NO Have you had fever, night sweats or hemotysis?: No Have you traveled outside the country in the last 6 months?: No Isolation: Standard ROS Review of Systems Constitutional: See HPI and Weakness; negative Fever Eyes: No Symptoms Reported ENTM: No Symptoms Reported Respiratoy: No Symptoms Reported; negative Short of Breath or Wheezing Cardiovascular: See HPI and Edema; negative Chest Pain, Palpitations or Syncope Gastrointestinal/Abdominal: No Symptoms Reported Genitourinary: Dysuria and Frequency Neurological: No Symptoms Reported Musculoskeletal: No Symptoms Reported Integumentary: No Symptoms Reported Hematologic/Lymphatic: No Symptoms Reported Endocrine: No Symptoms Reported Psychiatric: No Symptoms Reported All Other Systems: Reviewed and Negative PE Vitals Vital Signs: Temp Pulse Resp BP Pulse Ox O2 Del Method 11/07/24 10:30 109/52 11/07/24 09:21 68 18 143/83 100 Room Air 11/07/24 08:50 98.1 F 82 14 105/53 100 Room Air General Limitations: Language Barrier General Appearance: Alert and In No Apparent Distress Head Head Exam: Normal Inspection Eyes Eye exam: Normal Appearance ENT ENT Exam: Normal Exam External Ear Exam: Normal External Inspection Nose Exam: Normal Nose Exam Mouth Exam: Normal Inspection Throat Exam: Normal Inspection Neck Neck Exam: Normal Inspection Chest Chest Inspection: Normal Inspection Respiratory Respiratory Exam: Other (Mild crackles bilaterally) Cardiovascular Cardiovascular Exam: Regular Rate and Normal Rhythm Abdominal Exam Abdominal Exam: Normal Inspection, Normal Bowel Sounds and Soft Extremities Extremities Exam: Normal Inspection Back Back Exam: Normal Inspection Neurological Neurological Exam: Alert and Other (confused) Psychological Psychiatric Exam: Normal Affect and Normal Mood Skin Skin Exam: Warm, Dry, Intact, Normal Color and Other (Yeast infection on skin folds under breasts. Patient also has what appears to be a stage I pressure ulcer in her sacral region.) COURSE Consultation Called: 10:41 Consultation Comments: Discussed case with Dr. Alarcno. He is agreeable to admission. ROR Labs Reviewed 11/07/24 08:57 11/07/24 08:57 Laboratory: WBC 4.6 X10^3/uL (3.6-10.0) 11/07/24 08:57 RBC 3.50 X10^6/uL (3.5-5.4) 11/07/24 08:57 Hgb 10.4 g/dL (12.0-16.0) L 11/07/24 08:57 Hct 31.0 % (36.0-47.0) L 11/07/24 08:57 MCV 88.5 fL (80.0-100.0) 11/07/24 08:57 MCH 29.8 pg (27.0-34.0) 11/07/24 08:57 MCHC 33.7 g/dL (33.0-35.0) 11/07/24 08:57 RDW 18.3 % (11.6-16.5) H 11/07/24 08:57 Plt Count 128 X10^3/uL (150.0-450.0) L 11/07/24 08:57 MPV 8.2 fL (7.4-11.0) 11/07/24 08:57 Neut % (Auto) 64.4 % (42.0-75.0) 11/07/24 08:57 Lymph % (Auto) 19.5 % (21.0-51.0) L 11/07/24 08:57 [place] % (Auto) 14.5 % (0.0-13.0) H 11/07/24 08:57 Eos % (Auto) 1.2 % (0.9-2.9) 11/07/24 08:57 Baso % (Auto) 0.4 % (0.2-1.0) 11/07/24 08:57 Neut # (Auto) 2.9 x10^3/uL (2.2-4.8) 11/07/24 08:57 Lymph # (Auto) 0.9 X10^3/uL (1.3-2.9) L 11/07/24 08:57 [place] # (Auto) 0.7 x10^3/uL (0.3-0.8) 11/07/24 08:57 Eos # (Auto) 0.1 x10^3/uL (0.0-0.2) 11/07/24 08:57 Baso # (Auto) 0.0 X10^3/uL (0.0-0.1) 11/07/24 08:57 Absolute Nucleated RBC 0.1 /100WBC 11/07/24 08:57 Sodium 135 mmol/L (136-145) L 11/07/24 08:57 Corrected Sodium TNP 11/07/24 08:57 Potassium 3.9 mmol/L (3.5-5.1) 11/07/24 08:57 Chloride 99 mmol/L (98-107) 11/07/24 08:57 Carbon Dioxide 29.7 mmol/L (21-32) 11/07/24 08:57 BUN 14 mg/dL (7-18) 11/07/24 08:57 Creatinine 0.78 mg/dL (0.55-1.02) 11/07/24 08:57 Est GFR (MDRD) Af Amer > 60 (>60) 11/07/24 08:57 Est GFR (MDRD) Non-Af > 60 (>60) 11/07/24 08:57 Glucose 76 mg/dL (65-99) 11/07/24 08:57 Calcium 8.5 mg/dL (8.5-10.1) 11/07/24 08:57 Corrected Calcium 9.1 mg/dL (8.5-10.1) 11/07/24 08:57 Total Bilirubin 1.40 mg/dL (0.2-1.0) H 11/07/24 08:57 AST 35 Units/L (15-37) 11/07/24 08:57 ALT 15 Units/L (12-78) 11/07/24 08:57 Alkaline Phosphatase 83 Units/L (46-116) 11/07/24 08:57 B-Natriuretic Peptide 922 pg/mL (0-79) H 11/07/24 08:57 Total Protein 7.0 g/dL (6.4-8.2) 11/07/24 08:57 Albumin 3.3 g/dL (3.4-5.0) L 11/07/24 08:57 Globulin 3.7 g/dL (2.5-4.5) 11/07/24 08:57 Albumin/Globulin Ratio 0.9 Ratio (1.1-2.1) L 11/07/24 08:57 Specimen Type Catherized urine 11/07/24 08:57 Urine Color Pale yellow (YELLOW) 11/07/24 08:57 Urine Appearance Slightly hazy (CLEAR) 11/07/24 08:57 Urine pH 6.5 (5.0 - 8.0) 11/07/24 08:57 Ur Specific [place] 1.015 (1.000-1.030) 11/07/24 08:57 Urine Protein 2+ (NEGATIVE) 11/07/24 08:57 Urine Glucose (UA) Negative (NEGATIVE) 11/07/24 08:57 Urine Ketones Negative (NEGATIVE) 11/07/24 08:57 Urine Blood 2+ (NEGATIVE) 11/07/24 08:57 Urine Nitrite Positive (NEGATIVE) 11/07/24 08:57 Urine Bilirubin Negative (NEGATIVE) 11/07/24 08:57 Urine Urobilinogen Normal (NORMAL) 11/07/24 08:57 Ur Leukocyte Esterase 3+ (NEGATIVE) 11/07/24 08:57 Urine RBC 0-2 /HPF (0-3) 11/07/24 08:57 Urine WBC 5-10 /HPF (0-5) A 11/07/24 08:57 Ur Squamous Epith Cells Moderate /HPF (NEGATIVE) 11/07/24 08:57 Amorphous Sediment 1+ /HPF (NEGATIVE) 11/07/24 08:57 Urine Bacteria 1+ /HPF (NEGATIVE) 11/07/24 08:57 Ur Culture Indicated? Yes/culture set up 11/07/24 08:57 Urine Opiates Screen Negative (NEG=<300) 11/07/24 08:57 Urine Methadone Screen Negative (NEG=<300) 11/07/24 08:57 Ur Barbiturates Screen Negative (NEG=<200) 11/07/24 08:57 Ur Phencyclidine Scrn Negative (NEG=<25) 11/07/24 08:57 Ur Amphetamines Screen Negative (NEG=<1000) 11/07/24 08:57 U Benzodiazepines Scrn Positive (NEG=<200) A 11/07/24 08:57 Urine Cocaine Screen Negative (NEG=<300) 11/07/24 08:57 U Marijuana (THC) Screen Negative (NEG=<50) 11/07/24 08:57 Opioid Opioid Risk Tool Age ([place] box if 16-45): No History of Preadolescent Sexual Abuse: No Total: 0 Total Score Risk Category: Low Risk Copyright: Vasile LUNA predicting aberrant behaviors Discharge Plan Diagnosis Discharge Problem: Acute exacerbation of CHF (congestive heart failure), Acute UTI, Altered mental status Discharge Plan Patient Disposition: 09 ADMITTED INPATIENT Condition: Stable Prescriptions: No Action citalopram 40 mg tablet 40 mg PO QDAY Qty: 90 3RF furosemide 40 mg tablet 40 mg PO BID Qty: 180 0RF potassium chloride [Klor-Con] 20 mEq packet 20 meq PO BID Qty: 180 0RF digoxin 125 mcg (0.125 mg) tablet 125 mcg PO QDAY Qty: 90 0RF sertraline 25 mg tablet 25 mg PO QDAY Qty: 90 3RF carvedilol 6.25 mg tablet 6.25 mg PO BID Qty: 180 3RF Eliquis 5 mg tablet 5 mg PO BID Qty: 180 3RF hydrocodone-acetaminophen 7.5-325 mg tablet 1 tab PO QID MDD 4 PRN (Reason: Pain) 30 Days Qty: 120 0RF metformin 500 mg tablet 500 mg PO DAILY Health Concerns: Post Hospitalization: new medications and changes needed to prevent readmission or further decline. Pt educated and given instructions on all concerns. Plan of Treatment: Continue with present treatment and follow up plan. Pt is to keep follow up appointment as instructed and take medications as ordered. Orders to Discharge Patient Discharge Orders: Transfer (Routine); Ordered 11/07/24 Ordered By: Ozzie Donahue Follow ups/Referrals Follow ups/Referrals: [facility]DM[facility] [Primary Care Provider] - 3 days Instructions Stand Alone Forms: Find Help Web Site, Post Hospital Follow Up Care
[2024-11-07] MEDS: ZOSYN VIAL 3.375 GRAMS 3.375 G in NS 100 ML IV 100 ML IV ONE (10:43)
[2024-11-07] MEDS ORDERED: WOUND CARE XX SCH (14:05)
[2024-11-07] MEDS ORDERED: CONSULT PHARMACY - POTASSIUM & MAGNESIUM XX SCH (14:05)
[2024-11-07] MEDS: NS 1,000 ML IV 1,000 ML IV SCH (15:10)
[2024-11-07] MEDS: ZOSYN VIAL 3.375 GRAMS 3.375 G in NS 100 ML IV 100 ML IV SCH (15:10)
--- NOTE | 2024-11-07 15:14 | RAD ---
EXAM: CHEST, 1 VIEW HISTORY: CHF; COMPARISON: Prior study or studies were utilized for comparison during interpretation with the most relevant [place] ed 09/22/2024 TECHNIQUE: CHEST, 1 VIEW FINDINGS: Chest: Lines and tubes: Left-sided pacemaker generator with lead or leads in satisfactory position. Mediastinum: Cardiomegaly. Pulmonary vessels: Pulmonary vasculature is prominent. Lung muse: No suspicious airspace opacity. Pleura: No effusion. No pneumothorax. Bones and soft tissues: No acute osseous or soft tissue abnormality. IMPRESSION: 1. No acute cardiopulmonary abnormality THIS IS AN ELECTRONICALLY VERIFIED FINAL REPORT 11/07/2024 3:10 PM - Electronically signed by Michael Mtz MD
[2024-11-07] MEDS: PriLOSEC PO ONE (15:54)
[2024-11-07] MEDS: MYSOLINE ONE (15:55)
[2024-11-07] MEDS: LASIX IVP SCH (16:11)
--- NOTE | 2024-11-07 18:01 | DR.H&P ---
H&P History & Physical for Day of: H&P Date: 11/07/24 Chief Complaint Chief Complaint: AMS, CONFUSION History of Present Illness History of Present Illness: Patient brought in by EMS today for altered mental status. Patient was seen by EMS yesterday due to a fall which they describe as her sliding from a low couch to the ground with no serious injury. Patient had refused to come to the hospital. Patient had slid out of her recliner today onto the ground and could not get up. EMS was called she was found to be confused and sitting on a puddle of urine. No injury. Patient denies hip or back pain or having injured herself. She had no signs of injury either. She apparently has been getting weaker since yesterday. Denied chest pain or shortness of breath but was noted to have lots of bilateral pedal edema. She d oes have a history of congestive heart failure, atrial fibrillation, coronary artery disease and diabetes mellitus type 2. Past Medical History Past Medical History: Angina, Anxiety, Arthritis, CHF, Depression, Diabetes, GERD and Hypertension Past Surgical History Surgical History: Joint Replacement, Ortho Surgery and Tonsillectomy Family History Family Medical History: Diabetes Mellitus and Cancer Social History Does patient currently use any type of tobacco product: No Have you used tobacco products in the last 12 months: No Type of Tobacco Use: None Does any household member use tobacco: No Alcohol Use: None Medications Home Medications: Home Medications Medication Instructions Recorded Confirmed Type metformin 500 mg tablet 500 mg PO DAILY 11/07/24 11/07/24 History Allergies Allergies Allergy/AdvReac Type Severity Reaction Status Date / Time No Known Allergies Allergy Verified 11/07/24 08:56 Labs 11/07/24 08:57 11/07/24 08:57 Labs: Laboratory WBC 4.6 X10^3/uL (3.6-10.0) 11/07/24 08:57 RBC 3.50 X10^6/uL (3.5-5.4) 11/07/24 08:57 Hgb 10.4 g/dL (12.0-16.0) L 11/07/24 08:57 Hct 31.0 % (36.0-47.0) L 11/07/24 08:57 MCV 88.5 fL (80.0-100.0) 11/07/24 08:57 MCH 29.8 pg (27.0-34.0) 11/07/24 08:57 MCHC 33.7 g/dL (33.0-35.0) 11/07/24 08:57 RDW 18.3 % (11.6-16.5) H 11/07/24 08:57 Plt Count 128 X10^3/uL (150.0-450.0) L 11/07/24 08:57 MPV 8.2 fL (7.4-11.0) 11/07/24 08:57 Neut % (Auto) 64.4 % (42.0-75.0) 11/07/24 08:57 Lymph % (Auto) 19.5 % (21.0-51.0) L 11/07/24 08:57 [place] % (Auto) 14.5 % (0.0-13.0) H 11/07/24 08:57 Eos % (Auto) 1.2 % (0.9-2.9) 11/07/24 08:57 Baso % (Auto) 0.4 % (0.2-1.0) 11/07/24 08:57 Neut # (Auto) 2.9 x10^3/uL (2.2-4.8) 11/07/24 08:57 Lymph # (Auto) 0.9 X10^3/uL (1.3-2.9) L 11/07/24 08:57 [place] # (Auto) 0.7 x10^3/uL (0.3-0.8) 11/07/24 08:57 Eos # (Auto) 0.1 x10^3/uL (0.0-0.2) 11/07/24 08:57 Baso # (Auto) 0.0 X10^3/uL (0.0-0.1) 11/07/24 08:57 Absolute Nucleated RBC 0.1 /100WBC 11/07/24 08:57 Sodium 135 mmol/L (136-145) L 11/07/24 08:57 Corrected Sodium TNP 11/07/24 08:57 Potassium 3.9 mmol/L (3.5-5.1) 11/07/24 08:57 Chloride 99 mmol/L (98-107) 11/07/24 08:57 Carbon Dioxide 29.7 mmol/L (21-32) 11/07/24 08:57 BUN 14 mg/dL (7-18) 11/07/24 08:57 Creatinine 0.78 mg/dL (0.55-1.02) 11/07/24 08:57 Est GFR (MDRD) Af Amer > 60 (>60) 11/07/24 08:57 Est GFR (MDRD) Non-Af > 60 (>60) 11/07/24 08:57 Glucose 76 mg/dL (65-99) 11/07/24 08:57 POC Glucose (mg/dL) 68 mg/dL (65-99) 11/07/24 16:13 Calcium 8.5 mg/dL (8.5-10.1) 11/07/24 08:57 Corrected Calcium 9.1 mg/dL (8.5-10.1) 11/07/24 08:57 Total Bilirubin 1.40 mg/dL (0.2-1.0) H 11/07/24 08:57 AST 35 Units/L (15-37) 11/07/24 08:57 ALT 15 Units/L (12-78) 11/07/24 08:57 Alkaline Phosphatase 83 Units/L (46-116) 11/07/24 08:57 B-Natriuretic Peptide 922 pg/mL (0-79) H 11/07/24 08:57 Total Protein 7.0 g/dL (6.4-8.2) 11/07/24 08:57 Albumin 3.3 g/dL (3.4-5.0) L 11/07/24 08:57 Globulin 3.7 g/dL (2.5-4.5) 11/07/24 08:57 Albumin/Globulin Ratio 0.9 Ratio (1.1-2.1) L 11/07/24 08:57 Specimen Type Catherized urine 11/07/24 08:57 Urine Color Pale yellow (YELLOW) 11/07/24 08:57 Urine Appearance Slightly hazy (CLEAR) 11/07/24 08:57 Urine pH 6.5 (5.0 - 8.0) 11/07/24 08:57 Ur Specific [place] 1.015 (1.000-1.030) 11/07/24 08:57 Urine Protein 2+ (NEGATIVE) 11/07/24 08:57 Urine Glucose (UA) Negative (NEGATIVE) 11/07/24 08:57 Urine Ketones Negative (NEGATIVE) 11/07/24 08:57 Urine Blood 2+ (NEGATIVE) 11/07/24 08:57 Urine Nitrite Positive (NEGATIVE) 11/07/24 08:57 Urine Bilirubin Negative (NEGATIVE) 11/07/24 08:57 Urine Urobilinogen Normal (NORMAL) 11/07/24 08:57 Ur Leukocyte Esterase 3+ (NEGATIVE) 11/07/24 08:57 Urine RBC 0-2 /HPF (0-3) 11/07/24 08:57 Urine WBC 5-10 /HPF (0-5) A 11/07/24 08:57 Ur Squamous Epith Cells Moderate /HPF (NEGATIVE) 11/07/24 08:57 Amorphous Sediment 1+ /HPF (NEGATIVE) 11/07/24 08:57 Urine Bacteria 1+ /HPF (NEGATIVE) 11/07/24 08:57 Ur Culture Indicated? Yes/culture set up 11/07/24 08:57 Urine Opiates Screen Negative (NEG=<300) 11/07/24 08:57 Urine Methadone Screen Negative (NEG=<300) 11/07/24 08:57 Ur Barbiturates Screen Negative (NEG=<200) 11/07/24 08:57 Ur Phencyclidine Scrn Negative (NEG=<25) 11/07/24 08:57 Ur Amphetamines Screen Negative (NEG=<1000) 11/07/24 08:57 U Benzodiazepines Scrn Positive (NEG=<200) A 11/07/24 08:57 Urine Cocaine Screen Negative (NEG=<300) 11/07/24 08:57 U Marijuana (THC) Screen Negative (NEG=<50) 11/07/24 08:57 Review of Systems Constitutional: Weakness and Malaise Eyes: No Symptoms Reported ENT: No Symptoms Reported Respiratory: Shortness of Breath Cardiovascular: Edema Gastrointestinal: Nausea Genitourinary: Dysuria and Incontinence Musculoskeletal: Back Pain Skin: Rash and Wound Neurological: Weakness and Confusion Physical Exam Vital Signs: Vital Signs Temperature 97.8 F Pulse Rate [Bilateral Radial] 75 Respiratory Rate 16 Blood Pressure [Left Arm] 110/59 Blood Pressure [Left Arm] 116/62 Blood Pressure 115/58 Blood Pressure 109/52 O2 Sat by Pulse Oximetry 99 Oriented: Person Eyes: Normal Ear: Normal Nose: Normal Throat: Dry Respiratory: Diminished Throughout Cardiovascular: Murmur and Edema Auscultation: Bowel Sounds: Normal Palpation: Normal Tenderness: Normal Skin: Decreased Turgur, Rash and Wound (BUTTOCKS) Musculoskeletal: Back:Lumbar Psychiatric: Depression Mood Description: Depressed Affect: Depressed Speech Pattern: Clear and Delayed Assessment/Plan (1) Altered mental status: Status: Acute Plan: ADMIT, BC AND UC ON ADMISSION IV ATBX, BP AND CARDIAC CONTROL BS CONTROL, I&OS, WOUND CULTURE VERIFY HOME MEDICATIONS CXR ON ADMISSION, SUPPLEMENTAL O2 (2) Urinary tract infection: Status: Acute (3) CHF (congestive heart failure): Qualifiers: Heart failure chronicity: acute on chronic Heart failure type: combined systolic and diastolic Qualified Code(s): I50.43 - Acute on chronic combined systolic (congestive) and diastolic (congestive) heart failure Status: Acute
[2024-11-07 19:37] VITALS: BMI 26.3
[2024-11-07] MEDS: COREG TAB 6.25 MG PO SCH (21:07)
[2024-11-07] MEDS: ELIQUIS PO SCH (21:07)
[2024-11-07] MEDS: KLOR-CON PO SCH (21:08)
[2024-11-07] MEDS: SNACK - Diabetic Appropriate PO SCH (21:08)
[2024-11-07] MEDS: NYSTATIN POWDER TOP SCH (21:09)
[2024-11-07] MEDS: NYSTATIN CREAM TOP SCH (21:09)
[2024-11-07] MEDS: NS 250 ML IV 25 ML IV PRN (21:31)
[2024-11-07] MEDS: ZOSYN VIAL 3.375 GRAMS IV ONE (21:35)
[2024-11-07] MEDS: NS 100 ML IV 100 ML ONE (21:36)
[2024-11-08 05:55] LABS: BASOPHILS % (AUTO) 0.9 % (0.2-1.0); EOSINOPHILS # (AUTO) 0.1 x10^3/uL (0.0-0.2); EOSINOPHILS % (AUTO) 2.2 % (0.9-2.9); HEMATOCRIT 28.8 % (36.0-47.0); HEMOGLOBIN 9.7 g/dL (12.0-16.0); LYMPHOCYTES # (AUTO) 0.8 X10^3/uL (1.3-2.9); LYMPHOCYTES % (AUTO) 17.1 % (21.0-51.0); MEAN CORPUSCULAR HEMOGLOBIN 29.5 pg (27.0-34.0); MEAN CORPUSCULAR HGB CONC 33.5 g/dL (33.0-35.0); MEAN PLATELET VOLUME 8.4 fL (7.4-11.0); MONOCYTES # (AUTO) 0.8 x10^3/uL (0.3-0.8); MONOCYTES % (AUTO) 16.8 % (0.0-13.0); NEUTROPHILS # (AUTO) 2.9 x10^3/uL (2.2-4.8); PLATELET COUNT 114 X10^3/uL (150.0-450.0); RED BLOOD COUNT 3.28 X10^6/uL (3.5-5.4); RED CELL DISTRIBUTION WIDTH 18.6 % (11.6-16.5); WHITE BLOOD COUNT 4.7 X10^3/uL (3.6-10.0)
[2024-11-08 06:06] LABS: ALANINE AMINOTRANSFERASE 15 Units/L (12-78); ALBUMIN 2.7 g/dL (3.4-5.0); ALKALINE PHOSPHATASE 74 Units/L (46-116); ASPARTATE AMINO TRANSFERASE 31 Units/L (15-37); BLOOD UREA NITROGEN 16 mg/dL (7-18); CHLORIDE 102 mmol/L (98-107); CREATININE 0.82 mg/dL (0.55-1.02); GLUCOSE 97 mg/dL (65-99); POTASSIUM 3.6 mmol/L (3.5-5.1); SODIUM 141 mmol/L (136-145); TOTAL PROTEIN 6.2 g/dL (6.4-8.2); eGFR NON BLACK RACES > 60 (>60)
[2024-11-08] MEDS ORDERED: CONSULT PHARMACY - POTASSIUM & MAGNESIUM XX SCH (07:00)
[2024-11-08] MEDS: K-DUR TAB 20 MEQ PO SCH (08:10)
[2024-11-08] MEDS: LANOXIN or DIGITEK PO SCH (08:40)
[2024-11-08] MEDS: NovoLIN R (or HumuLIN R) SUBCUT PRN (10:44)
[2024-11-09 05:25] LABS: BASOPHILS % (AUTO) 0.5 % (0.2-1.0); EOSINOPHILS # (AUTO) 0.3 x10^3/uL (0.0-0.2); EOSINOPHILS % (AUTO) 5.2 % (0.9-2.9); HEMATOCRIT 27.2 % (36.0-47.0); HEMOGLOBIN 9.3 g/dL (12.0-16.0); LYMPHOCYTES # (AUTO) 0.8 X10^3/uL (1.3-2.9); LYMPHOCYTES % (AUTO) 14.4 % (21.0-51.0); MEAN CORPUSCULAR HEMOGLOBIN 29.9 pg (27.0-34.0); MEAN CORPUSCULAR HGB CONC 34.1 g/dL (33.0-35.0); MEAN CORPUSCULAR VOLUME 87.6 fL (80.0-100.0); MEAN PLATELET VOLUME 8.4 fL (7.4-11.0); MONOCYTES # (AUTO) 0.7 x10^3/uL (0.3-0.8); MONOCYTES % (AUTO) 12.2 % (0.0-13.0); NEUTROPHILS # (AUTO) 3.7 x10^3/uL (2.2-4.8); NEUTROPHILS % (AUTO) 67.7 % (42.0-75.0); PLATELET COUNT 105 X10^3/uL (150.0-450.0); RED CELL DISTRIBUTION WIDTH 17.6 % (11.6-16.5); WHITE BLOOD COUNT 5.4 X10^3/uL (3.6-10.0)
[2024-11-09 05:38] LABS: ALANINE AMINOTRANSFERASE 11 Units/L (12-78); ALBUMIN 2.6 g/dL (3.4-5.0); ALKALINE PHOSPHATASE 74 Units/L (46-116); ASPARTATE AMINO TRANSFERASE 29 Units/L (15-37); BLOOD UREA NITROGEN 15 mg/dL (7-18); CALCIUM 7.5 mg/dL (8.5-10.1); CARBON DIOXIDE 31.6 mmol/L (21-32); CHLORIDE 101 mmol/L (98-107); COR CA(FOR HYPOALB) 8.6 mg/dL (8.5-10.1); CREATININE 0.74 mg/dL (0.55-1.02); GLUCOSE 96 mg/dL (65-99); MAGNESIUM 1.2 mg/dL (2.0-2.9); POTASSIUM 3.3 mmol/L (3.5-5.1); SODIUM 139 mmol/L (136-145); eGFR NON BLACK RACES > 60 (>60)
[2024-11-09] MEDS ORDERED: CONSULT PHARMACY - POTASSIUM & MAGNESIUM XX SCH (07:00)
[2024-11-09] MEDS: MAG-OX TAB PO SCH (08:21)
[2024-11-09] MEDS: K-DUR TAB 20 MEQ PO SCH (08:32)
--- NOTE | 2024-11-09 09:44 | RAD ---
EXAM:AP chestHISTORY:CHF SOBCOMPARISON:11/07/2024FINDINGS:Stable cardiomegaly and pacemaker placement. The lungs remain clear of active disease; there is no definite pneumonia, CHF or developing pleural effusion.IMPRESSION:No change or acute findings.THIS IS AN ELECTRONICALLY VERIFIED FINAL REPORT11/09/2024 9:40 AM - Electronically signed by Horace Chaudhari MD
--- NOTE | 2024-11-09 10:07 | NOTE.SOAP ---
Soap Note Note for Day of Date of Exam: 11/09/24 Subjective Data Subjective Data: Daily rounds. No overnight events. Patient reports weakness. Nurses deny any any acute issues. Hemoglobin is still low, white count normal, culture pending Objective Data Objective Data: Elderly female in no acute distress. Appears tired and weak. Heart regular rate and rhythm. Lungs are clear. Bowel sounds are present. Blistering and weeping of the lower extremities with 1+ pitting edema. Assessment Assessment: 1. Altered mental status due to UTI. Culture pending. 2. Chronic systolic CHF exacerbation, acute. 3. Mild hypokalemia, acute. Plan Plan: Continue antibiotics for now. Continue current medications. Monitor for changes. Electrolyte replacement as needed.
[2024-11-10 05:03] LABS: BASOPHILS % (AUTO) 0.4 % (0.2-1.0); EOSINOPHILS # (AUTO) 0.5 x10^3/uL (0.0-0.2); EOSINOPHILS % (AUTO) 9.3 % (0.9-2.9); HEMATOCRIT 27.9 % (36.0-47.0); HEMOGLOBIN 9.6 g/dL (12.0-16.0); LYMPHOCYTES # (AUTO) 0.9 X10^3/uL (1.3-2.9); LYMPHOCYTES % (AUTO) 17.4 % (21.0-51.0); MEAN CORPUSCULAR HEMOGLOBIN 30.1 pg (27.0-34.0); MEAN CORPUSCULAR HGB CONC 34.3 g/dL (33.0-35.0); MEAN CORPUSCULAR VOLUME 87.8 fL (80.0-100.0); MEAN PLATELET VOLUME 7.8 fL (7.4-11.0); MONOCYTES # (AUTO) 0.7 x10^3/uL (0.3-0.8); MONOCYTES % (AUTO) 13.7 % (0.0-13.0); NEUTROPHILS # (AUTO) 2.9 x10^3/uL (2.2-4.8); NEUTROPHILS % (AUTO) 59.2 % (42.0-75.0); PLATELET COUNT 115 X10^3/uL (150.0-450.0); RED BLOOD COUNT 3.18 X10^6/uL (3.5-5.4); RED CELL DISTRIBUTION WIDTH 18.2 % (11.6-16.5); WHITE BLOOD COUNT 4.9 X10^3/uL (3.6-10.0)
[2024-11-10 05:08] LABS: ALANINE AMINOTRANSFERASE 11 Units/L (12-78); ALBUMIN 2.5 g/dL (3.4-5.0); ALKALINE PHOSPHATASE 79 Units/L (46-116); ASPARTATE AMINO TRANSFERASE 28 Units/L (15-37); BLOOD UREA NITROGEN 12 mg/dL (7-18); CALCIUM 7.7 mg/dL (8.5-10.1); CARBON DIOXIDE 33.8 mmol/L (21-32); CHLORIDE 102 mmol/L (98-107); COR CA(FOR HYPOALB) 8.9 mg/dL (8.5-10.1); CREATININE 0.63 mg/dL (0.55-1.02); GLUCOSE 92 mg/dL (65-99); MAGNESIUM 1.5 mg/dL (2.0-2.9); POTASSIUM 3.7 mmol/L (3.5-5.1); SODIUM 140 mmol/L (136-145); TOTAL PROTEIN 5.9 g/dL (6.4-8.2); eGFR NON BLACK RACES > 60 (>60)
[2024-11-10] MEDS ORDERED: CONSULT PHARMACY - POTASSIUM & MAGNESIUM XX SCH (08:00)
[2024-11-10] MEDS: MAG-OX TAB PO SCH (09:30)
[2024-11-10] MEDS: K-DUR TAB 20 MEQ PO ONE (10:49)
--- NOTE | 2024-11-10 15:34 | NOTE.SOAP ---
Soap Note Note for Day of Date of Exam: 11/10/24 Subjective Data Subjective Data: Preliminary urine culture with G+C. 2 months ago she had E. coli. Nurses reports she is maintaining and ambulating better today. Patient just reports she feels fatigued. Objective Data Objective Data: Elderly female, chronically ill-appearing. NAD. NCAT, EOMI, hearing intact conversation. Heart regular rate and rhythm. Lungs clear with strong speech. Bowel sounds are present. Assessment Assessment: 1. Altered mental status due to UTI. Culture with G+C. 2. Chronic systolic CHF exacerbation, acute. 3. Mild hypokalemia, acute. 4. PAF, chronic. Plan Plan: Adjust antibiotics after sensitivities return. Exacerbation appears to be improving. Hypokalemia resolved. Currently in sinus rhythm. Chronically anemic with thrombocytopenia greater than 100,000
[2024-11-11 05:09] LABS: BASOPHILS % (AUTO) 0.6 % (0.2-1.0); EOSINOPHILS # (AUTO) 0.4 x10^3/uL (0.0-0.2); EOSINOPHILS % (AUTO) 7.6 % (0.9-2.9); HEMATOCRIT 29.9 % (36.0-47.0); HEMOGLOBIN 10.1 g/dL (12.0-16.0); LYMPHOCYTES # (AUTO) 0.9 X10^3/uL (1.3-2.9); LYMPHOCYTES % (AUTO) 19.7 % (21.0-51.0); MEAN CORPUSCULAR HEMOGLOBIN 29.7 pg (27.0-34.0); MEAN CORPUSCULAR HGB CONC 33.8 g/dL (33.0-35.0); MEAN CORPUSCULAR VOLUME 87.9 fL (80.0-100.0); MEAN PLATELET VOLUME 7.9 fL (7.4-11.0); MONOCYTES # (AUTO) 0.6 x10^3/uL (0.3-0.8); MONOCYTES % (AUTO) 13.1 % (0.0-13.0); NEUTROPHILS # (AUTO) 2.7 x10^3/uL (2.2-4.8); PLATELET COUNT 117 X10^3/uL (150.0-450.0); RED BLOOD COUNT 3.41 X10^6/uL (3.5-5.4); WHITE BLOOD COUNT 4.6 X10^3/uL (3.6-10.0)
[2024-11-11 05:25] LABS: ALANINE AMINOTRANSFERASE 9 Units/L (12-78); ALBUMIN 2.5 g/dL (3.4-5.0); ALKALINE PHOSPHATASE 68 Units/L (46-116); ASPARTATE AMINO TRANSFERASE 26 Units/L (15-37); BLOOD UREA NITROGEN 9 mg/dL (7-18); CARBON DIOXIDE 33.6 mmol/L (21-32); CHLORIDE 102 mmol/L (98-107); COR CA(FOR HYPOALB) 9.2 mg/dL (8.5-10.1); CREATININE 0.62 mg/dL (0.55-1.02); GLUCOSE 84 mg/dL (65-99); MAGNESIUM 1.5 mg/dL (2.0-2.9); POTASSIUM 3.8 mmol/L (3.5-5.1); SODIUM 139 mmol/L (136-145); eGFR NON BLACK RACES > 60 (>60)
[2024-11-11] MEDS ORDERED: CONSULT PHARMACY - POTASSIUM & MAGNESIUM XX SCH (09:00)
[2024-11-11] MEDS: MAG-OX TAB PO SCH (09:24)
[2024-11-11] MEDS: AUGMENTIN 875 MG/125 MG TAB PO SCH (14:10)
[2024-11-11] MEDS: LASIX PO SCH (20:32)
[2024-11-12 06:02] LABS: BASOPHILS % (AUTO) 0.5 % (0.2-1.0); EOSINOPHILS # (AUTO) 0.3 x10^3/uL (0.0-0.2); EOSINOPHILS % (AUTO) 6.4 % (0.9-2.9); HEMATOCRIT 35.5 % (36.0-47.0); HEMOGLOBIN 11.9 g/dL (12.0-16.0); LYMPHOCYTES # (AUTO) 0.9 X10^3/uL (1.3-2.9); LYMPHOCYTES % (AUTO) 22.1 % (21.0-51.0); MEAN CORPUSCULAR HEMOGLOBIN 29.3 pg (27.0-34.0); MEAN CORPUSCULAR HGB CONC 33.5 g/dL (33.0-35.0); MEAN CORPUSCULAR VOLUME 87.4 fL (80.0-100.0); MONOCYTES # (AUTO) 0.7 x10^3/uL (0.3-0.8); MONOCYTES % (AUTO) 16.2 % (0.0-13.0); NEUTROPHILS # (AUTO) 2.3 x10^3/uL (2.2-4.8); NEUTROPHILS % (AUTO) 54.8 % (42.0-75.0); PLATELET COUNT 136 X10^3/uL (150.0-450.0); RED BLOOD COUNT 4.06 X10^6/uL (3.5-5.4); RED CELL DISTRIBUTION WIDTH 17.8 % (11.6-16.5); WHITE BLOOD COUNT 4.1 X10^3/uL (3.6-10.0)
[2024-11-12 06:21] LABS: ALANINE AMINOTRANSFERASE 14 Units/L (12-78); ALBUMIN 2.8 g/dL (3.4-5.0); ALKALINE PHOSPHATASE 77 Units/L (46-116); ASPARTATE AMINO TRANSFERASE 31 Units/L (15-37); BLOOD UREA NITROGEN 10 mg/dL (7-18); CALCIUM 8.8 mg/dL (8.5-10.1); CARBON DIOXIDE 34.8 mmol/L (21-32); CHLORIDE 101 mmol/L (98-107); COR CA(FOR HYPOALB) 9.8 mg/dL (8.5-10.1); CREATININE 0.56 mg/dL (0.55-1.02); GLUCOSE 102 mg/dL (65-99); MAGNESIUM 1.7 mg/dL (2.0-2.9); POTASSIUM 3.7 mmol/L (3.5-5.1); SODIUM 139 mmol/L (136-145); TOTAL PROTEIN 6.8 g/dL (6.4-8.2); eGFR NON BLACK RACES > 60 (>60)
[2024-11-12] MEDS ORDERED: CONSULT PHARMACY - POTASSIUM & MAGNESIUM XX SCH (07:00)
[2024-11-12 08:52] VITALS: RESP 18
[2024-11-12] MEDS: K-DUR TAB 20 MEQ PO SCH (10:09)
[2024-11-12] MEDS: MAG-OX TAB PO SCH (10:09)
--- NOTE | 2024-11-12 11:14 | RAD ---
EXAMINATION:CHEST, 1 VIEWHISTORY:CHF, SOB; .COMPARISON STUDY:11/08/2024TECHNIQUE:A single view of the chest was obtained.FINDINGS:Left-sided pacemaker. Heart size is enlarged. No acute infiltrates. There is no pneumothorax. Hilar and mediastinal structures and bony structures are unremarkable. .IMPRESSION:No acute process in the chest.THIS IS AN ELECTRONICALLY VERIFIED FINAL REPORT11/12/2024 11:11 AM - Electronically signed by Juan Pablo Kaur MD
[2024-11-12 11:59] VITALS: BP 145/63; PULSE 70; TEMP 97.9; O2SAT 97
== END 2024-11-12 14:45 | disposition home health service (06) ==
LOC: ER 08:36 → MED/SURG 08:36
PROVIDERS: ADMIT Internal Medicine; ATTEND Internal Medicine
DX: S80.821A Blister (nonthermal), right lower leg, initial encounter; I11.0 Hypertensive heart disease with heart failure; E86.0 Dehydration; F13.90 Sedative, hypnotic, or anxiolytic use, unspecified, uncomplicated; K21.9 Gastro-esophageal reflux disease without esophagitis; R94.31 Abnormal electrocardiogram [ECG] [EKG]; I25.10 Atherosclerotic heart disease of native coronary artery without angina pectoris; D69.6 Thrombocytopenia, unspecified; Z79.01 Long term (current) use of anticoagulants; L89.152 Pressure ulcer of sacral region, stage 2; S80.822A Blister (nonthermal), left lower leg, initial encounter; R06.02 Shortness of breath; E11.65 Type 2 diabetes mellitus with hyperglycemia; S30.821A Blister (nonthermal) of abdominal wall, initial encounter; F41.8 Other specified anxiety disorders; I50.43 Acute on chronic combined systolic (congestive) and diastolic (congestive) heart failure; B95.1 Streptococcus, group B, as the cause of diseases classified elsewhere; W18.39XA Other fall on same level, initial encounter; N39.0 Urinary tract infection, site not specified; R26.89 Other abnormalities of gait and mobility; I48.0 Paroxysmal atrial fibrillation; R60.0 Localized edema; Z95.0 Presence of cardiac pacemaker; R41.82 Altered mental status, unspecified